=== PATIENT | female | born 1940 | race Caucasian/White ===

== ENCOUNTER 2022-04-16 09:26 | Outpatient (REF) | payer MEDICARE, SELFPAY ==
[2022-04-16 11:28] LABS: MANUAL DIFF FLAG NO
[2022-04-16 11:31] LABS: Basophils Absolute Auto 0.1 X10*3/uL (0.0-0.2); Basophils Percent Auto 0.8 % (0-2); Eosinophils Absolute Auto 0.2 X10*3/uL (0.0-0.4); Eosinophils Percent Auto 3.2 % (0-4); Hematocrit 42.5 % (37.0-47.0); Hemoglobin 13.9 g/dl (12.0-16.0); Imm Gran Abs Auto 0.02 X10*3/uL (0.00-0.03); Imm Gran Pct Auto 0.3 % (0.0-0.4); Lymphocytes Absolute Auto 1.9 X10*3/uL (1.2-4.9); Lymphocytes Percent Auto 28.7 % (20-40); Mean Corpuscular HGB Conc 32.7 g/dl (31.0-35.0); Mean Corpuscular Hemoglobin 29.9 pg (27.0-33.0); Mean Corpuscular Volume 91.4 fL (80.0-98.0); Mean Platelet Volume 9.9 fL (9.4-12.3); Monocytes Absolute Auto 0.5 X10*3/uL (0.1-1.2); Monocytes Percent Auto 8.3 % (2-11); Neutrophils Absolute Auto 3.8 x10*3/uL (2.0-8.3); Neutrophils Percent Auto 58.7 % (45-73); Platelet Count 359 X10*3/uL (160-400); Red Blood Count 4.65 X10*6/uL (4.20-5.50); Red Cell Distribution Width 14.2 % (11.0-16.0); White Blood Count 6.5 X10*3/uL (4.8-10.8)
[2022-04-16 12:06] LABS: Vitamin D 25-OH Total 105.7 ng/mL (>30)
[2022-04-16 12:08] LABS: Alanine Aminotransferase 17 U/L (0-31); Anion Gap 17 (12-20); Aspartate Amino Transferase 21 U/L (5-31); Blood Urea Nitrogen 30 mg/dL (9-16); Calcium 10.2 mg/dL (8.4-10.2); Carbon Dioxide 22 mmol/L (22-29); Chloride 104 mmol/L (96-108); Cholesterol 180 mg/dL; Estimated Glomerular Filt Rate 18; Glucose Fasting 126 mg/dL (60-99); HDL Cholesterol 86 mg/dL; LDL Cholesterol Calculated 78 mg/dl; Sodium 139 mmol/L (135-145); Triglycerides 83 mg/dL
== END 2022-04-16 09:27 | disposition home or self-care (01) ==
LOC: HO.HMGCLDS 09:26
PROVIDERS: PCP Internal Medicine; Visit Provider Internal Medicine
DX: E78.5 Hyperlipidemia, unspecified (principal); I10 Essential (primary) hypertension; M16.0 Bilateral primary osteoarthritis of hip; R12 Heartburn; Z85.3 Personal history of malignant neoplasm of breast; Z87.442 Personal history of urinary calculi
CPT/HCPCS: 36415; 80048; 80061; 82306; 84450; 84460; 85025

== ENCOUNTER 2022-04-21 07:08 | Outpatient (REF) | payer MEDICARE, SELFPAY ==
[2022-04-21 11:33] LABS: Estimated Average Glucose 123 mg/dL; Hemoglobin A1c % 5.9 %
[2022-04-21 11:56] LABS: Glucose Fasting 110 mg/dL (60-99)
== END 2022-04-21 07:09 | disposition home or self-care (01) ==
LOC: HO.HMGCLDS 07:08
PROVIDERS: PCP Internal Medicine; Visit Provider Internal Medicine
DX: R73.01 Impaired fasting glucose (principal)
CPT/HCPCS: 36415; 82947; 83036

== ENCOUNTER 2022-08-26 11:13 | Outpatient (REF) | payer MEDICARE, SELFPAY ==
[2022-08-26 14:24] LABS: C Reactive Protein 0.37 mg/dL (< or = 0.50)
[2022-08-26 14:37] LABS: Erythrocyte Sedimentation Rate 23 MM/HR (0-20)
== END 2022-08-26 11:14 | disposition home or self-care (01) ==
LOC: HO.HMGCLDS 11:13
PROVIDERS: PCP Internal Medicine; Visit Provider Internal Medicine
DX: M25.511 Pain in right shoulder (principal); M25.512 Pain in left shoulder
CPT/HCPCS: 36415; 85652; 86140

== ENCOUNTER 2022-10-14 06:45 | Outpatient (REF) | payer MEDICARE, SELFPAY ==
[2022-10-14 11:58] LABS: Alanine Aminotransferase 18 U/L (0-31); Aspartate Amino Transferase 19 U/L (5-31); Cholesterol 188 mg/dL; Glucose Fasting 138 mg/dL (60-99); HDL Cholesterol 78 mg/dL; LDL Cholesterol Calculated 94 mg/dl; Triglycerides 84 mg/dL
[2022-10-14 12:04] LABS: Vitamin D 25-OH Total 70.6 ng/mL (>30)
== END 2022-10-14 06:46 | disposition home or self-care (01) ==
LOC: HO.HMGCLDS 06:45
PROVIDERS: PCP Internal Medicine; Visit Provider Internal Medicine
DX: Z00.01 Encounter for general adult medical examination with abnormal findings (principal); M25.512 Pain in left shoulder; M25.511 Pain in right shoulder; I10 Essential (primary) hypertension; N95.1 Menopausal and female climacteric states; E78.5 Hyperlipidemia, unspecified
CPT/HCPCS: 36415; 80061; 82306; 82550; 82947; 84450; 84460

== ENCOUNTER 2023-04-12 09:07 | Outpatient (AMB) | payer MEDICARE, SELFPAY ==
[2023-04-12 09:16] VITALS: BP 138/70; PULSE 98; O2SAT 98; BMI 27.5
--- NOTE | 2023-04-12 09:16 | A.OFFPC_ITS ---
Vital Signs 04/12/23 09:16 Height 5 ft 4 in Weight 160 lb 4 oz BMI 27.5 BP 138/70 Blood Pressure Location Lt brachial Pulse 98 Pulse Source Pulse Oximeter Pulse Oximetry (%) 98 Oxygen Delivery Method Room Air Intake Visit Reasons: 6 Month follow up Allergies Penicillins Adverse Reaction (Verified 04/12/23 12:05) mouth swells strawberry Adverse Reaction (Verified 04/12/23 12:05) Rash tomato Adverse Reaction (Verified 04/12/23 12:05) Rash Medication List - Last Reconciled 04/12/23 by Henry Araiza, [facility] [place]- amlodipine 10 mg PO DAILY anastrozole 1 mg PO DAILY calcium carbonate (Antacid (calcium carbonate)) 200 mg PO DAILY famotidine 40 mg PO DAILY furosemide 20 mg PO QAM gabapentin 100 mg PO TID rosuvastatin 5 mg PO DAILY Tobacco use date assessed: 10/13/22 HPI 6 Month follow up HPI Details Pt's PCP is Dr. Mejia but I am seeing her for a 6 month follow up. Dyslipidemia: On rosuvastatin 5mg. HTN: Blood pressure is managed with amlodipine 10mg and furosemide 20mg. Will order labs. Denies chest pain, shortness of breath, headache, dizziness, and blurred vision. Pt is following up with rheumatology in the near future. Pt is fairly active. Pt reports some mild MURCIA when walking up the stairs. Mammo and bone density are up to date. [facility] Medical History (Updated 02/24/23 @ 13:03 by Yen Mejia MD) Annual visit for general adult medical examination with abnormal findings Bilateral shoulder pain Congenital hypertrophic pyloric stenosis Dyslipidemia Elevated serum creatinine Essential hypertension Heartburn symptom History of bone density study History of mammogram History of Papanicolaou smear of cervix Hx of breast cancer Hx of renal calculi Need for prophylactic antibiotic Osteoarthritis of hips, bilateral Polyarthralgia Post-menopause Tubular adenoma of colon Surgical History History of left hip replacement History of total right hip arthroplasty S/P lumpectomy, left breast Status post right breast lumpectomy Social History Housing: House Patient Tobacco Use Status: Never used Tobacco e-Cigarette/Vaping Use: Never Used Current occupational status: retired Cognitive needs: No Hearing needs: No Vision needs: Yes Questionnaire Thrive Questionnaire Date Thrive assessed: 04/16/22 VENANCIO-7 AMB Questionnaire VENANCIO-7 Date VENANCIO - 7 assessed: 10/13/22 Source: Developed by Drs. Dayton Atwood, Amy Muniz, Jese Pyle and colleagues, with an educational ellen from [employer]. Review of Systems Const Reports as per HPI Physical exam (Primary Care) Vital Signs: Last Vital Signs Pulse 98 04/12/23 09:16 BP 138/70 04/12/23 09:16 Pulse Ox 98 04/12/23 09:16 Oxygen Delivery Method Room Air 04/12/23 09:16 BMI result Body Mass Index 27.5 Tobacco/Smoking Status: Tobacco use Status Tobacco use date assessed 10/13/22 04/12/23 09:18 Patient Tobacco Use Status Never used Tobacco 04/12/23 09:18 e-Cigarette/Vaping Use Never Used 04/12/23 09:18 Thrive Assessment: Date of Thrive Assessment Date Thrive assessed 04/16/22 04/12/23 09:18 Const General: cooperative Orientation/consciousness: patient oriented x3 Resp Effort & Inspection: normal respiratory effort Auscultation: clear to auscultation bilaterally Cardio Rate: regular rate Rhythm: regular rhythm Heart sounds: S1 normal heart sound present and S2 normal heart sound present Neuro General: patient oriented x3 Extrem Right lower extremity: edema (trace) Left lower extremity: edema (trace) Psych Appearance: grossly normal Mental Status: mental status grossly normal Speech and movement: Normal speech and movement present Affect: normal affect Attitude: cooperative Thought process: Normal thought process present Thought content: Normal thought content present Insight: Good insight present (Psych) Judgement: Good judgement present (Psych) Assessment and Plan Assessment & Plan (1) Dyslipidemia: Code(s): E78.5 - Hyperlipidemia, unspecified Plan: Labs ordered (2) Essential hypertension: Code(s): I10 - Essential (primary) hypertension Plan: Labs ordered (3) Post-menopause: Code(s): Z78.0 - Asymptomatic menopausal state Plan: Vitamin D ordered Plan The patient agreed to the use of a medical staff credentialing coordinator for this encounter. Scribed for RAFAEL Morel by Cheryle Osmani, medical staff credentialing coordinator, on 04/12/2023 at 09:45 EST. Orders: Orders Comprehensive [place]. Panel Fast Today E78.5 - Hyperlipidemia, unspecified, I10 - Essential (primary) hypertension Lipid Panel Today E78.5 - Hyperlipidemia, unspecified, I10 - Essential (primary) hypertension TSH reflex Free T4 Today E78.5 - Hyperlipidemia, unspecified, I10 - Essential (primary) hypertension Complete Blood Count Auto Diff Today E78.5 - Hyperlipidemia, unspecified, I10 - Essential (primary) hypertension UA CC w/rflx Micro + Cult Today E78.5 - Hyperlipidemia, unspecified, I10 - Essential (primary) hypertension Vitamin D 25-OH Total Today Z78.0 - Asymptomatic menopausal state Coding Level of Care Code New Pt Level 3 (30172) Diagnoses Dyslipidemia E78.5 Essential hypertension I10 Post-menopause Z78.0
== END 2023-04-12 10:46 | disposition home or self-care (01) ==
PROVIDERS: Visit Provider Nurse Practitioner Family
DX: E78.5 Hyperlipidemia, unspecified (principal); I10 Essential (primary) hypertension; Z78.0 Asymptomatic menopausal state
CPT/HCPCS: 99203

== ENCOUNTER 2023-04-13 07:33 | Outpatient (REF) | payer MEDICARE, SELFPAY ==
[2023-04-13 11:14] LABS: MANUAL DIFF FLAG NO
[2023-04-13 11:30] LABS: Appearance Urine Cloudy; Color Urine Yellow; Glucose Urine UA Negative (Negative); Leukocyte Esterase Urine Large (3+) (Negative); Nitrite Urine Negative (Negative); Specific Gravity - Urine 1.015 (1.005-1.025); UMIC TRIGGER UACC YES; Urine Blood Negative (Negative); Urine Ketones Negative (Negative); Urine Protein Trace mg/dL (Neg-Trace)
[2023-04-13 11:35] LABS: Basophils Absolute Auto 0.1 X10*3/uL (0.0-0.2); Basophils Percent Auto 0.9 % (0-2); Eosinophils Absolute Auto 0.4 X10*3/uL (0.0-0.4); Eosinophils Percent Auto 6.9 % (0-4); Hemoglobin 12.7 g/dl (12.0-16.0); Imm Gran Abs Auto 0.01 X10*3/uL (0.00-0.03); Imm Gran Pct Auto 0.2 % (0.0-0.4); Lymphocytes Absolute Auto 1.8 X10*3/uL (1.2-4.9); Lymphocytes Percent Auto 33.3 % (20-40); Mean Corpuscular HGB Conc 32.6 g/dl (31.0-35.0); Mean Corpuscular Hemoglobin 28.2 pg (27.0-33.0); Mean Corpuscular Volume 86.7 fL (80.0-98.0); Mean Platelet Volume 9.5 fL (9.4-12.3); Monocytes Absolute Auto 0.4 X10*3/uL (0.1-1.2); Monocytes Percent Auto 7.8 % (2-11); Neutrophils Absolute Auto 2.8 x10*3/uL (2.0-8.3); Neutrophils Percent Auto 50.9 % (45-73); Platelet Count 352 X10*3/uL (160-400); Red Cell Distribution Width 14.6 % (11.0-16.0); White Blood Count 5.4 X10*3/uL (4.8-10.8)
[2023-04-13 11:35] LABS: Bacteria Urine 4+ (None Seen); Hyaline Casts Urine 0-2 /LPF (0-2); RBC Urine 0-2 /HPF (0-2); Squamous Epithelial Cell Urine >20 /HPF (0-2); UACC Culture Trigger YES; WBC Urine >50 /HPF (0-5)
[2023-04-13 11:58] LABS: Alanine Aminotransferase 17 U/L (0-31); Albumin Level 4.4 g/dL (3.5-5.0); Alkaline Phosphatase 94 U/L (39-117); Anion Gap 13 (12-20); Aspartate Amino Transferase 21 U/L (5-31); Bilirubin Total 0.5 mg/dL (0.0-1.0); Blood Urea Nitrogen 22 mg/dL (9-16); Calcium 9.9 mg/dL (8.4-10.2); Carbon Dioxide 25 mmol/L (22-29); Chloride 108 mmol/L (96-108); Cholesterol 172 mg/dL; Estimated Glomerular Filt Rate 43; Glucose Fasting 128 mg/dL (60-99); HDL Cholesterol 72 mg/dL; LDL Cholesterol Calculated 78 mg/dl; Sodium 142 mmol/L (135-145); Total Protein 7.4 g/dL (6.5-8.0); Triglycerides 110 mg/dL
[2023-04-13 12:19] LABS: TSH reflex Free T4 1.03 uIU/mL (0.32-4.0); Vitamin D 25-OH Total 61.8 ng/mL (>30)
== END 2023-04-13 07:34 | disposition home or self-care (01) ==
LOC: HO.HMGCLDS 07:33
PROVIDERS: PCP Internal Medicine; Visit Provider Nurse Practitioner Family
DX: E78.5 Hyperlipidemia, unspecified (principal); I10 Essential (primary) hypertension; Z78.0 Asymptomatic menopausal state; E55.9 Vitamin D deficiency, unspecified; N39.0 Urinary tract infection, site not specified
CPT/HCPCS: 36415; 80053; 80061; 81001; 82306; 84443; 85025; 87086; 87088; 87186

== ENCOUNTER 2023-04-21 11:05 | Outpatient (REF) | payer MEDICARE, SELFPAY ==
[2023-04-21 15:08] LABS: Estimated Average Glucose 126 mg/dL
== END 2023-04-21 11:06 | disposition home or self-care (01) ==
LOC: HO.HMGCLDS 11:05
PROVIDERS: PCP Internal Medicine; Visit Provider Internal Medicine
DX: R73.9 Hyperglycemia, unspecified (principal)
CPT/HCPCS: 36415; 83036

== ENCOUNTER 2023-04-27 09:54 | Outpatient (REF) | payer MEDICARE, SELFPAY ==
[2023-04-27 14:21] LABS: Appearance Urine Cloudy; Color Urine Yellow; Glucose Urine UA Negative (Negative); Leukocyte Esterase Urine Negative (Negative); Nitrite Urine Positive (Negative); PH 5.5 (5.0-9.0); Specific Gravity - Urine 1.025 (1.005-1.025); UMIC TRIGGER UACC YES; Urine Blood Negative (Negative); Urine Ketones Negative (Negative); Urine Protein Trace mg/dL (Neg-Trace)
[2023-04-27 14:53] LABS: Bacteria Urine 4+ (None Seen); Hyaline Casts Urine 0-2 /LPF (0-2); RBC Urine 0-2 /HPF (0-2); UACC Culture Trigger YES
== END 2023-04-27 09:55 | disposition home or self-care (01) ==
LOC: HO.HMGCLDS 09:54
PROVIDERS: PCP Internal Medicine; Visit Provider Nurse Practitioner Family
DX: N39.0 Urinary tract infection, site not specified (principal); E78.5 Hyperlipidemia, unspecified; I10 Essential (primary) hypertension
CPT/HCPCS: 81001; 81003; 87086; 87088; 87186

== ENCOUNTER 2023-05-31 10:31 | Outpatient (AMB) | payer MEDICARE, SELFPAY ==
[2023-05-31 10:40] VITALS: BP 136/74; PULSE 108; TEMP 36.3; O2SAT 94; BMI 27.2
--- NOTE | 2023-05-31 10:40 | A.OFFVIS_ITS ---
Intake Vital Signs 05/31/23 10:40 Height 5 ft 4 in Weight 158 lb 4.67 oz BMI 27.2 BP 136/74 Blood Pressure Location Rt brachial Position Sitting Pulse 108 H Pulse Source Pulse Oximeter Temp 97.3 F Temp Source Skin Pulse Oximetry (%) 94 Intake Visit Reasons: Joint Pain Intake Note: New pt presents today for joint pain consult. C/o pain, swelling and stiffness in bl hands, fingers and knuckles. Pain started approx 3-4 months ago. Has tried Voltaren gel and tylenol arthritis strength. 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 Accompanied by: Self / Same As Patient Allergies Penicillins Adverse Reaction (Verified 05/31/23 10:41) mouth swells strawberry Adverse Reaction (Verified 05/31/23 10:41) Rash tomato Adverse Reaction (Verified 05/31/23 10:41) Rash Medication List - Last Reconciled 05/31/23 by Catarino Perry MD acetaminophen ER (Tylenol Arthritis Pain) 1,300 mg PO Q8H amlodipine 5 mg PO DAILY anastrozole 1 mg PO DAILY ascorbic acid (vitamin C) 500 mg PO DAILY calcium carbonate (Antacid (calcium carbonate)) 200 mg PO DAILY famotidine 40 mg PO DAILY gabapentin 100 mg PO TID rosuvastatin 5 mg PO DAILY HPI HPI Comments History of Present Illness Details This is an 82-year-old female was referred for evaluation of multiple joint pain. The condition started on in June of 2022 when patient started having pain and stiffness of both shoulders, this lasted about 2 months then the pain swelling and stiffness started moving to her hands, fingers, knuckles. She has swelling of her right hand. Morning stiffness lasting 3-4 hours. She denies any other joint involvement. She denies any history of DVT/PE. Unaware of any family history of autoimmune rheumatic disease. She was diagnosed with right breast cancer 1999 years ago s/p lumpectomy and radiation, she took tamoxifen for 5 years. she was diagnosed with left breast cancer around 2019 and received lumpectomy and now on anastrozole. [facility] Medical History (Updated 05/31/23 @ 12:35 by Catarino Perry MD) Need for prophylactic antibiotic Annual visit for general adult medical examination with abnormal findings History of bone density study History of Papanicolaou smear of cervix History of mammogram Bilateral shoulder pain Tubular adenoma of colon Congenital hypertrophic pyloric stenosis Elevated serum creatinine Post-menopause Heartburn symptom Hx of renal calculi Osteoarthritis of hips, bilateral Hx of breast cancer Dyslipidemia Essential hypertension Surgical History History of bilateral hip replacements History of total right hip arthroplasty Status post right breast lumpectomy S/P lumpectomy, left breast Family History Mother Arthritis Social History Household Members Other:: Son and Grandson Housing: House Alcohol intake: current Alcohol intake frequency: does not drink Patient Tobacco Use Status: Never used Tobacco e-Cigarette/Vaping Use: Never Used Current occupational status: 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 Cognitive needs: No Hearing needs: No Vision needs: Yes Female Reproductive History Menstrual Age of Menarche: 12 Total pregnancies: 4 Number of Living Children: 3 Ab spontaneous: 1 Review of Systems Const Denies fatigue, Denies fever(s) and Denies weakness ENT Reports no additional complaints Card Reports dyspnea on exertion Resp Reports dyspnea on exertion Musc Reports arthralgias, Reports joint swelling, Reports limited range of motion, Reports stiffness and Reports tingling Skin/Breast Reports unusual bruising Neuro Reports tingling and Denies weakness Endo Denies fatigue Physical Exam Vital Signs: Last Vital Signs Temp 97.3 F 05/31/23 10:40 Pulse 108 H 05/31/23 10:40 BP 136/74 05/31/23 10:40 Pulse Ox 94 05/31/23 10:40 BMI result Body Mass Index 27.2 Const General: cooperative, healthy appearing, comfortable and no acute distress Nutritional Appearance: overweight Orientation/consciousness: patient oriented x3 Limitations: no limitations HEENT Head: Yes normocephalic and Yes atraumatic Mouth: moist mucous membranes Resp Effort & Inspection: normal respiratory effort and able to speak in complete sentences Auscultation: clear to auscultation bilaterally Cardio Rate: regular rate Rhythm: regular rhythm Heart sounds: S1 normal heart sound present GI Inspection: No distended Palpation (GI): Soft to palpation and nontender Skin General skin exam: no rashes or lesions noted Neuro General: patient oriented x3 Extrem Other: Mild right wrist swelling without tenderness or pain with any range of motion Diffuse 2nd through 5th MCP swelling and mild tenderness Diffuse 2nd through 5th finger swelling Diffuse 2nd through 5th PIP swelling Swelling of 2nd through 5th MCPs on the left Diffuse PIP swelling No elbow pain with full range of motion No hip pain with full range of motion No ankle pain or swelling bilaterally Negative MTP squeeze test bilateral No MTP tenderness bilaterally Assessment & Plan Assessment & Plan (1) Inflammatory arthritis: Code(s): M19.90 - Unspecified osteoarthritis, unspecified site Plan: This is an 82-year-old female who presents for evaluation of multiple joint pain. The condition started in number of 2021 when she had 2 month history of pain and stiffness of her shoulders then the pain and swelling moved to her hands. On exam she has multiple swollen and tender joints. Clinical picture consistent with inflammatory arthritis, likely elderly onset RA. Check comprehensive serology for autoimmune rheumatic disease. Check x-rays of involved joints Start prednisone therapeutic trial Follow-up in 3 weeks Plan I spent 46 minutes reviewing patient's chart, evaluating patient, ordering diagnostic workup, counseling patient and documenting in the chart Orders: Orders Complete Blood Count Auto Diff Today M25.50 - Pain in unspecified joint Erythrocyte Sedimentation Rate Today M25.50 - Pain in unspecified joint Immunofixation Pnl, Serum Today M25.50 - Pain in unspecified joint Anti Extractable Nuclear Ag Today M25.50 - Pain in unspecified joint Anti DNA DS Antibody Today M25.50 - Pain in unspecified joint Complement C4 Today M25.50 - Pain in unspecified joint Protein Creatinine Ratio, Ur Today M25.50 - Pain in unspecified joint Sjogren's Antibodies Today M25.50 - Pain in unspecified joint UA w Microscopic Today M25.50 - Pain in unspecified joint XR hand wrist RT Today M06.9 - Rheumatoid arthritis, unspecified XR foot LT min 3V Today M06.9 - Rheumatoid arthritis, unspecified XR foot RT min 3V Today M06.9 - Rheumatoid arthritis, unspecified Comprehensive Met. Panel Today M25.50 - Pain in unspecified joint C Reactive Protein Today M25.50 - Pain in unspecified joint Hepatitis A,B,C Profile Today Z11.59 - Encounter for screening for other viral diseases Protein Electrophoresis, Serum Today M25.50 - Pain in unspecified joint T Spot TB Today Z11.7 - Encounter for testing for latent tuberculosis infection Rheumatoid Factor Today M25.50 - Pain in unspecified joint Cyclic Citrullinated Peptide Today M25.50 - Pain in unspecified joint TEREZA Reflex Titer and Pattern Today M25.50 - Pain in unspecified joint Complement C3 Today M25.50 - Pain in unspecified joint XR hand wrist LT Today M06.9 - Rheumatoid arthritis, unspecified XR ankle RT min 3V Today M06.9 - Rheumatoid arthritis, unspecified XR ankle LT min 3V Today M06.9 - Rheumatoid arthritis, unspecified Medications: New prednisone Take 3 tabs by mouth once daily with breakfast for 1 week then 2 tabs daily for 1 week then 1 tab daily for 1 week then stop 42 tabs 0RF Coding Level of Care Code New Pt Level 4 (32686) Diagnoses Inflammatory arthritis M19.90
== END 2023-05-31 11:18 | disposition home or self-care (01) ==
PROVIDERS: PCP Internal Medicine; Visit Provider Student in an Organized Health Care Education/Training Program
DX: M19.90 Unspecified osteoarthritis, unspecified site (principal)
CPT/HCPCS: 99204

== ENCOUNTER 2023-05-31 10:31 | Outpatient (REF) | payer MEDICARE, SELFPAY ==
[2023-05-31 11:50] LABS: MANUAL DIFF FLAG NO
[2023-05-31 12:48] LABS: Basophils Absolute Auto 0.1 X10*3/uL (0.0-0.2); Basophils Percent Auto 0.9 % (0-2); Eosinophils Absolute Auto 0.2 X10*3/uL (0.0-0.4); Eosinophils Percent Auto 3.7 % (0-4); Hematocrit 41.9 % (37.0-47.0); Hemoglobin 13.4 g/dl (12.0-16.0); Imm Gran Abs Auto 0.03 X10*3/uL (0.00-0.03); Imm Gran Pct Auto 0.5 % (0.0-0.4); Lymphocytes Percent Auto 30.5 % (20-40); Mean Corpuscular Hemoglobin 27.7 pg (27.0-33.0); Mean Corpuscular Volume 86.6 fL (80.0-98.0); Mean Platelet Volume 9.5 fL (9.4-12.3); Monocytes Absolute Auto 0.6 X10*3/uL (0.1-1.2); Neutrophils Absolute Auto 3.6 x10*3/uL (2.0-8.3); Neutrophils Percent Auto 55.4 % (45-73); Platelet Count 384 X10*3/uL (160-400); Red Blood Count 4.84 X10*6/uL (4.20-5.50); Red Cell Distribution Width 14.2 % (11.0-16.0); White Blood Count 6.4 X10*3/uL (4.8-10.8)
[2023-05-31 12:56] LABS: Appearance Urine Hazy; Color Urine Yellow; Glucose Urine UA Negative (Negative); Leukocyte Esterase Urine Small (1+) (Negative); Nitrite Urine Negative (Negative); PH 5.5 (5.0-9.0); Specific Gravity - Urine 1.025 (1.005-1.025); UMIC TRIGGER UA YES; Urine Blood Negative (Negative); Urine Ketones Trace mg/dL (Negative); Urine Protein Trace mg/dL (Neg-Trace)
[2023-05-31 13:15] LABS: Bacteria Urine 4+ (None Seen); WBC Urine >50 /HPF (0-5)
[2023-05-31 13:22] LABS: Alanine Aminotransferase 17 U/L (0-31); Albumin Level 4.7 g/dL (3.5-5.0); Alkaline Phosphatase 103 U/L (39-117); Anion Gap 17 (12-20); Aspartate Amino Transferase 20 U/L (5-31); Bilirubin Total 0.6 mg/dL (0.0-1.0); Blood Urea Nitrogen 22 mg/dL (9-16); C Reactive Protein < 0.10 mg/dL (< or = 0.50); Calcium 10.4 mg/dL (8.4-10.2); Carbon Dioxide 23 mmol/L (22-29); Chloride 104 mmol/L (96-108); Estimated Glomerular Filt Rate 39; Glucose Random 139 mg/dL (60-115); Potassium 3.7 mmol/L (3.3-5.1); Sodium 140 mmol/L (135-145); Total Protein 7.9 g/dL (6.5-8.0)
[2023-05-31 13:22] LABS: Creatinine Urine 274.36 mg/dL; Protein/Creatinine Ratio, Ur 0.12 (<0.2); Total Protein Urine Random 33 mg/dL (<12)
[2023-05-31 13:30] LABS: Rheumatoid Factor < 13.0 IU/mL (<15.0)
[2023-05-31 13:39] LABS: Erythrocyte Sedimentation Rate 18 MM/HR (0-20)
[2023-06-01 09:45] LABS: HBS Num1 1.15 mIU/mL (0-7.99); HBc Num1 0.08 S/CO (0.00-0.79); HBsAGNum1 0.29 S/CO (0.00-0.99); Hepatitis A Antibody IgM 0.13 Index (0-0.79); Hepatitis B Core Antibody Nonreactive (Nonreactive); Hepatitis B Surface Antigen Negative (Negative); ~HepC Num1 0.05 S/CO (0.00-0.79); ~Hepatitis A Antibody IgM Nonreactive (Nonreactive); ~Hepatitis B Surface Antibody NONREACTIVE (Nonreactive); ~Hepatitis C Antibody Nonreactive (Nonreactive)
[2023-06-01 17:23] LABS: Complement C3 161 mg/dL
[2023-06-02 10:45] LABS: Prot Elec - Albumin 4.6 g/dL (3.8-4.8); Prot Elec - Alpha1 0.3 g/dL (0.2-0.3); Prot Elec - Alpha2 0.8 g/dL (0.5-0.9); Prot Elec - Beta 1 0.6 g/dL (0.4-0.6); Prot Elec - Beta 2 0.4 g/dL (0.2-0.5); Prot Elec - Gamma 0.8 g/dL (0.8-1.7); Prot Elec - Total Protein 7.5 g/dL (6.1-8.1)
[2023-06-02 13:44] LABS: Anti DNA DS Antibody <1 IU/mL; Antibody to SS-A Antigen <1.0 NEG AI (<1.0 NEG); Antibody to SS-B Antigen <1.0 NEG AI (<1.0 NEG); SM/Ribonucleoprotein Ab <1.0 NEG AI (<1.0 NEG); Smith Protein <1.0 NEG AI (<1.0 NEG)
[2023-06-02 14:43] LABS: Anti Nuclear Antibody Screen NEGATIVE (NEGATIVE)
[2023-06-02 16:08] LABS: Cyclic Citrullinated Peptide <16 UNITS
[2023-06-03 00:09] LABS: TS Negative Control Passed; TS Panel A 3; TS Panel B 2; TS Positive Control Passed; TSpotTB Negative (Negative)
[2023-06-03 10:48] LABS: IgA 249 mg/dL (70-320); IgG 828 mg/dL (600-1540); IgM 49 mg/dL (50-300)
== END 2023-05-31 10:32 | disposition home or self-care (01) ==
LOC: HO.XRAY 10:31
PROVIDERS: PCP Internal Medicine; Visit Provider Student in an Organized Health Care Education/Training Program
DX: M25.50 Pain in unspecified joint (principal); M19.90 Unspecified osteoarthritis, unspecified site; M06.9 Rheumatoid arthritis, unspecified; Z11.59 Encounter for screening for other viral diseases; Z72.89 Other problems related to lifestyle; Z11.7 Encounter for testing for latent tuberculosis infection
CPT/HCPCS: 36415; 73110; 73130; 73610; 73630; 80053; 81001; 82570; 82784; 84156; 84165; 85025; 85652; 86038; 86140; 86160; 86200; 86225; 86235; 86334; 86431; 86481; 86704; 86706; 86709; 86803; 87340; 99202

== ENCOUNTER 2023-06-22 11:25 | Outpatient (AMB) | payer MEDICARE, SELFPAY ==
[2023-06-22 11:34] VITALS: BP 130/82; PULSE 102; TEMP 36.2; O2SAT 96; BMI 26.9
--- NOTE | 2023-06-22 11:34 | MHC.OFFVIS ---
Intake Vital Signs 06/22/23 11:34 Height 5 ft 4 in Weight 156 lb 8.451 oz BMI 26.9 BP 130/82 Blood Pressure Location Lt brachial Position Sitting Pulse 102 H Pulse Source Pulse Oximeter Temp 97.1 F Temp Source Skin Pulse Oximetry (%) 96 Intake Visit Reasons: RA Intake Note: Pt presents to follow up on RA and test results. Completed prednisone taper. 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 Accompanied by: Self / Same As Patient Allergies Penicillins Adverse Reaction (Verified 05/31/23 10:41) mouth swells strawberry Adverse Reaction (Verified 05/31/23 10:41) Rash tomato Adverse Reaction (Verified 05/31/23 10:41) Rash Medication List - Last Reconciled 06/22/23 by Catarino Perry MD acetaminophen ER (Tylenol Arthritis Pain) 1,300 mg PO Q8H amlodipine 5 mg PO DAILY anastrozole 1 mg PO DAILY ascorbic acid (vitamin C) 500 mg PO DAILY calcium carbonate (Antacid (calcium carbonate)) 200 mg PO DAILY famotidine 40 mg PO DAILY gabapentin 100 mg PO TID prednisone Take 3 tabs by mouth once daily with breakfast for 1 week then 2 tabs daily for 1 week then 1 tab daily for 1 week then stop rosuvastatin 5 mg PO DAILY HPI HPI Comments History of Present Illness Details Patient returns for follow-up after completion of her diagnostic workup and prednisone taper. Feels much better overall. Pain and swelling of her fingers and knuckles is significantly improved. She is now able to put her rings back on. Initial history: This is an 82-year-old female was referred for evaluation of multiple joint pain. The condition started on in June of 2022 when patient started having pain and stiffness of both shoulders, this lasted about 2 months then the pain swelling and stiffness started moving to her hands, fingers, knuckles. She has swelling of her right hand. Morning stiffness lasting 3-4 hours. She denies any other joint involvement. She denies any history of DVT/PE. Unaware of any family history of autoimmune rheumatic disease. She was diagnosed with right breast cancer 1999 years ago s/p lumpectomy and radiation, she took tamoxifen for 5 years. she was diagnosed with left breast cancer around 2019 and received lumpectomy and now on anastrozole. [facility] Medical History (Updated 06/22/23 @ 12:04 by Catarino Perry MD) Need for prophylactic antibiotic Annual visit for general adult medical examination with abnormal findings History of bone density study History of Papanicolaou smear of cervix History of mammogram Bilateral shoulder pain Tubular adenoma of colon Congenital hypertrophic pyloric stenosis Elevated serum creatinine Post-menopause Heartburn symptom Hx of renal calculi Osteoarthritis of hips, bilateral Hx of breast cancer Dyslipidemia Essential hypertension Surgical History History of bilateral hip replacements History of total right hip arthroplasty Status post right breast lumpectomy S/P lumpectomy, left breast Family History Mother Arthritis Social History Household Members Other:: Son and Grandson Housing: House Alcohol intake: current Alcohol intake frequency: does not drink Patient Tobacco Use Status: Never used Tobacco e-Cigarette/Vaping Use: Never Used Current occupational status: 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 Cognitive needs: No Hearing needs: No Vision needs: Yes Female Reproductive History Menstrual Age of Menarche: 12 Review of Systems Musc Denies joint swelling Physical Exam Vital Signs: Last Vital Signs Temp 97.1 F 06/22/23 11:34 Pulse 102 H 06/22/23 11:34 BP 130/82 06/22/23 11:34 Pulse Ox 96 06/22/23 11:34 BMI result Body Mass Index 26.9 Const General: cooperative, healthy appearing, comfortable and no acute distress Nutritional Appearance: overweight Orientation/consciousness: patient oriented x3 Limitations: no limitations HEENT Head: Yes normocephalic and Yes atraumatic Resp Effort & Inspection: normal respiratory effort and able to speak in complete sentences Neuro General: patient oriented x3 Extrem Other: No wrist swelling or tenderness bilaterally Right 2nd MCP enlargement without tenderness No PIP swelling or tenderness right hand No swelling or tenderness of MCPs or PIP is left hand No elbow pain with full range of motion No hip pain with full range of motion No ankle pain or swelling bilaterally Negative MTP squeeze test bilateral No MTP tenderness bilaterally Assessment & Plan Assessment & Plan (1) Seronegative rheumatoid arthritis: Comment: -ve RF -ve CCP dx 05/2023 HCQ 05/2023 Code(s): M06.00 - Rheumatoid arthritis without rheumatoid factor, unspecified site Plan: This is an 82-year-old female who presents for evaluation of multiple joint pain.? The condition started in number of 2021 when she had 2 month history of pain and stiffness of her shoulders then the pain and swelling moved to her hands.? On exam she had multiple swollen and tender joints.? Symptoms quite responsive to steroid taper. Clinical picture consistent with new onset seronegative RA. ( Interestingly her symptoms started after she was switched from tamoxifen to anastrozole) Will need to start DMARDs. Discussed risks and benefits of hydroxychloroquine. Patient agreed to proceed. Start hydroxychloroquine 200 mg Twice daily. Plan to reduce dose next visit if effective and well tolerated Can take 5 mg of prednisone once daily as needed for joint Follow-up in 3 months (2) Long-term use of hydroxychloroquine: Code(s): Z79.899 - Other [facility] (current[facility] drug therapy Plan: Discussed risk of retinopathy associated with hydroxychloroquine. 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 Panel 3 Months M06.00 - Rheumatoid arthritis without rheumatoid factor, unspecified site Erythrocyte Sedimentation Rate 3 Months M06.00 - Rheumatoid arthritis without rheumatoid factor, unspecified site C Reactive Protein 3 Months M06.00 - Rheumatoid arthritis without rheumatoid factor, unspecified site Medications: New hydroxychloroquine 200 mg PO BID 60 tabs 2RF Changed From prednisone Take 3 tabs by mouth once daily with breakfast for 1 week then 2 tabs daily for 1 week then 1 tab daily for 1 week then stop 42 tabs 0RF To prednisone 5 mg PO DAILY PRN 30 tabs 1RF pain (scale score 4-6) Coding Level of Care Code Est Pt Level 4 (52186) Diagnoses Seronegative rheumatoid arthritis M06.00 Long-term use of hydroxychloroquine Z79.899
== END 2023-06-22 11:57 | disposition home or self-care (01) ==
PROVIDERS: PCP Internal Medicine; Visit Provider Student in an Organized Health Care Education/Training Program
DX: M06.00 Rheumatoid arthritis without rheumatoid factor, unspecified site (principal); Z79.899 Other long term (current) drug therapy
CPT/HCPCS: 99214

== ENCOUNTER → 2023-06-22 11:25 | Outpatient (BNVA) | payer MEDICARE, SELFPAY | PROVIDERS: PCP Internal Medicine; Visit Provider Student in an Organized Health Care Education/Training Program | DX: M06.00 Rheumatoid arthritis without rheumatoid factor, unspecified site (principal); Z79.899 Other long term (current) drug therapy | CPT/HCPCS: 99212 ==

== ENCOUNTER 2023-09-08 10:35 | Outpatient (AMB) | payer MEDICARE, SELFPAY ==
[2023-09-08 10:57] VITALS: BP 110/74; PULSE 103; O2SAT 98; BMI 27.0
--- NOTE | 2023-09-08 10:57 | A.OFFPC_ITS ---
Vital Signs 09/08/23 10:57 Height 5 ft 4 in Weight 157 lb 4 oz BMI 27.0 BP 110/74 Blood Pressure Location Rt brachial Position Sitting Pulse 103 H Pulse Source Pulse Oximeter Pulse Oximetry (%) 98 Oxygen Delivery Method Room Air Intake Visit Reasons: [facility] follow UIT/SOB Intake Note: Pt is here to follow up from [facility] pt is still having SOB but she says her UTI sx are gone Allergies Penicillins Adverse Reaction (Verified 09/08/23 11:14) mouth swells strawberry Adverse Reaction (Verified 09/08/23 11:14) Rash tomato Adverse Reaction (Verified 09/08/23 11:14) Rash Medication List - Last Reconciled 09/08/23 by Yen Mejia MD acetaminophen ER (Tylenol Arthritis Pain) 1,300 mg PO Q8H amlodipine 10 mg PO DAILY anastrozole 1 mg PO DAILY ascorbic acid (vitamin C) 500 mg PO DAILY calcium carbonate (Antacid (calcium carbonate)) 200 mg PO DAILY famotidine 40 mg PO DAILY gabapentin 100 mg PO TID hydroxychloroquine 200 mg PO BID prednisone 5 mg PO DAILY PRN rosuvastatin 5 mg PO DAILY Tobacco use date assessed: 09/08/23 Fall risk assessment: No Falls in past year Last assessed Fall Risk: 09/08/23 Dental Screening Dental Screen Date: 09/08/23 Did you have a dental visit in the last 12 months?: Yes Did you have a dental problem in the last 6 months where you did not have access to dental care?: No Was dental information given to patient?: Patient has dentist HPI HPI Comments History of Present Illness Details 83-year-old lady with chronic kidney dis ease, history of breast cancer currently on anastrozole, osteoarthritis of hips bilateral, hypertension, dyslipidemia, here today for follow-up after recent ER visit 08/03/2023, where she presented complaining of shortness of breath on exertion, was found to have a urinary tract infection, but had no urinary symptoms. Workup done showed: CBC within normal limits, no leukocytosis, BMP demonstrates acute on chronic kidney injury with creatinine 1.77, mildly elevated compared to 1.39 in August 2022; LFTs are elevated ; BNP not elevated, negative troponin x1. Chest x-ray shows clear lungs without acute findings, EKG was unremarkable. CT of abdomen without contrast showed unremarkable findings , gallbladder ultrasound showed hepatic steatosis but was otherwise unremarkable, hepatitis panel came back negative. D-dimer came back negative. She completed 7 days of cefpodoxime, . At present she does not have any urinary symptoms, but would like to have her urine checked. Still complaining of shortness of breath on minimal to moderate exertion such as climbing stairs, folding clothes, doing some light housework [facility] Medical History (Updated 09/12/23 @ 01:04 by Yen Mejia MD) Recurrent urinary tract infection Shortness of breath on exertion CKD (chronic kidney disease) Need for prophylactic antibiotic Annual visit for general adult medical examination with abnormal findings History of bone density study History of Papanicolaou smear of cervix History of mammogram Bilateral shoulder pain Tubular adenoma of colon Congenital hypertrophic pyloric stenosis Post-menopause Heartburn symptom Hx of renal calculi Osteoarthritis of hips, bilateral Hx of breast cancer Dyslipidemia Essential hypertension Surgical History History of bilateral hip replacements History of total right hip arthroplasty Status post right breast lumpectomy S/P lumpectomy, left breast Family History Mother Arthritis Social History Household Members Other:: Son and Grandson Housing: House Alcohol intake: current Alcohol intake frequency: does not drink Patient Tobacco Use Status: Never used Tobacco e-Cigarette/Vaping Use: Never Used Current occupational status: 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 1. Little interest or pleasure in doing things: several days 2. Feeling down, depressed, or hopeless: not at all 3. Trouble falling or staying asleep, or sleeping too much: not at all 4. Feeling tired or having little energy: more than half the days 5. Poor appetite or overeating: not at all 6. Feeling bad about yourself - or that you are a failure or have let yourself or your family down: not at all 7. Trouble concentrating on things, such as reading the newspaper or watching television: not at all 8. Moving or speaking so slowly that other people could have noticed. Or the opposite - being so fidgety or restless that you have been moving around a lot more than usual: not at all 9. Thoughts that you would be better off or of hurting yourself in some way: not at all Total score: 3 Depression Screening Interpretation: Negative Depression Screening Done: Yes 09519 - PHQ-9 Billing: Yes Source: Developed by Drs. Dayton Atwood, Amy Muniz, Jese Pyle and colleagues, with an educational ellen from [employer]. Thrive Questionnaire Date Thrive assessed: 09/08/23 I am a: Patient What is your living situation today?: I have a steady place to live Within the past 12 months, did the food you bought not last and you didn't have the money to get more?: Never true Within the past 12 months, did you worry whether your food would run out before you got money to buy more?: Never true Do you have trouble paying for medicines?: No Do you have trouble getting transportation to medical appointments?: No Do you have trouble paying your heating and electricity bill?: No Do you have trouble taking care of your child, family member or friend?: No Do you have trouble with day-to-day activities such as bathing, preparing meals, shopping, managing finances, etc.?: No Are you currently unemployed and looking for a job?: No Are you interested in more education?: No AUDIT C Alcohol Use Questionnaire (AUDIT-C) 1. How often do you have a drink containing alcohol?: Never 3. How often do you have six or more drinks on one occasion?: Never Total Score: 0 VENANCIO-7 AMB Questionnaire VENANCIO-7 Date VENANCIO - 7 assessed: 09/08/23 Feeling nervous, anxious, or on edge: 0 = Not at all Not being able to stop or control worryin = Not at all Worrying too much about different things: 1 = Several days Trouble relaxin = Not at all Being so restless that it is hard to sit still: 0 = Not at all Becoming easily annoyed or irritable: 0 = Not at all Feeling afraid as if something awful might happen: 0 = Not at all Total VENANCIO-7 score (0-4 normal; 5-9 mild; 10-14 moderate; 15-21 severe): 1 Source: Developed by Drs. Dayton Atwood, Amy Muniz, Jese Pyle and colleagues, with an educational ellen from [employer]. VENANCIO-7 Assessment Billing VENANCIO-7 Assessment Tool: VENANCIO-7 Assessment 24979 Review of Systems Const Denies anorexia, Denies fever(s) and Denies headache(s) Eyes Reports no additional complaints ENT Reports no additional complaints and Denies headache(s) Card Reports as per HPI, Denies chest pain at rest, Denies chest pain with activity, Reports rapid heart rate, Denies irregular heart rhythm and Denies lightheadedness Resp Reports as per HPI, Denies cough and Denies wheezing GI Reports no additional complaints Reports no additional complaints Musc Reports arthralgias, Reports stiffness and Reports tingling Neuro Reports no additional complaints, Denies headache(s) and Reports tingling Endo Reports no additional complaints Aller/Immun Reports no additional complaints and Denies wheezing Physical exam (Primary Care) Vital Signs: Last Vital Signs Pulse 103 H 09/08/23 10:57 BP 110/74 09/08/23 10:57 Pulse Ox 98 09/08/23 10:57 Oxygen Delivery Method Room Air 09/08/23 10:57 BMI result Body Mass Index 27.0 Tobacco/Smoking Status: Tobacco use Status Tobacco use date assessed 09/08/23 09/08/23 11:06 Patient Tobacco Use Status Never used Tobacco 09/08/23 11:06 e-Cigarette/Vaping Use Never Used 09/08/23 11:06 PHQ-9: PHQ-9 Score PHQ-9: Total score 3 09/09/23 06:29 Depression Screening Interpretation: Negative Thrive Assessment: Date of Thrive Assessment Date Thrive assessed 09/08/23 09/08/23 11:13 Const Other: Accompanied by daughter General: cooperative, comfortable, no acute distress, alert, awake and Physically active Nutritional Appearance: overweight Orientation/consciousness: patient oriented x3 HENMT Head: Yes normocephalic and Yes atraumatic Ears: external ears normal General nose exam: Normal external nose present Face and sinus: Yes face symmetric Mouth: Normal oral and palatal mucosa present, oropharynx normal and moist mucous membranes Eyes General: appearance normal, both eyes and all related structures Neck Neck: Yes full ROM, Yes no lymphadenopathy, Yes supple and Yes no JVD Carotids: no bruits Resp Effort & Inspection: normal respiratory effort and able to speak in complete sentences Auscultation: clear to auscultation bilaterally Cardio Rate: tachycardic Rhythm: regular rhythm Heart sounds: S1 normal heart sound present and S2 normal heart sound present GI Inspection: Yes normal to inspection Palpation (GI): Soft to palpation, nontender, no guarding and no masses Auscultation: normal bowel sounds General: Yes no CVA tenderness Back/Spine/Pelvis Back: no CVA tenderness and No back tenderness Neuro General: patient oriented x3, gait normal, tone normal, moves all extremities and no focal motor deficits Extrem Right lower extremity: edema (trace) Left lower extremity: edema (trace) Psych Appearance: grossly normal Mental Status: mental status grossly normal Speech and movement: Normal speech and movement present Affect: normal affect Attitude: cooperative Thought process: Normal thought process present Thought content: Normal thought content present Results AMB Urinalysis, Automated UA Leukoctes 70 Valdez/uL Last Edit by Prasad Higgins CMA on 09/08/23 11:44 UA Nitrite Positive Last Edit by Prasad Higgins CMA on 09/08/23 11:44 UA Urobilinogen 0.2 mg/dL Last Edit by Prasad Higgins CMA on 09/08/23 11 :44 UA Protein 30 mg/dL Last Edit by Prasad Higgins CMA on 09/08/23 11:44 UA pH 6.0 Last Edit by Prasad Higgins CMA on 09/08/23 11:44 UA Blood 0 Abhishek/uL Last Edit by Prasad Higgins CMA on 09/08/23 11:44 UA Specific [place] 1.030 Last Edit by Prasad Higgins CMA on 09/08/23 11:44 UA Ketone Negative Last Edit by Prasad Higgins CMA on 09/08/23 11:44 UA Bilirubin 0 mg/dL Last Edit by Prasad Higgins CMA on 09/08/23 11:44 UA Glucose 0 mg/dL Last Edit by Prasad Higgins CMA on 01/11/24 11:44 Results Reviewed Results Reviewed: Laboratory Last Values Urine pH (Auto) 6.0 09/08/23 11:44 Specific [place] (Auto) 1.030 09/08/23 11:44 Urine Protein (Auto) 30 mg/dL 09/08/23 11:44 Glucose (UA)(Auto) 0 mg/dL 09/08/23 11:44 Urine Ketones (Auto) Negative 09/08/23 11:44 Urine Blood (Auto) 0 Abhishek/uL 09/08/23 11:44 Urine Nitrite (Auto) Positive 09/08/23 11:44 Urine Bilirubin (Auto) 0 mg/dL 09/08/23 11:44 Urine Urobilinogen (Auto) 0.2 mg/dL 09/08/23 11:44 Leukocyte Esterase (Auto) 70 Valdez/uL 09/08/23 11:44 Assessment and Plan Assessment & Plan (1) Essential hypertension: Code(s): I10 - Essential (primary) hypertension Plan: Blood pressure at goal of less than 130/80. Continue with current medication. Reinforced importance of following a low sodium diet, getting regular exercise, and lowering stress levels. (2) CKD (chronic kidney disease): Code(s): N18.9 - Chronic kidney disease, unspecified Plan: Nephrology consult obtained with trina Hair for follow-up (3) Shortness of breath on exertion: Code(s): R06.02 - Shortness of breath Plan: EKG showed normal sinus rhythm with minimal LVH by voltage and occasional PAC. Holter monitor 3 day ordered as well as a 2D echocardiogram transthoracic. Advised to get her labs done for CMP, CBC, BNP, and lipid as well as vitamin-D level. Cardiology consult obtained (4) Dyslipidemia: Code(s): E78.5 - Hyperlipidemia, unspecified Plan: Currently on rosuvastatin 5 mg daily, fasting lipid panel ordered (5) History of UTI: Code(s): Z87.440 - Personal history of urinary (tract) infections Plan: Urinalysis showed presence of nitrites and some leukocytes, but patient currently asymptomatic. Already completed 7 day course of cefpodoxime 2 weeks ago. Await results of urine culture and sensitivity (6) Fatigue: Code(s): R53.83 - Other fatigue Plan: Check vitamin-D and B12 low and CBC Orders: Orders Vitamin D 25-OH Total 09/08/23 N18.9 - Chronic kidney disease, unspecified, R06.02 - Shortness of breath, R53.83 - Other fatigue Lipid Panel 09/08/23 E78.5 - Hyperlipidemia, unspecified ECG 3 day holter monitor 09/08/23 I49.1 - Atrial premature depolarization, R06.02 - Shortness of breath AMB EKG-In Office 09/08/23 I10 - Essential (primary) hypertension, R06.02 - Shortness of breath, Z13.6 - Encounter for screening for cardiovascular disorders UA CC w/rflx Micro + Cult 09/08/23 Z87.440 - Personal history of urinary (tract) infections AMB Urinalysis Automated 09/08/23 Z13.9 - Encounter for screening, unspecified Vitamin B12 and Folate 09/08/23 N18.9 - Chronic kidney disease, unspecified, R06.02 - Shortness of breath, R53.83 - Other fatigue B Type Natriuretic Peptide 09/08/23 N18.9 - Chronic kidney disease, unspecified, R06.02 - Shortness of breath, R53.83 - Other fatigue CA echo transthoracic complete 09/08/23 I10 - Essential (primary) hypertension, N18.9 - Chronic kidney disease, unspecified, R06.02 - Shortness of breath Referrals Nephrology Referral I10 - Essential (primary) hypertension, N18.9 - Chronic kidney disease, unspecified Cardiology Referral E78.5 - Hyperlipidemia, unspecified, I10 - Essential (primary) hypertension, R06.02 - Shortness of breath Medications: Refilled gabapentin 100 mg PO TID 90 caps 5RF Coding Level of Care Code Est Pt Level 4 (64244) Diagnoses Essential hypertension I10 CKD (chronic kidney disease) N18.9 Shortness of breath on exertion R06.02 Dyslipidemia E78.5 History of UTI Z87.440 Fatigue R53.83 Additional Codes VENANCIO-7 Assessment Billing - VENANCIO-7 Assessment Tool: VENANCIO-7 Assessment 56152 ([id number])
== END 2023-09-08 13:34 | disposition home or self-care (01) ==
PROVIDERS: PCP Internal Medicine; Visit Provider Internal Medicine
DX: Z87.440 Personal history of urinary (tract) infections (principal)
CPT/HCPCS: 81003; 99214

== ENCOUNTER 2023-09-08 12:06 | Outpatient (REF) | payer MEDICARE, SELFPAY ==
[2023-09-08 13:13] LABS: Appearance Urine Turbid; Color Urine Yellow; Glucose Urine UA Negative (Negative); Leukocyte Esterase Urine Moderate (2+) (Negative); Nitrite Urine Positive (Negative); Specific Gravity - Urine 1.025 (1.005-1.025); UMIC TRIGGER UACC YES; Urine Blood Negative (Negative); Urine Ketones Trace mg/dL (Negative); Urine Protein 30 (1+) mg/dL (Neg-Trace)
[2023-09-08 13:39] LABS: B Type Natriuretic Peptide 23 pg/mL (<100)
[2023-09-08 13:40] LABS: Cholesterol 184 mg/dL (<200); HDL Cholesterol 97 mg/dL (>40); LDL Cholesterol Calculated 70 mg/dL (<100); Triglycerides 86 mg/dL (<150)
[2023-09-08 13:57] LABS: Vitamin D 25-OH Total 45.8 ng/mL (>30)
[2023-09-08 14:02] LABS: Bacteria Urine 4+ (None Seen); RBC Urine 0-2 /HPF (0-2); UACC Culture Trigger YES; WBC Urine 21-50 /HPF (0-5)
[2023-09-08 14:09] LABS: Folate 6.9 ng/mL (> or = 4.0); Vitamin B12 201 pg/mL (200-900)
== END 2023-09-08 12:07 | disposition home or self-care (01) ==
LOC: HO.HMGCLDS 12:06
PROVIDERS: PCP Internal Medicine; Visit Provider Internal Medicine
DX: R06.02 Shortness of breath (principal); N18.9 Chronic kidney disease, unspecified; R53.83 Other fatigue; E78.5 Hyperlipidemia, unspecified; Z87.440 Personal history of urinary (tract) infections
CPT/HCPCS: 36415; 80061; 81001; 82306; 82607; 82746; 83880; 87086; 87088; 87186

== ENCOUNTER 2023-09-15 09:15 | Outpatient (REF) | payer MEDICARE, SELFPAY ==
[2023-09-15 09:47] LABS: MANUAL DIFF FLAG NO
[2023-09-15 10:40] LABS: Basophils Absolute Auto 0.1 X10*3/uL (0.0-0.2); Basophils Percent Auto 0.6 % (0-2); Eosinophils Absolute Auto 0.4 X10*3/uL (0.0-0.4); Eosinophils Percent Auto 3.9 % (0-4); Hematocrit 40.9 % (37.0-47.0); Hemoglobin 13.3 g/dl (12.0-16.0); Imm Gran Abs Auto 0.03 X10*3/uL (0.00-0.03); Imm Gran Pct Auto 0.3 % (0.0-0.4); Lymphocytes Absolute Auto 1.5 X10*3/uL (1.2-4.9); Lymphocytes Percent Auto 16.7 % (20-40); Mean Corpuscular HGB Conc 32.5 g/dl (31.0-35.0); Mean Corpuscular Hemoglobin 28.2 pg (27.0-33.0); Mean Corpuscular Volume 86.8 fL (80.0-98.0); Mean Platelet Volume 9.3 fL (9.4-12.3); Monocytes Absolute Auto 0.6 X10*3/uL (0.1-1.2); Monocytes Percent Auto 6.6 % (2-11); Neutrophils Absolute Auto 6.4 x10*3/uL (2.0-8.3); Neutrophils Percent Auto 71.9 % (45-73); Platelet Count 373 X10*3/uL (160-400); Red Blood Count 4.71 X10*6/uL (4.20-5.50); Red Cell Distribution Width 14.1 % (11.0-16.0); White Blood Count 8.9 X10*3/uL (4.8-10.8)
[2023-09-15 11:27] LABS: Alanine Aminotransferase 17 U/L (0-31); Albumin Level 4.4 g/dL (3.5-5.0); Alkaline Phosphatase 103 U/L (39-117); Anion Gap 14 (12-20); Aspartate Amino Transferase 23 U/L (5-31); Bilirubin Total 0.5 mg/dL (0.0-1.0); Blood Urea Nitrogen 18 mg/dL (9-16); C Reactive Protein < 0.10 mg/dL (< or = 0.50); Calcium 10.1 mg/dL (8.4-10.2); Carbon Dioxide 26 mmol/L (22-29); Chloride 107 mmol/L (96-108); Estimated Glomerular Filt Rate 35; Glucose Random 183 mg/dL (60-115); Potassium 3.6 mmol/L (3.3-5.1); Sodium 143 mmol/L (135-145); Total Protein 7.4 g/dL (6.5-8.0)
[2023-09-15 11:54] LABS: Erythrocyte Sedimentation Rate 18 MM/HR (0-20)
== END 2023-09-15 09:16 | disposition home or self-care (01) ==
LOC: HO.LAB 09:15
PROVIDERS: Visit Provider Student in an Organized Health Care Education/Training Program
DX: M06.00 Rheumatoid arthritis without rheumatoid factor, unspecified site (principal)
CPT/HCPCS: 36415; 80053; 85025; 85652; 86140

== ENCOUNTER 2023-09-20 09:29 | Outpatient (AMB) | payer MEDICARE, SELFPAY ==
--- NOTE | 2023-09-20 09:47 | MHC.OFFVIS ---
Intake Vital Signs 09/20/23 09:52 Height 5 ft 4 in Weight 153 lb 7.068 oz BMI 26.3 BP 118/68 Blood Pressure Location Rt brachial Position Sitting Pulse 111 H Pulse Source Pulse Oximeter Temp 96.5 F L Temp Source Skin Pulse Oximetry (%) 96 Oxygen Delivery Method Room Air Intake Visit Reasons: RA Intake Note: Patient last seen 06/22/23 presents today for follow up and test results. Denies new or increased pain, reports stiffness in fingers. Also reports being seen at ED and will be seeing a tube fitter and urologist soon. Fingerprint Clerk Required: No Accompanied by: Self / Same As Patient Allergies Penicillins Adverse Reaction (Verified 09/20/23 09:57) mouth swells strawberry Adverse Reaction (Verified 09/20/23 09:57) Rash tomato Adverse Reaction (Verified 09/20/23 09:57) Rash Medication List - Last Reconciled 09/20/23 by Catarino Perry MD acetaminophen ER (Tylenol Arthritis Pain) 1,300 mg PO Q8H amlodipine 10 mg PO DAILY anastrozole 1 mg PO DAILY ascorbic acid (vitamin C) 500 mg PO DAILY calcium carbonate (Antacid (calcium carbonate)) 200 mg PO DAILY famotidine 40 mg PO DAILY gabapentin 100 mg PO TID hydroxychloroquine Take 2 tabs daily alternating with 1 tab daily nitrofurantoin monohyd/m-cryst 100 mg 100 mg PO Q12H 10 days prednisone 5 mg PO DAILY PRN rosuvastatin 5 mg PO DAILY HPI HPI Comments History of Present Illness Details This is an 83-year-old female with seronegative RA who returns for follow-up. On hydroxychloroquine 200 mg Twice daily. Doing much better overall. States that she gets intermittent stiffness of her right middle finger, that happens once every 1-2 weeks. Has not had to use any prednisone since last visit. She keeps it for emergencies. She states that she went to the hospital and was found to have a UTI. She has been getting more shortness of breath and tachycardia with exertion. She is due to get a a Holter monitor and echocardiogram. She will also be evaluated by a pin drafting machine tender for CKD. Initial history: This is an 82-year-old female was referred for evaluation of multiple joint pain. The condition started on in June of 2022 when patient started having pain and stiffness of both shoulders, this lasted about 2 months then the pain swelling and stiffness started moving to her hands, fingers, knuckles. She has swelling of her right hand. Morning stiffness lasting 3-4 hours. She denies any other joint involvement. She denies any history of DVT/PE. Unaware of any family history of autoimmune rheumatic disease. She was diagnosed with right breast cancer 1999 years ago s/p lumpectomy and radiation, she took tamoxifen for 5 years. she was diagnosed with left breast cancer around 2019 and received lumpectomy and now on anastrozole. [facility] Medical History Recurrent urinary tract infection Shortness of breath on exertion CKD (chronic kidney disease) Need for prophylactic antibiotic Annual visit for general adult medical examination with abnormal findings History of bone density study History of Papanicolaou smear of cervix History of mammogram Bilateral shoulder pain Tubular adenoma of colon Congenital hypertrophic pyloric stenosis Post-menopause Heartburn symptom Hx of renal calculi Osteoarthritis of hips, bilateral Hx of breast cancer Dyslipidemia Essential hypertension Surgical History History of bilateral hip replacements History of total right hip arthroplasty Status post right breast lumpectomy S/P lumpectomy, left breast Family History Mother Arthritis Social History Household Members Other:: Son and Grandson Housing: House Alcohol intake: current Alcohol intake frequency: does not drink Patient Tobacco Use Status: Never used Tobacco e-Cigarette/Vaping Use: Never Used Current occupational status: 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 Cognitive needs: No Hearing needs: No Vision needs: Yes Female Reproductive History Menstrual Age of Menarche: 12 Review of Systems Card Reports rapid heart rate and Reports dyspnea on exertion Resp Reports dyspnea on exertion Musc Denies joint swelling Physical Exam Vital Signs: Last Vital Signs Temp 96.5 F L 09/20/23 09:52 Pulse 111 H 09/20/23 09:52 BP 118/68 09/20/23 09:52 Pulse Ox 96 09/20/23 09:52 Oxygen Delivery Method Room Air 09/20/23 09:52 BMI result Body Mass Index 26.3 Const General: cooperative, healthy appearing, comfortable and no acute distress Nutritional Appearance: overweight Orientation/consciousness: patient oriented x3 Limitations: no limitations HEENT Head: Yes normocephalic and Yes atraumatic Resp Effort & Inspection: normal respiratory effort and able to speak in complete sentences Cardio Rate: regular rate and tachycardic Neuro General: patient oriented x3 Extrem Other: No wrist swelling or tenderness bilaterally Right 2nd MCP enlargement and swelling, right 2nd PIP swelling both without tenderness No PIP swelling or tenderness right hand No elbow pain with full range of motion No hip pain with full range of motion No ankle pain or swelling bilaterally Negative MTP squeeze test bilateral No MTP tenderness bilaterally Assessment & Plan Assessment & Plan (1) Seronegative rheumatoid arthritis: Comment: -ve RF -ve CCP dx 05/2023 HCQ 05/2023 Code(s): M06.00 - Rheumatoid arthritis without rheumatoid factor, unspecified site Plan: This is an 83-year-old female with seronegative RA who presents for follow-up. Hydroxychloroquine 200 mg Twice daily. Doing quite well. Has not used prednisone over the last 3 months Continue hydroxychloroquine but will reduce dose to 300 mg daily. Advised patient to take 400 mg daily alternating with 200 mg daily Can take 5 mg of prednisone once daily as needed for flares Labs before next visit in 3 months (2) Long-term use of hydroxychloroquine: Code(s): Z79.899 - Other snf (current) drug therapy Plan: Discussed risk of retinopathy associated with hydroxychloroquine. Advised patient to go back to her employment specialist/program manager for Plaquenil screening Plan I spent 26 minutes reviewing patient's chart, evaluating patient, ordering diagnostic workup, counseling patient and documenting in the chart Orders: Orders Complete Blood Count Auto Diff 3 Months M06.00 - Rheumatoid arthritis without rheumatoid factor, unspecified site Erythrocyte Sedimentation Rate 3 Months M06.00 - Rheumatoid arthritis without rheumatoid factor, unspecified site Comprehensive Met. Panel 3 Months M06.00 - Rheumatoid arthritis without rheumatoid factor, unspecified site C Reactive Protein 3 Months M06.00 - Rheumatoid arthritis without rheumatoid factor, unspecified site Medications: Changed From hydroxychloroquine 200 mg PO BID 60 tabs 0RF To hydroxychloroquine Take 2 tabs daily alternating with 1 tab daily 135 tabs 1RF Coding Level of Care Code Est Pt Level 4 (48850) Diagnoses Seronegative rheumatoid arthritis M06.00 Long-term use of hydroxychloroquine Z79.899
[2023-09-20 09:52] VITALS: BP 118/68; PULSE 111; TEMP 35.8; O2SAT 96; BMI 26.3
== END 2023-09-20 10:28 | disposition home or self-care (01) ==
PROVIDERS: PCP Internal Medicine; Visit Provider Student in an Organized Health Care Education/Training Program
DX: M06.00 Rheumatoid arthritis without rheumatoid factor, unspecified site (principal); Z79.899 Other long term (current) drug therapy
CPT/HCPCS: 99214

== ENCOUNTER → 2023-09-20 09:29 | Outpatient (BNVA) | payer MEDICARE, SELFPAY | PROVIDERS: PCP Internal Medicine; Visit Provider Student in an Organized Health Care Education/Training Program | DX: M06.00 Rheumatoid arthritis without rheumatoid factor, unspecified site (principal); Z79.899 Other long term (current) drug therapy | CPT/HCPCS: 99212 ==

== ENCOUNTER 2023-10-04 10:21 | Outpatient (AMB) | payer MEDICARE, SELFPAY ==
[2023-10-04 10:27] VITALS: BP 96/64; PULSE 100; O2SAT 96; BMI 25.8
--- NOTE | 2023-10-04 10:27 | HO.NEPHOV ---
HPI HPI Comments History of Present Illness Details 83 yr old woman with h/o HTN and REnal stone in the past with CKD History of right breast cancer status post lumpectomy followed by radiation more than 20 years ago. In 2019 she had left breast mass underwent lumpectomy and she was treated with tamoxifen. Here for follow up Creatinine was between 1.2 and 1.3 ; REcently bumped to 1.4 Currently on lisinopril 10 mg a day. No lightheadedness. No urinary symptoms. She has had recurrent UTIs. She is due to see Urology shortly. History of renal stones in the past. Recently she had been experiencing some shortness of breath. Waiting to see Cardiology after stress test and echo. History of rheumatoid arthritis she has been followed by Rheumatology and currently on hydroxychloroquine Not on NSAIDs [facility] Medical History Recurrent urinary tract infection Shortness of breath on exertion CKD (chronic kidney disease) Need for prophylactic antibiotic Annual visit for general adult medical examination with abnormal findings History of bone density study History of Papanicolaou smear of cervix History of mammogram Bilateral shoulder pain Tubular adenoma of colon Congenital hypertrophic pyloric stenosis Post-menopause Heartburn symptom Hx of renal calculi Osteoarthritis of hips, bilateral Hx of breast cancer Dyslipidemia Essential hypertension Surgical History History of bilateral hip replacements History of total right hip arthroplasty Status post right breast lumpectomy S/P lumpectomy, left breast Family History Mother Arthritis Social History Household Members Other:: Son and Grandson Housing: House Alcohol intake: current Alcohol intake frequency: does not drink Patient Tobacco Use Status: Never used Tobacco e-Cigarette/Vaping Use: Never Used Current occupational status: 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 Cognitive needs: No Hearing needs: No Vision needs: Yes Female Reproductive History Menstrual Age of Menarche: 12 Vital Signs 10/04/23 10:27 10/04/23 10:54 10/04/23 10:54 Height 5 ft 4 in Weight 150 lb 8 oz BMI 25.8 BP 96/64 100/70 80/60 L Blood Pressure Location Lt brachial Lt brachial Lt brachial Position Sitting Sitting Standing Pulse 100 Pulse Source Pulse Oximeter Pulse Oximetry (%) 96 Oxygen Delivery Method Room Air Physical Exam Vital Signs: Last Vital Signs Pulse 100 10/04/23 10:27 BP 96/64 10/04/23 10:27 Pulse Ox 96 10/04/23 10:27 Oxygen Delivery Method Room Air 10/04/23 10:27 BMI result Body Mass Index 25.8 Const General: comfortable Nutritional Appearance: well nourished Orientation/consciousness: patient oriented x3 HEENT Head: No normal to inspection Mouth: moist mucous membranes Neck Neck: Yes supple and Yes no JVD Resp Auscultation: clear to auscultation bilaterally, no rales and rub present Cardio Jugular venous distension: no JVD Palpation: no palpable S3 and no palpable S4 Heart sounds: no rubs GI Palpation (GI): Soft to palpation and nontender Percussion: No Fluid wave present General: Yes no CVA tenderness Back/Spine/Pelvis Back: no CVA tenderness Skin General skin exam: no rashes or lesions noted Neuro General: patient oriented x3 Extrem General: Yes no pedal edema and No clubbing Assessment & Plan Assessment & Plan (1) CKD (chronic kidney disease): Code(s): N18.9 - Chronic kidney disease, unspecified Plan: Dolly has CKD 3. She probably has a component of superimposed OPAL due to hypoperfusion from relatively low blood pressure and use of BTUCH inhibitors Blood pressure is rather low which supports hypoperfusion. I would decrease lisinopril from 10 mg down to 5 mg a day. Encouraged to increase her fluid intake. Recheck labs in the next few weeks. (2) Essential hypertension: Code(s): I10 - Essential (primary) hypertension Plan: Overall blood pressure control in fact blood pressure is low with mild orthostatic change. Therefore I have lowered the lisinopril from 10 mg down to 5 mg. The blood pressure remains low I would decrease amlodipine from 10 mg down to 5 mg. (3) Recurrent urinary tract infection: Code(s): N39.0 - Urinary tract infection, site not specified Plan: History of renal stones. I will obtain a follow-up renal ultrasonogram and encouraged her to follow-up with Urology. Orders: Orders Electrolytes 1 Month N18.9 - Chronic kidney disease, unspecified Creatinine 1 Month N18.9 - Chronic kidney disease, unspecified US renal BI Today N18.9 - Chronic kidney disease, unspecified, N39.0 - Urinary tract infection, site not specified Blood Urea Nitrogen 1 Month N18.9 - Chronic kidney disease, unspecified Calcium 1 Month N18.9 - Chronic kidney disease, unspecified Medications: New lisinopril 5 mg PO DAILY 30 tabs 2RF Coding Level of Care Code Est Pt Level 4 (14885) Diagnoses CKD (chronic kidney disease) N18.9 Essential hypertension I10 Recurrent urinary tract infection N39.0 Results Reviewed Nephrology Results: Hgb 13.3 g/dl (12.0-16.0) 09/15/23 WBC 8.9 X10*3/uL (4.8-10.8) 09/15/23 Plt Count 373 X10*3/uL (160-400) 09/15/23 Sodium 143 mmol/L (135-145) 09/15/23 Potassium 3.6 mmol/L (3.3-5.1) 09/15/23 Chloride 107 mmol/L (96-108) 09/15/23 Carbon Dioxide 26 mmol/L (22-29) 09/15/23 BUN 18 mg/dL (9-16) H 09/15/23 Creatinine 1.43 mg/dL (0.5-1.4) H 09/15/23 Calcium 10.1 mg/dL (8.4-10.2) 09/15/23 Urine Protein 30 (1+) mg/dL (Neg-Trace) H 09/08/23 Urine Creatinine 274.36 mg/dL 05/31/23 Protein/Creatinin Ratio 0.12 (<0.2) 05/31/23
[2023-10-04 10:54] VITALS: BP 100/70; BP 80/60
== END 2023-10-04 10:53 | disposition home or self-care (01) ==
PROVIDERS: PCP Internal Medicine; Visit Provider Internal Medicine Hypertension Specialist
DX: I12.9 Hypertensive chronic kidney disease with stage 1 through stage 4 chronic kidney disease, or unspecified chronic kidney disease (principal); N18.9 Chronic kidney disease, unspecified; N39.0 Urinary tract infection, site not specified
CPT/HCPCS: 99214

== ENCOUNTER → 2023-10-04 10:21 | Outpatient (BNVA) | payer MEDICARE, SELFPAY | PROVIDERS: PCP Internal Medicine; Visit Provider Internal Medicine Hypertension Specialist | DX: I12.9 Hypertensive chronic kidney disease with stage 1 through stage 4 chronic kidney disease, or unspecified chronic kidney disease (principal); N18.9 Chronic kidney disease, unspecified; N39.0 Urinary tract infection, site not specified | CPT/HCPCS: 99212 ==

== ENCOUNTER → 2023-10-05 09:18 | Outpatient (REF) | payer MEDICARE, SELFPAY ==
--- NOTE | 2023-10-05 09:24 | HM_ITS ---
Conclusion: 1. Patient was monitored for total period of 2 days and 23 hours 2. Baseline was normal sinus rhythm with average heart of 74 beats per minute 3. No significant pauses noted 4. Occasional PACs and PVCs noted 5. 1 patient reported symptom of shortness of breath correlated with sinus tachycardia MTDD
--- NOTE | 2023-10-05 09:24 | CA_ITS ---
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 The calculated ejection fraction is 51% by biplane method. - No obvious valvular pathology seen on this study. Findings Procedure Information Contrast agent, definity, is being given per protocol without apparent complications. Left Ventricle Normal left ventricular cavity size. There is normal left ventricular wall thickness. The left ventricular systolic function is mildly decreased. The calculated ejection fraction is 51% by biplane method. There is no evidence of regional wall motion abnormalities. Diastolic function is normal for age. Right Ventricle Normal right ventricular cavity size and systolic function. Atria Both atria are normal in size. Aortic Valve There is a normal trileaflet aortic valve. There is no aortic valve stenosis. There is no aortic valve regurgitation. Mitral Valve The mitral valve appears normal. There is no mitral valve regurgitation. There is no mitral valve stenosis. Pulmonic Valve The pulmonic valve is likely normal. Tricuspid Valve There is no tricuspid valve regurgitation. Tricuspid regurgitation envelope is inadequate for calculation of right ventricular systolic pressure. Great Vessels The asc aorta is normal in size. Venous The inferior vena cava was not well visualized. Pericardium/Pleural There is no evidence of pericardial effusion. Prior Study Comparison No prior study available for comparison. Recommendations, Care & Conclusions No obvious valvular pathology seen on this study. Measurements 2D Linear Measurements IVSd: 0.81 0.6-0.9/0.6-1.0 cm LVIDd: 4.35 3.9-5.3/4.2-5.9 cm LVIDd Index: 2.49 2.4-3.2/2.2-3.1 cm/m2 LVIDs: 2.46 2.0-3.6 cm LVPWd: 0.64 0.7-1.1 cm LA Diam: 3.10 2.7-3.8/3.0-4.0 cm LAIDs Index: 1.77 1.5-2.3 cm/m2 LV Mass: 117.52 67-162/88-224 g LV Mass Index: 67.15 43-95/49-115 g/m2 LVOT Diam: 2.30 3.0+(-)1.3 cm 2D Systolic Function EF 4C: 58.80 >55% EF 2C: 44.60 >55% EF BiP: 50.70 >55% Mitral Valve MV Pk E: 0.42 MV PK A: 0.85 MV Decel Time: 204.00 E/A: 0.50 E'Lateral: 6.09 E'Medial: 5.00 E/E' Med: 8.30 E/E' Lat: 6.80 PHT: 60.00 MVA PHT: 3.67 Decel [place]: 2.04 Aortic Valve AoV Pk Vasiliy: 0.83 AoV Pk Grad: 3.00 ZACHARY: 3.70 LVOT LVOT Pk Vasiliy: 0.74 LVOT Mn Vasiliy: 0.52 LVOT VTI: 0.17 LVOT Pk Grad: 2.00 LVOT Mn Grad: 1.00 LVOT Diam: 2.30 LVOT Area: 4.15 Diastolic Function MV Pk E: 0.42 MV Pk A: 0.85 E/A: 0.50 E'Medial: 5.00 E/E' Med: 8.30 E' Laterial: 6.09 E/E' Lat: 6.80 Right Ventricle TAPSE (mm): 19.50 TVS' Vasiliy: 11.00 Great Vessels Aorta Sinus of Valsalva: 3.40 2.0-3.5 cm Ao Asc: 3.10 2.1-3.4 cm Pulmonary Valve PV Pk Vasiliy: 0.72 Peak PV Grad: 2.00 Updated in Other Vendor System with Status of Final Jose F Islas MD electronically signed on 10/07/2023 9:03:37 AM with status of Final
== END ==
LOC: HO.CARD 09:18
PROVIDERS: PCP Internal Medicine; Visit Provider Internal Medicine
DX: R06.02 Shortness of breath (principal); I49.1 Atrial premature depolarization; I12.9 Hypertensive chronic kidney disease with stage 1 through stage 4 chronic kidney disease, or unspecified chronic kidney disease; N18.9 Chronic kidney disease, unspecified
CPT/HCPCS: 93242; 93306; Q9957

== ENCOUNTER → 2023-10-05 09:24 | Outpatient (BNV) | payer MEDICARE, SELFPAY | PROVIDERS: PCP Internal Medicine; Visit Provider Internal Medicine | DX: I49.1 Atrial premature depolarization (principal) | CPT/HCPCS: 93244; 93306 ==

== ENCOUNTER 2023-10-07 13:36 | Outpatient (REF) | payer MEDICARE, SELFPAY ==
--- NOTE | ~2023-10-07 | US_ITS ---
EXAMINATION: US RETROPERITONEAL LIMITED (RENAL ONLY) CLINICAL INFORMATION: Urinary tract infection, site not specified. CKD. COMPARISON: Renal ultrasound 05/21/2022 and 05/22/2019. X-ray abdomen 05/22/2019. TECHNIQUE: Real-time imaging of the kidneys. FINDINGS: RIGHT KIDNEY: 8.7 x 4.6 x 5.2 cm (SAG x AP x TRV). The kidney is normal in size, contour, and echogenicity. Renal cortical thickness is normal. No calculi or focal parenchymal lesions. No hydronephrosis. LEFT KIDNEY: 8.5 x 4.1 x 5.1 cm (SAG x AP x TRV). The kidney is normal in size, contour, and echogenicity. Renal cortical thickness is normal. No renal calculi or hydronephrosis. Subcentimeter benign-appearing renal cyst, no follow-up imaging recommended. US/US renal BI IMPRESSION: Unremarkable renal ultrasound.
== END 2023-10-07 13:37 | disposition home or self-care (01) ==
LOC: HO.HMGCX 13:36
PROVIDERS: PCP Internal Medicine; Visit Provider Internal Medicine Hypertension Specialist
DX: N39.0 Urinary tract infection, site not specified (principal); N18.9 Chronic kidney disease, unspecified
CPT/HCPCS: 76775

== ENCOUNTER 2023-10-18 11:51 | Outpatient (AMB) | payer MEDICARE, SELFPAY ==
[2023-10-18 11:55] VITALS: BP 136/86; PULSE 105; O2SAT 97; BMI 26.1
--- NOTE | 2023-10-18 11:55 | A.OFFPC_ITS ---
Vital Signs 10/18/23 11:55 Height 5 ft 4 in Weight 152 lb BMI 26.1 BP 136/86 Blood Pressure Location Lt brachial Position Sitting Pulse 105 H Pulse Source Pulse Oximeter Pulse Oximetry (%) 97 Oxygen Delivery Method Room Air Intake Visit Reasons: Physical exam Intake Note: Pt is here today for her PE: mammogram 11/19/22, bone density scan 11/19/22, colonoscopy 10/19/22 Allergies Penicillins Adverse Reaction (Verified 01/11/24 03:55) mouth swells strawberry Adverse Reaction (Verified 01/11/24 03:55) Rash tomato Adverse Reaction (Verified 01/11/24 03:55) Rash Medication List - Last Reconciled 10/18/23 by Yen Mejia MD acetaminophen ER (Tylenol Arthritis Pain) 1,300 mg PO Q8H anastrozole 1 mg PO DAILY ascorbic acid (vitamin C) 500 mg PO DAILY aspirin (Adult Low Dose Aspirin) 81 mg PO DAILY calcium carbonate (Antacid (calcium carbonate)) 200 mg PO DAILY famotidine 40 mg PO DAILY gabapentin 100 mg PO TID hydroxychloroquine Take 2 tabs daily alternating with 1 tab daily lisinopril 5 mg PO DAILY mecobalamin (vitamin B12) mcg PO DAILY multivitamin 1 tab PO DAILY rosuvastatin 5 mg PO DAILY Tobacco use date assessed: 10/18/23 Fall risk assessment: No Falls in past year Last assessed Fall Risk: 10/18/23 Dental Screening Dental Screen Date: 10/18/23 Did you have a dental visit in the last 12 months?: Yes Did you have a dental problem in the last 6 months where you did not have access to dental care?: No Was dental information given to patient?: Patient has dentist HPI HPI Comments History of Present Illness Details 83 yr old woman with history of hyperten sheba, Hyperlipidemia , osteoarthritis in both hips status post bilateral hip replacement, CKD, followed by Nephrology, history of right breast cancer s/p lumpectomy followed by radiation more than 20 years, and in 2019, had left breast mass underwent lumpectomy and she was treated with tamoxifen, later switched to Anastrozole , here today for physical exam. She is up-to-date with her screening mammogram and bone density scan done 11/19/2022, and is up-to-date with her screening colonoscopy done 10/19/2022. She has been feeling well with no complaints at present time. [facility] Medical History Recurrent urinary tract infection Shortness of breath on exertion CKD (chronic kidney disease) Need for prophylactic antibiotic Annual visit for general adult medical examination with abnormal findings History of bone density study History of Papanicolaou smear of cervix History of mammogram Bilateral shoulder pain Tubular adenoma of colon Congenital hypertrophic pyloric stenosis Post-menopause Heartburn symptom Hx of renal calculi Osteoarthritis of hips, bilateral Hx of breast cancer Dyslipidemia Essential hypertension Surgical History History of bilateral hip replacements History of total right hip arthroplasty Status post right breast lumpectomy S/P lumpectomy, left breast Family History Mother Arthritis Social History Household Members Other:: Son and Grandson Housing: House Alcohol intake: current Alcohol intake frequency: does not drink Patient Tobacco Use Status: Never used Tobacco e-Cigarette/Vaping Use: Never Used Current occupational status: 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 1. Little interest or pleasure in doing things: not at all 2. Feeling down, depressed, or hopeless: not at all 3. Trouble falling or staying asleep, or sleeping too much: not at all 4. Feeling tired or having little energy: not at all 5. Poor appetite or overeating: not at all 6. Feeling bad about yourself - or that you are a failure or have let yourself or your family down: not at all 7. Trouble concentrating on things, such as reading the newspaper or watching television: not at all 8. Moving or speaking so slowly that other people could have noticed. Or the opposite - being so fidgety or restless that you have been moving around a lot more than usual: not at all 9. Thoughts that you would be better off or of hurting yourself in some way: not at all Total score: 0 Depression Screening Interpretation: Negative Depression Screening Done: Yes 63183 - PHQ-9 Billing: Yes Source: Developed by Drs. Dayton Atwood, Amy Muniz, Jese Pyle and colleagues, with an educational ellen from [employer]. Thrive Questionnaire Date Thrive assessed: 10/18/23 I am a: Patient What is your living situation today?: I have a steady place to live Within the past 12 months, did the food you bought not last and you didn't have the money to get more?: Never true Within the past 12 months, did you worry whether your food would run out before you got money to buy more?: Never true Do you have trouble paying for medicines?: No Do you have trouble getting transportation to medical appointments?: No Do you have trouble paying your heating and electricity bill?: No Do you have trouble taking care of your child, family member or friend?: No Do you have trouble with day-to-day activities such as bathing, preparing meals, shopping, managing finances, etc.?: No Are you currently unemployed and looking for a job?: No Are you interested in more education?: No THRIVE Score: 0 AUDIT C Alcohol Use Questionnaire (AUDIT-C) 1. How often do you have a drink containing alcohol?: Never Total Score: 0 VENANCIO-7 AMB Questionnaire VENANCIO-7 Date VENANCIO - 7 assessed: 10/18/23 Feeling nervous, anxious, or on edge: 0 = Not at all Not being able to stop or control worryin = Not at all Worrying too much about different things: 0 = Not at all Trouble relaxin = Not at all Being so restless that it is hard to sit still: 0 = Not at all Becoming easily annoyed or irritable: 0 = Not at all Feeling afraid as if something awful might happen: 0 = Not at all Total VENANCIO-7 score (0-4 normal; 5-9 mild; 10-14 moderate; 15-21 severe): 0 Source: Developed by Drs. Dayton Atwood, Amy Muniz, Jese Pyle and colleagues, with an educational ellen from [employer]. VENANCIO-7 Assessment Billing VENANCIO-7 Assessment Tool: VENANCIO-7 Assessment 10011 Review of Systems Const Reports no additional complaints Eyes Details: Has dry eyes and beginning glaucoma ou, sees Dr. Alcantara ENT Reports no additional complaints Card Denies chest pain, Denies irregular heart rhythm, Denies leg edema and Denies l ightheadedness Resp Details: Has shortness of breath climbing stairs but not coming down, and gets occasional shortness of breath when making her bed, and doing housework, resolve with rest GI Reports no additional complaints Reports no additional complaints Musc Reports no additional complaints Skin/Breast Denies breast swelling, Denies breast pain, Denies breast mass and Denies rash Neuro Reports no additional complaints Psych Reports no additional complaints Endo Reports no additional complaints Alexis/Lymph Reports no additional complaints Aller/Immun Reports no additional complaints Physical exam (Primary Care) Vital Signs: Last Vital Signs Pulse 105 H 10/18/23 11:55 BP 136/86 10/18/23 11:55 Pulse Ox 97 10/18/23 11:55 Oxygen Delivery Method Room Air 10/18/23 11:55 BMI result Body Mass Index 26.1 Tobacco/Smoking Status: Tobacco use Status Tobacco use date assessed 10/18/23 10/18/23 12:02 Patient Tobacco Use Status Never used Tobacco 10/18/23 11:56 e-Cigarette/Vaping Use Never Used 10/18/23 11:56 PHQ-9: PHQ-9 Score PHQ-9: Total score 0 10/18/23 23:56 Depression Screening Interpretation: Negative Thrive Assessment: Date of Thrive Assessment Date Thrive assessed 10/18/23 10/18/23 12:02 Advance Care Planning discussion: On file, no changes Date of discussion: 09/30/23 Who was present: Patient Forms completed: Health Care Proxy and MOLST Time spent: 1-15 minutes, on File Const General: comfortable, no acute distress and alert Nutritional Appearance: overweight Orientation/consciousness: patient oriented x3 HENMT Head: Yes normocephalic and Yes atraumatic Ears: external ears normal General nose exam: Normal external nose present Face and sinus: Yes face symmetric Mouth: Normal oral and palatal mucosa present, oropharynx normal and moist mucous membranes Eyes General: appearance normal, both eyes and all related structures Neck Neck: Yes full ROM, Yes no lymphadenopathy, Yes supple and Yes no JVD Carotids: no bruits Chest Breast/axilla palpation: normal palpation of the breasts Resp Effort & Inspection: normal respiratory effort and able to speak in complete sentences Auscultation: clear to auscultation bilaterally Cardio Rate: tachycardic Rhythm: regular rhythm Heart sounds: S1 normal heart sound present and S2 normal heart sound present GI Inspection: Yes normal to inspection Palpation (GI): Soft to palpation, nontender, no guarding and no masses Auscultation: normal bowel sounds General: Yes no CVA tenderness Back/Spine/Pelvis Back: no CVA tenderness and No back tenderness Skin General skin exam: no rashes or lesions noted Neuro General: patient oriented x3, gait normal, tone normal, moves all extremities and no focal motor deficits Extrem Right lower extremity: edema (trace) Left lower extremity: edema (trace) Psych Appearance: grossly normal Mental Status: mental status grossly normal Speech and movement: Normal speech and movement present Affect: normal affect Attitude: cooperative Thought process: Normal thought process present Thought content: Normal thought content present Results AMB Hemoglobin A1c AMB Hemoglobin A1c 6.3 % Last Edit by Hillary Bustos CMA on 10/18/23 12:39 Results Reviewed Results Reviewed: Laboratory Last Values Hgb A1c (Clinic) 6.3 % (4.0-6.0) H 10/18/23 12:38 Name: Dolly Parker Age/Sex: 83/F : 1940 Unit#: [id number] Attend Dr: Catarino Perry MD Re09/15/23 Status: DEP REF [facility] Disch: SPEC : [id number] EMILIO: 09/15/23 STATUS: COMP REQ : [id number] RECD: 09/15/[address]: Catarino Perry MD COMP: 09/15/23 ENTERED: 09/15/[address] [facility] DR: ORDERED: CBC Auto Diff Test Result Flag Reference WBC 8.9 4.8-10.8 X10*3/uL RBC 4.71 4.20-5.50 X10*6/uL HGB 13.3 12.0-16.0 g/dl HCT 40.9 37.0-47.0 % MCV 86.8 80.0-98.0 fL MCH 28.2 27.0-33.0 pg MCHC 32.5 31.0-35.0 g/dl RDW 14.1 11.0-16.0 % PLT 373 160-400 X10*3/uL MPV 9.3 L 9.4-12.3 fL Neut Pct Auto 71.9 45-73 % ImGran Pct Auto 0.3 0.0-0.4 % Lymp Pct Auto 16.7 L 20-40 % [place] Pct Auto 6.6 2-11 % Eos Pct Auto 3.9 0-4 % Baso Pct Auto 0.6 0-2 % NRBC Pct Auto 0.0 0.0-0.2 /100WBC ANC Neut Abs # 6.4 2.0-8.3 x10*3/uL ImGran Abs Auto 0.03 0.00-0.03 X10*3/uL Lymph Abs Auto 1.5 1.2-4.9 X10*3/uL [place] Abs Auto 0.6 0.1-1.2 X10*3/uL Eos Abs Auto 0.4 0.0-0.4 X10*3/uL Baso Abs Auto 0.1 0.0-0.2 X10*3/uL NRBC Abs Auto 0.000 0.0-0.012 X 10*3/uL RUN: 10/18/23 1217 PAGE 1 [facility] [address] [place] [id number] Inseam Leveler: Marky Philip M.D. Specimen Inquiry Name: Dolly Parker Age/Sex: 83/F : 1940 Unit#: [id number] Attend Dr: Yen Mejia MD Re09/08/23 Status: DEP REF Location: [facility] Disch: SPEC : [id number] EMILIO: 09/08/23-1210 STATUS: COMP REQ : [id number] RECD: 09/08/[address]: Yen Mejia MD COMP: 09/08/231357 ENTERED: 09/08/23-120 [facility] [address]: ORDERED: Lipid Panel, Vitamin D 25-OH Test Result Flag Reference Triglyceride 86 <150 mg/dL Desirable Triglyceride: less than 150 mg/dL Borderline High Triglyceride 150-199 mg/dL High Triglyceride: 200-499 mg/dL Very High Triglyceride: greater than or equal to 5OO mg/dL Cholesterol 184 <200 mg/dL Desirable Cholesterol: less than 200 mg/dL Borderline High Cholesterol: 200-239 mg/dL High Cholesterol: greater than 239 mg/dL LDL Calculated 70 <100 mg/dL Desirable LDL: less than 100 mg/dL Near Optimal/Above Optimal LDL: 110-129 mg/dL Borderline High LDL: 130-159 mg/dL High LDL: 160-189 mg/dL Very High LDL: greater than or equal to 190 mg/dL HDL 97 >40 mg/dL Desirable HDL: greater than 40 mg/dL Note: This HDL assay may give artificially low results in patients with liver disease. Vit D 25-OH Tot 45.8 >30 ng/mL Health Based Reference Values* < 20 ng/mL Deficient 20-30 ng/mL Insufficient > 30 ng/mL Sufficient ENTERED: 09/15/23 [facility] [address]: ORDERED: CMP, C Reactive Prot Test Result Flag Reference Sodium 143 135-145 mmol/L Potassium 3.6 3.3-5.1 mmol/L CL 107 96-108 mmol/L CO2 26 22-29 mmol/L Gap 14 12-20 BUN 18 H 9-16 mg/dL Creat 1.43 H 0.5-1.4 mg/dL EGFR 35 NOTE: For [place] individuals, multiply the result by 1.210. Chronic Kidney Disease: Estimated GFR < 60 mL/min/1.73m2 Severe Kidney Disease: Estimated GFR < 15 mL/min/1.73m2 Glucose, Random 183 H 60-115 mg/dL CA 10.1 8.4-10.2 mg/dL Total Bili 0.5 0.0-1.0 mg/dL AST (GOT) 23 5-31 U/L ALT (GPT) 17 0-31 U/L CRP < 0.10 < or = 0.50 mg/dL Protein, Total 7.4 6.5-8.0 g/dL Alb 4.4 3.5-5.0 g/dL Alk Phos 103 39-117 U/L Laboratory Tests 10/18/23 12:38 Hgb A1c (Clinic) 6.3 H Assessment and Plan Assessment & Plan (1) Annual visit for general adult medical examination with abnormal findings: Code(s): Z00.01 - Encounter for general adult medical examination with abnormal findings Plan: She is up-to-date with her screening mammogram, colonoscopy and bone density. Latest fasting lab results discussed with patient. Up-to-date with her vaccinations including the shingles vaccine and pneumonia vaccine, reminded to get her COVID booster. MOLST and healthcare proxy form already completed (2) Dyslipidemia: Code(s): E78.5 - Hyperlipidemia, unspecified Plan: Reviewed recent fasting lipid profile with patient with levels within normal limits . Continue with rosuvastatin 5 mg daily , in addition to adherence to low-cholesterol diet and regular exercise, at least 30 minutes 3 to 4 times a week. Advised patient to make healthy food choices, eat more fruits, vegetables, whole grains, wild caught fish and low-fat dairy. Limit amount of meat and fried or fatty food products, as well as processed foods and fast foods. Follow-up scheduled with repeat fasting lipid panel in 4 months. 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 HCQ 05/2023 effective Code(s): M06.00 - Rheumatoid arthritis without rheumatoid factor, unspecified site Plan: Takes acetaminophen ER and hydroxychloroquine (6) Heartburn symptom: Code(s): R12 - Heartburn Plan: Currently taking famotidine 40 mg once a day as needed for heartburn symptoms (7) Osteoarthritis of hips, bilateral: Code(s): M16.0 - Bilateral primary osteoarthritis of hip Plan: Takes acetaminophen as needed (8) Hx of breast cancer: Comment: bilateral - 1998 and 2020 negative BRCA testing, previously was on tamoxifen now on anastrozole Code(s): Z85.3 - Personal history of malignant neoplasm of breast Plan: Currently on anastrozole , followed by oncology (9) Encounter for physical examination: Code(s): Z00.00 - Encounter for general adult medical examination without abnormal findings Orders: Orders Lipid Panel 04/26/24 E78.5 - Hyperlipidemia, unspecified, E53.8 - Deficiency of other specified B group vitamins Alanine Aminotransferase 04/26/24 E78.5 - Hyperlipidemia, unspecified, E53.8 - Deficiency of other specified B group vitamins AMB Hemoglobin A1c 10/18/23 Z13.9 - Encounter for screening, unspecified Aspartate Amino Transferase 04/26/24 E78.5 - Hyperlipidemia, unspecified, E53.8 - Deficiency of other specified B group vitamins Vitamin B12 and Folate 04/26/24 E78.5 - Hyperlipidemia, unspecified, E53.8 - Deficiency of other specified B group vitamins Medications: Changed From famotidine 40 mg PO DAILY 90 tabs 1RF To famotidine 40 mg PO DAILY PRN 90 tabs 4RF heartburn Refilled rosuvastatin 5 mg PO DAILY 90 tabs 4RF Coding Level of Care Code Est Pt Prev Care >65y(46604) Diagnoses Annual visit for general adult medical examination with abnormal findings Z00.01 Dyslipidemia E78.5 Essential hypertension I10 CKD (chronic kidney disease) N18.9 Seronegative rheumatoid arthritis M06.00 Heartburn symptom R12 Osteoarthritis of hips, bilateral M16.0 Hx of breast cancer Z85.3 Encounter for physical examination Z00.00 Additional Codes VENANCIO-7 Assessment Billing - VENANCIO-7 Assessment Tool: VENANCIO-7 Assessment 96296 ([id number]) Vital Signs *Quality* - Advance Care Planning discussion: On file, no changes ([id number]) Vital Signs *Quality* - Time spent: 1-15 minutes, on File ([id number])
== END 2023-10-18 12:58 | disposition home or self-care (01) ==
PROVIDERS: PCP Internal Medicine; Visit Provider Internal Medicine
DX: E78.5 Hyperlipidemia, unspecified (principal)
CPT/HCPCS: 1123F; 83036; 99397

== ENCOUNTER 2023-11-02 07:53 | Outpatient (AMB) | payer MEDICARE, SELFPAY ==
--- NOTE | 2023-11-02 08:26 | A.OFFVIS_ITS ---
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 Accompanied by: Self / Same As Patient Allergies Penicillins Adverse Reaction (Verified 11/02/23 08:29) mouth swells strawberry Adverse Reaction (Verified 11/02/23 08:29) Rash tomato Adverse Reaction (Verified 11/02/23 08:29) Rash Medication List - Last Reconciled 11/02/23 by Jose F Islas MD acetaminophen ER (Tylenol Arthritis Pain) 1,300 mg PO Q8H anastrozole 1 mg PO DAILY ascorbic acid (vitamin C) 500 mg PO DAILY aspirin (Adult Low Dose Aspirin) 81 mg PO DAILY calcium carbonate (Antacid (calcium carbonate)) 200 mg PO DAILY famotidine 40 mg PO DAILY PRN gabapentin 100 mg PO TID hydroxychloroquine Take 2 tabs daily alternating with 1 tab daily lisinopril 5 mg PO DAILY mecobalamin (vitamin B12) mcg PO DAILY multivitamin 1 tab PO DAILY rosuvastatin 5 mg PO DAILY HPI HPI Comments History of Present Illness Details Dolly is here for consultation regarding shortness of breath. She states that for the last 6 months or so, she has been feeling short of breath. 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 No angina. No significant leg swelling or other concerning cardiac symptoms. No previous cardiac issues either. No history of any coronary disease or myocardial infarction. She also denies any smoking history. [facility] Medical History Recurrent urinary tract infection Shortness of breath on exertion CKD (chronic kidney disease) Need for prophylactic antibiotic Annual visit for general adult medical examination with abnormal findings History of bone density study History of Papanicolaou smear of cervix History of mammogram Bilateral shoulder pain Tubular adenoma of colon Congenital hypertrophic pyloric stenosis Post-menopause Heartburn symptom Hx of renal calculi Osteoarthritis of hips, bilateral Hx of breast cancer Dyslipidemia Essential hypertension Surgical History History of bilateral hip replacements History of total right hip arthroplasty Status post right breast lumpectomy S/P lumpectomy, left breast Family History Mother Arthritis Social History Household Members Other:: Son and Grandson Housing: House Alcohol intake: current Alcohol intake frequency: does not drink Patient Tobacco Use Status: Never used Tobacco e-Cigarette/Vaping Use: Never Used Current occupational status: 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 Cognitive needs: No Hearing needs: No Vision needs: Yes Female Reproductive History Menstrual Age of Menarche: 12 Review of Systems Const Denies chills, Denies daytime sleepiness, Denies fatigue, Denies fever(s), Denies frequent falls, Denies night sweats, Denies snoring, Denies weakness, Denies weight gain and Denies weight loss Eyes Denies loss of vision ENT Denies dizziness and Denies hearing loss Card Denies chest pain, Denies chest pain with activity, Denies syncope, Denies rapid heart rate, Denies edema, Denies claudication, Denies leg edema, Denies lightheadedness, Denies palpitations and Denies orthopnea Resp Denies cough, Denies excessive phlegm production, Denies snoring and Denies wheezing GI Denies abdominal pain, Denies hematochezia, Denies change in bowel habits, Denies change in stool character, Denies heartburn, Denies nausea and Denies vomiting Denies hematuria, Denies urinary frequency and Denies dysuria Musc Denies arthralgias, Denies muscle weakness, Denies numbness and Denies tingling Skin/Breast Denies nail changes and Denies rash Neuro Denies Abnormal speech present, Denies dizziness, Denies syncope, Denies frequent falls, Denies loss of vision, Denies memory loss, Denies numbness, Denies tingling and Denies weakness Psych Denies depression and Denies memory loss Endo Denies fatigue and Denies palpitations Aller/Immun Denies wheezing Physical Exam Vital Signs: Last Vital Signs Pulse 84 11/02/23 08:27 BP 142/76 H 11/02/23 08:27 BMI result Body Mass Index 25.7 Const General: comfortable and no acute distress Orientation/consciousness: patient oriented x3 HEENT Other: Unremarkable Head: Yes normal to inspection Neck Neck: Yes normal visual inspection Chest Chest palpation & inspection: normal inspection of the chest Resp Auscultation: rhonchi and wheezes Cardio Palpation: normal PMI Heart sounds: S1 normal heart sound present, S2 normal heart sound present, no gallops, no murmurs and no rubs GI Palpation (GI): Soft to palpation Back/Spine/Pelvis Other: unremarkable Skin General skin exam: no rashes or lesions noted Neuro General: patient oriented x3 Speech: No Abnormal speech present Extrem General: Yes normal to inspection Psych Mental Status: mental status grossly normal Assessment & Plan Assessment & Plan (1) Shortness of breath on exertion: Code(s): R06.02 - Shortness of breath (2) Cardiomyopathy: Code(s): I42.9 - Cardiomyopathy, unspecified Plan In the recent EKG, sinus rhythm at 92/Min; premature atrial contractions; minimal criteria for LVH. No clear ischemic findings. In the echocardiogram, LVEF is mildly decreased at 51%. No significant wall motion abnormalities; otherwise unremarkable. Cardiac BNP is within normal limits at 23 pg/ml. On exam, she has rhonchi in lung palm. Etiology for the shortness of breath could be more pulmonary in nature but needs workup. Mildly decreased LVEF but unlikely to explain her symptoms, especially with cardiac BNP in the normal range. We can start the chest x-ray/PFT's. Suspicion for ischemic heart disease less likely but possible. If pulmonary workup is unremarkable, then consider getting stress test. Last perfusion imaging from 2017 was unremarkable. Orders: Orders XR chest 2V Today R06.02 - Shortness of breath PFT pulmonary function test Today R06.02 - Shortness of breath Coding Level of Care Code New Pt Level 4 (43478) Diagnoses Shortness of breath on exertion R06.02 Cardiomyopathy I42.9
[2023-11-02 08:27] VITALS: BP 142/76; PULSE 84; BMI 25.7
== END 2023-11-02 08:50 | disposition home or self-care (01) ==
PROVIDERS: PCP Internal Medicine; Visit Provider Internal Medicine
DX: R06.02 Shortness of breath (principal); I42.9 Cardiomyopathy, unspecified
CPT/HCPCS: 99214

== ENCOUNTER 2023-11-02 07:53 | Outpatient (REF) | payer MEDICARE, SELFPAY ==
--- NOTE | ~2023-11-02 | XR_ITS ---
EXAMINATION: XR CHEST 2 VIEWS CLINICAL INFORMATION: Shortness of breath. COMPARISON: None. TECHNIQUE: Frontal and lateral views of the chest were obtained. FINDINGS: The heart, great vessels, pulmonary vasculature and mediastinum are normal. The lungs show no focal infiltrate, effusion or pneumothorax. There is no acute osseous abnormality. There is a mild thoracic levoscoliosis. There are right axillary and lateral left breast surgical clips. XR/XR chest 2V IMPRESSION: No active cardiopulmonary disease.
== END 2023-11-02 07:54 | disposition home or self-care (01) ==
LOC: HO.XRAY 07:53
PROVIDERS: PCP Internal Medicine; Visit Provider Internal Medicine
DX: R06.02 Shortness of breath (principal); I42.9 Cardiomyopathy, unspecified; Z79.899 Other long term (current) drug therapy
CPT/HCPCS: 71046; 99212

== ENCOUNTER 2023-11-07 09:44 | Outpatient (AMB) | payer MEDICARE, SELFPAY ==
--- NOTE | 2023-11-07 09:54 | A.OFFVIS_ITS ---
Intake Intake Visit Reasons: recurrent UTI Intake Note: Patient presents today for a follow-up on recurrent UTI Meds- None Allergies to Antibiotic- Penicillins Blood Thinner- Aspirin Manager Floral Required: No Accompanied by: Self / Same As Patient Allergies Penicillins Adverse Reaction (Verified 11/07/23 10:03) mouth swells strawberry Adverse Reaction (Verified 11/07/23 10:03) Rash tomato Adverse Reaction (Verified 11/07/23 10:03) Rash Medication List - Last Reconciled 11/07/23 by Justyn Rubin MD acetaminophen ER (Tylenol Arthritis Pain) 1,300 mg PO Q8H anastrozole 1 mg PO DAILY ascorbic acid (vitamin C) 500 mg PO DAILY aspirin (Adult Low Dose Aspirin) 81 mg PO DAILY calcium carbonate (Antacid (calcium carbonate)) 200 mg PO DAILY famotidine 40 mg PO DAILY PRN gabapentin 100 mg PO TID hydroxychloroquine Take 2 tabs daily alternating with 1 tab daily lisinopril 5 mg PO DAILY mecobalamin (vitamin B12) mcg PO DAILY multivitamin 1 tab PO DAILY rosuvastatin 5 mg PO DAILY HPI HPI Comments History of Present Illness Details Dolly is an 83-year-old female who is here for evaluation due to recurrent UTIs. Past medical history - chronic kidney disease, history of breast cancer, the patient denies pelvic surgery, denies hysterectomy. The patient states that she went to emergency room in August for lower abdominal pain and shortness of breath and she was told she had a UTI at that time. In review of her chart the patient has documented urinary tract infections: 09/08/2023- E coli resistant to Levaquin; 04/27/2023 E coli resistant to Levaquin, 04/13/2023 --E coli and Klebsiella- E coli resistant to Levaquin, Klebsiella resistant to Bactrim and ampicillin & intermediate nitrofurantoin The patient has urinary symptoms of occasional urgency and stress incontinence with coughing or laughing, she wears a depends during the night due to urinary incontinence. The patient was seen by Nephrology renal ultrasound was ordered I have reviewed results 10/07/23 kidneys negative for masses or stones. Evaluation: Urinalysis nitrite positive. Pelvic exam--vaginal atrophy, bladder neck well supported, no prolapse observed. Catheterized PVR-minimal 11/07/2023--PLAN: Ceftin 250 mg daily b.i.d. for 10 days pending urine culture Follow-up office cystoscopy [facility] Medical History Recurrent urinary tract infection Shortness of breath on exertion CKD (chronic kidney disease) Need for prophylactic antibiotic Annual visit for general adult medical examination with abnormal findings History of bone density study History of Papanicolaou smear of cervix History of mammogram Bilateral shoulder pain Tubular adenoma of colon Congenital hypertrophic pyloric stenosis Post-menopause Heartburn symptom Hx of renal calculi Osteoarthritis of hips, bilateral Hx of breast cancer Dyslipidemia Essential hypertension Surgical History History of bilateral hip replacements History of total right hip arthroplasty Status post right breast lumpectomy S/P lumpectomy, left breast Family History Mother Arthritis Social History Household Members Other:: Son and Grandson Housing: House Alcohol intake: current Alcohol intake frequency: does not drink Patient Tobacco Use Status: Never used Tobacco e-Cigarette/Vaping Use: Never Used Current occupational status: 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 Cognitive needs: No Hearing needs: No Vision needs: Yes Female Reproductive History Menstrual Age of Menarche: 12 Review of Systems Const All systems reviewed & are unremarkable except as noted in HPI and below Reports no additional complaints Eyes Reports no additional complaints ENT Reports no additional complaints Card Denies dyspnea Resp Denies cough and Denies dyspnea GI Reports no additional complaints Reports no additional complaints Musc Reports no additional complaints Skin/Breast Denies rash and Denies unusual bruising Neuro Reports no additional complaints Psych Reports no additional complaints Endo Reports no additional complaints Alexis/Lymph Reports no additional complaints Aller/Immun Reports no additional complaints Physical Exam Const General: cooperative, healthy appearing and no acute distress Orientation/consciousness: patient oriented x3 HEENT Head: Yes normal to inspection, Yes normocephalic and Yes atraumatic Eyes Conjunctivae: conjunctivae normal Neck Neck: Yes normal visual inspection and Yes trachea midline Chest Chest palpation & inspection: normal inspection of the chest Resp Effort & Inspection: normal respiratory effort Cardio Rate: regular rate GI Inspection: Yes normal to inspection Palpation (GI): Soft to palpation Other: Catheterized urine 8 mL General: No no CVA tenderness External Female Exam: normal external appearance Speculum Exam - Vagina: vagina atrophic Back/Spine/Pelvis Back: No no CVA tenderness Skin General skin exam: no rashes or lesions noted Neuro General: patient oriented x3 Extrem General: No edema Psych Appearance: grossly normal Office Procedures Bladder/Catheter Procedure Details: Under sterile technique a 14 [place] catheter was passed transurethrally, 8 mL urine drained [id number] Bladder Catheter Procedure code (CPT) selection complete Results AMB Urinalysis, Automated UA Leukoctes 15 Valdez/uL Last Edit by Susan Tellez CMA on 11/07/23 10:20 UA Nitrite Positive Last Edit by Susan Tellez [facility] on 11/07/23 10: 20 UA Urobilinogen 0.2 mg/dL Last Edit by Susan Tellez [facility] on 4 10:20 UA Protein 30 mg/dL Last Edit by Susan Tellez [facility] on 11/07/23 10:2 0 UA pH 6.0 Last Edit by Susan Tellez [facility] on 11/07/23 10:20 UA Blood 0 Abhishek/uL Last Edit by Susan Tellez [facility] on 11/07/23 10:20 UA Specific [place] 1.030 Last Edit by Susan Tellez [facility] on 10:20 UA Ketone Negative Last Edit by Susan Tellez [facility] on 11/07/23 10:2 0 UA Bilirubin 0 mg/dL Last Edit by Susan Tellez [facility] on 11/07/23 10: 20 UA Glucose 0 mg/dL Last Edit by Susan Tellezvadim Tellez [facility] on 11/07/23 10:20 Results Reviewed Results Reviewed: Laboratory Last Values Urine pH (Auto) 6.0 11/07/23 10:19 Specific [place] (Auto) 1.030 11/07/23 10:19 Urine Protein (Auto) 30 mg/dL 11/07/23 10:19 Glucose (UA)(Auto) 0 mg/dL 11/07/23 10:19 Urine Ketones (Auto) Negative 11/07/23 10:19 Urine Blood (Auto) 0 Abhishek/uL 11/07/23 10:19 Urine Nitrite (Auto) Positive 11/07/23 10:19 Urine Bilirubin (Auto) 0 mg/dL 11/07/23 10:19 Urine Urobilinogen (Auto) 0.2 mg/dL 11/07/23 10:19 Leukocyte Esterase (Auto) 15 Valdez/uL 11/07/23 10:19 Date of Service: 10/07/23 EXAMINATION: US RETROPERITONEAL LIMITED (RENAL ONLY) CLINICAL INFORMATION: Urinary tract infection, site not specified. CKD. COMPARISON: Renal ultrasound 05/21/2022 and 05/22/2019. X-ray abdomen 05/22/2019. TECHNIQUE: Real-time imaging of the kidneys. FINDINGS: RIGHT KIDNEY: 8.7 x 4.6 x 5.2 cm (SAG x AP x TRV). The kidney is normal in size, contour, and echogenicity. Renal cortical thickness is normal. No calculi or focal parenchymal lesions. No hydronephrosis. LEFT KIDNEY: 8.5 x 4.1 x 5.1 cm (SAG x AP x TRV). The kidney is normal in size, contour, and echogenicity. Renal cortical thickness is normal. No renal calculi or hydronephrosis. Subcentimeter benign-appearing renal cyst, no follow-up imaging recommended. IMPRESSION: Unremarkable renal ultrasound. Collected: 09/08/23-UNK Status: COMP Req#: [id number] Received: 09/08/23-1503 Source: [facility] Sp Desc: Urine cunningham Subm Dr: Yen Mejia MD Ordered: Urine Culture Procedure Result Verified Urine Culture Final 09/10/23-075 Organism 1 Escherichia coli Quant > 100,000 cfu/mL E coli M.I.C. RX --------- --- Ampicillin 4 S Ceftriaxone <=0.25 S Gentamicin <=1 S Levofloxacin >=8 R Nitrofurantoin <=16 S Trimethoprim/Sulfamethoxazole <=20 S Assessment & Plan Assessment & Plan (1) Recurrent urinary tract infection: Code(s): N39.0 - Urinary tract infection, site not specified (2) CKD (chronic kidney disease): Code(s): N18.9 - Chronic kidney disease, unspecified (3) ASHLEE (stress urinary incontinence, female): Code(s): N39.3 - Stress incontinence (female) (male) (4) Enuresis, nocturnal only: Code(s): N39.44 - Nocturnal enuresis Plan Ceftin 250 mg twice a day for 10 days pending urine culture Follow-up for office cystoscopy Orders: Orders AMB Urinalysis Automated Today R33.9 - Retention of urine, unspecified Urine Culture Today N39.0 - Urinary tract infection, site not specified AMB Bladder/Catheter Procedure Today N39.0 - Urinary tract infection, site not specified Medications: New cefuroxime axetil 250 mg PO BID 10 days 20 tabs 0RF Patient Instructions: The patient had an opportunity to ask questions regarding treatment plan. All questions were answered. Imaging, Laboratory studies and physical exam results were discussed and reviewed in detail. No major barriers to understanding were identified. The patient expressed understanding and agreement with the above treatment plan. The patient is aware they should contact our office by phone for worsening of their current condition or the appearance of new symptoms. Compliance is encouraged with any medications and followup testing that is ordered. It is a privilege to be allowed the opportunity to participate in the urologic care of your patient. If you have any questions or concerns regarding treatment for the above conditions please do not hesitate to contact me. The office telephone contact is [phone]. This note is constructed in part using voice recognition software. While every effort has been made to ensure accuracy cutter machine tender errors may have been included. Yours sincerely, Justyn Rubin MD Coding Level of Care Code New Pt Level 4 (14835) Diagnoses Recurrent urinary tract infection N39.0 CKD (chronic kidney disease) N18.9 ASHLEE (stress urinary incontinence, female) N39.3 Enuresis, nocturnal only N39.44 CPT Codes Bladder/Catheter Procedure - CPT: 63763-[id number] Bladder Catheter ([id number])
== END 2023-11-07 11:09 | disposition home or self-care (01) ==
PROVIDERS: PCP Internal Medicine; Visit Provider Urology
DX: N39.0 Urinary tract infection, site not specified (principal); N18.9 Chronic kidney disease, unspecified; N39.3 Stress incontinence (female) (male); N39.44 Nocturnal enuresis; R33.9 Retention of urine, unspecified
CPT/HCPCS: 51701; 99204

== ENCOUNTER 2023-11-07 09:44 | Outpatient (REF) | payer MEDICARE, SELFPAY | END 2023-11-07 09:45 | disposition home or self-care (01) | LOC: HO.LAB 09:44 | PROVIDERS: PCP Internal Medicine; Visit Provider Urology | DX: N39.0 Urinary tract infection, site not specified (principal) | CPT/HCPCS: 51701; 81003; 87086; 87088; 87186; 99202 ==

== ENCOUNTER 2023-11-28 08:38 | Outpatient (REF) | payer MEDICARE, SELFPAY ==
[2023-11-28 09:04] VITALS: PULSE 98; RESP 16; O2SAT 96
--- NOTE | 2023-11-28 14:02 | PFT_ITS ---
Indication: Dyspnea Spirometry [FEV1 to FVC 92%; FEV1 1.74 L; FVC 1.9 L. No significant response to bronchodilators noted. Maximum voluntary ventilation 73% predicted] Lung Volumes [Total lung capacity 96% predicted] Diffusion Capacity [DLCO 74% predicted] Comparisons [None] Interpretation [No obstructive nor restrictive ventilatory defects identified. No significant response to bronchodilators noted. This is a mild decrease in the maximum voluntary ventilation. Lung volumes normal. The patient does have a mild diffusion impairment. Clinical correlation warranted.] MTDD
== END 2023-11-28 08:39 | disposition home or self-care (01) ==
LOC: HO.RESP 08:38
PROVIDERS: PCP Internal Medicine; Visit Provider Internal Medicine
DX: R06.02 Shortness of breath (principal)
CPT/HCPCS: 94010; 94640; 94727; 94729

== ENCOUNTER → 2023-11-28 14:02 | Outpatient (BNV) | payer MEDICARE, SELFPAY | PROVIDERS: PCP Internal Medicine; Visit Provider Hospitalist | DX: R06.09 Other forms of dyspnea (principal) | CPT/HCPCS: 94060; 94727; 94729 ==

== ENCOUNTER 2023-12-02 07:48 | Outpatient (REF) | payer MEDICARE, SELFPAY ==
[2023-12-02 11:10] LABS: Anion Gap 14 (12-20); Blood Urea Nitrogen 25 mg/dL (9-16); Calcium 9.5 mg/dL (8.4-10.2); Carbon Dioxide 26 mmol/L (22-29); Chloride 104 mmol/L (96-108); Estimated Glomerular Filt Rate 38; Potassium 4.1 mmol/L (3.3-5.1); Sodium 140 mmol/L (135-145)
== END 2023-12-02 07:49 | disposition home or self-care (01) ==
LOC: HO.HMGCLDS 07:48
PROVIDERS: PCP Internal Medicine; Visit Provider Internal Medicine Hypertension Specialist
DX: N18.9 Chronic kidney disease, unspecified (principal)
CPT/HCPCS: 36415; 80051; 82310; 82565; 84520

== ENCOUNTER 2023-12-06 10:52 | Outpatient (AMB) | payer MEDICARE, SELFPAY ==
--- NOTE | 2023-12-06 10:56 | HO.NEPHOV_ITS ---
HPI HPI Comments History of Present Illness Details 83 yr old woman with h/o HTN and REnal s tone in the past with CKD History of right breast cancer status post lumpectomy followed by radiation more than 20 years ago. In 2019 she had left breast mass underwent lumpectomy and she was treated with tamoxifen. Here for follow up Creatinine was between 1.2 and 1.3 ; REcently bumped to 1.4 Currently on lisinopril 10 mg a day. No lightheadedness. No urinary symptoms. She has had recurrent UTIs. She is due to see Urology shortly. History of renal stones in the past. Recently she had been experiencing some shortness of breath. Waiting to see Cardiology after stress test and echo. History of rheumatoid arthritis she has been followed by Rheumatology and currently on hydroxychloroquine Not on NSAIDs [facility] Medical History Recurrent urinary tract infection Shortness of breath on exertion CKD (chronic kidney disease) Need for prophylactic antibiotic Annual visit for general adult medical examination with abnormal findings History of bone density study History of Papanicolaou smear of cervix History of mammogram Bilateral shoulder pain Tubular adenoma of colon Congenital hypertrophic pyloric stenosis Post-menopause Heartburn symptom Hx of renal calculi Osteoarthritis of hips, bilateral Hx of breast cancer Dyslipidemia Essential hypertension Surgical History History of bilateral hip replacements History of total right hip arthroplasty Status post right breast lumpectomy S/P lumpectomy, left breast Family History Mother Arthritis Social History Household Members Other:: Son and Grandson Housing: House Alcohol intake: current Alcohol intake frequency: does not drink Patient Tobacco Use Status: Never used Tobacco e-Cigarette/Vaping Use: Never Used Current occupational status: 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 Cognitive needs: No Hearing needs: No Vision needs: Yes Female Reproductive History Menstrual Age of Menarche: 12 Vital Signs 12/06/23 10:58 12/06/23 11:13 Height 5 ft 4 in Weight 151 lb 4 oz BMI 26.0 BP 148/88 H 140/70 H Blood Pressure Location Lt brachial Lt brachial Position Sitting Sitting Physical Exam Vital Signs: Last Vital Signs BP 140/70 H 12/06/23 11:13 BMI result Body Mass Index 26.0 Const General: comfortable Nutritional Appearance: well nourished Orientation/consciousness: patient oriented x3 HEENT Head: No normal to inspection Mouth: moist mucous membranes Neck Neck: Yes supple and Yes no JVD Resp Auscultation: clear to auscultation bilaterally, no rales and rub present Cardio Jugular venous distension: no JVD Palpation: no palpable S3 and no palpable S4 Heart sounds: no rubs GI Palpation (GI): Soft to palpation and nontender Percussion: No Fluid wave present General: Yes no CVA tenderness Back/Spine/Pelvis Back: no CVA tenderness Skin General skin exam: no rashes or lesions noted Neuro General: patient oriented x3 Extrem General: Yes no pedal edema and No clubbing Assessment & Plan Assessment & Plan (1) CKD (chronic kidney disease): Code(s): N18.9 - Chronic kidney disease, unspecified Plan: Due to age-related decline in GFR and underlying hypertensive kidney disease. At present renal function stable at baseline. Continue to avoid nephrotoxic agents Optimize blood pressure (2) Essential hypertension: Code(s): I10 - Essential (primary) hypertension Plan: Overall blood pressure control in fact blood pressure is low with mild orthostatic change. Therefore I lowered the lisinopril from 10 mg down to 5 mg. The blood pressure remains acceptable (3) Recurrent urinary tract infection: Code(s): N39.0 - Urinary tract infection, site not specified Plan: History of renal stones. follow-up with Urology. Orders: Orders Basic Metabolic Panel 4 Months N18.9 - Chronic kidney disease, unspecified Medications: Refilled lisinopril 5 mg PO DAILY 30 tabs 2RF lisinopril 5 mg PO DAILY 90 tabs 2RF Coding Level of Care Code Tele Est Pt Level 4 (06538) Diagnoses CKD (chronic kidney disease) N18.9 Essential hypertension I10 Recurrent urinary tract infection N39.0 Results Reviewed Nephrology Results: Sodium 140 mmol/L (135-145) 12/02/23 Potassium 4.1 mmol/L (3.3-5.1) 12/02/23 Chloride 104 mmol/L (96-108) 12/02/23 Carbon Dioxide 26 mmol/L (22-29) 12/02/23 BUN 25 mg/dL (9-16) H 12/02/23 Creatinine 1.33 mg/dL (0.5-1.4) 12/02/23 Calcium 9.5 mg/dL (8.4-10.2) 12/02/23 Renal US 10/07/23
[2023-12-06 10:58] VITALS: BP 148/88; BMI 26.0
[2023-12-06 11:13] VITALS: BP 140/70
== END 2023-12-06 11:20 | disposition home or self-care (01) ==
PROVIDERS: PCP Internal Medicine; Visit Provider Internal Medicine Hypertension Specialist
DX: I12.9 Hypertensive chronic kidney disease with stage 1 through stage 4 chronic kidney disease, or unspecified chronic kidney disease (principal); N18.9 Chronic kidney disease, unspecified; N39.0 Urinary tract infection, site not specified
CPT/HCPCS: 99214

== ENCOUNTER → 2023-12-06 | Outpatient (BNVA) | payer MEDICARE, SELFPAY | PROVIDERS: PCP Internal Medicine; Visit Provider Internal Medicine Hypertension Specialist | DX: N18.9 Chronic kidney disease, unspecified (principal); I10 Essential (primary) hypertension; N39.0 Urinary tract infection, site not specified | CPT/HCPCS: 99212 ==

== ENCOUNTER 2023-12-14 10:11 | Outpatient (AMB) | payer MEDICARE, SELFPAY ==
--- NOTE | 2023-12-14 10:14 | AM.OFFWIN_ITS ---
Intake Vital Signs 12/14/23 10:15 Height 5 ft 4 in Weight 149 lb BMI 25.6 BP 120/90 H Blood Pressure Location Lt brachial Position Sitting Pulse 109 H Pulse Source Pulse Oximeter Temp 97.4 F Temp Source Temporal Artery Scan Pulse Oximetry (%) 97 Oxygen Delivery Method Room Air Intake Visit Reasons: EP ?UTI Intake Note: pt is here todsy for UTI started today Patient Tobacco Use Status: Never used Tobacco Allergies Penicillins Adverse Reaction (Verified 12/14/23 10:24) mouth swells strawberry Adverse Reaction (Verified 12/14/23 10:24) Rash tomato Adverse Reaction (Verified 12/14/23 10:24) Rash Do you need a note to return to daycare/school/sports/work: No HPI HPI Comments History of Present Illness Details 83 y/o female patient who presents to j[facility] in clinic with c/o urinary symptoms since this morning. C/o Burning and pain with urination. Pt has a well documented h/o UTIs. Was recently seen 10/2023 for Cystitis and treated with an antibiotic. C&S back in 10/2023 showed E.coli and only sensitive to Ceftriaxone. Pt has an Allergy to PCN, but she tolerated Cefuroxime well with no reaction. Pt has an upcoming appointment with Urology 12/26/23. [facility] Medical History Recurrent urinary tract infection Shortness of breath on exertion CKD (chronic kidney disease) Need for prophylactic antibiotic Annual visit for general adult medical examination with abnormal findings History of bone density study History of Papanicolaou smear of cervix History of mammogram Bilateral shoulder pain Tubular adenoma of colon Congenital hypertrophic pyloric stenosis Post-menopause Heartburn symptom Hx of renal calculi Osteoarthritis of hips, bilateral Hx of breast cancer Dyslipidemia Essential hypertension Surgical History History of bilateral hip replacements History of total right hip arthroplasty Status post right breast lumpectomy S/P lumpectomy, left breast Family History Mother Arthritis Social History Household Members Other:: Son and Grandson Housing: House Alcohol intake: current Alcohol intake frequency: does not drink Patient Tobacco Use Status: Never used Tobacco e-Cigarette/Vaping Use: Never Used Current occupational status: 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 Cognitive needs: No Hearing needs: No Vision needs: Yes Female Reproductive History Menstrual Age of Menarche: 12 Review of Systems Const All systems reviewed & are unremarkable except as noted in HPI and below Physical Exam Vital Signs: Last Vital Signs Temp 97.4 F 12/14/23 10:15 Pulse 109 H 12/14/23 10:15 BP 120/90 H 12/14/23 10:15 Pulse Ox 97 12/14/23 10:15 Oxygen Delivery Method Room Air 12/14/23 10:15 BMI result Body Mass Index 25.6 Const General: comfortable and no acute distress Orientation/consciousness: patient oriented x3 General: Yes no CVA tenderness Back/Spine/Pelvis Back: no CVA tenderness Neuro General: patient oriented x3, gait normal and moves all extremities Psych Speech and movement: Normal speech and movement present Results AMB Urinalysis, Automated UA Leukoctes 0 Valdez/uL Last Edit by Michel López MA on 12/14/23 10:33 UA Nitrite Positive Last Edit by Michel López MA on 12/14/23 10:33 UA Urobilinogen 0.2 mg/dL Last Edit by Michel López MA on 12/14/23 10:33 UA Protein 15 mg/dL Last Edit by Michel López MA on 12/14/23 10:33 UA pH 5.5 Last Edit by Michel López MA on 12/14/23 10:33 UA Blood 0 Abhishek/uL Last Edit by Michel López MA on 12/14/23 10:33 UA Specific [place] 1.030 Last Edit by Michel López MA on 12/14/23 10:33 UA Ketone Negative Last Edit by Michel López MA on 12/14/23 10:33 UA Bilirubin 0 mg/dL Last Edit by Michel López MA on 12/14/23 10:33 UA Glucose 0 mg/dL Last Edit by Michel López MA on 12/14/23 10:33 Assessment & Plan Assessment & Plan (1) Cystitis: Code(s): N30.90 - Cystitis, unspecified without hematuria Plan: Patient was able to tolerate Cefuroxime back in 10/2023, will order Cefadroxil today. Sent Urine culture for another C&S. The type of Ecoli she has is resistant to Bactrim, Macrobid and PCN antibiotics. Advised hydration with plenty of water and Cranberry juice. F/U with Urology as scheduled. Orders: Orders UA CC w/rflx Micro + Cult Today N30.90 - Cystitis, unspecified without hematuria Medications: New cefadroxil 500 mg PO BID 7 days 14 caps 0RF N30.90 - Cystitis, unspecified without hematuria Discontinued cefuroxime axetil Discontinued Reason: Patient Completed Course 250 mg PO BID 10 days 20 tabs 0RF Coding Level of Care Code Est Pt Level 4 (49547) Diagnoses Cystitis N30.90 Time Spent (min) 20 Comment Spent most of the time reviewing Chart and previous notes
[2023-12-14 10:15] VITALS: BP 120/90; PULSE 109; TEMP 36.3; O2SAT 97; BMI 25.6
== END 2023-12-14 10:50 | disposition home or self-care (01) ==
PROVIDERS: PCP Internal Medicine; Visit Provider Nurse Practitioner Family
DX: N30.90 Cystitis, unspecified without hematuria (principal)
CPT/HCPCS: 99214

== ENCOUNTER 2023-12-14 10:35 | Outpatient (REF) | payer MEDICARE, SELFPAY ==
[2023-12-14 14:09] LABS: Appearance Urine Clear; Color Urine Yellow; Glucose Urine UA Negative (Negative); Leukocyte Esterase Urine Small (1+) (Negative); Nitrite Urine Positive (Negative); PH 5.5 (5.0-9.0); UMIC TRIGGER UACC YES; Urine Blood Negative (Negative); Urine Ketones Negative (Negative); Urine Protein Trace mg/dL (Neg-Trace)
[2023-12-14 14:11] LABS: Bacteria Urine 4+ (None Seen); RBC Urine 0-2 /HPF (0-2); UACC Culture Trigger YES; WBC Urine 21-50 /HPF (0-5)
== END 2023-12-14 10:36 | disposition home or self-care (01) ==
LOC: HO.LAB 10:35
PROVIDERS: Visit Provider Nurse Practitioner Family
DX: N30.90 Cystitis, unspecified without hematuria (principal)
CPT/HCPCS: 81001; 81003; 87086; 87088; 87186

== ENCOUNTER 2023-12-19 13:15 | Outpatient (REF) | payer MEDICARE, SELFPAY ==
[2023-12-19 16:07] LABS: MANUAL DIFF FLAG NO
[2023-12-19 16:18] LABS: Basophils Absolute Auto 0.1 X10*3/uL (0.0-0.2); Basophils Percent Auto 0.7 % (0-2); Eosinophils Absolute Auto 0.2 X10*3/uL (0.0-0.4); Eosinophils Percent Auto 2.1 % (0-4); Hematocrit 41.4 % (37.0-47.0); Hemoglobin 13.6 g/dl (12.0-16.0); Imm Gran Abs Auto 0.03 X10*3/uL (0.00-0.03); Imm Gran Pct Auto 0.4 % (0.0-0.4); Lymphocytes Absolute Auto 1.5 X10*3/uL (1.2-4.9); Lymphocytes Percent Auto 20.9 % (20-40); Mean Corpuscular HGB Conc 32.9 g/dl (31.0-35.0); Mean Corpuscular Hemoglobin 29.1 pg (27.0-33.0); Mean Corpuscular Volume 88.7 fL (80.0-98.0); Mean Platelet Volume 9.8 fL (9.4-12.3); Monocytes Absolute Auto 0.6 X10*3/uL (0.1-1.2); Monocytes Percent Auto 8.8 % (2-11); Neutrophils Absolute Auto 4.8 x10*3/uL (2.0-8.3); Neutrophils Percent Auto 67.1 % (45-73); Platelet Count 339 X10*3/uL (160-400); Red Blood Count 4.67 X10*6/uL (4.20-5.50); Red Cell Distribution Width 14.5 % (11.0-16.0); White Blood Count 7.2 X10*3/uL (4.8-10.8)
[2023-12-19 16:42] LABS: Alanine Aminotransferase 19 U/L (0-31); Albumin Level 4.4 g/dL (3.5-5.0); Alkaline Phosphatase 97 U/L (39-117); Anion Gap 11 (12-20); Aspartate Amino Transferase 18 U/L (5-31); Bilirubin Total 0.5 mg/dL (0.0-1.0); Blood Urea Nitrogen 26 mg/dL (9-16); C Reactive Protein < 0.10 mg/dL (< or = 0.50); Calcium 10.4 mg/dL (8.4-10.2); Carbon Dioxide 23 mmol/L (22-29); Chloride 108 mmol/L (96-108); Estimated Glomerular Filt Rate 37; Glucose Random 102 mg/dL (60-115); Potassium 3.4 mmol/L (3.3-5.1); Sodium 139 mmol/L (135-145); Total Protein 7.1 g/dL (6.5-8.0)
[2023-12-19 17:21] LABS: Erythrocyte Sedimentation Rate 8 MM/HR (0-20)
== END 2023-12-19 13:16 | disposition home or self-care (01) ==
LOC: HO.HMGCLDS 13:15
PROVIDERS: PCP Internal Medicine; Visit Provider Student in an Organized Health Care Education/Training Program
DX: M06.00 Rheumatoid arthritis without rheumatoid factor, unspecified site (principal)
CPT/HCPCS: 36415; 80053; 85025; 85652; 86140

== ENCOUNTER 2023-12-21 07:45 | Outpatient (AMB) | payer MEDICARE, SELFPAY ==
[2023-12-21 08:14] VITALS: BP 116/79; PULSE 86; TEMP 36.1; BMI 25.7
--- NOTE | 2023-12-21 08:14 | A.OFFVIS_ITS ---
Vital Signs 12/21/23 08:14 Height 5 ft 4 in Weight 150 lb BMI 25.7 BP 116/79 Blood Pressure Location Lt brachial Position Sitting Pulse 86 Pulse Source Palpation Temp 97.0 F Temp Source Temporal Artery Scan Intake Visit Reasons: RA Allergies Penicillins Adverse Reaction (Verified 12/14/23 10:24) mouth swells strawberry Adverse Reaction (Verified 12/14/23 10:24) Rash tomato Adverse Reaction (Verified 12/14/23 10:24) Rash Medication List - Last Reconciled 12/21/23 by Catarino Perry MD acetaminophen ER (Tylenol Arthritis Pain) 1,300 mg PO Q8H anastrozole 1 mg PO DAILY ascorbic acid (vitamin C) 500 mg PO DAILY aspirin (Adult Low Dose Aspirin) 81 mg PO DAILY calcium carbonate (Antacid (calcium carbonate)) 200 mg PO DAILY famotidine 40 mg PO DAILY PRN gabapentin 100 mg PO DAILY hydroxychloroquine Take 2 tabs daily alternating with 1 tab daily lisinopril 5 mg PO DAILY mecobalamin (vitamin B12) mcg PO DAILY multivitamin 1 tab PO DAILY rosuvastatin 5 mg PO DAILY HPI Comments Details: This is an 83-year-old female with seronegative RA who returns for follow-up. On hydroxychloroquine 400 mg daily alternating with 200 mg daily. Denies any joint pain. Continues to have right 2nd MCP swelling but it does not hurt. Over the last 6 months she has had shortness of breath with exertion and saw a cloth inspector. 2D echo showed mildly reduced LVEF, she also had Holter monitor and PFTs which were nondiagnostic. She is scheduled for a stress test. She states that she is getting over a stomach bug these days Initial history: This is an 82-year-old female was referred for evaluation of multiple joint pain. The condition started on in June of 2022 when patient started having pain and stiffness of both shoulders, this lasted about 2 months then the pain swelling and stiffness started moving to her hands, fingers, knuckles. She has swelling of her right hand. Morning stiffness lasting 3-4 hours. She denies any other joint involvement. She denies any history of DVT/PE. Unaware of any family history of autoimmune rheumatic disease. She was diagnosed with right breast cancer 1999 years ago s/p lumpectomy and radiation, she took tamoxifen for 5 years. she was diagnosed with left breast cancer around 2019 and received lumpectomy and now on anastrozole. [facility] Medical History Recurrent urinary tract infection Shortness of breath on exertion CKD (chronic kidney disease) Need for prophylactic antibiotic Annual visit for general adult medical examination with abnormal findings History of bone density study History of Papanicolaou smear of cervix History of mammogram Bilateral shoulder pain Tubular adenoma of colon Congenital hypertrophic pyloric stenosis Post-menopause Heartburn symptom Hx of renal calculi Osteoarthritis of hips, bilateral Hx of breast cancer Dyslipidemia Essential hypertension Surgical History History of bilateral hip replacements History of total right hip arthroplasty Status post right breast lumpectomy S/P lumpectomy, left breast Family History Mother Arthritis Social History Household Members Other:: Son and Grandson Housing: House Alcohol intake: current Alcohol intake frequency: does not drink Patient Tobacco Use Status: Never used Tobacco e-Cigarette/Vaping Use: Never Used Current occupational status: 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 Cognitive needs: No Hearing needs: No Vision needs: Yes Female Reproductive History Menstrual Age of Menarche: 12 Review of Systems Card Reports rapid heart rate and Reports dyspnea on exertion Resp Reports dyspnea on exertion Musc Denies arthralgias, Reports joint swelling and Denies stiffness Physical Exam Const General: cooperative, healthy appearing, comfortable and no acute distress Nutritional Appearance: overweight Orientation/consciousness: patient oriented x3 Limitations: no limitations HEENT Head: Yes normocephalic and Yes atraumatic Resp Effort & Inspection: normal respiratory effort and able to speak in complete sentences Cardio Rate: regular rate and tachycardic Neuro General: patient oriented x3 Extrem Other: No wrist swelling or tenderness bilaterally Right 2nd MCP enlargement and swelling without tenderness No PIP swelling or tenderness right hand No elbow pain with full range of motion No hip pain with full range of motion No ankle pain or swelling bilaterally Negative MTP squeeze test bilateral No MTP tenderness bilaterally Assessment & Plan Assessment & Plan (1) Seronegative rheumatoid arthritis: Comment: -ve RF -ve CCP dx 05/2023 HCQ 05/2023 effective Code(s): M06.00 - Rheumatoid arthritis without rheumatoid factor, unspecified site Category: Medical Plan: This is an 83-year-old female with seronegative RA who presents for follow-up. Hydroxychloroquine 400 mg daily alternating with 200 mg daily. 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 Advised patient to go back to her environmental change analyst for Plaquenil screening. States that she has an appointment in February Plan I spent 26 minutes reviewing patient's chart, evaluating patient, ordering diagnostic workup, counseling patient and documenting in the chart Orders: Orders Comprehensive Met. Panel 4 Months Catarino Perry MD M06.00 - Rheumatoid arthritis without rheumatoid factor, unspecified site Erythrocyte Sedimentation Rate 4 Months Catarino Perry MD M06.00 - Rheumatoid arthritis without rheumatoid factor, unspecified site Complete Blood Count Auto Diff 4 Months Catarino Perry MD M06.00 - Rheumatoid arthritis without rheumatoid factor, unspecified site C Reactive Protein 4 Months Catarino Perry MD M06.00 - Rheumatoid arthritis without rheumatoid factor, unspecified site Medications: Changed From gabapentin 100 mg PO TID 90 caps 5RF To gabapentin 100 mg PO DAILY Yen Mejia MD Coding Level of Care Code Est Pt Level 4 (91578) Diagnoses Seronegative rheumatoid arthritis M06.00 Long-term use of hydroxychloroquine Z79.899
== END 2023-12-21 08:25 | disposition home or self-care (01) ==
PROVIDERS: PCP Internal Medicine; Visit Provider Student in an Organized Health Care Education/Training Program
DX: M06.00 Rheumatoid arthritis without rheumatoid factor, unspecified site (principal); Z79.899 Other long term (current) drug therapy
CPT/HCPCS: 99214

== ENCOUNTER → 2023-12-21 07:45 | Outpatient (BNVA) | payer MEDICARE, SELFPAY | PROVIDERS: PCP Internal Medicine; Visit Provider Student in an Organized Health Care Education/Training Program | DX: M06.00 Rheumatoid arthritis without rheumatoid factor, unspecified site (principal); Z79.899 Other long term (current) drug therapy | CPT/HCPCS: 99212 ==

== ENCOUNTER 2023-12-26 10:25 | Outpatient (AMB) | payer MEDICARE, SELFPAY ==
[2023-12-26 11:43] VITALS: BP 142/80; PULSE 105; TEMP 36.2; O2SAT 96; BMI 25.6
--- NOTE | 2023-12-26 11:43 | AM.OFFWIN_ITS ---
Intake Vital Signs 12/26/23 11:43 Height 5 ft 4 in Weight 149 lb 4 oz BMI 25.6 BP 142/80 H Blood Pressure Location Lt brachial Position Sitting Pulse 105 H Pulse Source Pulse Oximeter Temp 97.2 F Temp Source Temporal Artery Scan Pulse Oximetry (%) 96 Oxygen Delivery Method Room Air Intake Visit Reasons: EP RT Knee injury Intake Note: Pt presents to the office today for c/o right knee pain that happened yesterday. She states she went out to do some gardening and she states it is now swollen, painful, and hard to walk. She denies any injury to her knee. Patient Tobacco Use Status: Never used Tobacco Allergies Penicillins Adverse Reaction (Verified 12/26/23 13:10) mouth swells strawberry Adverse Reaction (Verified 12/26/23 13:10) Rash tomato Adverse Reaction (Verified 12/26/23 13:10) Rash Medication List - Last Reconciled 12/26/23 by Zheng Sr MD acetaminophen ER (Tylenol Arthritis Pain) 1,300 mg PO Q8H anastrozole 1 mg PO DAILY ascorbic acid (vitamin C) 500 mg PO DAILY aspirin (Adult Low Dose Aspirin) 81 mg PO DAILY calcium carbonate (Antacid (calcium carbonate)) 200 mg PO DAILY famotidine 40 mg PO DAILY PRN gabapentin 100 mg PO DAILY hydroxychloroquine Take 2 tabs daily alternating with 1 tab daily lisinopril 5 mg PO DAILY mecobalamin (vitamin B12) mcg PO DAILY multivitamin 1 tab PO DAILY rosuvastatin 5 mg PO DAILY HPI EP RT Knee injury HPI Details 83-year-old female presents to the [facility] for a sick visit. Patient is reporting pain in the right knee for the past few days. Does not recall any fall or injury. Patient started using a walker as she was afraid of a fall. [facility] Medical History Recurrent urinary tract infection Shortness of breath on exertion CKD (chronic kidney disease) Need for prophylactic antibiotic Annual visit for general adult medical examination with abnormal findings History of bone density study History of Papanicolaou smear of cervix History of mammogram Bilateral shoulder pain Tubular adenoma of colon Congenital hypertrophic pyloric stenosis Post-menopause Heartburn symptom Hx of renal calculi Osteoarthritis of hips, bilateral Hx of breast cancer Dyslipidemia Essential hypertension Surgical History History of bilateral hip replacements History of total right hip arthroplasty Status post right breast lumpectomy S/P lumpectomy, left breast Family History Mother Arthritis Social History Household Members Other:: Son and Grandson Housing: House Alcohol intake: current Alcohol intake frequency: does not drink Patient Tobacco Use Status: Never used Tobacco e-Cigarette/Vaping Use: Never Used Current occupational status: 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 Crepitus on full flexion. Full extension. Assessment & Plan Assessment & Plan (1) Sprain of right knee: Code(s): S83.91XA - Sprain of unspecified site of right knee, initial encounter Plan: X-rays reviewed by me personally. Knee brace provided. Tylenol suggested for pain. Coding Level of Care Code Est Pt Level 4 (81333) Diagnoses Sprain of right knee S83.91XA
== END 2023-12-26 13:31 | disposition home or self-care (01) ==
PROVIDERS: PCP Internal Medicine; Visit Provider Internal Medicine
DX: S83.91XA Sprain of unspecified site of right knee, initial encounter (principal)
CPT/HCPCS: 99214

== ENCOUNTER 2023-12-26 12:19 | Outpatient (REF) | payer MEDICARE, SELFPAY ==
--- NOTE | ~2023-12-26 | XR_ITS ---
EXAMINATION: XR KNEE, RIGHT CLINICAL INFORMATION: Right knee sprain. COMPARISON: None available. TECHNIQUE: Four views of the right knee. FINDINGS: No acute fracture or dislocation. No significant joint space narrowing or marginal osteophytes. No osseous erosion. No abnormal soft tissue calcification. Small joint effusion. XR/XR knee RT 4V IMPRESSION: Small joint effusion. No acute fracture or dislocation.
== END 2023-12-26 12:20 | disposition home or self-care (01) ==
LOC: HO.HMGCX 12:19
PROVIDERS: PCP Internal Medicine; Visit Provider Internal Medicine
DX: S83.91XA Sprain of unspecified site of right knee, initial encounter (principal); X58.XXXA Exposure to other specified factors, initial encounter; Y93.9 Activity, unspecified; Y92.9 Unspecified place or not applicable; Y99.9 Unspecified external cause status
CPT/HCPCS: 73564

== ENCOUNTER 2024-02-01 09:37 | Outpatient (AMB) | payer MEDICARE, SELFPAY ==
[2024-02-01 09:40] VITALS: BP 140/84; PULSE 112; O2SAT 96; BMI 25.2
--- NOTE | 2024-02-01 09:40 | MHC.OFFVIS ---
Vital Signs 02/01/24 09:40 Height 5 ft 4 in Weight 146 lb 9.718 oz BMI 25.2 BP 140/84 H Blood Pressure Location Lt brachial Position Sitting Pulse 112 H Pulse Source Doppler Pulse Oximetry (%) 96 Oxygen Delivery Method Room Air Intake Visit Reasons: shortness of breath Allergies Penicillins Adverse Reaction (Verified 02/01/24 09:45) mouth swells strawberry Adverse Reaction (Verified 02/01/24 09:45) Rash tomato Adverse Reaction (Verified 02/01/24 09:45) Rash HPI HPI shortness of breath: Details: 83-year-old lady, nonsmoker, being worked up by Cardiology for dyspnea on exertion with recent echo showing mild decrease in systolic function, scheduled to have stress test, referred for evaluation of pulmonary component to her dyspnea. Patient does have recent chest x-ray that is normal and recent CT chest that is significant only for mild decrease in diffusion capacity. Patient does complain of significant dyspnea on exertion even when walking on level ground. She denies prior personal or family history of lung disease. She has no history of exposure to industrial dusts. Patient denies seasonal allergies. Patient does have history of bilateral breast cancer, approximately 20 years prior on the right, and 3 years prior on the left. She is currently on anastrozole. She never had chest radiation. Patient does have mild levoscoliosis. [facility] Medical History Recurrent urinary tract infection Shortness of breath on exertion CKD (chronic kidney disease) Need for prophylactic antibiotic Annual visit for general adult medical examination with abnormal findings History of bone density study History of Papanicolaou smear of cervix History of mammogram Bilateral shoulder pain Tubular adenoma of colon Congenital hypertrophic pyloric stenosis Post-menopause Heartburn symptom Hx of renal calculi Osteoarthritis of hips, bilateral Hx of breast cancer Dyslipidemia Essential hypertension Surgical History History of bilateral hip replacements History of total right hip arthroplasty Status post right breast lumpectomy S/P lumpectomy, left breast Family History Mother Arthritis Social History Household Members Other:: Son and Grandson Housing: House Alcohol intake: current Alcohol intake frequency: does not drink Patient Tobacco Use Status: Never used Tobacco e-Cigarette/Vaping Use: Never Used Current occupational status: 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 Cognitive needs: No Hearing needs: No Vision needs: Yes Female Reproductive History Menstrual Age of Menarche: 12 Review of Systems Const Denies daytime sleepiness, Denies excessive sweating, Denies fatigue, Denies fever(s), Denies lethargy, Denies malaise, Denies night sweats, Denies snoring and Denies weight loss Eyes Denies blurry vision and Denies itchy eyes ENT Denies nasal congestion, Denies post nasal drip, Denies sinus pain, Denies sinus pressure and Denies other ( Thrush) Card Denies chest pain, Denies pedal edema, Denies dyspnea, Reports dyspnea on exertion, Denies orthopnea and Denies paroxysmal nocturnal dyspnea Resp Denies cough, Denies hemoptysis, Denies excessive phlegm production, Denies dyspnea, Reports dyspnea on exertion, Denies snoring and Denies wheezing GI Denies abdominal pain and Denies heartburn Musc Denies myalgias, Denies arthralgias and Denies joint swelling Skin/Breast Denies rash Neuro Denies memory loss and Denies seizure-like activity Psych Denies abnormal sleep pattern, Denies anxiety and Denies memory loss Endo Denies excessive sweating, Denies fatigue and Denies heat intolerance Alexis/Lymph Denies easy bruising Aller/Immun Denies itchy eyes, Denies seasonal rhinorrhea and Denies wheezing Physical Exam Vital Signs: Last Vital Signs Pulse 112 H 02/01/24 09:40 BP 140/84 H 02/01/24 09:40 Pulse Ox 96 02/01/24 09:40 Oxygen Delivery Method Room Air 02/01/24 09:40 BMI result Body Mass Index 25.2 Const General: no acute distress and alert Nutritional Appearance: not obese Orientation/consciousness: Other orientation findings ( oriented) HEENT Head: Yes atraumatic Eyes General: appearance normal, both eyes and all related structures Sclerae: sclerae normal EOM: EOMs intact bilaterally Neck Neck: Yes supple Lymphatic: no lymphadenopathy noted Resp Effort & Inspection: normal respiratory effort and no use of accessory muscles Auscultation: clear to auscultation bilaterally Cardio Rate: regular rate Rhythm: regular rhythm Heart sounds: no gallops, no murmurs and no rubs Skin General skin exam: other ( warm) Extrem General: No clubbing, No cyanosis and No edema Assessment & Plan Assessment & Plan (1) Shortness of breath on exertion: Code(s): R06.02 - Shortness of breath Category: Medical (2) Cardiomyopathy: Code(s): I42.9 - Cardiomyopathy, unspecified Category: Medical (3) Hx of breast cancer: Comment: bilateral - 1998 and 2020 negative BRCA testing, previously was on tamoxifen now on anastrozole Code(s): Z85.3 - Personal history of malignant neoplasm of breast Category: Medical Plan Unclear etiology for underlying dyspnea on exertion, but does appear at least some cardiac component. Pulmonary component is less likely. Mild decrease in diffusion capacity has no effect on oxygenation. No evidence of underlying fibrosis emphysema. Will start on empiric albuterol MDI. Patient does continue to undergo cardiac workup, however if it remains negative, will consider combined cardiopulmonary exercise testing. Medications: New albuterol sulfate 90 mcg/actuation 2 puffs inhalation 6XD PRN 1 inhaler 2RF shortness of breath or wheezing Coding Level of Care Code New Pt Level 4 (14258) Diagnoses Shortness of breath on exertion R06.02 Cardiomyopathy I42.9 Hx of breast cancer Z85.3
== END 2024-02-01 10:11 | disposition home or self-care (01) ==
PROVIDERS: PCP Internal Medicine; Visit Provider Internal Medicine Pulmonary Disease
DX: R06.02 Shortness of breath (principal); I42.9 Cardiomyopathy, unspecified; Z85.3 Personal history of malignant neoplasm of breast
CPT/HCPCS: 99204; 99214

== ENCOUNTER → 2024-02-01 09:37 | Outpatient (BNVA) | payer MEDICARE, SELFPAY | PROVIDERS: PCP Internal Medicine; Visit Provider Internal Medicine Pulmonary Disease | DX: R06.02 Shortness of breath (principal); I42.9 Cardiomyopathy, unspecified; Z85.3 Personal history of malignant neoplasm of breast | CPT/HCPCS: 99202 ==

== ENCOUNTER → 2024-02-06 07:43 | Outpatient (REF) | payer MEDICARE, SELFPAY ==
--- NOTE | ~2024-02-06 | NM_ITS ---
Myocardial perfusion study Indication: Precordial chest pain to evaluate for myocardial ischemia Technique: The patient was brought in for a Lexiscan perfusion study on 02/06/2024. Patient performed low-level exercise and was injected 0.4 mg of Lexiscan intravenously. Within a minute of injection, 25 mCi of sestamibi was given intravenously. Images were obtained using the SPECT gamma camera interlaced with the gating device. Images were obtained in supine position. Resting perfusion study was performed on 02/08/2024. Patient was administered 25 mCi of sestamibi intravenously at rest. Images were then obtained in supine position. Images obtained with and without CT attenuation. Total DLP 71 mGy-cm Images were processed with the software and compared side to side in short axis, horizontal long axis and vertical long axis views. Findings: Both stress and rest perfusion study, more so rest was suboptimal due to intense subdiaphragmatic uptake interfering with myocardial uptake The stress perfusion study showed non attenuated images show some thinning of the distal lateral wall of the LV myocardium otherwise normal uptake of radiotracer. Attenuation corrected images show. The gated study shows normal LV systolic function with visually estimated LVEF of greater than 55%. LV cavity is normal in size. The gated study shows normal systolic wall thickening and contraction of segments. Resting study shows non attenuated images show moderately reduced uptake in the inferior and inferoapical and mildly reduced uptake in the distal lateral wall of the LV myocardium. Attenuation corrected images show diffuse reduced uptake in all segments of LV myocardium related to subdiaphragmatic uptake.. Gating at rest reveals normal systolic wall motion with ejection fraction at 59%. The findings are consistent with likely normal myocardial perfusion. NM/NM cardiolite stress test Impression: 1. Myocardial perfusion imaging study shows likely normal myocardial perfusion 2. Gated LVEF is 59% 3. Transient ischemic dilatation not present EKG is nondiagnostic for ischemia
--- NOTE | 2024-02-06 07:46 | CA_ITS ---
Acquisition Time: 2024-02-06 07:46:41 Total Exercise Time: 00:02:00 Test Indications: Dyspnea TACHYCARDIA Medications: SEE H Protocol: LEXISCAN Max HR: 120 BPM 87% of Pred: 137 BPM Max BP: 128/088 mmHG Max Work Load: 1.0 METS Pharmacological stress test with Lexiscan injection while sitting and kicking her legs, without anginal symptoms, with isolated PVCs, with normotensive response to injection,. with nondiagnoisitic EKGs. Nuclear images pending. Test reviewed with Dr. Islas. Referred By: Jose F Islas Overread By: Cecelia Cook
== END ==
LOC: HO.CARD 07:43
PROVIDERS: PCP Internal Medicine; Visit Provider Internal Medicine
DX: I20.9 Angina pectoris, unspecified (principal); I42.9 Cardiomyopathy, unspecified; R07.2 Precordial pain
CPT/HCPCS: 78452; 93017; A9500; J0280; J2785

== ENCOUNTER → 2024-02-06 07:46 | Outpatient (BNV) | payer MEDICARE, SELFPAY | PROVIDERS: PCP Internal Medicine; Visit Provider Nurse Practitioner | DX: R07.2 Precordial pain (principal) | CPT/HCPCS: 78452; 93016; 93018 ==

== ENCOUNTER 2024-02-24 09:32 | Outpatient (AMB) | payer MEDICARE, SELFPAY ==
[2024-02-24 09:34] VITALS: BP 122/67; PULSE 121; O2SAT 97; BMI 24.8
--- NOTE | 2024-02-24 09:34 | A.OFFVIS_ITS ---
Vital Signs 02/24/24 09:34 Height 5 ft 4 in Weight 144 lb 6.444 oz BMI 24.8 BP 122/67 Blood Pressure Location Lt brachial Position Sitting Pulse 121 H Pulse Source Doppler Pulse Oximetry (%) 97 Oxygen Delivery Method Room Air Intake Visit Reasons: Shortness of breath Allergies Penicillins Adverse Reaction (Verified 02/01/24 09:45) mouth swells strawberry Adverse Reaction (Verified 02/01/24 09:45) Rash tomato Adverse Reaction (Verified 02/01/24 09:45) Rash HPI HPI Shortness of breath: Details: 83-year-old lady, nonsmoker, being worked up by Cardiology for dyspnea on exertion with recent echo showing mild decrease in systolic function, scheduled to have stress test, referred for evaluation of pulmonary component to her dyspnea. Patient does have recent chest x-ray that is normal and recent CT chest that is significant only for mild decrease in diffusion capacity. Patient does complain of significant dyspnea on exertion even when walking on level ground. She denies prior personal or family history of lung disease. She has no history of exposure to industrial dusts. Patient denies seasonal allergies. Patient does have history of bilateral breast cancer, approximately 20 years prior on the right, and 3 years prior on the left. She is currently on anastrozole. She never had chest radiation. Patient does have mild levoscoliosis. After the last office visit patient had an initially unrevealing cardiac and pulmonary workup, however she continues to complain of significant dyspnea after approximately 30 minutes of mild intensity of gardening. [facility] Medical History Recurrent urinary tract infection Shortness of breath on exertion CKD (chronic kidney disease) Need for prophylactic antibiotic Annual visit for general adult medical examination with abnormal findings History of bone density study History of Papanicolaou smear of cervix History of mammogram Bilateral shoulder pain Tubular adenoma of colon Congenital hypertrophic pyloric stenosis Post-menopause Heartburn symptom Hx of renal calculi Osteoarthritis of hips, bilateral Hx of breast cancer Dyslipidemia Essential hypertension Surgical History History of bilateral hip replacements History of total right hip arthroplasty Status post right breast lumpectomy S/P lumpectomy, left breast Family History Mother Arthritis Social History Household Members Other:: Son and Grandson Housing: House Alcohol intake: current Alcohol intake frequency: does not drink Patient Tobacco Use Status: Never used Tobacco e-Cigarette/Vaping Use: Never Used Current occupational status: 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 Cognitive needs: No Hearing needs: No Vision needs: Yes Female Reproductive History Menstrual Age of Menarche: 12 Review of Systems Const Denies daytime sleepiness, Denies excessive sweating, Denies fatigue, Denies fever(s), Denies lethargy, Denies malaise, Denies night sweats, Denies snoring and Denies weight loss Eyes Denies blurry vision and Denies itchy eyes ENT Denies nasal congestion, Denies post nasal drip, Denies sinus pain, Denies sinus pressure and Denies other ( Thrush) Card Denies chest pain, Denies pedal edema, Denies dyspnea, Reports dyspnea on exertion, Denies orthopnea and Denies paroxysmal nocturnal dyspnea Resp Denies cough, Denies hemoptysis, Denies excessive phlegm production, Denies dyspnea, Reports dyspnea on exertion, Denies snoring and Denies wheezing GI Denies abdominal pain and Denies heartburn Musc Denies myalgias, Denies arthralgias and Denies joint swelling Skin/Breast Denies rash Neuro Denies memory loss and Denies seizure-like activity Psych Denies abnormal sleep pattern, Denies anxiety and Denies memory loss Endo Denies excessive sweating, Denies fatigue and Denies heat intolerance Alexis/Lymph Denies easy bruising Aller/Immun Denies itchy eyes, Denies seasonal rhinorrhea and Denies wheezing Physical Exam Vital Signs: Last Vital Signs Pulse 121 H 02/24/24 09:34 BP 122/67 02/24/24 09:34 Pulse Ox 97 02/24/24 09:34 Oxygen Delivery Method Room Air 02/24/24 09:34 BMI result Body Mass Index 24.8 Const General: no acute distress and alert Nutritional Appearance: not obese Orientation/consciousness: Other orientation findings ( oriented) HEENT Head: Yes atraumatic Eyes General: appearance normal, both eyes and all related structures Sclerae: sclerae normal EOM: EOMs intact bilaterally Neck Neck: Yes supple Lymphatic: no lymphadenopathy noted Resp Effort & Inspection: normal respiratory effort and no use of accessory muscles Auscultation: clear to auscultation bilaterally Cardio Rate: regular rate Rhythm: regular rhythm Heart sounds: no gallops, no murmurs and no rubs Skin General skin exam: other ( warm) Extrem General: No clubbing, No cyanosis and No edema Assessment & Plan Assessment & Plan (1) Dyspnea on exertion: Code(s): R06.09 - Other forms of dyspnea Category: Medical Plan: Unrevealing cardiac and pulmonary workup so far with ongoing dyspnea on exertion symptoms. Will obtain cardiopulmonary exercise testing. Coding Level of Care Code Est Pt Level 3 (43092) Diagnoses Dyspnea on exertion R06.09
== END 2024-02-24 10:01 | disposition home or self-care (01) ==
PROVIDERS: PCP Internal Medicine; Visit Provider Internal Medicine Pulmonary Disease
DX: R06.09 Other forms of dyspnea (principal)
CPT/HCPCS: 99213

== ENCOUNTER → 2024-02-24 09:32 | Outpatient (BNVA) | payer MEDICARE, SELFPAY | PROVIDERS: PCP Internal Medicine; Visit Provider Internal Medicine Pulmonary Disease | DX: R06.09 Other forms of dyspnea (principal) | CPT/HCPCS: 99212 ==

== ENCOUNTER 2024-03-27 13:00 | Outpatient (AMB) | payer MEDICARE, SELFPAY ==
[2024-03-27 13:16] VITALS: BP 136/80; PULSE 86; BMI 24.6
--- NOTE | 2024-03-27 13:16 | MHC.OFFVIS ---
Vital Signs 03/27/24 13:16 Height 5 ft 4 in Weight 143 lb 4.807 oz BMI 24.6 BP 136/80 Blood Pressure Location Lt brachial Position Sitting Pulse 86 Pulse Source Pulse Oximeter Intake Visit Reasons: f/up after testing Allergies Penicillins Adverse Reaction (Verified 02/01/24 09:45) mouth swells strawberry Adverse Reaction (Verified 02/01/24 09:45) Rash tomato Adverse Reaction (Verified 02/01/24 09:45) Rash Medication List - Last Reconciled 03/27/24 by Jose F Islas MD acetaminophen ER (Tylenol Arthritis Pain) 1,300 mg PO Q8H albuterol sulfate 90 mcg/actuation 2 puffs inhalation 6XD PRN anastrozole 1 mg PO DAILY ascorbic acid (vitamin C) 500 mg PO DAILY aspirin (Adult Low Dose Aspirin) 81 mg PO DAILY calcium carbonate (Antacid (calcium carbonate)) 200 mg PO DAILY famotidine 40 mg PO DAILY PRN gabapentin 100 mg PO DAILY hydroxychloroquine 300 mg (1.5 x 200 mg) PO DAILY lisinopril 5 mg PO DAILY mecobalamin (vitamin B12) mcg PO DAILY multivitamin 1 tab PO DAILY rosuvastatin 5 mg PO DAILY HPI Comments Details: Dolly returns for follow-up. In the past, she was seen regarding shortness of breath. She states that whenever she is doing household stuff she can get short of breath. Hence she has been undergoing cardiac as well as pulmonary workup. So far, no clear etiology evident. She states she is still feeling about the same. No anginal-type symptoms. No leg swelling. No prior cardiac history. [facility] Medical History Recurrent urinary tract infection Shortness of breath on exertion CKD (chronic kidney disease) Need for prophylactic antibiotic Annual visit for general adult medical examination with abnormal findings History of bone density study History of Papanicolaou smear of cervix History of mammogram Bilateral shoulder pain Tubular adenoma of colon Congenital hypertrophic pyloric stenosis Post-menopause Heartburn symptom Hx of renal calculi Osteoarthritis of hips, bilateral Hx of breast cancer Dyslipidemia Essential hypertension Surgical History History of bilateral hip replacements History of total right hip arthroplasty Status post right breast lumpectomy S/P lumpectomy, left breast Family History Mother Arthritis Social History Household Members Other:: Son and Grandson Housing: House Alcohol intake: current Alcohol intake frequency: does not drink Patient Tobacco Use Status: Never used Tobacco e-Cigarette/Vaping Use: Never Used Current occupational status: 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 Cognitive needs: No Hearing needs: No Vision needs: Yes Female Reproductive History Menstrual Age of Menarche: 12 Review of Systems Const Denies weakness ENT Denies dizziness Card Denies chest pain, Denies chest pain with activity, Denies syncope, Denies rapid heart rate, Denies pedal edema, Denies edema, Denies leg edema, Denies lightheadedness, Denies palpitations, Denies dyspnea, Denies dyspnea on exertion and Denies orthopnea Resp Denies cough, Denies dyspnea and Denies dyspnea on exertion GI Denies hematochezia and Denies change in stool character Musc Denies abnormal gait, Denies muscle cramps, Denies muscle weakness, Denies numbness, Denies radiating pain into limb and Denies tingling Neuro Denies abnormal gait, Denies dizziness, Denies syncope, Denies numbness, Denies tingling and Denies weakness Endo Denies palpitations Physical Exam Vital Signs: Last Vital Signs Pulse 86 03/27/24 13:16 BP 136/80 03/27/24 13:16 BMI result Body Mass Index 24.6 Const General: comfortable and no acute distress Orientation/consciousness: patient oriented x3 HEENT Other: Unremarkable Head: Yes normal to inspection Neck Neck: Yes normal visual inspection Chest Chest palpation & inspection: normal inspection of the chest Resp Auscultation: clear to auscultation bilaterally Cardio Palpation: normal PMI Heart sounds: S1 normal heart sound present, S2 normal heart sound present, no gallops, no murmurs and no rubs GI Palpation (GI): Soft to palpation Back/Spine/Pelvis Other: unremarkable Skin General skin exam: no rashes or lesions noted Neuro General: patient oriented x3 Extrem General: Yes normal to inspection Psych Mental Status: mental status grossly normal Assessment & Plan Assessment & Plan (1) Shortness of breath on exertion: Code(s): R06.02 - Shortness of breath Category: Medical (2) Cardiomyopathy: Code(s): I42.9 - Cardiomyopathy, unspecified Category: Medical Plan Cardiac and pulmonary studies were reviewed. EKG with sinus rhythm at 92/Min; premature atrial contractions; minimal criteria for LVH. No clear ischemic findings. In the echocardiogram, LVEF is mildly decreased at 51%. No significant wall motion abnormalities; diastolic function was normal with normal filling pressures as well. Could not assess pulmonary hypertension because of inadequate TR jet. Cardiac BNP is within normal limits at 23 pg/ml. Myocardial perfusion imaging study normal. Chest x-ray with no acute disease. Pulmonary function testing shows no obstructive or restrictive ventilatory defects. No significant response to bronchodilators. Mild diffusion impairment. She also underwent cardiopulmonary exercise testing that suggests cardiovascular limitation to exercise. With regard to further workup, we discussed about a right heart catheterization but she would like to hold off on that for now. Left heart catheterization may not be essential as there is no clear evidence of ischemic heart disease on stress testing and she has got no angina either. She states that if her symptoms persist then she might consider it. Otherwise, we will repeat echocardiogram for any changes since the last time. We will also get a chest CT scan for completion. Follow-up in 3 months. Total time spent including review of data, counseling, documentation, coordination of care-32 minutes. Orders: Orders CA echo transthoracic complete Today R06.09 - Other forms of dyspnea CT chest wo IV con Today R06.02 - Shortness of breath Coding Level of Care Code Est Pt Level 4 (91064) Diagnoses Shortness of breath on exertion R06.02 Cardiomyopathy I42.9
== END 2024-03-27 13:42 | disposition home or self-care (01) ==
PROVIDERS: PCP Internal Medicine; Visit Provider Internal Medicine
DX: R06.02 Shortness of breath (principal); I42.9 Cardiomyopathy, unspecified
CPT/HCPCS: 99214

== ENCOUNTER → 2024-03-27 13:00 | Outpatient (BNVA) | payer MEDICARE, SELFPAY | PROVIDERS: PCP Internal Medicine; Visit Provider Internal Medicine | DX: R06.02 Shortness of breath (principal); I42.9 Cardiomyopathy, unspecified | CPT/HCPCS: 99212 ==

== ENCOUNTER 2024-03-28 11:08 | Outpatient (REF) | payer MEDICARE, SELFPAY ==
[2024-03-28 13:16] LABS: MANUAL DIFF FLAG NO
[2024-03-28 13:31] LABS: Basophils Percent Auto 0.6 % (0-2); Eosinophils Absolute Auto 0.2 X10*3/uL (0.0-0.4); Eosinophils Percent Auto 3.9 % (0-4); Hematocrit 38.6 % (37.0-47.0); Hemoglobin 12.5 g/dl (12.0-16.0); Imm Gran Abs Auto 0.02 X10*3/uL (0.00-0.03); Imm Gran Pct Auto 0.4 % (0.0-0.4); Lymphocytes Absolute Auto 1.4 X10*3/uL (1.2-4.9); Lymphocytes Percent Auto 29.4 % (20-40); Mean Corpuscular HGB Conc 32.4 g/dl (31.0-35.0); Mean Corpuscular Hemoglobin 29.6 pg (27.0-33.0); Mean Corpuscular Volume 91.5 fL (80.0-98.0); Mean Platelet Volume 9.7 fL (9.4-12.3); Monocytes Absolute Auto 0.4 X10*3/uL (0.1-1.2); Monocytes Percent Auto 7.8 % (2-11); Neutrophils Absolute Auto 2.8 x10*3/uL (2.0-8.3); Neutrophils Percent Auto 57.9 % (45-73); Platelet Count 336 X10*3/uL (160-400); Red Blood Count 4.22 X10*6/uL (4.20-5.50); Red Cell Distribution Width 13.5 % (11.0-16.0); White Blood Count 4.9 X10*3/uL (4.8-10.8)
[2024-03-28 13:56] LABS: Alanine Aminotransferase 23 U/L (0-31); Albumin Level 4.2 g/dL (3.5-5.0); Alkaline Phosphatase 90 U/L (39-117); Anion Gap 14 (12-20); Aspartate Amino Transferase 23 U/L (5-31); Bilirubin Total 0.6 mg/dL (0.0-1.0); Blood Urea Nitrogen 20 mg/dL (9-16); C Reactive Protein < 0.04 mg/dL (< or = 0.50); Calcium 10.1 mg/dL (8.4-10.2); Carbon Dioxide 25 mmol/L (22-29); Chloride 106 mmol/L (96-108); Estimated Glomerular Filt Rate 34; Glucose Random 115 mg/dL (60-115); Sodium 141 mmol/L (135-145); Total Protein 6.9 g/dL (6.5-8.0)
[2024-03-28 14:15] LABS: Erythrocyte Sedimentation Rate 14 MM/HR (0-20)
== END 2024-03-28 11:09 | disposition home or self-care (01) ==
LOC: HO.HMGCLDS 11:08
PROVIDERS: PCP Internal Medicine; Visit Provider Student in an Organized Health Care Education/Training Program
DX: M06.00 Rheumatoid arthritis without rheumatoid factor, unspecified site (principal)
CPT/HCPCS: 36415; 80053; 85025; 85652; 86140

== ENCOUNTER 2024-04-02 07:28 | Outpatient (AMB) | payer MEDICARE, SELFPAY ==
--- NOTE | 2024-04-02 07:30 | A.OFFVIS_ITS ---
Vital Signs 04/02/24 07:34 Height 5 ft 4 in Weight 143 lb 15.39 oz BMI 24.7 BP 132/78 Blood Pressure Location Lt brachial Position Sitting Respiration 16 Pulse 88 Pulse Source Pulse Oximeter Pulse Oximetry (%) 100 Oxygen Delivery Method Room Air Intake Visit Reasons: RA/CM Intake Note: Patient presents for RA. Allergies Penicillins Adverse Reaction (Verified 04/02/24 07:33) mouth swells strawberry Adverse Reaction (Verified 04/02/24 07:33) Rash tomato Adverse Reaction (Verified 04/02/24 07:33) Rash Medication List - Last Reconciled 04/02/24 by Catarino Perry MD acetaminophen ER (Tylenol Arthritis Pain) 1,300 mg PO Q8H albuterol sulfate 90 mcg/actuation 2 puffs inhalation 6XD PRN anastrozole 1 mg PO DAILY ascorbic acid (vitamin C) 500 mg PO DAILY aspirin (Adult Low Dose Aspirin) 81 mg PO DAILY calcium carbonate (Antacid (calcium carbonate)) 200 mg PO DAILY famotidine 40 mg PO DAILY PRN gabapentin 100 mg PO DAILY hydroxychloroquine 300 mg (1.5 x 200 mg) PO DAILY lisinopril 5 mg PO DAILY mecobalamin (vitamin B12) mcg PO DAILY multivitamin 1 tab PO DAILY rosuvastatin 5 mg PO DAILY HPI Comments Details: This is an 83-year-old female with seronegative RA who returns for follow-up. On hydroxychloroquine 400 mg daily alternating with 200 mg daily. States that she gets intermittent triggering of her right ring finger, these episodes happen about once a week, not painful when she unlocks it. Has any joint swelling. She states that she sprained her knee about 2 weeks ago and has been wearing a brace. She had testing for shortness of breath, per patient, it was unrevealing to the underlying cause, she stated that she will get a CT chest and another 2D echo in the near future. Initial history: This is an 82-year-old female was referred for evaluation of multiple joint pain. The condition started on in June of 2022 when patient started having pain and stiffness of both shoulders, this lasted about 2 months then the pain swelling and stiffness started moving to her hands, fingers, knuckles. She has swelling of her right hand. Morning stiffness lasting 3-4 hours. She denies any other joint involvement. She denies any history of DVT/PE. Unaware of any family history of autoimmune rheumatic disease. She was diagnosed with right breast cancer 1999 years ago s/p lumpectomy and radiation, she took tamoxifen for 5 years. she was diagnosed with left breast cancer around 2019 and received lumpectomy and now on anastrozole. [facility] Medical History Recurrent urinary tract infection Shortness of breath on exertion CKD (chronic kidney disease) Need for prophylactic antibiotic Annual visit for general adult medical examination with abnormal findings History of bone density study History of Papanicolaou smear of cervix History of mammogram Bilateral shoulder pain Tubular adenoma of colon Congenital hypertrophic pyloric stenosis Post-menopause Heartburn symptom Hx of renal calculi Osteoarthritis of hips, bilateral Hx of breast cancer Dyslipidemia Essential hypertension Surgical History History of bilateral hip replacements History of total right hip arthroplasty Status post right breast lumpectomy S/P lumpectomy, left breast Family History Mother Arthritis Social History Household Members Other:: Son and Grandson Housing: House Alcohol intake: current Alcohol intake frequency: does not drink Patient Tobacco Use Status: Never used Tobacco e-Cigarette/Vaping Use: Never Used Current occupational status: 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 Cognitive needs: No Hearing needs: No Vision needs: Yes Female Reproductive History Menstrual Age of Menarche: 12 Review of Systems Card Reports rapid heart rate and Reports dyspnea on exertion Resp Reports dyspnea on exertion Musc Reports arthralgias, Denies joint swelling, Reports limited range of motion and Reports stiffness Physical Exam Vital Signs: Last Vital Signs Pulse 88 04/02/24 07:34 Resp 16 04/02/24 07:34 BP 132/78 04/02/24 07:34 Pulse Ox 100 04/02/24 07:34 Oxygen Delivery Method Room Air 04/02/24 07:34 BMI result Body Mass Index 24.7 Const General: cooperative, healthy appearing, comfortable and no acute distress Nutritional Appearance: overweight Orientation/consciousness: patient oriented x3 Limitations: no limitations HEENT Head: Yes normocephalic and Yes atraumatic Resp Effort & Inspection: normal respiratory effort and able to speak in complete sentences Cardio Rate: regular rate and tachycardic Neuro General: patient oriented x3 Extrem Other: No wrist swelling or tenderness bilaterally Right 2nd MCP enlargement and swelling without tenderness No PIP swelling or tenderness right hand Triggering of right 5th flexor tendon No elbow pain with full range of motion No hip pain with full range of motion Mild right knee warmth No ankle pain or swelling bilaterally Negative MTP squeeze test bilateral No MTP tenderness bilaterally Assessment & Plan Assessment & Plan (1) Seronegative rheumatoid arthritis: Comment: -ve RF -ve CCP dx 05/2023 HCQ 05/2023 effective Code(s): M06.00 - Rheumatoid arthritis without rheumatoid factor, unspecified site Category: Medical Plan: This is an 83-year-old female with seronegative RA who presents for follow-up. On Hydroxychloroquine 400 mg daily alternating with 200 mg daily. Doing well overall with no active synovitis Mild bump in creatinine, reduce hydroxychloroquine to 200 mg daily Labs before next visit in 6 months (2) Long-term use of hydroxychloroquine: Comment: Eye exam 02/2024 okay Code(s): Z79.899 - Other residential (current) drug therapy Category: Medical Plan: Continue to follow-up regularly with petroleum analyst Plan I spent 26 minutes reviewing patient's chart, evaluating patient, ordering diagnostic workup, counseling patient and documenting in the chart Orders: Orders Complete Blood Count Auto Diff 6 Months M06.00 - Rheumatoid arthritis without rheumatoid factor, unspecified site, Z79.899 - Other senior living sales counselor (current) drug therapy Comprehensive Met. Panel 6 Months M06.00 - Rheumatoid arthritis without rheumatoid factor, unspecified site, Z79.899 - Other senior living sales counselor (current) drug therapy C Reactive Protein 6 Months M06.00 - Rheumatoid arthritis without rheumatoid factor, unspecified site, Z79.899 - Other senior living sales counselor (current) drug therapy Erythrocyte Sedimentation Rate 6 Months M06.00 - Rheumatoid arthritis without rheumatoid factor, unspecified site, Z79.899 - Other senior living sales counselor (current) drug therapy Medications: Changed From hydroxychloroquine 300 mg (1.5 x 200 mg) PO DAILY 135 tabs 0RF To hydroxychloroquine 200 mg PO DAILY 90 tabs 1RF Refilled hydroxychloroquine 300 mg (1.5 x 200 mg) PO DAILY 135 tabs 0RF Coding Level of Care Code Est Pt Level 4 (59310) Diagnoses Seronegative rheumatoid arthritis M06.00 Long-term use of hydroxychloroquine Z79.899
[2024-04-02 07:34] VITALS: BP 132/78; PULSE 88; RESP 16; O2SAT 100; BMI 24.7
== END 2024-04-02 07:55 | disposition home or self-care (01) ==
PROVIDERS: PCP Internal Medicine; Visit Provider Student in an Organized Health Care Education/Training Program
DX: M06.00 Rheumatoid arthritis without rheumatoid factor, unspecified site (principal); Z79.899 Other long term (current) drug therapy
CPT/HCPCS: 99214

== ENCOUNTER → 2024-04-02 07:28 | Outpatient (BNVA) | payer MEDICARE, SELFPAY | PROVIDERS: PCP Internal Medicine; Visit Provider Student in an Organized Health Care Education/Training Program | DX: M06.00 Rheumatoid arthritis without rheumatoid factor, unspecified site (principal); Z79.899 Other long term (current) drug therapy | CPT/HCPCS: 99212 ==

== ENCOUNTER 2024-04-05 08:53 | Outpatient (AMB) | payer MEDICARE, SELFPAY ==
--- NOTE | 2024-04-05 09:14 | MHC.OFFVIS ---
Intake Visit Reasons: CYSTO Intake Note: Patient is Present for Cystoscopy(Recurrent UTI) Urology Med:None Antibiotic Allergy: Penicillins Blood Thinner:Aspirin URO- G Disposable Cystoscope lot: [id number] exp: 10/13/2026 Culture has been sent to lab Chief Of Vital Statistics Required: No Accompanied by: Self / Same As Patient Allergies Penicillins Adverse Reaction (Verified 04/05/24 09:18) mouth swells strawberry Adverse Reaction (Verified 04/05/24 09:18) Rash tomato Adverse Reaction (Verified 04/05/24 09:18) Rash Medication List - Last Reconciled 04/05/24 by Justyn Rubin MD acetaminophen ER (Tylenol Arthritis Pain) 1,300 mg PO Q8H albuterol sulfate 90 mcg/actuation 2 puffs inhalation 6XD PRN anastrozole 1 mg PO DAILY ascorbic acid (vitamin C) 500 mg PO DAILY aspirin (Adult Low Dose Aspirin) 81 mg PO DAILY calcium carbonate (Antacid (calcium carbonate)) 200 mg PO DAILY famotidine 40 mg PO DAILY PRN gabapentin 100 mg PO DAILY hydroxychloroquine 200 mg PO DAILY lisinopril 5 mg PO DAILY mecobalamin (vitamin B12) mcg PO DAILY multivitamin 1 tab PO DAILY nitrofurantoin monohyd/m-cryst 100 mg (Macrobid) 100 mg orally take bid for 5 days then take daily until antibiotics are finished; must administer with a meal/food rosuvastatin 5 mg PO DAILY HPI Comments Details: 04/05/2024--Dolly is here for follow-up office cystoscopy. She was sent for evaluation due to chronic UTIs and urinary incontinence. The patient states her urine leakage has improved since she was initially evaluated. She is still leaks at bedtime. I reviewed her urine cultures in October and November which are E coli with resistance to Levaquin. 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 I have discussed findings consistent with persistent bacteriuria. Plan Macrobid b.i.d. for 5 days then daily total of 40 tablets, Gemtesa 75 mg at bedtime. Follow-up in 3 months. Review of chart: 11/07/23--Dolly is an 83-year-old female who is here for evaluation due to recurrent UTIs. Past medical history - chronic kidney disease, history of breast cancer, the patient denies pelvic surgery, denies hysterectomy. The patient states that she went to emergency room in August for lower abdominal pain and shortness of breath and she was told she had a UTI at that time. In review of her chart the patient has documented urinary tract infections: 09/08/2023- E coli resistant to Levaquin; 04/27/2023 E coli resistant to Levaquin, 04/13/2023 --E coli and Klebsiella- E coli resistant to Levaquin, Klebsiella resistant to Bactrim and ampicillin & intermediate nitrofurantoin. The patient has urinary symptoms of occasional urgency and stress incontinence with coughing or laughing, she wears a depends during the night due to urinary incontinence. The patient was seen by Nephrology renal ultrasound was ordered I have reviewed results 10/07/23 kidneys negative for masses or stones. Evaluation: Urinalysis nitrite positive. Pelvic exam--vaginal atrophy, bladder neck well supported, no prolapse observed. Catheterized PVR-minimal. PLAN: Ceftin 250 mg daily b.i.d. for 10 days pending urine culture. Follow-up office cystoscopy [facility] Medical History Recurrent urinary tract infection Shortness of breath on exertion CKD (chronic kidney disease) Need for prophylactic antibiotic Annual visit for general adult medical examination with abnormal findings History of bone density study History of Papanicolaou smear of cervix History of mammogram Bilateral shoulder pain Tubular adenoma of colon Congenital hypertrophic pyloric stenosis Post-menopause Heartburn symptom Hx of renal calculi Osteoarthritis of hips, bilateral Hx of breast cancer Dyslipidemia Essential hypertension Surgical History History of bilateral hip replacements History of total right hip arthroplasty Status post right breast lumpectomy S/P lumpectomy, left breast Family History Mother Arthritis Social History Household Members Other:: Son and Grandson Housing: House Alcohol intake: current Alcohol intake frequency: does not drink Patient Tobacco Use Status: Never used Tobacco e-Cigarette/Vaping Use: Never Used Current occupational status: 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 Cognitive needs: No Hearing needs: No Vision needs: Yes Female Reproductive History Menstrual Age of Menarche: 12 Review of Systems Const All systems reviewed & are unremarkable except as noted in HPI and below Reports no additional complaints Eyes Reports no additional complaints ENT Reports no additional complaints Card Reports no additional complaints Resp Reports no additional complaints GI Reports no additional complaints Reports as per HPI Musc Reports no additional complaints Skin/Breast Reports system reviewed and no additional complaints, except as documented Neuro Reports no additional complaints Psych Reports no additional complaints Endo Reports no additional complaints Alexis/Lymph Reports no additional complaints Aller/Immun Reports no additional complaints Office Procedures Cystoscopy Consent Discussed risk and benefit or proposed procedure with the patient. Information consent for procedure given to the patient. Discussed technical aspects, risks, benefits and alternatives in full. Addressed all of the patient's questions and concerns regarding the procedure. The patient demonstrated knowledge and understanding. They wish to proceed with this procedure. Preparation The patient was prepped in the usual manner. A medical claims examiner was present and in the room. Genitalia was prepped with betadine solution in a sterile manner. Lidocaine Jelly 2% was placed into the urethra and 16Fr flexible Olympus cystoscope was inserted into the meatus after adequate lubrication. Time out per protocol performed. 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, no suspicious bladder lesions visualized [id number] DISPOSABLE SCOPE URO-G FLEXIBLE SCOPE Procedure code (CPT) selection complete Office Meds lidocaine HCl 2 % mucosal jelly in applicator Performing Provider: Justyn Rubin MD Performing Location: [facility] [place] [facility] Administered by: Tunde Hawk LPN on 04/05/24 09:53 Dose Route Admin Location Dispensed Lot Number Expiration Date NDC Certified Ophthalmic Medical Technician 10 mL intra-urethral 10 mL naproxen 500 mg tablet Performing Provider: Justyn Rubin MD Performing Location: [facility] [place] [facility] Administered by: Tunde Hawk LPN on 04/05/24 09:53 Dose Route Admin Location Dispensed Lot Number Expiration Date NDC Certified Ophthalmic Medical Technician 500 mg PO 1 tab Results AMB Urinalysis, Automated UA Leukoctes 125 Valdez/uL Last Edit by ALANNAH Day on 04/05/24 09:42 UA Nitrite Positive Last Edit by FLORESITA DayA on 04/05/24 09:42 UA Urobilinogen 0.2 mg/dL Last Edit by FLORESITA DayA on 04/05/24 09:42 UA Protein 30 mg/dL Last Edit by Courtney Naylor A on 04/05/24 09:42 UA pH 6.0 Last Edit by Courtney Naylor A on 04/05/24 09:42 UA Blood 0 Abhishek/uL Last Edit by Courtney Naylor A on 04/05/24 09:42 UA Specific [place] 1.025 Last Edit by FLORESITA DayA on 04/05/24 09:42 UA Ketone Negative Last Edit by Courtney Naylor A on 04/05/24 09:42 UA Bilirubin 0 mg/dL Last Edit by Courtney Naylor A on 04/05/24 09:42 UA Glucose 0 mg/dL Last Edit by Courtney Naylor A on 04/05/24 09:42 Results Reviewed Results Reviewed: Laboratory Last Values Urine pH (Auto) 6.0 04/05/24 09:37 Specific [place] (Auto) 1.025 04/05/24 09:37 Urine Protein (Auto) 30 mg/dL 04/05/24 09:37 Glucose (UA)(Auto) 0 mg/dL 04/05/24 09:37 Urine Ketones (Auto) Negative 04/05/24 09:37 Urine Blood (Auto) 0 Abhishek/uL 04/05/24 09:37 Urine Nitrite (Auto) Positive 04/05/24 09:37 Urine Bilirubin (Auto) 0 mg/dL 04/05/24 09:37 Urine Urobilinogen (Auto) 0.2 mg/dL 04/05/24 09:37 Leukocyte Esterase (Auto) 125 Valdez/uL 04/05/24 09:37 Collected: 12/14/23-UNK Status: COMP Req#: [id number] Received: 12/14/23-1416 Source: [facility] Sp Desc: Urine cunningham Subm Dr: Anna Fitch NP Ordered: Urine Culture Procedure Result Verified Urine Culture Final 12/16/23-729 Organism 1 Escherichia coli Quant > 100,000 cfu/mL E coli M.I.C. RX --------- --- Ampicillin <=2 S Ceftriaxone <=0.25 S Gentamicin <=1 S Levofloxacin >=8 R Nitrofurantoin <=16 S Trimethoprim/Sulfamethoxazole <=20 S Collected: 11/07/23 Status: COMP Req#: [id number] Received: 11/07/23 Source: [facility] Sp Desc: Urine cunningham Subm Dr: Justyn Rubin MD Ordered: Urine Culture Procedure Result Verified Urine Culture Final 11/09/23-728 Organism 1 Escherichia coli Quant > 100,000 cfu/mL E coli M.I.C. RX --------- --- Ampicillin <=2 S Ceftriaxone <=0.25 S Gentamicin <=1 S Levofloxacin >=8 R Nitrofurantoin <=16 S Trimethoprim/Sulfamethoxazole <=20 S Date of Service: 10/07/23 EXAMINATION: US RETROPERITONEAL LIMITED (RENAL ONLY) CLINICAL INFORMATION: Urinary tract infection, site not specified. CKD. COMPARISON: Renal ultrasound 05/21/2022 and 05/22/2019. X-ray abdomen 05/22/2019. TECHNIQUE: Real-time imaging of the kidneys. FINDINGS: RIGHT KIDNEY: 8.7 x 4.6 x 5.2 cm (SAG x AP x TRV). The kidney is normal in size, contour, and echogenicity. Renal cortical thickness is normal. No calculi or focal parenchymal lesions. No hydronephrosis. LEFT KIDNEY: 8.5 x 4.1 x 5.1 cm (SAG x AP x TRV). The kidney is normal in size, contour, and echogenicity. Renal cortical thickness is normal. No renal calculi or hydronephrosis. Subcentimeter benign-appearing renal cyst, no follow-up imaging recommended. IMPRESSION: Unremarkable renal ultrasound. Collected: 09/08/23-UNK Status: COMP Req#: [id number] Received: 09/08/231503 Source: [facility] Sp Desc: Urine cunningham Subm Dr: Yen Mejia MD Ordered: Urine Culture Procedure Result Verified Urine Culture Final 09/10/23 Organism 1 Escherichia coli Quant > 100,000 cfu/mL E coli M.I.C. RX --------- --- Ampicillin 4 S Ceftriaxone <=0.25 S Gentamicin <=1 S Levofloxacin >=8 R Nitrofurantoin <=16 S Trimethoprim/Sulfamethoxazole <=20 S Assessment & Plan Assessment & Plan (1) Recurrent urinary tract infection: Code(s): N39.0 - Urinary tract infection, site not specified Category: Medical (2) CKD (chronic kidney disease): Code(s): N18.9 - Chronic kidney disease, unspecified Category: Medical (3) ASHLEE (stress urinary incontinence, female): Code(s): N39.3 - Stress incontinence (female) (male) Category: Medical (4) Enuresis, nocturnal only: Code(s): N39.44 - Nocturnal enuresis Category: Medical Plan The patient states her urine leakage has improved since she was initially evaluated. She is still leaks at bedtime. I reviewed her urine cultures in October and November which are E coli with resistance to Levaquin. 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 I have discussed findings consistent with persistent bacteriuria. Plan Macrobid b.i.d. for 5 days then daily total of 40 tablets, Gemtesa 75 mg at bedtime. Follow-up in 3 months. Orders: Orders Urine Culture Today N39.0 - Urinary tract infection, site not specified AMB Urinalysis Automated Today N39.0 - Urinary tract infection, site not specified, Z13.9 - Encounter for screening, unspecified AMB Cystoscopy Today N39.0 - Urinary tract infection, site not specified Medications: New nitrofurantoin monohyd/m-cryst 100 mg (Macrobid) 100 mg orally take bid for 5 days then take daily until antibiotics are finished; must administer with a meal/food 40 caps 0RF chronic UTI vibegron (Gemtesa) 75 mg PO DAILY 90 tabs 2RF Patient Instructions: The patient had an opportunity to ask questions regarding treatment plan. The patient expressed understanding and agreement with the above treatment plan. The patient is aware they should contact our office by phone for worsening of their current condition or the appearance of new symptoms. Compliance is encouraged with any medications and followup testing that is ordered. It is a privilege to be allowed the opportunity to participate in the urologic care of your patient. If you have any questions or concerns regarding treatment for the above conditions please do not hesitate to contact me. The office telephone contact is [phone]. This note is constructed in part using voice recognition software. While every effort has been made to ensure accuracy electrician master errors may have been included. Yours sincerely, Justyn Rubin MD Coding Level of Care Code Est Pt Level 4 (63117) Diagnoses Recurrent urinary tract infection N39.0 CKD (chronic kidney disease) N18.9 ASHLEE (stress urinary incontinence, female) N39.3 Enuresis, nocturnal only N39.44 CPT Codes Cystoscopy - CPT: 49501-[id number] ([id number])
== END 2024-04-05 10:08 | disposition home or self-care (01) ==
PROVIDERS: PCP Internal Medicine; Visit Provider Urology
DX: N39.0 Urinary tract infection, site not specified (principal); N18.9 Chronic kidney disease, unspecified; N39.3 Stress incontinence (female) (male); N39.44 Nocturnal enuresis; Z13.9 Encounter for screening, unspecified
CPT/HCPCS: 52000; 99214

== ENCOUNTER 2024-04-05 08:53 | Outpatient (REF) | payer MEDICARE, SELFPAY | END 2024-04-05 08:54 | disposition home or self-care (01) | LOC: HO.LAB 08:53 | PROVIDERS: PCP Internal Medicine; Visit Provider Urology | DX: N39.0 Urinary tract infection, site not specified (principal); N39.3 Stress incontinence (female) (male); N18.9 Chronic kidney disease, unspecified; N39.44 Nocturnal enuresis; Z13.9 Encounter for screening, unspecified; R82.79 Other abnormal findings on microbiological examination of urine | CPT/HCPCS: 52000; 81003; 87086; 87088; 87186; 99212 ==

== ENCOUNTER 2024-04-12 09:56 | Outpatient (AMB) | payer MEDICARE, SELFPAY ==
[2024-04-12 10:08] VITALS: BP 118/72; PULSE 109; O2SAT 97; BMI 24.4
--- NOTE | 2024-04-12 10:08 | MHC.OFFVIS ---
Vital Signs 04/12/24 10:08 Height 5 ft 4 in Weight 142 lb 3.17 oz BMI 24.4 BP 118/72 Blood Pressure Location Lt brachial Position Sitting Pulse 109 H Pulse Source Doppler Pulse Oximetry (%) 97 Oxygen Delivery Method Nasal Cannula Intake Visit Reasons: Shortness of breath Allergies Penicillins Adverse Reaction (Verified 04/05/24 09:18) mouth swells strawberry Adverse Reaction (Verified 04/05/24 09:18) Rash tomato Adverse Reaction (Verified 04/05/24 09:18) Rash HPI HPI Shortness of breath: Details: 83-year-old lady, nonsmoker, being worked up by Cardiology for dyspnea on exertion with recent echo showing mild decrease in systolic function, scheduled to have stress test, referred for evaluation of pulmonary component to her dyspnea. Patient does have recent chest x-ray that is normal and recent CT chest that is significant only for mild decrease in diffusion capacity. Patient does complain of significant dyspnea on exertion even when walking on level ground. She denies prior personal or family history of lung disease. She has no history of exposure to industrial dusts. Patient denies seasonal allergies. Patient does have history of bilateral breast cancer, approximately 20 years prior on the right, and 3 years prior on the left. She is currently on anastrozole. She never had chest radiation. Patient does have mild levoscoliosis. After the last office visit patient had cardiopulmonary exercise test that showed no exercise limitation secondary pulmonary etiologies, but likely limitation secondary to cardiovascular reasons. [facility] Medical History Recurrent urinary tract infection Shortness of breath on exertion CKD (chronic kidney disease) Need for prophylactic antibiotic Annual visit for general adult medical examination with abnormal findings History of bone density study History of Papanicolaou smear of cervix History of mammogram Bilateral shoulder pain Tubular adenoma of colon Congenital hypertrophic pyloric stenosis Post-menopause Heartburn symptom Hx of renal calculi Osteoarthritis of hips, bilateral Hx of breast cancer Dyslipidemia Essential hypertension Surgical History History of bilateral hip replacements History of total right hip arthroplasty Status post right breast lumpectomy S/P lumpectomy, left breast Family History Mother Arthritis Social History Household Members Other:: Son and Grandson Housing: House Alcohol intake: current Alcohol intake frequency: does not drink Patient Tobacco Use Status: Never used Tobacco e-Cigarette/Vaping Use: Never Used Current occupational status: 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 Cognitive needs: No Hearing needs: No Vision needs: Yes Female Reproductive History Menstrual Age of Menarche: 12 Review of Systems Const Denies daytime sleepiness, Denies excessive sweating, Denies fatigue, Denies fever(s), Denies lethargy, Denies malaise, Denies night sweats, Denies snoring and Denies weight loss Eyes Denies blurry vision and Denies itchy eyes ENT Denies nasal congestion, Denies post nasal drip, Denies sinus pain, Denies sinus pressure and Denies other ( Thrush) Card Denies chest pain, Denies pedal edema, Denies dyspnea, Reports dyspnea on exertion, Denies orthopnea and Denies paroxysmal nocturnal dyspnea Resp Denies cough, Denies hemoptysis, Denies excessive phlegm production, Denies dyspnea, Reports dyspnea on exertion, Denies snoring and Denies wheezing GI Denies abdominal pain and Denies heartburn Musc Denies myalgias, Denies arthralgias and Denies joint swelling Skin/Breast Denies rash Neuro Denies memory loss and Denies seizure-like activity Psych Denies abnormal sleep pattern, Denies anxiety and Denies memory loss Endo Denies excessive sweating, Denies fatigue and Denies heat intolerance Alexis/Lymph Denies easy bruising Aller/Immun Denies itchy eyes, Denies seasonal rhinorrhea and Denies wheezing Physical Exam Vital Signs: Last Vital Signs Pulse 109 H 04/12/24 10:08 BP 118/72 04/12/24 10:08 Pulse Ox 97 04/12/24 10:08 Oxygen Delivery Method Nasal Cannula 04/12/24 10:08 BMI result Body Mass Index 24.4 Const General: no acute distress and alert Nutritional Appearance: not obese Orientation/consciousness: Other orientation findings ( oriented) HEENT Head: Yes atraumatic Eyes General: appearance normal, both eyes and all related structures Sclerae: sclerae normal EOM: EOMs intact bilaterally Neck Neck: Yes supple Lymphatic: no lymphadenopathy noted Resp Effort & Inspection: normal respiratory effort and no use of accessory muscles Auscultation: clear to auscultation bilaterally Cardio Rate: regular rate Rhythm: regular rhythm Heart sounds: no gallops, no murmurs and no rubs Skin General skin exam: other ( warm) Extrem General: No clubbing, No cyanosis and No edema Assessment & Plan Assessment & Plan (1) Dyspnea on exertion: Code(s): R06.09 - Other forms of dyspnea Category: Medical Plan: Results of cardiopulmonary exercise test in reviewed - in imitation secondary to cardiovascular etiologies, no pulmonary limitation noted. Patient continues with cardiac workup. Coding Level of Care Code Est Pt Level 3 (09157) Diagnoses Dyspnea on exertion R06.09
== END 2024-04-12 10:26 | disposition home or self-care (01) ==
PROVIDERS: PCP Internal Medicine; Visit Provider Internal Medicine Pulmonary Disease
DX: R06.09 Other forms of dyspnea (principal)
CPT/HCPCS: 99213

== ENCOUNTER → 2024-04-12 09:56 | Outpatient (BNVA) | payer MEDICARE, SELFPAY | PROVIDERS: PCP Internal Medicine; Visit Provider Internal Medicine Pulmonary Disease | DX: R06.09 Other forms of dyspnea (principal) | CPT/HCPCS: 99212 ==

== ENCOUNTER 2024-04-17 09:45 | Outpatient (AMB) | payer MEDICARE, SELFPAY ==
[2024-04-17 09:51] VITALS: BP 132/82; PULSE 97; O2SAT 96; BMI 24.5
--- NOTE | 2024-04-17 09:51 | HO.NEPHOV_ITS ---
Vital Signs 04/17/24 09:51 Height 5 ft 4 in Weight 143 lb BMI 24.5 BP 132/82 Blood Pressure Location Rt brachial Position Sitting Pulse 97 Pulse Source Pulse Oximeter Pulse Oximetry (%) 96 Oxygen Delivery Method Room Air Intake Visit Reasons: CKD/ 4 MO FU/ LVM Intermodal Truck Driver Required: No Accompanied by: Self / Same As Patient Allergies Penicillins Adverse Reaction (Verified 04/17/24 09:52) mouth swells strawberry Adverse Reaction (Verified 04/17/24 09:52) Rash tomato Adverse Reaction (Verified 04/17/24 09:52) Rash Medication List - Last Reconciled 04/17/24 by Chencho Jang MD acetaminophen ER (Tylenol Arthritis Pain) 1,300 mg PO Q8H anastrozole 1 mg PO DAILY ascorbic acid (vitamin C) 500 mg PO DAILY aspirin (Adult Low Dose Aspirin) 81 mg PO DAILY calcium carbonate (Antacid (calcium carbonate)) 200 mg PO DAILY famotidine 40 mg PO DAILY PRN gabapentin 100 mg PO DAILY hydroxychloroquine 200 mg PO DAILY lisinopril 5 mg PO DAILY mecobalamin (vitamin B12) mcg PO DAILY multivitamin 1 tab PO DAILY rosuvastatin 5 mg PO DAILY HPI Comments Details: 83 yr old woman with h/o HTN and REnal stone in the past with CKD History of right breast cancer status post lumpectomy followed by radiation more than 20 years ago. In 2019 she had left breast mass underwent lumpectomy and she was treated with tamoxifen. Creatinine was between 1.2 and 1.3 ; REcently bumped to 1.4 Currently on lisinopril 10 mg a day. No lightheadedness. No urinary symptoms. She has had recurrent UTIs. She is due to see Urology shortly. History of renal stones in the past. Recently she had been experiencing some shortness of breath. Waiting to see Cardiology after stress test and echo. History of rheumatoid arthritis she has been followed by Rheumatology and currently on hydroxychloroquine Not on NSAIDs 04/17/24 REcurrent URI Had cystoscopy last week - unremarkable [facility] Medical History Recurrent urinary tract infection Shortness of breath on exertion CKD (chronic kidney disease) Need for prophylactic antibiotic Annual visit for general adult medical examination with abnormal findings History of bone density study History of Papanicolaou smear of cervix History of mammogram Bilateral shoulder pain Tubular adenoma of colon Congenital hypertrophic pyloric stenosis Post-menopause Heartburn symptom Hx of renal calculi Osteoarthritis of hips, bilateral Hx of breast cancer Dyslipidemia Essential hypertension Surgical History History of bilateral hip replacements History of total right hip arthroplasty Status post right breast lumpectomy S/P lumpectomy, left breast Family History Mother Arthritis Social History Household Members Other:: Son and Grandson Housing: House Alcohol intake: current Alcohol intake frequency: does not drink Patient Tobacco Use Status: Never used Tobacco e-Cigarette/Vaping Use: Never Used Current occupational status: 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 Cognitive needs: No Hearing needs: No Vision needs: Yes Female Reproductive History Menstrual Age of Menarche: 12 Physical Exam Vital Signs: Last Vital Signs Pulse 97 04/17/24 09:51 BP 132/82 04/17/24 09:51 Pulse Ox 96 04/17/24 09:51 Oxygen Delivery Method Room Air 04/17/24 09:51 BMI result Body Mass Index 24.5 Results Reviewed Nephrology Results: Hgb 12.5 g/dl (12.0-16.0) 03/28/24 WBC 4.9 X10*3/uL (4.8-10.8) 03/28/24 Plt Count 336 X10*3/uL (160-400) 03/28/24 Sodium 141 mmol/L (135-145) 03/28/24 Potassium 4.0 mmol/L (3.3-5.1) 03/28/24 Chloride 106 mmol/L (96-108) 03/28/24 Carbon Dioxide 25 mmol/L (22-29) 03/28/24 BUN 20 mg/dL (9-16) H 03/28/24 Creatinine 1.48 mg/dL (0.5-1.4) H 03/28/24 Calcium 10.1 mg/dL (8.4-10.2) 03/28/24 Assessment & Plan Assessment & Plan (1) CKD (chronic kidney disease): Code(s): N18.9 - Chronic kidney disease, unspecified Category: Medical Plan: Due to age-related decline in GFR and underlying hypertensive kidney disease. At present renal function stable at baseline. Continue to avoid nephrotoxic agents Optimize blood pressure (2) Essential hypertension: Code(s): I10 - Essential (primary) hypertension Category: Medical Plan: Overall blood pressure control in fact blood pressure is low with mild orthostatic change. Therefore I lowered the lisinopril from 10 mg down to 5 mg. The blood pressure remains acceptable (3) Recurrent urinary tract infection: Code(s): N39.0 - Urinary tract infection, site not specified Category: Medical Plan: History of renal stones. follow-up with Urology. Orders: Orders Comprehensive Met. Panel 6 Months N18.9 - Chronic kidney disease, unspecified Complete Blood Count Auto Diff 6 Months N18.9 - Chronic kidney disease, unspecified Coding Level of Care Code Est Pt Level 4 (96199) Diagnoses CKD (chronic kidney disease) N18.9 Essential hypertension I10 Recurrent urinary tract infection N39.0
== END 2024-04-17 10:05 | disposition home or self-care (01) ==
PROVIDERS: PCP Internal Medicine; Visit Provider Internal Medicine Hypertension Specialist
DX: I12.9 Hypertensive chronic kidney disease with stage 1 through stage 4 chronic kidney disease, or unspecified chronic kidney disease (principal); N18.9 Chronic kidney disease, unspecified; N39.0 Urinary tract infection, site not specified
CPT/HCPCS: 99214

== ENCOUNTER → 2024-04-17 09:45 | Outpatient (BNVA) | payer MEDICARE, SELFPAY | PROVIDERS: PCP Internal Medicine; Visit Provider Internal Medicine Hypertension Specialist | DX: I12.9 Hypertensive chronic kidney disease with stage 1 through stage 4 chronic kidney disease, or unspecified chronic kidney disease (principal); N18.9 Chronic kidney disease, unspecified; N39.0 Urinary tract infection, site not specified | CPT/HCPCS: 99212 ==

== ENCOUNTER 2024-04-20 07:08 | Outpatient (REF) | payer MEDICARE, SELFPAY ==
--- NOTE | ~2024-04-20 | CT_ITS ---
EXAMINATION: CT CHEST WITHOUT CONTRAST CLINICAL INFORMATION: Shortness of breath. COMPARISON: None available. TECHNIQUE: Multidetector volumetric CT imaging of the chest was done. Axial MIP volume rendering provided. Sagittal and coronal reformatted images were obtained. This CT examination was performed using dose optimization techniques as appropriate, variously including the following: *Automated exposure control *Adjustment of mA and/or kV according to patient size (this includes techniques or standardized protocols for targeted exams where dose is matched to indication/reason for exam; i.e. extremities or head) *Use of iterative reconstruction technique DLP: 71 mGy-cm FINDINGS: Submitted for interpretation on 06/27/2024. LUNGS: Multiple, less than 3 mm, groundglass pulmonary nodules in the periphery of the lower lobes and to a lesser extent in the periphery of the upper lobes. No consolidation. No bronchiectasis. No honeycombing. Scarring in the lingula and right middle lobe. Airways patent. MEDIASTINUM: No lymphadenopathy. Calcified plaques in the thoracic aortic arch. No pericardial effusion. Hiatal hernia, moderate to large volume. CORONARY ARTERY CALCIFICATION: Calcified plaques in the coronary arteries. PLEURA: No pleural effusion. No pneumothorax. AXILLA: Vascular clips in the right axillary region and vascular clips both breast. UPPER ABDOMEN: Calcified plaques in the splenic artery with a prominent diameter in the distal segment. OSSEOUS STRUCTURES: Multilevel spondylosis without acute fracture or listhesis. No lytic or blastic lesions. CT/CT chest wo IV con IMPRESSION: Consider acute on chronic interstitial lung disease in the correct clinical setting. Coronary artery disease. Hiatal hernia. Fleischner guidelines were followed. Electronically signed by: Edmund Tamez MD 06/27/2024 01:42 PM EDT
== END 2024-04-20 07:09 | disposition home or self-care (01) ==
LOC: HO.CT 07:08
PROVIDERS: Visit Provider Internal Medicine
DX: R06.02 Shortness of breath (principal)
CPT/HCPCS: 71250

== ENCOUNTER → 2024-04-20 07:09 | Outpatient (BNV) | payer MEDICARE, SELFPAY | PROVIDERS: Visit Provider Radiology Diagnostic Radiology | DX: R06.02 Shortness of breath (principal) | CPT/HCPCS: 71250 ==

== ENCOUNTER 2024-04-26 08:15 | Outpatient (REF) | payer MEDICARE, SELFPAY ==
[2024-04-26 10:23] LABS: Alanine Aminotransferase 19 U/L (0-31); Anion Gap 12 (12-20); Aspartate Amino Transferase 20 U/L (5-31); Blood Urea Nitrogen 20 mg/dL (9-16); Calcium 10.1 mg/dL (8.4-10.2); Carbon Dioxide 26 mmol/L (22-29); Chloride 107 mmol/L (96-108); Cholesterol 169 mg/dL (<200); Estimated Glomerular Filt Rate 44; Glucose Random 109 mg/dL (60-115); HDL Cholesterol 78 mg/dL (>40); LDL Cholesterol Calculated 77 mg/dL (<100); Sodium 141 mmol/L (135-145); Triglycerides 70 mg/dL (<150)
[2024-04-26 10:57] LABS: Folate 6.2 ng/mL (> or = 4.0); Vitamin B12 > 2000 pg/mL (200-900)
== END 2024-04-26 08:16 | disposition home or self-care (01) ==
LOC: HO.HMGCLDS 08:15
PROVIDERS: Internal Medicine Hypertension Specialist; PCP Internal Medicine; Visit Provider Internal Medicine
DX: N18.9 Chronic kidney disease, unspecified (principal); E78.5 Hyperlipidemia, unspecified; E53.8 Deficiency of other specified B group vitamins
CPT/HCPCS: 36415; 80048; 80061; 82607; 82746; 84450; 84460

== ENCOUNTER 2024-05-01 11:05 | Outpatient (AMB) | payer MEDICARE, SELFPAY ==
--- NOTE | 2024-05-01 11:43 | MHC.PC.OV ---
Vital Signs 05/01/24 11:49 Height 5 ft 4 in Weight 141 lb BMI 24.2 BP 122/68 Blood Pressure Location Lt brachial Position Sitting Pulse 106 H Pulse Source Pulse Oximeter Pulse Oximetry (%) 95 Oxygen Delivery Method Room Air Intake Visit Reasons: F/u lipids, heartburn, vit b12 def - see comments Intake Note: Pt is here today to f/u lab results Allergies Penicillins Adverse Reaction (Verified 05/01/24 12:00) mouth swells strawberry Adverse Reaction (Verified 05/01/24 12:00) Rash tomato Adverse Reaction (Verified 05/01/24 12:00) Rash Medication List - Last Reconciled 05/01/24 by Yen Mejia MD acetaminophen ER (Tylenol Arthritis Pain) 1,300 mg PO Q8H anastrozole 1 mg PO DAILY ascorbic acid (vitamin C) 500 mg PO DAILY aspirin (Adult Low Dose Aspirin) 81 mg PO DAILY calcium carbonate (Antacid (calcium carbonate)) 200 mg PO DAILY famotidine 40 mg PO DAILY PRN gabapentin 100 mg PO DAILY hydroxychloroquine 200 mg PO DAILY lisinopril 5 mg PO DAILY mecobalamin (vitamin B12) mcg PO DAILY multivitamin 1 tab PO DAILY rosuvastatin 5 mg PO DAILY Tobacco use date assessed: 05/01/24 Fall risk assessment: No Falls in past year Last assessed Fall Risk: 05/01/24 Dental Screening Dental Screen Date: 05/01/24 Did you have a dental visit in the last 12 months?: No Did you have a dental problem in the last 6 months where you did not have access to dental care?: No Was dental information given to patient?: No HPI F/u lipids, heartburn, vit b12 def - see comments HPI Details 83-year-old lady here today for follow-up on her lipids, and vitamin B12 level. She had recent fasting labs done which showed lipids within normal limits currently on rosuvastatin 5 mg taken once a day, and has been taking vitamin B12 supplements daily. She was also started on famotidine 40 mg once a day, to be taken as needed [facility] Medical History Recurrent urinary tract infection Shortness of breath on exertion CKD (chronic kidney disease) Need for prophylactic antibiotic Annual visit for general adult medical examination with abnormal findings History of bone density study History of Papanicolaou smear of cervix History of mammogram Bilateral shoulder pain Tubular adenoma of colon Congenital hypertrophic pyloric stenosis Post-menopause Heartburn symptom Hx of renal calculi Osteoarthritis of hips, bilateral Hx of breast cancer Dyslipidemia Essential hypertension Surgical History History of bilateral hip replacements History of total right hip arthroplasty Status post right breast lumpectomy S/P lumpectomy, left breast Family History Mother Arthritis Social History Household Members Other:: Son and Grandson Housing: House Alcohol intake: current Alcohol intake frequency: does not drink Patient Tobacco Use Status: Never used Tobacco e-Cigarette/Vaping Use: Never Used Current occupational status: 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 Dayton Atwood, Amy Muniz, Jese Pyle and colleagues, with an educational ellen from [employer] Review of Systems Const Denies daytime sleepiness, Denies fatigue, Denies fever(s), Denies lethargy, Denies malaise, Denies night sweats, Denies snoring and Denies weight loss Eyes Denies blurry vision ENT Denies nasal congestion, Denies post nasal drip and Denies sinus pressure Card Denies chest pain, Denies pedal edema, Denies dyspnea, Reports dyspnea on exertion and Denies orthopnea Resp Denies cough, Denies dyspnea, Reports dyspnea on exertion, Denies snoring and Denies wheezing GI Denies abdominal pain and Denies heartburn Reports no additional complaints Musc Denies myalgias, Denies arthralgias and Denies joint swelling Skin/Breast Denies rash Neuro Denies memory loss and Denies seizure-like activity Psych Denies abnormal sleep pattern, Denies anxiety and Denies memory loss Endo Denies fatigue and Denies heat intolerance Alexis/Lymph Denies easy bruising Aller/Immun Denies seasonal rhinorrhea and Denies wheezing Physical exam (Primary Care) Vital Signs: Last Vital Signs Pulse 106 H 05/01/24 11:49 BP 122/68 05/01/24 11:49 Pulse Ox 95 05/01/24 11:49 Oxygen Delivery Method Room Air 05/01/24 11:49 BMI result Body Mass Index 24.2 Tobacco/Smoking Status: Tobacco use Status Tobacco use date assessed 05/01/24 05/01/24 11:54 Patient Tobacco Use Status Never used Tobacco 05/01/24 11:44 e-Cigarette/Vaping Use Never Used 05/01/24 11:44 Thrive Assessment: Date of Thrive Assessment Date Thrive assessed 10/18/23 05/01/24 11:44 Const General: comfortable, no acute distress and alert Nutritional Appearance: overweight Orientation/consciousness: patient oriented x3 HENMT Head: Yes normocephalic and Yes atraumatic Ears: external ears normal General nose exam: Normal external nose present Face and sinus: Yes face symmetric Mouth: Normal oral and palatal mucosa present, oropharynx normal and moist mucous membranes Eyes General: appearance normal, both eyes and all related structures Neck Neck: Yes full ROM, Yes no lymphadenopathy, Yes supple and Yes no JVD Carotids: no bruits Resp Effort & Inspection: normal respiratory effort and able to speak in complete sentences Auscultation: clear to auscultation bilaterally Cardio Rate: tachycardic Rhythm: regular rhythm Heart sounds: S1 normal heart sound present and S2 normal heart sound present GI Inspection: Yes normal to inspection Palpation (GI): Soft to palpation, nontender, no guarding and no masses Auscultation: normal bowel sounds General: Yes no CVA tenderness Back/Spine/Pelvis Back: no CVA tenderness and No back tenderness Skin General skin exam: no rashes or lesions noted Neuro General: patient oriented x3, gait normal, tone normal, moves all extremities and no focal motor deficits Extrem Right lower extremity: edema (trace) Left lower extremity: edema (trace) Psych Appearance: grossly normal Mental Status: mental status grossly normal Speech and movement: Normal speech and movement present Affect: normal affect Attitude: cooperative Thought process: Normal thought process present Thought content: Normal thought content present Results Reviewed Results Reviewed: Laboratory Tests 04/26/24 08:36 Vitamin B12 > 2000 H Folate 6.2 Name: Dolly Parker Age/Sex: 83/F : 1940 Unit#: [id number] Attend Dr: Yen Mejia MD Re04/26/24 Status: DEP [facility]F [facility] Disch: SPEC : [id number] EMILIO: 04/26/24 STATUS: COMP REQ : [id number] RECD: 04/26/24 [facility] DR: Chencho Jang MD COMP: 04/26/24 ENTERED: 04/26/[address]: Yen Mejia MD ORDERED: BMP, AST, ALT, Lipid Panel Test Result Flag Reference Sodium 141 135-145 mmol/L Potassium 4.0 3.3-5.1 mmol/L CL 107 96-108 mmol/L CO2 26 22-29 mmol/L Gap 12 12-20 BUN 20 H 9-16 mg/dL Creat 1.18 0.5-1.4 mg/dL EGFR 44 NOTE: For -Tong[place] individuals, multiply the result by 1.210. Chronic Kidney Disease: Estimated GFR < 60 mL/min/1.73m2 Severe Kidney Disease: Estimated GFR < 15 mL/min/1.73m2 Glucose, Random 109 60-115 mg/dL CA 10.1 8.4-10.2 mg/dL AST (GOT) 20 5-31 U/L ALT (GPT) 19 0-31 U/L Triglyceride 70 <150 mg/dL Desirable Triglyceride: less than 150 mg/dL Borderline High Triglyceride 150-199 mg/dL High Triglyceride: 200-499 mg/dL Very High Triglyceride: greater than or equal to 5OO mg/dL Cholesterol 169 <200 mg/dL Desirable Cholesterol: less than 200 mg/dL Borderline High Cholesterol: 200-239 mg/dL High Cholesterol: greater than 239 mg/dL LDL Calculated 77 <100 mg/dL Desirable LDL: less than 100 mg/dL Near Optimal/Above Optimal LDL: 110-129 mg/dL Borderline High LDL: 130-159 mg/dL High LDL: 160-189 mg/dL Very High LDL: greater than or equal to 190 mg/dL HDL 78 >40 mg/dL Desirable HDL: greater than 40 mg/dL Note: This HDL assay may give artificially low results in patients with liver disease. Assessment and Plan Assessment & Plan (1) Dyslipidemia: Code(s): E78.5 - Hyperlipidemia, unspecified Plan: Reviewed recent fasting lipid profile with patient with levels within normal limits . Continue rosuvastatin 5 mg daily , in addition to adherence to low-cholesterol diet and regular exercise, at least 30 minutes 3 to 4 times a week. Advised patient to make healthy food choices, eat more fruits, vegetables, whole grains, wild caught fish and low-fat dairy. Limit amount of meat and fried or fatty food products, as well as processed foods and fast foods. (2) Heartburn symptom: Code(s): R12 - Heartburn Plan: Takes famotidine 40 mg once a day as needed, advised avoidance of food triggers for heartburn, and do not lie down right away after eating. (3) Elevated vitamin B12 level: Code(s): R74.8 - Abnormal levels of other serum enzymes Plan: Latest vitamin-D B12 level is elevated, advised to decrease her intake to 1 every other day Orders: Orders Lipid Panel 09/29/24 E78.5 - Hyperlipidemia, unspecified, R74.8 - Abnormal levels of other serum enzymes Vitamin B12 and Folate 09/29/24 R74.8 - Abnormal levels of other serum enzymes Coding Level of Care Code Est Pt Level 4 (06332) Complex EM visit Add On G2211 Diagnoses Dyslipidemia E78.5 Heartburn symptom R12 Elevated vitamin B12 level R74.8
[2024-05-01 11:49] VITALS: BP 122/68; PULSE 106; O2SAT 95; BMI 24.2
== END 2024-05-01 13:45 | disposition home or self-care (01) ==
PROVIDERS: PCP Internal Medicine; Visit Provider Internal Medicine
DX: E78.5 Hyperlipidemia, unspecified (principal); R12 Heartburn; R74.8 Abnormal levels of other serum enzymes
CPT/HCPCS: 99214; G2211

== ENCOUNTER → 2024-05-03 07:39 | Outpatient (REF) | payer MEDICARE, SELFPAY ==
--- NOTE | 2024-05-03 07:42 | CA_ITS ---
Transthoracic Echocardiogram Patient (Last, First, Middle): Dolly Parker B Gender: Female Date of : 1940 Age: 83 Procedure Date: 05/03/2024 Procedure Type: Transthoracic Echocardiogram Location: OP Height: 162. 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 The visually estimated ejection fraction is between 50-55%. - No obvious valvular pathology seen on this study. Findings Procedure Information Contrast agent, definity, is being given per protocol without apparent complications. Left Ventricle Normal left ventricular cavity size. There is normal left ventricular wall thickness. The left ventricular systolic function is mildly decreased. The visually estimated ejection fraction is between 50-55%. Evidence suggests grade I (mild) diastolic dysfunction. In some views, basal inferior hypokinesis. Right Ventricle Normal right ventricular cavity size. There is mildly decreased right ventricular systolic function. Atria Both atria are normal in size. Aortic Valve There is a normal trileaflet aortic valve. There is mild calcification of the aortic valve. There is no aortic valve stenosis. There is trace (trivial) aortic valve regurgitation. Mitral Valve The mitral valve appears normal. There is trace mitral valve regurgitation. There is no mitral valve stenosis. Pulmonic Valve The pulmonic valve is likely normal. Tricuspid Valve There is mild tricuspid valve regurgitation. There is no evidence of pulmonary hypertension. Great Vessels The asc aorta is normal in size. Small plaque is seen in the sino tubular ridge. Venous The inferior vena cava is normal in size and collapses greater than 50% with inspiration. Pericardium/Pleural There is no evidence of pericardial effusion. Prior Study Comparison No significant change compared to prior study dated: 10/05/2023. Wall motion looks similar. Recommendations, Care & Conclusions No obvious valvular pathology seen on this study. Measurements 2D Linear Measurements IVSd: 0.79 0.6-0.9/0.6-1.0 cm LVIDd: 5.21 3.9-5.3/4.2-5.9 cm LVIDd Index: 3.10 2.4-3.2/2.2-3.1 cm/m2 LVIDs: 2.92 2.0-3.6 cm LVPWd: 0.76 0.7-1.1 cm LA Diam: 2.70 2.7-3.8/3.0-4.0 cm LAIDs Index: 1.61 1.5-2.3 cm/m2 LV Mass: 174.48 67-162/88-224 g LV Mass Index: 103.86 43-95/49-115 g/m2 LVOT Diam: 2.20 3.0+(-)1.3 cm 2D Systolic Function EF 4C: 50.30 >55% EF 2C: 55.90 >55% EF BiP: 53.70 >55% Mitral Valve MV Pk E: 0.63 MV PK A: 0.88 MV Decel Time: 134.00 E/A: 0.70 E'Lateral: 6.09 E'Medial: 5.11 E/E' Med: 12.40 E/E' Lat: 10.40 PHT: 39.00 MVA PHT: 5.64 Decel Osborne: 4.74 Aortic Valve AoV Pk Vasiliy: 0.97 AoV Mn Vasiliy: 0.71 AoV VTI: 0.20 AoV Pk Grad: 4.00 Aov Mn Grad: 2.00 ZACHARY Cont.VTI: 2.95 LVOT LVOT Pk Vasiliy: 0.79 LVOT Mn Vasiliy: 0.53 LVOT VTI: 0.16 LVOT Pk Grad: 2.00 LVOT Mn Grad: 1.00 LVOT Diam: 2.20 LVOT Area: 3.80 Diastolic Function MV Pk E: 0.63 MV Pk A: 0.88 E/A: 0.70 E'Medial: 5.11 E/E' Med: 12.40 E' Laterial: 6.09 E/E' Lat: 10.40 Right Ventricle TAPSE (mm): 15.20 TVS' Vasiliy: 9.25 Tricuspid Valve TR Pk Vasiliy: 1.84 TR Pk Grad: 14.00 RA Press: 3.00 RVSP: 17.00 Great Vessels Aorta Sinus of Valsalva: 3.10 2.0-3.5 cm Ao Asc: 3.00 2.1-3.4 cm Pulmonary Valve PV Pk Vasiliy: 0.90 Peak PV Grad: 3.00 Updated in Other Vendor System with Status of Final Jose F Islas MD electronically signed on 05/05/2024 2:06:43 PM with status of Final
== END ==
LOC: HO.CARD 07:39
PROVIDERS: PCP Internal Medicine; Visit Provider Internal Medicine
DX: R06.09 Other forms of dyspnea (principal)
CPT/HCPCS: 93306; Q9957

== ENCOUNTER → 2024-05-03 07:42 | Outpatient (BNV) | payer MEDICARE, SELFPAY | PROVIDERS: PCP Internal Medicine; Visit Provider Internal Medicine | DX: I36.1 Nonrheumatic tricuspid (valve) insufficiency (principal); I35.1 Nonrheumatic aortic (valve) insufficiency; I51.89 Other ill-defined heart diseases | CPT/HCPCS: 93306 ==

== ENCOUNTER 2024-07-09 08:09 | Outpatient (AMB) | payer MEDICARE, SELFPAY ==
[2024-07-09 08:19] VITALS: BP 138/80; PULSE 100; BMI 23.9
--- NOTE | 2024-07-09 08:19 | A.OFFVIS_ITS ---
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 Accompanied by: Self / Same As Patient Allergies Penicillins Adverse Reaction (Verified 05/01/24 12:00) mouth swells strawberry Adverse Reaction (Verified 05/01/24 12:00) Rash tomato Adverse Reaction (Verified 05/01/24 12:00) Rash Medication List - Last Reconciled 07/09/24 by Jose F Islas MD acetaminophen ER (Tylenol Arthritis Pain) 1,300 mg PO Q8H anastrozole 1 mg PO DAILY ascorbic acid (vitamin C) 500 mg PO DAILY aspirin (Adult Low Dose Aspirin) 81 mg PO DAILY calcium carbonate (Antacid (calcium carbonate)) 200 mg PO DAILY famotidine 40 mg PO DAILY PRN gabapentin 100 mg PO DAILY hydroxychloroquine 200 mg PO DAILY lisinopril 5 mg PO DAILY mecobalamin (vitamin B12) mcg PO DAILY multivitamin 1 tab PO DAILY rosuvastatin 5 mg PO DAILY HPI Comments Details: Dolly returns for follow-up. In the past, she was seen regarding shortness of breath. She states that whenever she is doing household stuff she can get short of breath. Hence she has been undergoing cardiac as well as pulmonary workup. So far, no clear etiology evident. She states she is still feeling about the same. No anginal-type symptoms. No leg swelling. No prior cardiac history. [facility] Medical History Recurrent urinary tract infection Shortness of breath on exertion CKD (chronic kidney disease) Need for prophylactic antibiotic Annual visit for general adult medical examination with abnormal findings History of bone density study History of Papanicolaou smear of cervix History of mammogram Bilateral shoulder pain Tubular adenoma of colon Congenital hypertrophic pyloric stenosis Post-menopause Heartburn symptom Hx of renal calculi Osteoarthritis of hips, bilateral Hx of breast cancer Dyslipidemia Essential hypertension Surgical History History of bilateral hip replacements History of total right hip arthroplasty Status post right breast lumpectomy S/P lumpectomy, left breast Family History Mother Arthritis Social History Household Members Other:: Son and Grandson Housing: House Alcohol intake: current Alcohol intake frequency: does not drink Patient Tobacco Use Status: Never used Tobacco e-Cigarette/Vaping Use: Never Used Current occupational status: 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 Cognitive needs: No Hearing needs: No Vision needs: Yes Female Reproductive History Menstrual Age of Menarche: 12 Review of Systems Const Denies chills, Denies fatigue, Denies fever(s), Denies weight gain and Denies weight loss ENT Denies dizziness Card Denies chest pain, Denies leg edema, Denies lightheadedness, Denies palpitations, Denies dyspnea on exertion, Denies orthopnea and Denies other Resp Denies cough and Denies dyspnea on exertion GI Denies hematochezia and Denies change in stool character Musc Denies abnormal gait, Denies muscle weakness, Denies numbness, Denies radiating pain into limb and Denies tingling Neuro Denies abnormal gait, Denies dizziness, Denies numbness and Denies tingling Endo Denies fatigue and Denies palpitations Physical Exam Vital Signs: Last Vital Signs Pulse 100 07/09/24 08:19 BP 138/80 07/09/24 08:19 BMI result Body Mass Index 23.9 Const General: comfortable and no acute distress Orientation/consciousness: patient oriented x3 HEENT Other: Unremarkable Head: Yes normal to inspection Neck Neck: Yes normal visual inspection Chest Chest palpation & inspection: normal inspection of the chest Resp Auscultation: clear to auscultation bilaterally Cardio Palpation: normal PMI Heart sounds: S1 normal heart sound present, S2 normal heart sound present, no gallops, no murmurs and no rubs GI Palpation (GI): Soft to palpation Back/Spine/Pelvis Other: unremarkable Skin General skin exam: no rashes or lesions noted Neuro General: patient oriented x3 Extrem General: Yes normal to inspection Psych Mental Status: mental status grossly normal Office Procedures EKG Details: EKG with underlying sinus rhythm; ventricular rate 100/Min; can not exclude old septal infarct but could be from body habitus; nonspecific changes in the inferior leads; [place] [id number], Complete Assessment & Plan Assessment & Plan (1) Shortness of breath on exertion: Code(s): R06.02 - Shortness of breath Category: Medical (2) Cardiomyopathy: Code(s): I42.9 - Cardiomyopathy, unspecified Category: Medical Plan Cardiac and pulmonary studies were reviewed. Baseline EKG without any clear-cut abnormalities but slightly increased ventricular rate. In the echocardiogram, LVEF is mildly decreased at 51%. No significant wall motion abnormalities; diastolic function was normal with normal filling pressures as well. Could not assess pulmonary hypertension because of inadequate TR jet. In the repeat study, LVEF 50-55%. In some views, possible basal inferior hypokinesis. Cardiac BNP is within normal limits at 23 pg/ml. Myocardial perfusion imaging study normal. Chest x-ray with no acute disease. Pulmonary function testing shows no obstructive or restrictive ventilatory def ects. No significant response to bronchodilators. Mild diffusion impairment. Chest CT scan reports acute on chronic interstitial lung disease in the appropriate setting but per discussion with Pulmonary, not considered to be a significant issue. Coronary artery disease which is common at her age. Hiatal hernia noted. She also underwent cardiopulmonary exercise testing that suggests cardiovascular limitation to exercise. Overall, no obvious etiology from cardiac to explain her shortness of breath. We discussed about cardiac catheterization but she states she would like to hold off on that. If shortness of breath gets worse, advised her to contact us immediately. In that case, we will plan to proceed with above. Otherwise, follow-up in 6 months. She will keep us posted with any changes in symptoms. Total time spent in review of data, counseling, documentation, coordination of care- 31 minutes. Coding Level of Care Code Est Pt Level 4 (93517) Diagnoses Shortness of breath on exertion R06.02 Cardiomyopathy I42.9 CPT Codes EKG - CPT: 72968-[id number], Complete ([id number])
== END 2024-07-09 08:40 | disposition home or self-care (01) ==
PROVIDERS: PCP Internal Medicine; Visit Provider Internal Medicine
DX: R06.02 Shortness of breath (principal); I42.9 Cardiomyopathy, unspecified
CPT/HCPCS: 93010; 99214

== ENCOUNTER → 2024-07-09 08:09 | Outpatient (BNVA) | payer MEDICARE, SELFPAY | PROVIDERS: PCP Internal Medicine; Visit Provider Internal Medicine | DX: I42.9 Cardiomyopathy, unspecified (principal); R06.02 Shortness of breath | CPT/HCPCS: 93005; 99212 ==

== ENCOUNTER 2024-07-12 08:08 | Outpatient (AMB) | payer MEDICARE, SELFPAY ==
--- NOTE | 2024-07-12 08:30 | MHC.OFFVIS ---
Intake Visit Reasons: 3m follow up Intake Note: Patient is present for 3m f/u Urology Medication:gemtesa Antibiotic Allergy:penicillin Blood Thinner:aspirin today's pvr:0ml's Entry Level Software Developer Required: No Allergies Penicillins Adverse Reaction (Verified 07/12/24 08:34) mouth swells strawberry Adverse Reaction (Verified 07/12/24 08:34) Rash tomato Adverse Reaction (Verified 07/12/24 08:34) Rash Medication List - Last Reconciled 07/12/24 by Justyn Rubin MD acetaminophen ER (Tylenol Arthritis Pain) 1,300 mg PO Q8H anastrozole 1 mg PO DAILY ascorbic acid (vitamin C) 500 mg PO DAILY aspirin (Adult Low Dose Aspirin) 81 mg PO DAILY calcium carbonate (Antacid (calcium carbonate)) 200 mg PO DAILY famotidine 40 mg PO DAILY PRN gabapentin 100 mg PO DAILY hydroxychloroquine 200 mg PO DAILY lisinopril 5 mg PO DAILY mecobalamin (vitamin B12) mcg PO DAILY multivitamin 1 tab PO DAILY rosuvastatin 5 mg PO DAILY vibegron (Gemtesa) 75 mg PO DAILY HPI Comments Details: 07/12/24--Dolly is here today for three-month follow-up. She states that the Gemtesa is working very well she is only up 1 time at night to urinate. She continues to wear a depends just in case she states that sometimes if she sneezes she will leak a little bit. She states she has not had a urinary tract infection since her last visit. Review of chart: 04/05/2024--Dolly is here for follow-up office cystoscopy. She was sent for evaluation due to chronic UTIs and urinary incontinence. The patient states her urine leakage has improved since she was initially evaluated. She is still leaks at bedtime. I reviewed her urine cultures in October and November which are E coli with resistance to Levaquin. 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 I have discussed findings consistent with persistent bacteriuria. Plan Macrobid b.i.d. for 5 days then daily total of 40 tablets, Gemtesa 75 mg at bedtime. Follow-up in 3 months. 11/07/23--Dolly is an 83-year-old female who is here for evaluation due to recurrent UTIs. Past medical history - chronic kidney disease, history of breast cancer, the patient denies pelvic surgery, denies hysterectomy. The patient states that she went to emergency room in August for lower abdominal pain and shortness of breath and she was told she had a UTI at that time. In review of her chart the patient has documented urinary tract infections: 09/08/2023- E coli resistant to Levaquin; 04/27/2023 E coli resistant to Levaquin, 04/13/2023 --E coli and Klebsiella- E coli resistant to Levaquin, Klebsiella resistant to Bactrim and ampicillin & intermediate nitrofurantoin. The patient has urinary symptoms of occasional urgency and stress incontinence with coughing or laughing, she wears a depends during the night due to urinary incontinence. The patient was seen by Nephrology renal ultrasound was ordered I have reviewed results 10/07/23 kidneys negative for masses or stones. Evaluation: Urinalysis nitrite positive. Pelvic exam--vaginal atrophy, bladder neck well supported, no prolapse observed. Catheterized PVR-minimal. PLAN: Ceftin 250 mg daily b.i.d. for 10 days pending urine culture. Follow-up office cystoscopy REPLACED BY [facility] Medical History Recurrent urinary tract infection Shortness of breath on exertion CKD (chronic kidney disease) Need for prophylactic antibiotic Annual visit for general adult medical examination with abnormal findings History of bone density study History of Papanicolaou smear of cervix History of mammogram Bilateral shoulder pain Tubular adenoma of colon Congenital hypertrophic pyloric stenosis Post-menopause Heartburn symptom Hx of renal calculi Osteoarthritis of hips, bilateral Hx of breast cancer Dyslipidemia Essential hypertension Surgical History History of bilateral hip replacements History of total right hip arthroplasty Status post right breast lumpectomy S/P lumpectomy, left breast Family History Mother Arthritis Social History Household Members Other:: Son and Grandson Housing: House Alcohol intake: current Alcohol intake frequency: does not drink Patient Tobacco Use Status: Never used Tobacco e-Cigarette/Vaping Use: Never Used Current occupational status: 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 Cognitive needs: No Hearing needs: No Vision needs: Yes Female Reproductive History Menstrual Age of Menarche: 12 Review of Systems Const All systems reviewed & are unremarkable except as noted in HPI and below Reports no additional complaints Eyes Reports no additional complaints ENT Reports no additional complaints Card Reports no additional complaints Resp Reports no additional complaints GI Reports no additional complaints Reports as per HPI Musc Reports no additional complaints Skin/Breast Reports system reviewed and no additional complaints, except as documented Neuro Reports no additional complaints Psych Reports no additional complaints Endo Reports no additional complaints Alexis/Lymph Reports no additional complaints Aller/Immun Reports no additional complaints Office Procedures Post Void Residual Post Residual Void Post Void Residual (PVR): 0 [id number] Void Residual by ultrasound Results Reviewed Results Reviewed: Collected: 12/14/23-K Status: COMP Req#: [id number] Received: 12/14/23 Source: [facility] Sp Desc: Urine cunningham Subm Dr: Anna Fitch NP Ordered: Urine Culture Procedure Result Verified Urine Culture Final 12/16/23 Organism 1 Escherichia coli Quant > 100,000 cfu/mL E coli M.I.C. RX --------- --- Ampicillin <=2 S Ceftriaxone <=0.25 S Gentamicin <=1 S Levofloxacin >=8 R Nitrofurantoin <=16 S Trimethoprim/Sulfamethoxazole <=20 S Collected: 11/07/23 Status: COMP Req#: [id number] Received: 11/07/23 Source: [facility] Sp Desc: Urine cunningham Subm Dr: Justyn Rubin MD Ordered: Urine Culture Procedure Result Verified Urine Culture Final 11/09/23 Organism 1 Escherichia coli Quant > 100,000 cfu/mL E coli M.I.C. RX --------- --- Ampicillin <=2 S Ceftriaxone <=0.25 S Gentamicin <=1 S Levofloxacin >=8 R Nitrofurantoin <=16 S Trimethoprim/Sulfamethoxazole <=20 S Date of Service: 10/07/23 EXAMINATION: US RETROPERITONEAL LIMITED (RENAL ONLY) CLINICAL INFORMATION: Urinary tract infection, site not specified. CKD. COMPARISON: Renal ultrasound 05/21/2022 and 05/22/2019. X-ray abdomen 05/22/2019. TECHNIQUE: Real-time imaging of the kidneys. FINDINGS: RIGHT KIDNEY: 8.7 x 4.6 x 5.2 cm (SAG x AP x TRV). The kidney is normal in size, contour, and echogenicity. Renal cortical thickness is normal. No calculi or focal parenchymal lesions. No hydronephrosis. LEFT KIDNEY: 8.5 x 4.1 x 5.1 cm (SAG x AP x TRV). The kidney is normal in size, contour, and echogenicity. Renal cortical thickness is normal. No renal calculi or hydronephrosis. Subcentimeter benign-appearing renal cyst, no follow-up imaging recommended. IMPRESSION: Unremarkable renal ultrasound. Collected: 09/08/23-UNK Status: COMP Req#: [id number] Received: 09/08/231503 Source: [facility] Sp Desc: Urine cunningham Subm Dr: Yen Mejia MD Ordered: Urine Culture Procedure Result Verified Urine Culture Final 09/10/23 Organism 1 Escherichia coli Quant > 100,000 cfu/mL E coli M.I.C. RX --------- --- Ampicillin 4 S Ceftriaxone <=0.25 S Gentamicin <=1 S Levofloxacin >=8 R Nitrofurantoin <=16 S Trimethoprim/Sulfamethoxazole <=20 S Assessment & Plan Assessment & Plan (1) Recurrent urinary tract infection: Code(s): N39.0 - Urinary tract infection, site not specified Category: Medical (2) CKD (chronic kidney disease): Code(s): N18.9 - Chronic kidney disease, unspecified Category: Medical (3) ASHLEE (stress urinary incontinence, female): Code(s): N39.3 - Stress incontinence (female) (male) Category: Medical (4) Enuresis, nocturnal only: Code(s): N39.44 - Nocturnal enuresis Category: Medical Plan Gemtesa 75 mg qhs fu 9 months Orders: Orders AMB Urinalysis Automated Today Z13.9 - Encounter for screening, unspecified Medications: New vibegron (Gemtesa) 75 mg PO DAILY 90 tabs 3RF Patient Instructions: The patient had an opportunity to ask questions regarding treatment plan. The patient expressed understanding and agreement with the above treatment plan. The patient is aware they should contact our office by phone for worsening of their current condition or the appearance of new symptoms. Compliance is encouraged with any medications and followup testing that is ordered. It is a privilege to be allowed the opportunity to participate in the urologic care of your patient. If you have any questions or concerns regarding treatment for the above conditions please do not hesitate to contact me. The office telephone contact is [phone]. This note is constructed in part using voice recognition software. While every effort has been made to ensure accuracy street sweeper operator errors may have been included. Yours sincerely, Justyn Rubin MD Coding Level of Care Code Est Pt Level 4 (49742) Diagnoses Recurrent urinary tract infection N39.0 CKD (chronic kidney disease) N18.9 ASHLEE (stress urinary incontinence, female) N39.3 Enuresis, nocturnal only N39.44 CPT Codes Post Residual Void - PVR CPT Code: 85816-Akko Void Residual by ultrasound ([id number])
== END 2024-07-12 09:01 | disposition home or self-care (01) ==
PROVIDERS: PCP Internal Medicine; Visit Provider Urology
DX: N39.0 Urinary tract infection, site not specified (principal); N18.9 Chronic kidney disease, unspecified; N39.3 Stress incontinence (female) (male); N39.44 Nocturnal enuresis
CPT/HCPCS: 99214

== ENCOUNTER → 2024-07-12 08:08 | Outpatient (BNVA) | payer MEDICARE, SELFPAY | PROVIDERS: PCP Internal Medicine; Visit Provider Urology | DX: N39.0 Urinary tract infection, site not specified (principal); N39.3 Stress incontinence (female) (male); N18.9 Chronic kidney disease, unspecified; N39.44 Nocturnal enuresis | CPT/HCPCS: 51798; 99212 ==

== ENCOUNTER 2024-09-27 08:10 | Outpatient (REF) | payer MEDICARE, SELFPAY ==
[2024-09-27 08:26] LABS: MANUAL DIFF FLAG NO
[2024-09-27 09:23] LABS: Basophils Percent Auto 0.8 % (0-2); Eosinophils Absolute Auto 0.2 X10*3/uL (0.0-0.4); Eosinophils Percent Auto 3.3 % (0-4); Hematocrit 37.1 % (37.0-47.0); Imm Gran Abs Auto 0.01 X10*3/uL (0.00-0.03); Imm Gran Pct Auto 0.2 % (0.0-0.4); Lymphocytes Absolute Auto 1.7 X10*3/uL (1.2-4.9); Lymphocytes Percent Auto 33.2 % (20-40); Mean Corpuscular HGB Conc 32.3 g/dl (31.0-35.0); Mean Corpuscular Volume 89.6 fL (80.0-98.0); Mean Platelet Volume 9.7 fL (9.4-12.3); Monocytes Absolute Auto 0.5 X10*3/uL (0.1-1.2); Neutrophils Absolute Auto 2.8 x10*3/uL (2.0-8.3); Neutrophils Percent Auto 53.5 % (45-73); Platelet Count 314 X10*3/uL (160-400); Red Blood Count 4.14 X10*6/uL (4.20-5.50); Red Cell Distribution Width 13.5 % (11.0-16.0); White Blood Count 5.2 X10*3/uL (4.8-10.8)
[2024-09-27 10:00] LABS: Erythrocyte Sedimentation Rate 14 MM/HR (0-20)
[2024-09-27 10:14] LABS: Alanine Aminotransferase 33 U/L (0-31); Albumin Level 4.2 g/dL (3.5-5.0); Alkaline Phosphatase 98 U/L (39-117); Anion Gap 14 (12-20); Aspartate Amino Transferase 29 U/L (5-31); Bilirubin Total 0.4 mg/dL (0.0-1.0); Blood Urea Nitrogen 24 mg/dL (9-16); C Reactive Protein < 0.04 mg/dL (< or = 0.50); Calcium 9.7 mg/dL (8.4-10.2); Carbon Dioxide 23 mmol/L (22-29); Chloride 109 mmol/L (96-108); Estimated Glomerular Filt Rate 51; Glucose Random 132 mg/dL (60-115); Sodium 142 mmol/L (135-145); Total Protein 7.3 g/dL (6.5-8.0)
--- OUTSIDE RECORDS SUMMARY | 2024-09-27 11:01 | XMS_ITS | Encounter Summary ---
Author Organization [facility] Address [address] [place] [address] Phone Care Team Providers Care Wound Care Coordinator Name Role Phone Davie Mejia MD Primary Care Provider [phone]- [phone] Encounter Details Date Type Department Care Team (Late st Contact Info) Description 05/17/2022 Office Communication [facility] [address] [place] [id number] Eve Alexis Social History Tobacco Use Types Packs/Day Years Used Date Smoking Tobacco: Never Smokeless Tobacco: Never Comments Unknown Sex and Gender Information Value Date Recorded Sex Assigned at Not on file Legal Sex Female 11:03 AM EDT Gender Identity Not on file Sexual Orientation Not on file documented as of this encounter Miscellaneous Notes * Telephone Encounter - Alexandra Sinclair - 05/18/2022 10:56 AM EDT Pt all set and advised * Telephone Encounter - Eve Alexis - 05/17/2022 9:13 AM EDT Pt wonders if her renal US has been scheduled yet? Says she needs to have it done before her follow-up on 06/09. documented in this encounter Plan of Treatment Not on file documented as of this encounter Visit Diagnoses Not on filedocumented in this encounter Care Teams Wound Care Coordinator Relationship Specialty Start Date End Date Davie Mejia MD [address] [place] [id number] PCP - General Internal Medicine 04/27/22 documented as of this encounter
--- OUTSIDE RECORDS SUMMARY | 2024-09-27 11:01 | XMS_ITS | Clinical Summary ---
Author Organization [facility] Address [address] [facility] [address] [place] [address] Phone Care Team Providers Care Chief Deputy Sheriff Name Role Phone Davie Mejia MD Primary Care Provider [phone]- [phone] Allergies Active Allergy Reactions Criticality Noted Date Comments Penicillins 05/04/2022 Mouth swells [place] Extract 05/04/2022 Tomato 05/04/2022 Medications anastrozole (ARIMIDEX) 1 MG chemo tablet Take 1 mg by mouth 1 (one) time each day 02/17/2022 Active famotidine (PEPCID) 40 MG tablet Take 40 mg by mouth 1 (one) time each day 04/26/2022 Active rosuvastatin (CRESTOR) 5 MG tablet Take 5 mg by mouth 1 (one) time each day 04/26/2022 Active Ascorbic Acid (vitamin C) 500 MG tablet Take 500 mg by mouth 1 (one) time each day Active Calcium Carb-Cholecalci ferol 600-10 MG-MCG tablet Take 1 tablet by mouth 1 (one) time each day Active gabapentin (NEURONTIN) 100 MG capsule Take 100 mg by mouth in the morning and 100 mg at noon and 100 mg in the evening. 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 04/02/2020 04/06/2023 Prophylactic aromatase inhibitors given 04/02/20 20 04/06/2023 Family history of malignant neoplasm of breast 0 10/25/2019 04/06/2023 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 10/24/2019 04/06/2023 Malignant neoplasm of upper- outer quadrant of left female breast 10/24/2019 04/06/2023 Mixed hyperlipidemia 10/24/2019 04/06/2023 Social History Tobacco Use Types Packs/Day Years Used Date Smoking Tobacco: Never Smokeless Tobacco: Never Tobacco Cessation:Counseling Given: Not Answered Comments Unknown Sex and Gender Information Value Date Recorded Sex Assigned at Not on file Legal Sex Female 11:03 AM EDT Gender Identity Not on file Sexual Orientation Not on file Last Filed Vital Signs Vital Sign Reading Time Taken Comments Blood Pressure 120/64 04/06/2023 2:07 PM EDT Pulse 87 04/06/2023 2:07 PM EDT Temperature - - Respiratory Rate - - Oxygen Saturation 97% 04/06/2023 2:07 PM EDT Inhaled Oxygen Concentration - - Weight 71.7 kg (158 lb) 04/06/2023 2:07 PM EDT Height - - Body Mass Index - - Plan of Treatment Health Maintenance Due Date Last Done Comments Pneumococcal Vaccine: 65+ Ye ars (1 of 2 - PCV) 1946 Influenza Vaccine (#1) 2024 Hepatitis B Vaccine Aged Out No longe r eligible based on patient's age to complete this topic Insurance [facility] MEDICARE [facility] MEDICARE Care Teams Chief Deputy Sheriff Relationship Specialty Start Date End Date Davie Mejia MD [address] [place] [id number] PCP - General Internal Medicine 04/27/22
--- OUTSIDE RECORDS SUMMARY | 2024-09-27 11:01 | XMS_ITS | Encounter Summary ---
Author Organization [facility] Address [address] [place] [address] Phone Care Team Providers Care Psychology Intern Name Role Phone Davie Mejia MD Primary Care Provider [phone]- [phone] Encounter Details Date Type Department Care Team (Late st Contact Info) Description 05/04/2022 Office Communication [facility] [address] [place] [phone] Eve Alexis Social History Tobacco Use Types Packs/Day Years Used Date Smoking Tobacco: Never Smokeless Tobacco: Never Comments Unknown Sex and Gender Information Value Date Recorded Sex Assigned at Not on file Legal Sex Female 11:03 AM EDT Gender Identity Not on file Sexual Orientation Not on file documented as of this encounter Miscellaneous Notes * Telephone Encounter - Eve Alexis - 05/04/2022 2:14 PM EDT Pt would like US scheduled at [facility] if possible. documented in this encounter Plan of Treatment Not on file documented as of this encounter Visit Diagnoses Not on filedocumented in this encounter Care Teams Psychology Intern Relationship Specialty Start Date End Date Davie Mejia MD [facility] [place] [address] PCP - General Internal Medicine 04/27/22 documented as of this encounter
--- OUTSIDE RECORDS SUMMARY | 2024-09-27 11:01 | XMS_ITS | Clinical Summary ---
Author Organization [facility] Address [address] [id number] Care Team Providers Care Flooring Salesperson Name Role Phone Yen Mejia MD Primary Care Provider [phone] [phone] Allergies Active Allergy Reactions Criticality Noted Date Comments Amoxicillin 10/24/2019 Medications Medication Sig Dispensed Refills Start Date End Date Status Calcium Carb-Cholecalciferol (CALCIUM-VITAMIN D) 600-400 MG-UNIT TABS Take 1 tablet by mouth daily. 0 Active vitamin C (ASCORBIC ACID) 500 MG tablet Take 1 tablet (500 mg total) by mouth daily. 0 Active rosuvastatin (CRESTOR) tablet 5 mg Take 1 tablet (5 mg total) by mouth daily. 0 Active aspirin 81 MG chewable tablet Chew 1 tablet (81 mg total) by mouth daily. 0 Active gabapentin (NEURONTIN) 100 MG capsule Take 1 capsule (100 mg total) by mouth 3 (three) times a day. 0 Active acetaminophen (TYLENOL) 650 MG CR tablet Take 1 tablet (650 mg total) by mouth as needed for pain. 0 Active hydroxychloroquine (PLAQUENIL) 200 MG tablet Take 1 tablet (200 mg total) by mouth daily. 2 tablets one day, next day 1 tablet 0 Active lisinopril (PRINIVIL,ZESTRIL) tablet 5 mg Take 1 tablet (5 mg total) by mouth daily. 0 Active Cyanocobalamin (Vitamin B 12) 500 MCG TABS Take by mouth. 0 Active anastrozole (ARIMIDEX) 1 MG tablet TAKE 1 TABLET(1 MG) BY MOUTH DAILY 90 tablet 1 05/18/2024 Active Active Problems Problem Noted Date Diagnosed Date Aromatase inhibitor use 04/02/2020 Hormone receptor positive ma lignant neoplasm of right breast 04/02/2020 Family history of malignant neoplasm of female b reast 10/25/2019 Malignant neoplasm of upper- outer quadrant of left breast in female, estrogen receptor positive 10/24/2019 Essential hypertension 10/24/2019 Mixed hyperlipidemia 10/24/2019 Primary osteoarthritis involving multiple joints 10/24/2019 Social History Tobacco Use Types Packs/Day Years Used Date Smoking Tobacco: Never Smokeless Tobacco: Never Alcohol Use Standard Drinks/Week Comments No 0 (1 standard drink = 0.6 oz pur e alcohol) Sex and Gender Information Value Date Recorded Sex Assigned at Not on file Gender Identity Not on file Sexual Orientation Not on file Job Start Date Occupation Industry Not on file Not on file Not on file Last Filed Vital Signs Vital Sign Reading Time Taken Comments Blood Pressure 137/77 05/18/2024 9:03 AM EDT Pulse 91 05/18/2024 9:03 AM EDT Temperature 36.4 ??C (97.6 ??F) 05/18/2024 9:03 AM ED T Respiratory Rate - - Oxygen Saturation 97% 05/18/2024 9:03 AM EDT Inhaled Oxygen Concentration - - Weight 63.3 kg (139 lb 9.6 oz) 05/18/2024 9:03 A M EDT Height 163.2 cm (5' 4.25 ) 05/18/2024 9:03 AM ED T Body Mass Index 23.78 05/18/2024 9:03 AM EDT Plan of Treatment Health Maintenance Due Date Last Done Comments COVID-19 Vaccine (#1) 1945 Pneumococcal Vaccine (1 of 2 - PCV) 1946 Depression Screening 1952 Preventative Health Evaluation 1958 DTap / Tdap / Td (1 - Tdap) 1959 Shingrix-Zoster Vaccine (1 of 2) 1959 Fall Risk Assessment 2005 Osteoporosis Screening (DEXA Scan) 2005 RSV Adult > 60+ Yrs or Pregn ant (1 - 1-dose 75+ series) 2015 Influenza Vaccine (#1) 2024 Hepatitis B Vaccines Aged Out No long er eligible based on patient's age to complete this topic RSV Ped < 20 months Aged Out No longe r eligible based on patient's age to complete this topic Care Teams Flooring Salesperson Relationship Specialty Start Date End Date Yen Mejia MD [address] [facility] [place] [address] PCP - General Internal Medicine 05/18/22
--- OUTSIDE RECORDS SUMMARY | 2024-09-27 11:01 | XMS_ITS | Clinical Summary ---
Author Organization [facility] Address [address] [place] [address] Care Team Providers Care Skiff Operator Name Role Phone Yen Mejia MD Primary Care Provider Allergies Active Allergy Reactions Criticality Noted Date Comments Amoxicillin 10/24/2019 Medications Medication Sig Dispensed Refills Start Date End Date Status ALPRAZolam (XANAX) 0.25 mg tablet Take 0.25 mg by mouth continuous prn for anxiety. Active amLODIPine (NORVASC) 5 mg tablet Take 5 mg by mouth daily. Active anastrozole (ARIMIDEX) 1 mg Take 1 tablet (1 mg total) by mouth daily 11/10/2021 Active ascorbic acid (VITAMIN C) 500 mg chewable tablet Take 500 mg by mouth daily. Active aspirin 81 mg chewable tablet Chew 81 mg by mouth daily. Active calcium carbonate-vit D3-min 600 mg calcium- 400 unit tablet Take 1 tablet by mouth daily. Active rosuvastatin (CRESTOR) 5 mg tablet Take 5 mg by mouth daily. Active traMADoL (ULTRAM) 50 mg tablet Take 50 mg by mouth every 6 (six) hours as needed for pain. Active acetaminophen (TYLENOL 8 HOUR) 650 mg 8 hr tablet Take 1 tablet (650 mg total) by mouth if needed (for pain). Active calcium carbonate-vitamin D 600 mg-10 mcg (400 unit) per tablet Take 1 tablet by mouth 1 (one) time each day. Active cyanocobalamin (VITAMIN B-12) 500 mcg tablet Take by mouth. Active gabapentin (NEURONTIN) 100 mg capsule Take 1 capsule (100 mg total) by mouth 3 (three) times a day. Active hydroxychloroquine (PLAQUENIL) 200 mg tablet Take 1 tablet (200 mg total) by mouth 1 (one) time each day. 2 tablets one day, next day 1 tablet Active lisinopriL (PRINIVIL,ZESTRIL) 5 mg tablet Take 1 tablet (5 mg total) by mouth 1 (one) time each day. Active ascorbic acid (VITAMIN C) 500 mg tablet Take 1 tablet (500 mg total) by mouth 1 (one) time each day. 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 04/02/2020 Essential hypertension 10/24/2019 Mixed hyperlipidemia 10/24/2019 Primary osteoarthritis involving multiple joints 10/24/2019 Malignant neoplasm of upper- outer quadrant of left breast in female, estrogen receptor positive Surgical History Surgery Date Site/Laterality Comments HIP SURGERY PROCEDURE:HIP SURGERY COLONOSCOPY PROCEDURE:COLONOSCOPY Medical History Medical History Date Comments Breast cancer (CMS/HCC) DX:Breas t cancer (HCC) Social History Tobacco Use Types Packs/Day Years Used Date Smoking Tobacco: Never Smokeless Tobacco: Never Alcohol Use Standard Drinks/Week Comments No 0 (1 standard drink = 0.6 oz pur e alcohol) Sex and Gender Information Value Date Recorded Sex Assigned at Not on file Gender Identity Not on file Sexual Orientation Not on file Obstetrics History Last Filed Vital Signs Vital Sign Reading Time Taken Comments Blood Pressure 137/77 05/18/2024 9:03 AM EDT Sitting Left arm Pulse 91 05/18/2024 9:03 AM EDT Temperature - - Respiratory Rate - - Oxygen Saturation - - Inhaled Oxygen Concentration - - Weight 63.3 kg (139 lb 9.6 oz) 05/18/2024 9:03 AM EDT Height 163.2 cm (5' 4.25 ) 05/18/2024 9 :03 AM EDT Body Mass Index 23.78 05/18/2024 9:03 AM EDT Plan of Treatment Upcoming Encounters Date Type Department Care Team (Late st Contact Info) Description 11/16/2024 9:00 AM EDT Office Visit [facility] Hematology Oncology [address] [place] [address] Maikel Robbins MD [address] [place] [address] Health Maintenance Due Date Last Done Comments COVID-19 Vaccine (#1) 1945 Pneumococcal Vaccine: 65+ Ye ars (1 of 2 - PCV) 1946 DTaP,Tdap,and Td Vaccines (1 - Tdap) 1959 Zoster Vaccines (1 of 2) 1959 RSV Immunization Patients 60 + Years Old (1 - 1-dose 75+ series) 2015 Cholesterol Screening (Lipid Panel) 08/05/2022 Depression Screening 08/05/2022 Falls Risk Assessment 08/05/2022 Medicare Annual Wellness Visit 08/05/2022 Social Influencers of Health Screening 08/05/2022 Hypertension/CHF/CAD Annual BMP Blood Test 08/14/2022 Influenza Vaccine (#1) 2024 Osteoporosis Screening (Bone Density Screening) 11/19/2032 11/19/2022 HIB Vaccines Aged Out No longer eligi ble based on patient's age to complete this topic HPV Vaccines Aged Out No longer eligi ble based on patient's age to complete this topic Hepatitis A Vaccines Aged Out No long er eligible based on patient's age to complete this topic Hepatitis B Vaccines Aged Out No long er eligible based on patient's age to complete this topic IPV Vaccines Aged Out No longer eligi ble based on patient's age to complete this topic MMR Vaccines Aged Out No longer eligi ble based on patient's age to complete this topic Meningococcal ACWY Vaccine Aged Out N o longer eligible based on patient's age to complete this topic RSV Immunization Patients Un carolyn 20 months Aged Out No longer eligible b ased on patient's age to complete this topic Varicella Vaccines Aged Out No longer eligible based on patient's age to complete this topic Procedures Procedure Name Priority Date/Time Associated Diagnosis Comments [facility] DEXA AXIAL SKELETON Routine 11/19/2022 10:01 AM EDT Asymptomatic menopausal state from Last 3 Months or Most Recently Relevant to Health Maintenance Results * [facility] DEXA AXIAL SKELETON (11/19/2022 10:01 AM EDT) Anatomical Region Laterality Modality Mammography 11/19/2022 9:05 AM EDT Narrative 11/19/2022 10:01 AM EDT [facility] Diagnostic Imaging Department [address] [place] [address] Patient: ??MATTFELICITAS Dillard ?/Age/Sex: 1940 - 82 - F Unit#: ??[id number] ? Location/Status: ??SPDIMAM/REG CLI ? Mnemonic/Ordering Site: ??MAMDEXAAX/SPMAM Ordering Physician: ??MAIKEL YATES MD [facility] Dexa Axial Skeleton - 11/19/22944 HISTORY: ??The patient is an 82-year-old postmenopausal female with clinical concern for metabolic bone disease. ??The patient has undergone previous bilateral total hip replacement surgery. FINDINGS: ??Dual energy x-ray absorptiometry of the lumbar spine is performed. The mean bone mineral density at L1-L4 (with the exclusion of L3) is 1.300 gm/cm2 which is 111% of that of young normals and 133% of that of age matched controls. This yields a T-score of 1.1 and a Z-score of 2.7 and there is therefore no evidence of osteoporosis or osteopenia here. IMPRESSION: There is no evidence of osteoporosis or osteopenia. Code 45729 Dictating Physician: ??NAOMI BELTRAN MD Electronically Signed by: ??NAOMI BELTRAN MD Dic Date/Time: ??11/19/22 0991 Sign date/Time: ??11/19/22 1001 Procedure Note Naomi Beltran MD - 09/30/2023 [facility] Diagnostic Imaging Department [address] [place] [address] Patient: FELICITAS PARKER /Age/Sex: 1940 82 - F Unit#: [id number] Location/Status: [facility]/REG CLI Mnemonic/Ordering Site: MAMDEXAAX/SPMAM Ordering Physician: MAIKEL YATES MD [facility] Dexa Axial Skeleton - 11/19/[address]44 HISTORY: The patient is an 82-year-old postmenopausal female withclinical concern for metabolic bone disease. The patient has undergone previous bilateral total hip replacement surgery. FINDINGS: Dual energy x-ray absorptiometry of the lumbar spine isperformed. The mean bone mineral density at L1-L4 (with the exclusion of L3) is1.300 gm/cm2 which is 111% of that of young normals and 133% of that of agematched controls. This yields a T-score of 1.1 and a Z-score of 2.7 and there is therefore no evidence of osteoporosis or osteopenia here. IMPRESSION: There is no evidence of osteoporosis or osteopenia. Code 64830 Dictating Physician: NAOMI BELTRAN MD Electronically Signed by: NAOMI BELTRAN MD Dic Date/Time: 11/19/22 0959 Sign date/Time: 11/19/22 1001 Maikel Robbins MD [facility] PROC EDURES from Last 3 Months or Most Recently Relevant to Health Maintenance Advance Directives Documents on File Type Date Recorded Patient Superintendent Power Expl anation Health Care Decision (hx) 03/10/2018 AD GOLDSMITH DIRECTIVE Health Care Decision (hx) 03/10/2018 AD GOLDSMITH DIRECTIVE Health Care Decision (hx) 03/10/2018 AD GOLDSMITH DIRECTIVE Health Care Decision (hx) 03/10/2018 AD GOLDSMITH DIRECTIVE Health Care Decision (hx) 03/10/2018 AD GOLDSMITH DIRECTIVE Health Care Decision (hx) 03/10/2018 AD GOLDSMITH DIRECTIVE Health Care Decision (hx) 03/10/2018 AD GOLDSMITH DIRECTIVE Health Care Decision (hx) 03/10/2018 AD GOLDSMITH DIRECTIVE Health Care Decision (hx) 03/10/2018 AD GOLDSMITH DIRECTIVE Health Care Decision (hx) 03/10/2018 AD GOLDSMITH DIRECTIVE Health Care Decision (hx) 03/10/2018 AD GOLDSMITH DIRECTIVE Health Care Decision (hx) 03/10/2018 AD GOLDSMITH DIRECTIVE Health Care Decision (hx) 03/10/2018 AD GOLDSMITH DIRECTIVE Health Care Decision (hx) 03/10/2018 AD GOLDSMITH DIRECTIVE Health Care Decision (hx) 03/10/2018 AD GOLDSMITH DIRECTIVE Health Care Decision (hx) 03/10/2018 AD GOLDSMITH DIRECTIVE Health Care Decision (hx) 03/10/2018 AD GOLDSMITH DIRECTIVE Health Care Decision (hx) 03/10/2018 AD GOLDSMITH DIRECTIVE Health Care Decision (hx) 03/10/2018 AD GOLDSMITH DIRECTIVE Health Care Decision (hx) 03/10/2018 AD GOLDSMITH DIRECTIVE Health Care Decision (hx) 03/10/2018 AD GOLDSMITH DIRECTIVE Health Care Decision (hx) 03/10/2018 AD GOLDSMITH DIRECTIVE Health Care Decision (hx) 03/10/2018 AD GOLDSMITH DIRECTIVE Health Care Decision (hx) 03/10/2018 AD GOLDSMITH DIRECTIVE Health Care Decision (hx) 03/10/2018 AD GOLDSMITH DIRECTIVE Health Care Decision (hx) 03/10/2018 AD GOLDSMITH DIRECTIVE Health Care Decision (hx) 03/10/2018 AD GOLDSMITH DIRECTIVE Health Care Decision (hx) 03/10/2018 AD GOLDSMITH DIRECTIVE Health Care Decision (hx) 03/10/2018 AD GOLDSMITH DIRECTIVE Health Care Decision (hx) 03/10/2018 AD GOLDSMITH DIRECTIVE Health Care Decision (hx) 03/10/2018 AD GOLDSMITH DIRECTIVE Health Care Decision (hx) 03/10/2018 AD GOLDSMITH DIRECTIVE Health Care Decision (hx) 03/10/2018 AD GOLDSMITH DIRECTIVE Health Care Decision (hx) 03/10/2018 AD GOLDSMITH DIRECTIVE Health Care Decision (hx) 03/10/2018 AD GOLDSMITH DIRECTIVE Health Care Decision (hx) 03/10/2018 AD GOLDSMITH DIRECTIVE Health Care Decision (hx) 03/10/2018 AD GOLDSMITH DIRECTIVE Health Care Decision (hx) 03/10/2018 AD GOLDSMITH DIRECTIVE Health Care Decision (hx) 03/10/2018 AD GOLDSMITH DIRECTIVE Health Care Decision (hx) 03/10/2018 AD GOLDSMITH DIRECTIVE Health Care Decision (hx) 03/10/2018 AD GOLDSMITH DIRECTIVE Health Care Decision (hx) 03/10/2018 AD GOLDSMITH DIRECTIVE Health Care Decision (hx) 03/10/2018 AD GOLDSMITH DIRECTIVE Health Care Decision (hx) 03/10/2018 AD GOLDSMITH DIRECTIVE Health Care Decision (hx) 03/10/2018 AD GOLDSMITH DIRECTIVE Health Care Decision (hx) 03/10/2018 AD GOLDSMITH DIRECTIVE Health Care Decision (hx) 03/10/2018 AD GOLDSMITH DIRECTIVE Health Care Decision (hx) 03/10/2018 AD GOLDSMITH DIRECTIVE Health Care Decision (hx) 03/10/2018 AD GOLDSMITH DIRECTIVE Health Care Decision (hx) 03/10/2018 AD GOLDSMITH DIRECTIVE Health Care Decision (hx) 03/10/2018 AD GOLDSMITH DIRECTIVE Health Care Decision (hx) 03/10/2018 AD GOLDSMITH DIRECTIVE Health Care Decision (hx) 03/10/2018 AD GOLDSMITH DIRECTIVE Health Care Decision (hx) 03/10/2018 AD GOLDSMITH DIRECTIVE Health Care Decision (hx) 03/10/2018 AD GOLDSMITH DIRECTIVE Health Care Decision (hx) 03/10/2018 AD GOLDSMITH DIRECTIVE Health Care Decision (hx) 03/10/2018 AD GOLDSMITH DIRECTIVE Health Care Decision (hx) 03/10/2018 AD GOLDSMITH DIRECTIVE Health Care Decision (hx) 03/10/2018 AD GOLDSMITH DIRECTIVE Health Care Decision (hx) 03/10/2018 AD GOLDSMITH DIRECTIVE Health Care Decision (hx) 03/10/2018 AD GOLDSMITH DIRECTIVE Health Care Decision (hx) 03/10/2018 AD GOLDSMITH DIRECTIVE Health Care Decision (hx) 03/10/2018 AD GOLDSMITH DIRECTIVE Health Care Decision (hx) 03/10/2018 AD GOLDSMITH DIRECTIVE Health Care Decision (hx) 03/10/2018 AD GOLDSMITH DIRECTIVE Health Care Decision (hx) 03/10/2018 AD GOLDSMITH DIRECTIVE Health Care Decision (hx) 03/10/2018 AD GOLDSMITH DIRECTIVE Health Care Decision (hx) 03/10/2018 AD GOLDSMITH DIRECTIVE Health Care Decision (hx) 03/10/2018 AD GOLDSMITH DIRECTIVE Health Care Decision (hx) 03/10/2018 AD GOLDSMITH DIRECTIVE Care Teams Skiff Operator Relationship Specialty Start Date End Date Yen Mejia MD [address] [place] [address] PCP - General Internal Medicine 05/18/22
--- OUTSIDE RECORDS SUMMARY | 2024-09-27 11:01 | XMS_ITS | Encounter Summary ---
Author Organization [facility] Address [address] [place] [address] Phone Care Team Providers Care Furnace Filler Name Role Phone Davie Mejia MD Primary Care Provider +1- [phone] Encounter Details Date Type Department Care Team (Late st Contact Info) Description 07/05/2022 Telephone [facility] [address] [place] [phone] Chencho Jang MD Social History Tobacco Use Types Packs/Day Years Used Date Smoking Tobacco: Never Smokeless Tobacco: Never Comments Unknown Sex and Gender Information Value Date Recorded Sex Assigned at Not on file Legal Sex Female 11:03 AM EDT Gender Identity Not on file Sexual Orientation Not on file documented as of this encounter Miscellaneous Notes * Telephone Encounter - Candi Zhao - 07/05/2022 9:53 AM EST Pts daughter called, her dentist would like to know if its ok for her to take clindamycin before and after her dental procedures. If so please put in a new updated script. Thank you CB# [phone] documented in this encounter Plan of Treatment Not on file documented as of this encounter Visit Diagnoses Not on filedocumented in this encounter Care Teams Furnace Filler Relationship Specialty Start Date End Date Davie Mejia MD [address] [place] [address] PCP - General Internal Medicine 04/27/22 documented as of this encounter
== END 2024-09-27 08:11 | disposition home or self-care (01) ==
LOC: HO.LAB 08:10
PROVIDERS: Internal Medicine Hypertension Specialist; Visit Provider Student in an Organized Health Care Education/Training Program
DX: M06.00 Rheumatoid arthritis without rheumatoid factor, unspecified site (principal); N18.9 Chronic kidney disease, unspecified; Z79.899 Other long term (current) drug therapy
CPT/HCPCS: 36415; 80053; 85025; 85652; 86140

== ENCOUNTER → 2024-10-03 07:32 | Outpatient (BNVA) | payer MEDICARE, SELFPAY | PROVIDERS: PCP Internal Medicine; Visit Provider Student in an Organized Health Care Education/Training Program | DX: M06.00 Rheumatoid arthritis without rheumatoid factor, unspecified site (principal); M15.9 Polyosteoarthritis, unspecified; Z96.643 Presence of artificial hip joint, bilateral; Z79.899 Other long term (current) drug therapy | CPT/HCPCS: 99212 ==

== ENCOUNTER 2024-10-16 08:22 | Outpatient (REF) | payer MEDICARE, SELFPAY ==
--- OUTSIDE RECORDS SUMMARY | 2024-10-16 08:38 | XMS_ITS | Encounter Summary ---
Author Organization [facility] Address [address] [place] [address] Phone Care Team Providers Care Internet Ecommerce Specialist Name Role Phone Davie Mejia MD Primary Care Provider +1- [phone] Encounter Details Date Type Department Care Team (Late st Contact Info) Description 05/04/2022 Office Communication [facility] [address] [place] [phone] Eve Alexis Social History Tobacco Use Types [...] EDT Pt would like US scheduled at [facility] if possible. documented in this encounter Plan of Treatment Not on file documented as of this encounter Visit Diagnoses Not on filedocumented in this encounter Care Teams Internet Ecommerce Specialist Relationship Specialty Start Date End Date Davie Mejia MD [address] [place] [address] PCP - General Internal Medicine 04/27/22 documented as of this encounter
--- OUTSIDE RECORDS SUMMARY | 2024-10-16 08:38 | XMS_ITS | Encounter Summary ---
Author Organization [facility] Address [address] [place] [address] Phone Care Team Providers Care County Manager Name Role Phone Davie Mejia MD Primary Care Provider +1- [phone] Encounter Details Date Type Department Care Team (Late st Contact Info) Description 05/17/2022 Office Communication [facility] [address] [place] [phone] Eve Alexis Social History Tobacco Use Types [...] on filedocumented in this encounter Care Teams County Manager Relationship Specialty Start Date End Date Davie Mejia MD [address] [place] [address] PCP - General Internal Medicine 04/27/22 documented as of this encounter
--- OUTSIDE RECORDS SUMMARY | 2024-10-16 08:38 | XMS_ITS | Encounter Summary ---
Author Organization [facility] Address [address] [place] [address] Phone Care Team Providers Care Cartographic Aide Name Role Phone Davie Mejia MD Primary Care Provider +1- [phone] Encounter Details Date Type Department Care Team (Late st Contact Info) Description 07/05/2022 Telephone [facility] [address] [place] [phone] Chencho Jang MD Social History Tobacco Use [...] a new updated script. Thank you CB# [phone] documented in this encounter Plan of Treatment Not on file documented as of this encounter Visit Diagnoses Not on filedocumented in this encounter Care Teams Cartographic Aide Relationship Specialty Start Date End Date Davie Mejia MD [address] [place] [address] PCP - General Internal Medicine 04/27/22 documented as of this encounter
--- OUTSIDE RECORDS SUMMARY | 2024-10-16 08:38 | XMS_ITS | Clinical Summary ---
Author Organization [facility] Address [address] [place] [address] Care Team Providers Care Iron Worker Apprentice Name Role Phone Yen Mejia MD Primary Care Provider Allergies Active Allergy Reactions Criticality Noted Date Comments Amoxicillin 10/24/2019 Medications ALPRAZolam (XANAX) 0.25 mg tablet Take 0.25 mg by mouth continuous prn for anxiety. Active amLODIPine (NORVASC) 5 mg tablet Take 5 mg by mouth daily. Active anastrozole (ARIMIDEX) 1 mg Take 1 tablet (1 mg total) by mouth daily 2 Active ascorbic acid (VITAMIN C) 500 mg [...] mouth if needed (for pain). Active calcium carbonate-vitam in D 600 mg-10 mcg (400 unit) per tablet Take 1 tablet by mouth 1 (one) time each day. Active cyanocobalamin (VITAMIN B-12) 500 mcg tablet Take by mouth. Active gabapentin (NEURONTIN) 100 mg capsule Take 1 capsule (100 mg total) by mouth 3 (three) times a day. Active hydroxychloroqu ine (PLAQUENIL) 200 mg tablet Take 1 tablet (200 mg total) by mouth 1 (one) time each day. 2 tablets one day, next day 1 tablet Active lisinopriL (PRINIVIL,ZESTR [place]) 5 mg tablet Take 1 tablet (5 [...] drink = 0.6 oz pur e alcohol) Comments Unknown Sex and Gender Information Value Date Recorded Sex Assigned at Not on file Legal Sex Female 10:14 AM EST Gender Identity Not on file Sexual Orientation [...] Description 11/16/2024 9:00 AM EDT Office Visit [facility] Hematology Oncology [address] [place] [address] Maikel Robbins MD [address] [place] [phone] Health Maintenance Due Date Last Done Comments COVID-19 Vaccine (#1) 1945 DTaP,Tdap,and Td Vaccines (1 - Tdap) 1959 Pneumococcal Vaccine: 50+ Ye ars (1 of 2 - PCV) 1959 Zoster Vaccines (1 of 2) 1959 [...] patient's age to complete this topic Meningococcal B Vacine Aged Out No lo nger eligible based on patient's age to complete this topic RSV Immunization Patients Un carolyn 20 months Aged Out No longer eligible b ased on patient's age to complete this topic Varicella Vaccines Aged Out No longer eligible based on patient's age to complete this topic Procedures Procedure Name Priority Date/Time Associated Diagnosis Comments [facility] DEXA AXIAL SKELETON Routine 11/19/2022 10:01 AM EDT Asymptomatic menopausal state from Last 3 Months or Most Recently Relevant to Health Maintenance Results * [facility] DEXA AXIAL SKELETON (11/19/2022 10:01 AM EDT) Anatomical Region Laterality Modality Mammography 11/19/2022 9:05 AM EDT Narrative 11/19/2022 10:01 AM EDT [facility] Diagnostic Imaging Department [address] [place] [address] Patient: ??FELICITAS PARKER ?/Age/Sex: 1940 - Unit#: ??[id number] ? Location/Status: ??SPDIMAM/REG CLI ? Mnemonic/Ordering Site: ??MAMDEXAAX/SPMAM Ordering Physician: ??MAIKEL YATES MD [facility] Dexa Axial Skeleton - 11/19/[address] HISTORY: ??The [...] no evidence of osteoporosis or osteopenia. Code 31888 Dictating Physician: ??NAOMI BELTRAN MD Electronically Signed by: ??NAOMI BELTRAN MD Dic Date/Time: ??11/19/22 0959 Sign date/Time: ??11/19/22 1001 Procedure Note Naomi Beltran MD - 09/30/2023 [facility] Diagnostic Imaging Department [address] [place] [address] Patient: FELICITAS PARKER Gilma /Age/Sex: 1940 - 82 - F Unit#: [id number] Location/Status: SPDIMAM/REG CLI Mnemonic[facility] Ordering Physician: MAIKEL YATES MD [facility] Dexa Axial Skeleton - 11/19/[address] HISTORY: The [...] no evidence of osteoporosis or osteopenia. Code 10044 Dictating Physician: NAOMI BELTRAN MD Electronically Signed by: NAOMI BELTRAN MD Dic Date/Time: 11/19/22 0973 Sign date/Time: 11/19/22 1001 Maikel Robbins MD [facility] BI PROCEDURES F inal Result from Last 3 Months or Most Recently Relevant to Health Maintenance Insurance [employer] MEDICARE Advance Directives Documents on File Type Date Recorded Patient Revenue Manager Expl anation Health Care Decision (hx) 03/10/2018 [...] (hx) 03/10/2018 AD GOLDSMITH DIRECTIVE Care Teams Iron Worker Apprentice Relationship Specialty Start Date End Date Yen Mejia MD [address] [place] [address] PCP - General Internal Medicine 05/18/22
--- OUTSIDE RECORDS SUMMARY | 2024-10-16 08:38 | XMS_ITS | Clinical Summary ---
Author Organization [facility] Address [address] [id number] Care Team Providers Care Battery Mechanic Name Role Phone Yen Mejia MD Primary Care Provider +1 -[phone] Allergies Active Allergy Reactions Criticality Noted Date [...] age to complete this topic Care Teams Battery Mechanic Relationship Specialty Start Date End Date Yen Mejia MD [address] [facility] [place] [address] PCP - General Internal Medicine 05/18/22
--- OUTSIDE RECORDS SUMMARY | 2024-10-16 08:38 | XMS_ITS | Clinical Summary ---
Author Organization [facility] Address [address] [facility] [address] [place] [address] Phone Care Team Providers Care Physical Security Specialist Name Role Phone Davie Mejia MD Primary Care Provider +1- [phone] Allergies Active Allergy Reactions Criticality Noted Date Comments Penicillins 05/04/2022 Mouth swells [place] Extract 05/04/2022 Tomato 05/04/2022 Medications anastrozole (ARIMIDEX) [...] patient's age to complete this topic Insurance [facility] MEDICARE [facility] MEDICARE Care Teams Physical Security Specialist Relationship Specialty Start Date End Date Davie Mejia MD [address] [place] [address] PCP - General Internal Medicine 04/27/22
[2024-10-16 10:18] LABS: Cholesterol 179 mg/dL (<200); HDL Cholesterol 88 mg/dL (>40); LDL Cholesterol Calculated 79 mg/dL (<100); Triglycerides 64 mg/dL (<150)
[2024-10-16 11:01] LABS: Folate 7.8 ng/mL (> or = 4.0); Vitamin B12 740 pg/mL (200-900)
== END 2024-10-16 08:23 | disposition home or self-care (01) ==
LOC: HO.LAB 08:22
PROVIDERS: PCP Internal Medicine; Visit Provider Internal Medicine
DX: R74.8 Abnormal levels of other serum enzymes (principal); E78.5 Hyperlipidemia, unspecified
CPT/HCPCS: 36415; 80061; 82607; 82746

== ENCOUNTER 2024-10-18 09:38 | Outpatient (AMB) | payer MEDICARE, SELFPAY ==
--- NOTE | 2024-10-18 09:39 | HO.NEPHOV ---
Vital Signs 10/18/24 09:40 10/18/24 09:50 Height 5 ft 4 in Weight 139 lb BMI 23.9 BP 152/72 H 130/70 Blood Pressure Location Lt brachial Lt brachial Position Sitting Sitting Pulse 100 Pulse Source Pulse Oximeter Pulse Oximetry (%) 97 Oxygen Delivery Method Room Air Intake Visit Reasons: CKD/ Conf Alcohol Law Enforcement Agent Required: No Accompanied by: Self / Same As Patient Allergies Penicillins Adverse Reaction (Verified 10/18/24 09:41) mouth swells strawberry Adverse Reaction (Verified 10/18/24 09:41) Rash tomato Adverse Reaction (Verified 10/18/24 09:41) Rash Medication List - Last Reconciled 10/18/24 by Chencho Jang MD acetaminophen ER (Tylenol Arthritis Pain) 1,300 mg PO Q8H anastrozole 1 mg PO DAILY ascorbic acid (vitamin C) 500 mg PO DAILY aspirin (Adult Low Dose Aspirin) 81 mg PO DAILY calcium carbonate (Antacid (calcium carbonate)) 200 mg PO DAILY famotidine 40 mg PO DAILY PRN gabapentin 100 mg PO TID hydroxychloroquine 200 mg PO DAILY lisinopril 5 mg PO DAILY mecobalamin (vitamin B12) mcg PO DAILY multivitamin 1 tab PO DAILY rosuvastatin 5 mg PO DAILY vibegron (Gemtesa) 75 mg PO DAILY HPI Comments Details: 83 yr old woman with h/o HTN and REnal stone in the past with CKD History of right breast cancer status post lumpectomy followed by radiation more than 20 years ago. In 2019 she had left breast mass underwent lumpectomy and she was treated with tamoxifen. Creatinine was between 1.2 and 1.3 ; REcently bumped to 1.4 Currently on lisinopril 10 mg a day. No lightheadedness. No urinary symptoms. She has had recurrent UTIs. She is due to see Urology shortly. History of renal stones in the past. Recently she had been experiencing some shortness of breath. Waiting to see Cardiology after stress test and echo. History of rheumatoid arthritis she has been followed by Rheumatology and currently on hydroxychloroquine Not on NSAIDs 04/17/24 Recurrent Urinary tract infection Had cystoscopy last week - unremarkable 10/18/24 Overall doing well After lowering Lisinopril, Cr has improved [facility] Medical History (Updated 10/03/24 @ 08:03 by Lauren Ricardo MD) Polyarticular osteoarthritis Recurrent urinary tract infection Shortness of breath on exertion CKD (chronic kidney disease) Need for prophylactic antibiotic Annual visit for general adult medical examination with abnormal findings History of bone density study History of Papanicolaou smear of cervix History of mammogram Bilateral shoulder pain Tubular adenoma of colon Congenital hypertrophic pyloric stenosis Post-menopause Heartburn symptom Hx of renal calculi Osteoarthritis of hips, bilateral Hx of breast cancer Dyslipidemia Essential hypertension Surgical History History of bilateral hip replacements History of total right hip arthroplasty Status post right breast lumpectomy S/P lumpectomy, left breast Family History Mother Arthritis Social History Household Members Other:: Son and Grandson Housing: House Alcohol intake: current Alcohol intake frequency: does not drink Patient Tobacco Use Status: Never used Tobacco e-Cigarette/Vaping Use: Never Used Current occupational status: 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 Cognitive needs: No Hearing needs: No Vision needs: Yes Female Reproductive History Menstrual Age of Menarche: 12 Physical Exam Vital Signs: Last Vital Signs Pulse 100 10/18/24 09:40 BP 152/72 H 10/18/24 09:40 Pulse Ox 97 10/18/24 09:40 Oxygen Delivery Method Room Air 10/18/24 09:40 BMI result Body Mass Index 23.9 Const General: comfortable Nutritional Appearance: well nourished Orientation/consciousness: patient oriented x3 HEENT Head: No normal to inspection Mouth: moist mucous membranes Neck Neck: Yes supple and Yes no JVD Resp Auscultation: clear to auscultation bilaterally and no rales Cardio Jugular venous distension: no JVD Palpation: no palpable S3 and no palpable S4 Heart sounds: no rubs GI Palpation (GI): Soft to palpation and nontender Percussion: No Fluid wave present General: Yes no CVA tenderness Back/Spine/Pelvis Back: no CVA tenderness Skin General skin exam: no rashes or lesions noted Neuro General: patient oriented x3 Extrem General: Yes no pedal edema and No clubbing Results Reviewed Nephrology Results: Hgb 12.0 g/dl (12.0-16.0) 09/27/24 WBC 5.2 X10*3/uL (4.8-10.8) 09/27/24 Plt Count 314 X10*3/uL (160-400) 09/27/24 Sodium 142 mmol/L (135-145) 09/27/24 Potassium 4.0 mmol/L (3.3-5.1) 09/27/24 Chloride 109 mmol/L (96-108) H 09/27/24 Carbon Dioxide 23 mmol/L (22-29) 09/27/24 BUN 24 mg/dL (9-16) H 09/27/24 Creatinine 1.03 mg/dL (0.5-1.4) 09/27/24 Calcium 9.7 mg/dL (8.4-10.2) 09/27/24 Assessment & Plan Assessment & Plan (1) CKD (chronic kidney disease): Code(s): N18.9 - Chronic kidney disease, unspecified Category: Medical Plan: Due to age-related decline in GFR and underlying hypertensive kidney disease. At present renal function stable at baseline. Continue to avoid nephrotoxic agents Optimize blood pressure (2) Essential hypertension: Code(s): I10 - Essential (primary) hypertension Category: Medical Plan: I lowered the lisinopril from 10 mg down to 5 mg in Mar 2024 due to low BP and currently BP is acceptable (3) Recurrent urinary tract infection: Code(s): N39.0 - Urinary tract infection, site not specified Category: Medical Plan: History of renal stones. follow-up with Urology. Orders: Orders Basic Metabolic Panel 6 Months N18.9 - Chronic kidney disease, unspecified Coding Level of Care Code Est Pt Level 4 (36376) Diagnoses CKD (chronic kidney disease) N18.9 Essential hypertension I10 Recurrent urinary tract infection N39.0
[2024-10-18 09:40] VITALS: BP 152/72; PULSE 100; O2SAT 97; BMI 23.9
[2024-10-18 09:50] VITALS: BP 130/70
--- OUTSIDE RECORDS SUMMARY | 2024-10-18 10:25 | XMS_ITS | Encounter Summary ---
Author Organization [facility] Address [address] [place] [address] Phone Care Team Providers Care Central Office Installer Name Role Phone Davie Mejia MD Primary Care Provider +1- [phone] Encounter Details Date Type Department Care Team (Late st Contact Info) Description 05/04/2022 Office Communication [facility] [address] [place] [phone] Eve Alexis Social History Tobacco Use Types [...] EDT Pt would like US scheduled at [facility] if possible. documented in this encounter Plan of Treatment Not on file documented as of this encounter Visit Diagnoses Not on filedocumented in this encounter Care Teams Central Office Installer Relationship Specialty Start Date End Date Davie Mejia MD [address] [place] [address] PCP - General Internal Medicine 04/27/22 documented as of this encounter
--- OUTSIDE RECORDS SUMMARY | 2024-10-18 10:25 | XMS_ITS | Clinical Summary ---
Author Organization [facility] Address [address] [id number] Care Team Providers Care Statistician Applied Name Role Phone Yen Mejia MD Primary Care Provider +1 -[phone] Allergies Active Allergy Reactions Criticality Noted Date [...] age to complete this topic Care Teams Statistician Applied Relationship Specialty Start Date End Date Yen Mejia MD [address] [facility] [place] [address] PCP - General Internal Medicine 05/18/22
--- OUTSIDE RECORDS SUMMARY | 2024-10-18 10:25 | XMS_ITS | Clinical Summary ---
Author Organization [facility] Address [address] [place] [address] Care Team Providers Care Towel Sorter Name Role Phone Yen Mejia MD Primary [...] Description 11/16/2024 9:00 AM EDT Office Visit [facility] Hematology Oncology [address] [place] [address] Maikel Robbins MD [address] [place] [phone] Health Maintenance Due Date Last Done Comments [...] Procedure Name Priority Date/Time Associated Diagnosis Comments [facility] DEXA AXIAL SKELETON Routine 11/19/2022 10:01 AM EDT Asymptomatic menopausal state from Last 3 Months or Most Recently Relevant to Health Maintenance Results * [facility] DEXA AXIAL SKELETON (11/19/2022 10:01 AM EDT) Anatomical Region Laterality Modality Mammography 11/19/2022 9:05 AM EDT Narrative 11/19/2022 10:01 AM EDT [facility] Diagnostic Imaging Department [address] [place] [id number] Patient: ??FELICITAS PARKER ?/Age/Sex: 1940 - Unit#: ??[id number] ? Location/Status: ??SPDIMAM/REG CLI ? Mnemonic/Ordering Site: ??MAMDEXAAX/SPMAM Ordering Physician: ??MAIKEL YATES MD [facility] Dexa Axial Skeleton - 11/19/22944 HISTORY: ??The [...] no evidence of osteoporosis or osteopenia. Code 98012 Dictating Physician: ??NAOMI BELTRAN MD Electronically Signed by: ??NAOMI BELTRAN MD Dic Date/Time: ??11/19/22 0959 Sign date/Time: ??11/19/22 1001 Procedure Note Naomi Beltran MD - 09/30/2023 [facility] Diagnostic Imaging Department [address] [place] [address] Patient: FELICITAS PARKER Gilma /Age/Sex: 1940 - 82 - F Unit#: [id number] Location/Status: SPDIMAM/REG CLI Mnemonic/Ordering Site[facility] Ordering Physician: MAIKEL YATES MD Alina [...] no evidence of osteoporosis or osteopenia. Code 73179 Dictating Physician: NAOMI BELTRAN MD Electronically Signed by: NAOMI BELTRAN MD Dic Date/Time: 11/19/22 0983 Sign date/Time: 11/19/22 1001 Maikel Robbins MD [facility] [place] PROCEDURES F inal Result from Last 3 Months or Most Recently Relevant to Health Maintenance Insurance [employer] MEDICARE Advance Directives Documents on File Type Date Recorded Patient Nail Setter Expl anation Health Care Decision (hx) 03/10/2018 [...] DIRECTIVE Health Care Decision (hx) 03/10/2018 AD GOLDSIMTH DIRECTIVE Health Care Decision (hx) 03/10/2018 AD [...] (hx) 03/10/2018 AD GOLDSMITH DIRECTIVE Care Teams Towel Sorter Relationship Specialty Start Date End Date Yen Mejia MD [address] [place] [address] PCP - General Internal Medicine 05/18/22
--- OUTSIDE RECORDS SUMMARY | 2024-10-18 10:25 | XMS_ITS | Encounter Summary ---
Author Organization [facility] Address [address] [place] [address] Phone Care Team Providers Care Clerk Television Production Name Role Phone Davie Mejia MD Primary Care Provider [phone]- [phone] Encounter Details Date Type Department Care Team (Late st Contact Info) Description 07/05/2022 Telephone [facility] [address] [place] [phone] Chencho Jang MD Social History Tobacco Use [...] a new updated script. Thank you CB# [phone] documented in this encounter Plan of Treatment Not on file documented as of this encounter Visit Diagnoses Not on filedocumented in this encounter Care Teams Clerk Television Production Relationship Specialty Start Date End Date Davie Mejia MD [address] [place] [address] PCP - General Internal Medicine 04/27/22 documented as of this encounter
--- OUTSIDE RECORDS SUMMARY | 2024-10-18 10:25 | XMS_ITS | Clinical Summary ---
Author Organization [facility] Address [address] [facility] [facility] [address] [place] [address] Phone Care Team Providers Care Voip Network Engineer Name Role Phone Davie Mejia MD Primary Care Provider +1- [phone] Allergies Active Allergy Reactions Criticality Noted Date Comments Penicillins 05/04/2022 Mouth swells Nabb Extract 05/04/2022 Tomato 05/04/2022 Medications anastrozole (ARIMIDEX) [...] to complete this topic Insurance [facility] MEDICARE [facility] MEDICARE Care Teams Voip Network Engineer Relationship Specialty Start Date End Date Davie Mejia MD [address] [place] [address] PCP - General Internal Medicine 04/27/22
--- OUTSIDE RECORDS SUMMARY | 2024-10-18 10:25 | XMS_ITS | Encounter Summary ---
Author Organization [facility] Address [address] [place] [address] Phone Care Team Providers Care Can Carrier Name Role Phone Davie Mejia MD Primary Care Provider +1- [phone] Encounter Details Date Type Department Care Team (Late st Contact Info) Description 05/17/2022 Office Communication [facility] [address] [place] [phone] Eve Alexis Social History Tobacco Use Types [...] on filedocumented in this encounter Care Teams Can Carrier Relationship Specialty Start Date End Date Davie Mejia MD [address] [place] [address] PCP - General Internal Medicine 04/27/22 documented as of this encounter
== END 2024-10-18 09:55 | disposition home or self-care (01) ==
PROVIDERS: PCP Internal Medicine; Visit Provider Internal Medicine Hypertension Specialist
DX: I12.9 Hypertensive chronic kidney disease with stage 1 through stage 4 chronic kidney disease, or unspecified chronic kidney disease (principal); N18.9 Chronic kidney disease, unspecified; N39.0 Urinary tract infection, site not specified
CPT/HCPCS: 99214

== ENCOUNTER → 2024-10-18 09:38 | Outpatient (BNVA) | payer MEDICARE, SELFPAY | PROVIDERS: PCP Internal Medicine; Visit Provider Internal Medicine Hypertension Specialist | DX: I12.9 Hypertensive chronic kidney disease with stage 1 through stage 4 chronic kidney disease, or unspecified chronic kidney disease (principal); N18.9 Chronic kidney disease, unspecified; N39.0 Urinary tract infection, site not specified | CPT/HCPCS: 99212 ==

== ENCOUNTER 2024-10-23 10:20 | Outpatient (AMB) | payer MEDICARE, SELFPAY ==
--- NOTE | 2024-10-23 11:51 | MHC.PC.OV ---
Vital Signs 10/23/24 11:52 Height 5 ft 4 in Weight 135 lb BMI 23.2 BP 146/98 H Blood Pressure Location Lt brachial Position Sitting Respiration 18 Pulse 94 Pulse Source Pulse Oximeter Temp 97.3 F Temp Source Oral Pulse Oximetry (%) 96 Oxygen Delivery Method Room Air Intake Visit Reasons: PE Intake Note: Pt is here today for her PE: Last mammogram 11/21/23, bone denisty scan 11/19/22, colonoscopy 10/19/22 Allergies Penicillins Adverse Reaction (Verified 10/28/24 23:16) mouth swells strawberry Adverse Reaction (Verified 10/28/24 23:16) Rash tomato Adverse Reaction (Verified 10/28/24 23:16) Rash Medication List - Last Reconciled 10/28/24 by Yen Mejia MD acetaminophen ER (Tylenol Arthritis Pain) 1,300 mg PO Q8H anastrozole 1 mg PO DAILY ascorbic acid (vitamin C) 500 mg PO DAILY aspirin (Adult Low Dose Aspirin) 81 mg PO DAILY calcium carbonate (Antacid (calcium carbonate)) 200 mg PO DAILY famotidine 40 mg PO DAILY PRN gabapentin 100 mg PO TID hydroxychloroquine 200 mg PO DAILY lisinopril 5 mg PO DAILY mecobalamin (vitamin B12) mcg PO DAILY multivitamin 1 tab PO DAILY rosuvastatin 5 mg PO DAILY vibegron (Gemtesa) 75 mg PO DAILY Tobacco use date assessed: 10/23/24 Fall risk assessment: No Falls in past year Last assessed Fall Risk: 10/23/24 Dental Screening Dental Screen Date: 10/23/24 Did you have a dental visit in the last 12 months?: No Did you have a dental problem in the last 6 months where you did not have access to dental care?: No Was dental information given to patient?: Patient has dentist HPI PE HPI Details 84-year-old lady here today for her physical exam. She has hypertension currently stable controlled on lisinopril 5 mg taken daily, has hyperlipidemia currently on rosuvastatin 5 mg daily. She has history of breast cancer currently on anastrozole, and is up-to-date with her breast cancer screening. She is currently being followed by Urology for treatment of enuresis and stress urinary incontinence, currently on Gemtesa. She had a bone density done in 2022 which showed normal results Last colonoscopy was done in [address] Herman, which only showed presence of diverticulosis and internal hemorrhoids. She takes hydroxychloroquine and Tylenol arthritis, for treatment of her seronegative rheumatoid arthritis [facility] Medical History (Updated 10/23/24 @ 12:23 by Yen Mejia MD) Impaired fasting glucose Polyarticular osteoarthritis Recurrent urinary tract infection Shortness of breath on exertion CKD (chronic kidney disease) Need for prophylactic antibiotic Annual visit for general adult medical examination with abnormal findings History of bone density study History of Papanicolaou smear of cervix History of mammogram Bilateral shoulder pain Tubular adenoma of colon Congenital hypertrophic pyloric stenosis Post-menopause Heartburn symptom Hx of renal calculi Osteoarthritis of hips, bilateral Hx of breast cancer Dyslipidemia Essential hypertension Surgical History History of bilateral hip replacements History of total right hip arthroplasty Status post right breast lumpectomy S/P lumpectomy, left breast Family History Mother Arthritis Social History Household Members Other:: Son and Grandson Housing: House Alcohol intake: current Alcohol intake frequency: does not drink Patient Tobacco Use Status: Never used Tobacco e-Cigarette/Vaping Use: Never Used Current occupational status: 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 1. Little interest or pleasure in doing things: not at all 2. Feeling down, depressed, or hopeless: not at all 3. Trouble falling or staying asleep, or sleeping too much: not at all 4. Feeling tired or having little energy: not at all 5. Poor appetite or overeating: not at all 6. Feeling bad about yourself - or that you are a failure or have let yourself or your family down: not at all 7. Trouble concentrating on things, such as reading the newspaper or watching television: not at all 8. Moving or speaking so slowly that other people could have noticed. Or the opposite - being so fidgety or restless that you have been moving around a lot more than usual: not at all 9. Thoughts that you would be better off or of hurting yourself in some way: not at all Total score: 0 Depression Screening Interpretation: Negative Depression Screening Done: Yes 44053 - PHQ-9 Billing: Yes Source: Developed by Drs. Dayton Atwood, Amy Muniz, Jese Pyle and colleagues, with an educational ellen from [employer]. Thrive Questionnaire Date Thrive assessed: 10/23/24 I am a: Patient What is your living situation today?: I have a steady place to live Within the past 12 months, did the food you bought not last and you didn't have the money to get more?: Never true Within the past 12 months, did you worry whether your food would run out before you got money to buy more?: Never true Do you have trouble paying for medicines?: No Do you have trouble getting transportation to medical appointments?: No Do you have trouble paying your heating and electricity bill?: No Do you have trouble taking care of your child, family member or friend?: No Do you have trouble with day-to-day activities such as bathing, preparing meals, shopping, managing finances, etc.?: No Are you currently unemployed and looking for a job?: No Are you interested in more education?: No THRIVE Score: 0 AUDIT C Alcohol Use Questionnaire (AUDIT-C) 1. How often do you have a drink containing alcohol?: Never Total Score: 0 VENANCIO-7 AMB Questionnaire VENANCIO-7 Date VENANCIO - 7 assessed: 10/23/24 Feeling nervous, anxious, or on edge: 0 = Not at all Not being able to stop or control worryin = Not at all Worrying too much about different things: 0 = Not at all Trouble relaxin = Not at all Being so restless that it is hard to sit still: 0 = Not at all Becoming easily annoyed or irritable: 0 = Not at all Feeling afraid as if something awful might happen: 0 = Not at all Total VENANCIO-7 score (0-4 normal; 5-9 mild; 10-14 moderate; 15-21 severe): 0 Source: Developed by Drs. Dayton Atwood, Jese Carlos Kroenke and colleagues, with an educational ellen from [employer]. VENANCIO-7 Assessment Billing VENANCIO-7 Assessment Tool: VENANCIO-7 Assessment 97972 Review of Systems Const Denies daytime sleepiness, Denies fatigue, Denies fever(s), Denies lethargy, Denies malaise, Denies night sweats and Denies snoring Eyes Details: Dr Alcantara Denies change in vision ENT Denies nasal congestion, Denies post nasal drip and Denies sinus pressure Card Denies chest pain, Denies pedal edema, Denies dyspnea, Reports dyspnea on exertion and Denies orthopnea Resp Denies cough, Denies dyspnea, Reports dyspnea on exertion, Denies snoring and Denies wheezing GI Denies abdominal pain and Denies heartburn Reports no additional complaints Musc Denies joint swelling and Reports stiffness Skin/Breast Denies rash Neuro Denies seizure-like activity Psych Reports no additional complaints Endo Denies fatigue and Denies heat intolerance Alexis/Lymph Denies easy bruising Aller/Immun Denies seasonal rhinorrhea and Denies wheezing Physical exam (Primary Care) Vital Signs: Last Vital Signs Temp 97.3 F 10/23/24 11:52 Pulse 94 10/23/24 11:52 Resp 18 10/23/24 11:52 BP 146/98 H 10/23/24 11:52 Pulse Ox 96 10/23/24 11:52 Oxygen Delivery Method Room Air 10/23/24 11:52 BMI result Body Mass Index 23.2 Tobacco/Smoking Status: Tobacco use Status Tobacco use date assessed 10/23/24 10/23/24 11:57 Patient Tobacco Use Status Never used Tobacco 10/23/24 11:57 e-Cigarette/Vaping Use Never Used 10/23/24 11:57 PHQ-9: PHQ-9 Score PHQ-9: Total score 0 10/28/24 23:35 Depression Screening Interpretation: Negative Thrive Assessment: Date of Thrive Assessment Date Thrive assessed 10/23/24 10/28/24 23:35 Const General: comfortable, no acute distress and alert Orientation/consciousness: patient oriented x3 HENMT Head: Yes normocephalic Ears: external ears normal General nose exam: Normal external nose present Face and sinus: Yes face symmetric Mouth: Normal oral and palatal mucosa present, oropharynx normal and moist mucous membranes Eyes General: appearance normal, both eyes and all related structures Neck Neck: Yes full ROM, Yes no lymphadenopathy, Yes supple and Yes no JVD Carotids: no bruits Resp Effort & Inspection: normal respiratory effort and able to speak in complete sentences Auscultation: clear to auscultation bilaterally Cardio Rate: regular rate Rhythm: regular rhythm Heart sounds: S1 normal heart sound present and S2 normal heart sound present GI Inspection: Yes normal to inspection Palpation (GI): Soft to palpation, nontender, no guarding and no masses Auscultation: normal bowel sounds General: Yes no CVA tenderness Back/Spine/Pelvis Back: no CVA tenderness and No back tenderness Skin General skin exam: no rashes or lesions noted Neuro General: patient oriented x3, gait normal, tone normal, moves all extremities and no focal motor deficits Extrem Right lower extremity: edema (trace) Left lower extremity: edema (trace) Psych Appearance: grossly normal Mental Status: mental status grossly normal Speech and movement: Normal speech and movement present Affect: normal affect Attitude: cooperative Thought process: Normal thought process present Thought content: Normal thought content present Results Reviewed Results Reviewed: Name: Dolly Parker Age/Sex: 84/F : 1940 Unit#: [id number] Attend Dr: Catarino Perry MD Re09/27/24 Status: DEP [facility] Disch: SPEC : [id number] EMILIO: 09/27/24 STATUS: COMP REQ : [id number] RECD: 09/27/[address]: Catarino Perry MD COMP: 09/27/24 ENTERED: 09/27/[address] [facility] [address]: Chencho Jang MD ORDERED: CBC Auto Diff Test Result Flag Reference WBC 5.2 4.8-10.8 X10*3/uL RBC 4.14 L 4.20-5.50 X10*6/uL HGB 12.0 12.0-16.0 g/dl HCT 37.1 37.0-47.0 % MCV 89.6 80.0-98.0 fL MCH 29.0 27.0-33.0 pg MCHC 32.3 31.0-35.0 g/dl RDW 13.5 11.0-16.0 % PLT 314 160-400 X10*3/uL MPV 9.7 9.4-12.3 fL Neut Pct Auto 53.5 45-73 % ImGran Pct Auto 0.2 0.0-0.4 % Lymp Pct Auto 33.2 20-40 % Kern Pct Auto 9.0 2-11 % Eos Pct Auto Name: Dolly Parker Age/Sex: 84/F : 1940 Unit#: [id number] Attend Dr: Catarino Perry MD Re09/27/24 Status: DEP REF Location: .LAB Disch: SPEC : [id number] EMILIO: 09/27/24 STATUS: COMP REQ : [id number] RECD: 09/27/[address]: Chencho Jang MD COMP: 09/27/24 ENTERED: 09/27/[address]: Catarino Perry MD ORDERED: CMP, C Reactive Prot Test Result Flag Reference Sodium 142 135-145 mmol/L Potassium 4.0 3.3-5.1 mmol/L CL 109 H 96-108 mmol/L CO2 23 22-29 mmol/L Gap 14 12-20 BUN 24 H 9-16 mg/dL Creat 1.03 0.5-1.4 mg/dL eGFR 51 Chronic Kidney Disease: Estimated GFR < 60 mL/min/1.73m2 Severe Kidney Disease: Estimated GFR < 15 mL/min/1.73m2 Glucose, Random 132 H 60-115 mg/dL CA 9.7 8.4-10.2 mg/dL Total Bili 0.4 0.0-1.0 mg/dL AST (GOT) 29 5-31 U/L ALT (GPT) 33 H 0-31 U/L CRP < 0.04 < or = 0.50 mg/dL Protein, Total 7.3 6.5-8.0 g/dL Alb 4.2 3.5-5.0 g/dL Alk Phos 98 39-117 U/L Name: Dolly Parker Age/Sex: 84/F : 1940 Unit#: [id number] Attend Dr: Yen Mejia MD Re10/16/24 Status: DEP REF Location: .LAB Disch: SPEC : [id number] EMILIO: 10/16/24 STATUS: COMP REQ : [id number] RECD: 10/16/[address]: Yen Mejia MD COMP: 10/16/24-8 ENTERED: 10/16/[address] [facility] [address]: ORDERED: Lipid Panel Test Result Flag Reference Triglyceride 64 <150 mg/dL Desirable Triglyceride: less than 150 mg/dL Borderline High Triglyceride 150-199 mg/dL High Triglyceride: 200-499 mg/dL Very High Triglyceride: greater than or equal to 5OO mg/dL Cholesterol 179 <200 mg/dL Desirable Cholesterol: less than 200 mg/dL Borderline High Cholesterol: 200-239 mg/dL High Cholesterol: greater than 239 mg/dL LDL Calculated 79 <100 mg/dL Desirable LDL: less than 100 mg/dL Near Optimal/Above Optimal LDL: 110-129 mg/dL Borderline High LDL: 130-159 mg/dL High LDL: 160-189 mg/dL Very High LDL: greater than or equal to 190 mg/dL HDL 88 >40 mg/dL Desirable HDL: greater than 40 mg/dL Note: This HDL assay may give artificially low results in patients with liver disease. 3.3 0-4 % Baso Pct Auto 0.8 0-2 % NRBC Pct Auto 0.0 0.0-0.2 /100WBC ANC Neut Abs # 2.8 2.0-8.3 x10*3/uL ImGran Abs Auto 0.01 0.00-0.03 X10*3/uL Lymph Abs Auto 1.7 1.2-4.9 X10*3/uL Kern Abs Auto 0.5 0.1-1.2 X10*3/uL Eos Abs Auto 0.2 0.0-0.4 X10*3/uL Baso Abs Auto 0.0 0.0-0.2 X10*3/uL NRBC Abs Auto 0.000 0.0-0.012 X10*3/uL Coding Level of Care Code Est Pt Prev Care >65y(61282) Diagnoses Annual visit for general adult medical examination with abnormal findings Z00.01 Dyslipidemia E78.5 Impaired fasting glucose R73.01 Enuresis, nocturnal only N39.44 Seronegative rheumatoid arthritis M06.00 Essential hypertension I10 Osteoarthritis of hips, bilateral M16.0 Additional Codes VENANCIO-7 Assessment Billing - VENANCIO-7 Assessment Tool: VENANCIO-7 Assessment 58557 ([id number]) PHQ-9 - 83153 - PHQ-9 Billing: Yes ([id number]) Assessment & Plan Assessment & Plan (1) Annual visit for general adult medical examination with abnormal findings: Code(s): Z00.01 - Encounter for general adult medical examination with abnormal findings Category: Medical Plan: Reviewed recent fasting lab results with patient.. Recommended dental visit every 6 months and regular eye exams, at least every 2 years. Take adequate calcium in diet and vitamin-D 3 at 2000 IU per cap once a day, in addition to weight-bearing exercises to help maintain good muscle tone and weight control. She is up-to-date with her screening mammogram and colon cancer screening, with no further screening indicated (2) Dyslipidemia: Code(s): E78.5 - Hyperlipidemia, unspecified Category: Medical Plan: Reviewed recent fasting lipid profile with patient with levels within normal limits . Continue rosuvastatin 5 mg daily , in addition to adherence to low-cholesterol diet and regular exercise, at least 30 minutes 3 to 4 times a week. Advised patient to make healthy food choices, eat more fruits, vegetables, whole grains, wild caught fish and low-fat dairy. Limit amount of meat and fried or fatty food products, as well as processed foods and fast foods. Follow-up scheduled with repeat fasting lipid panel in 6 months. (3) Impaired fasting glucose: Code(s): R73.01 - Impaired fasting glucose Category: Medical Plan: Your previous fasting blood sugars were elevated above 100 mg/dL. Impaired glucose metabolism increases the risk for developing diabetes mellitus type 2, as well as heart attack and stroke later on. Lifestyle changes that promotes weight loss, healthy eating habits, and regular exercise are important, and can prevent the progression to diabetes (4) Enuresis, nocturnal only: Code(s): N39.44 - Nocturnal enuresis Category: Medical Plan: Currently followed by Urology currently on Gemtessa (5) Seronegative rheumatoid arthritis: Comment: -ve RF -ve CCP dx 05/2023 HCQ 05/2023 effective Code(s): M06.00 - Rheumatoid arthritis without rheumatoid factor, unspecified site Category: Medical Plan: Currently on hydroxychloroquine (6) Essential hypertension: Code(s): I10 - Essential (primary) hypertension Category: Medical Plan: Continue lisinopril 5 mg daily Reinforced importance of following a low sodium diet, getting regular exercise, and lowering stress levels. (7) Osteoarthritis of hips, bilateral: Code(s): M16.0 - Bilateral primary osteoarthritis of hip Category: Medical Plan: Takes Tylenol arthritis as needed Orders: Orders Vitamin D 25-OH Total 6 Months E78.5 - Hyperlipidemia, unspecified, R73.01 - Impaired fasting glucose, Z78.0 - Asymptomatic menopausal state Vitamin B12 and Folate 6 Months E78.5 - Hyperlipidemia, unspecified, R73.01 - Impaired fasting glucose, Z78.0 - Asymptomatic menopausal state Hemoglobin A1c 6 Months E78.5 - Hyperlipidemia, unspecified, R73.01 - Impaired fasting glucose, Z78.0 - Asymptomatic menopausal state Lipid Panel 6 Months E78.5 - Hyperlipidemia, unspecified, R73.01 - Impaired fasting glucose, Z78.0 - Asymptomatic menopausal state Alanine Aminotransferase 6 Months E78.5 - Hyperlipidemia, unspecified, R73.01 - Impaired fasting glucose, Z78.0 - Asymptomatic menopausal state Aspartate Amino Transferase 6 Months E78.5 - Hyperlipidemia, unspecified, R73.01 - Impaired fasting glucose, Z78.0 - Asymptomatic menopausal state Medications: Refilled rosuvastatin 5 mg PO DAILY 90 tabs 4RF
[2024-10-23 11:52] VITALS: BP 146/98; PULSE 94; RESP 18; TEMP 36.3; O2SAT 96; BMI 23.2
--- OUTSIDE RECORDS SUMMARY | 2024-10-23 12:09 | XMS_ITS | Encounter Summary ---
Author Organization [facility] Address [address] [place] [address] Phone Care Team Providers Care Quality Assurance Engineer Name Role Phone Davie Mejia MD Primary Care Provider [phone]- [phone] Encounter Details Date Type Department Care Team (Late st Contact Info) Description 05/04/2022 Office Communication [facility] [address] [place] [phone] Eve Alexis Social History Tobacco Use Types [...] EDT Pt would like US scheduled at [facility] if possible. documented in this encounter Plan of Treatment Not on file documented as of this encounter Visit Diagnoses Not on filedocumented in this encounter Care Teams Quality Assurance Engineer Relationship Specialty Start Date End Date Davie Mejia MD [address] [place] [address] PCP - General Internal Medicine 04/27/22 documented as of this encounter
--- OUTSIDE RECORDS SUMMARY | 2024-10-23 12:09 | XMS_ITS | Encounter Summary ---
Author Organization [facility] Address [address] [place] [address] Phone Care Team Providers Care Hand Stoner Name Role Phone Davie Mejia MD Primary Care Provider [phone]- [phone] Encounter Details Date Type Department Care Team (Late st Contact Info) Description 07/05/2022 Telephone [facility] [address] [place] [phone] Chencho Jang MD Social History Tobacco Use [...] a new updated script. Thank you CB# [phone] documented in this encounter Plan of Treatment Not on file documented as of this encounter Visit Diagnoses Not on filedocumented in this encounter Care Teams Hand Stoner Relationship Specialty Start Date End Date Davie Mejia MD [address] [place] [address] PCP - General Internal Medicine 04/27/22 documented as of this encounter
--- OUTSIDE RECORDS SUMMARY | 2024-10-23 12:10 | XMS_ITS | Clinical Summary ---
Author Organization [facility] Address [address] [facility] [facility] [address] [place] [address] Phone Care Team Providers Care Earth Science Laboratory Technician Name Role Phone Davie Mejia MD Primary Care Provider [phone]- [phone] Allergies Active Allergy Reactions Criticality Noted Date Comments Penicillins 05/04/2022 Mouth swells Lamoni Extract 05/04/2022 Tomato 05/04/2022 Medications anastrozole (ARIMIDEX) [...] patient's age to complete this topic Insurance [facility] MEDICARE [facility] MEDICARE Care Teams Earth Science Laboratory Technician Relationship Specialty Start Date End Date Davie Mejia MD [address] [place] [address] PCP - General Internal Medicine 04/27/22
--- OUTSIDE RECORDS SUMMARY | 2024-10-23 12:10 | XMS_ITS | Clinical Summary ---
Author Organization [facility] Address [address] [place] [address] Care Team Providers Care Cassandra Architect Name Role Phone Yen Mejia MD Primary Care Provider [phone] Allergies Active Allergy Reactions Criticality Noted Date [...] Description 11/16/2024 9:00 AM EDT Office Visit [facility] Hematology Oncology [address] [place] [address] Maikel Robbins MD [address] [place] [phone] Health Maintenance Due Date Last Done Comments [...] Procedure Name Priority Date/Time Associated Diagnosis Comments [facility] DEXA AXIAL SKELETON Routine 11/19/2022 10:01 AM EDT Asymptomatic menopausal state from Last 3 Months or Most Recently Relevant to Health Maintenance Results * [facility] DEXA AXIAL SKELETON (11/19/2022 10:01 AM EDT) Anatomical Region Laterality Modality Mammography 11/19/2022 9:05 AM EDT Narrative 11/19/2022 10:01 AM EDT [facility] Diagnostic Imaging Department [address] [place] [address] Patient: ??FELICITAS PARKER ?/Age/Sex: 1940 - Unit#: ??[id number] ? Location/Status: ??SPDIMAM/REG CLI ? Mnemonic/Ordering Site: ??MAMDEXAAX/SPMAM Ordering Physician: ??MAIKEL YATES MD [facility] Dexa Axial Skeleton - 11/19/22944 HISTORY: ??The [...] no evidence of osteoporosis or osteopenia. Code 31722 Dictating Physician: ??NAOMI BELTRAN MD Electronically Signed by: ??NAOMI BELTRAN MD Dic Date/Time: ??11/19/22 0959 Sign date/Time: ??11/19/22 1001 Procedure Note Naomi Beltran MD - 09/30/2023 [facility] Diagnostic Imaging Department [address] [place] [address] Patient: FELICITAS PARKER Gilma /Age/Sex: 1940 - 82 - F Unit#: [id number] Location/Status: SPDIMAM/REG CLI [facility] Ordering Physician: MAIKEL YATES MD [facility] Dexa [...] no evidence of osteoporosis or osteopenia. Code 97301 Dictating Physician: NAOMI BELTRAN MD Electronically Signed by: NAOMI BELTRAN MD Dic Date/Time: 11/19/22 0903 Sign date/Time: 11/19/22 1001 Maikel Robbins MD [facility] [place] PROCEDURES F inal Result from Last 3 Months or Most Recently Relevant to Health Maintenance Insurance [place] [id number] Advance Directives Documents on File Type Date Recorded Patient Hide Puller Expl anation Health Care Decision (hx) 03/10/2018 [...] (hx) 03/10/2018 AD GOLDSMITH DIRECTIVE Care Teams Cassandra Architect Relationship Specialty Start Date End Date Yen Mejia MD [address] [place] [address] PCP - General Internal Medicine 05/18/22
--- OUTSIDE RECORDS SUMMARY | 2024-10-23 12:10 | XMS_ITS | Encounter Summary ---
Author Organization [facility] Address [address] [place] [address] Phone Care Team Providers Care Outside Sales Professional Name Role Phone Davie Mejia MD Primary Care Provider [phone]- [phone] Encounter Details Date Type Department Care Team (Late st Contact Info) Description 05/17/2022 Office Communication [facility] [address] [place] [phone] Eve Alexis Social History Tobacco Use Types [...] on filedocumented in this encounter Care Teams Outside Sales Professional Relationship Specialty Start Date End Date Davie Mejia MD [address] [place] [address] PCP - General Internal Medicine 04/27/22 documented as of this encounter
--- OUTSIDE RECORDS SUMMARY | 2024-10-23 12:10 | XMS_ITS | Clinical Summary ---
Author Organization [facility] Address [address] [id number] Care Team Providers Care Lockstitch Binder Name Role Phone Yen Mejia MD Primary Care Provider +1 -[phone] Allergies Active Allergy Reactions Criticality Noted Date [...] age to complete this topic Care Teams Lockstitch Binder Relationship Specialty Start Date End Date Yen Mejia MD [address] [facility] [place] [address] PCP - General Internal Medicine 05/18/22
== END 2024-10-23 12:29 | disposition home or self-care (01) ==
PROVIDERS: PCP Internal Medicine; Visit Provider Internal Medicine
DX: Z00.00 Encounter for general adult medical examination without abnormal findings (principal); M06.00 Rheumatoid arthritis without rheumatoid factor, unspecified site; E78.5 Hyperlipidemia, unspecified; R73.01 Impaired fasting glucose; N39.44 Nocturnal enuresis; I10 Essential (primary) hypertension; M16.0 Bilateral primary osteoarthritis of hip

== ENCOUNTER → 2024-10-23 10:20 | Outpatient (BNVA) | payer MEDICARE, SELFPAY | PROVIDERS: PCP Internal Medicine; Visit Provider Internal Medicine | DX: Z00.01 Encounter for general adult medical examination with abnormal findings (principal); E78.5 Hyperlipidemia, unspecified; R73.01 Impaired fasting glucose; N39.44 Nocturnal enuresis; M06.00 Rheumatoid arthritis without rheumatoid factor, unspecified site; M16.0 Bilateral primary osteoarthritis of hip; I10 Essential (primary) hypertension | CPT/HCPCS: 96127; 99397 ==

== ENCOUNTER 2025-01-14 07:47 | Outpatient (AMB) | payer MEDICARE, SELFPAY ==
--- OUTSIDE RECORDS SUMMARY | 2025-01-14 07:51 | XMS_ITS | Clinical Summary ---
Author Organization [facility] Address [address] [id number] Care Team Providers Care Director Of Analytics Name Role Phone Yen Mejia MD Primary Care Provider [phone] [phone] Allergies Active Allergy Reactions Criticality Noted Date [...] age to complete this topic Care Teams Director Of Analytics Relationship Specialty Start Date End Date Yen Mejia MD [address] [facility] [place] [address] PCP - General Internal Medicine 05/18/22
--- OUTSIDE RECORDS SUMMARY | 2025-01-14 07:51 | XMS_ITS | Encounter Summary ---
Author Organization [facility] Address [address] [place] [address] Phone Care Team Providers Care Lead Manufacturing Technician Name Role Phone Davie Mejia MD Primary Care Provider +1- [phone] Encounter Details Date Type Department Care Team (Late st Contact Info) Description 05/17/2022 Office Communication [facility] [address] [place] [phone] Eve Alexis Social History Tobacco Use Types [...] on filedocumented in this encounter Care Teams Lead Manufacturing Technician Relationship Specialty Start Date End Date Davie Mejia MD [address] [place] [id number] PCP - General Internal Medicine 04/27/22 documented as of this encounter
--- OUTSIDE RECORDS SUMMARY | 2025-01-14 07:51 | XMS_ITS | Clinical Summary ---
Author Organization [facility] Address [address] [address] [place] [address] Phone Care Team Providers Care Personal Protection Specialist Name Role Phone Davie Mejia MD Primary Care Provider +1- [phone] Allergies Active Allergy Reactions Criticality Noted Date Comments Penicillins 05/04/2022 Mouth swells [place] Extract 05/04/2022 Tomato 05/04/2022 Medications anastrozole (ARIMIDEX) [...] Due Date Last Done Comments Pneumococcal Vaccine: 50+ Ye ars (1 of 2 - PCV) 1959 Influenza Vaccine (Season Ended) 2025 Hepatitis B Vaccine Aged Out No longe r eligible based on patient's age to complete this topic Insurance [facility] Medicare [facility] Medicare Care Teams Personal Protection Specialist Relationship Specialty Start Date End Date Davie Mejia MD [address] [place] [address] PCP - General Internal Medicine 04/27/22
--- OUTSIDE RECORDS SUMMARY | 2025-01-14 07:51 | XMS_ITS | Clinical Summary ---
Author Organization [facility] Address [address] [place] [address] Phone Care Team Providers Care Supervisor Purification Name Role Phone Yen Mejia MD Primary Care Provider Allergies Active Allergy Reactions Criticality Noted Date Comments Amoxicillin 10/24/2019 Medications ALPRAZolam (XANAX) 0.25 mg tablet Take 0.25 mg by mouth continuous prn for anxiety. Active amLODIPine (NORVASC) 5 mg tablet Take 5 mg by mouth daily. Active ascorbic acid (VITAMIN C) 500 mg [...] mouth 1 (one) time each day. Active anastrozole (ARIMIDEX) 1 mg Take 1 tablet (1 mg total) by mouth 1 (one) time each day Swallow whole with a drink of water. 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 ([facility] V24, [facility] V28) 04/02/2020 Essential hypertension 10/24/2019 Mixed hyperlipidemia 10/24/2019 Primary osteoarthritis involving multiple joints 10/24/2019 Malignant neoplasm of upper- outer quadrant of left breast in female, estrogen receptor positive ([facility] V24, [facility] V28) Encounters Date Type Department Care Team Description 12/20/2024 8:43 AM EDT - 12/20/2024 11:59 PM EDT Hospital [facility] [address] [phone] Screening breast examination; Encounter for screening mammogram for malignant neoplasm of breast Discharge Disposition: Home or Self Care 12/20/2024 8:42 AM EDT - 12/20/2024 11:59 PM EDT Hospital Encounter [facility] Bone Density [address] [place] [phone] Osteopenia of multiple sites Discharge Disposition: Home or Self Care 11/16/2024 9:00 AM EDT Office Visit [facility] Hematology Oncology [address] [place] [phone] Maikel Vasquez MD Osteopenia of multiple sites (Primary Dx); Encounter for screening for osteoporosis; Screening breast examination; Encounter for screening mammogram for malignant neoplasm of breast from Last 3 Months Surgical History Surgery Date Site/Laterality Comments HIP SURGERY PROCEDURE:HIP SURGERY COLONOSCOPY PROCEDURE:COLONOSCOPY STEREOTACTIC CORE BIOPSY Bilateral 1998 right, 2020left BREAST LUMPECTOMY Bilateral 1998 right, 2019 left Medical History Medical History Date Comments Breast cancer ([facility] V24, [facility] V28) DX:Breast cancer ([facility]) BRCA1 gene mutation negative BRCA2 gene mutation negative Family History Medical History Relation Name Comments Breast cancer Daughter Relation Name Status Comments Daughter Social History Tobacco Use Types Packs/Day Years Used Date Smoking Tobacco: Never Smokeless Tobacco: Never Tobacco Cessation:Counseling Given: Not Answered Alcohol Use Standard Drinks/Week Comments No 0 (1 standard drink = 0.6 oz pur e alcohol) Comments No Sex and Gender Information Value Date Recorded Sex Assigned at Not on file Legal Sex Female 10:14 AM EST Gender Identity Not on file Sexual Orientation Not on file Obstetrics History Para Term AB IAB SAB Ectopic Multiple Livin g Live Births 3 Last Filed Vital Signs Vital Sign Reading Time Taken Comments Blood Pressure 147/74 11/16/2024 9:00 AM EDT Pulse 91 05/18/2024 9:03 AM EDT Temperature 36.4 ??C (97.6 ??F) 11/16/2024 9:00 AM ED T Respiratory Rate - - Oxygen Saturation 98% 11/16/2024 9:00 AM EDT Inhaled Oxygen Concentration - - Weight 61.2 kg (135 lb) 12/20/2024 8:57 AM EDT Height 162.6 cm (5' 4 ) 12/20/2024 8:57 AM EDT Body Mass Index 23.17 12/20/2024 8:57 AM EDT Plan of Treatment Upcoming Encounters Date Type Department Care Team (Late st Contact Info) Description 05/23/2025 9:00 AM EDT Office Visit [facility] Hematology Oncology [address] [place] [phone] Riri-Maikel Martínez MD [address] [place] [phone] Health Maintenance Due Date Last Done Comments Cholesterol Screening (Lipid Panel) 08/05/2022 Depression Screening 08/05/2022 Falls Risk Assessment 08/05/2022 Medicare Annual Wellness Visit 08/05/2022 Social Influencers of Health Screening 08/05/2022 Hypertension/CHF/CAD Annual BMP Blood Test 08/14/2022 COVID-19 Vaccine ( season) 2024 12/02/2021, 06/25/2021, 11/03/2020, Additional history exists DTaP,Tdap,and Td Vaccines (2 - Td or Tdap) 12/31/2030 12/31/2020 Osteoporosis Screening (Bone Density Screening) 12/20/2034 12/20/2024, 11/19/2022 Pneumococcal Vaccine: 50+ Years Completed 01/10/2017, 05/15/2015 Zoster Vaccines Completed 02/01/2023, 11/24/2022 Influenza Vaccine Completed 05/26/2024, , 05/11/2022, Additional history exists RSV Immunization Adult Patients Completed 10/24/2024 HIB Vaccines Aged Out No longer eligi [...] age to complete this topic Meningococcal B Vaccine Aged Out No l onger eligible based on patient's age to complete this topic RSV Immunization Patients Under 20 months Aged Out No longer eligible based on patient's age to complete this topic Varicella Vaccines Aged Out No longer eligible based on patient's age to complete this topic Procedures Procedure Name Priority Date/Time Associated Diagnosis Comments BD BONE DENSITY DXA AXIAL SKELETON Routine 12/20/2024 9:56 AM EDT Osteopenia of multiple sites MG MAMMO DIGITAL SCREENING W KADIE BILAT Routine 12/20/2024 9:13 AM EDT Screening breast examination Encounter for screening mammogram for malignant neoplasm of breast from Last 3 Months Results * BD Bone Density DXA Axial Skeleton (12/20/2024 9:56 AM EDT) Anatomical Region Laterality Modality Wrist, Hip, L-spine Bone Densito metry 12/20/2024 10:4 0 AM EDT Impressions 12/20/2024 10:41 AM EDT There is no evidence of osteoporosis or osteopenia has been a decrease of 6.3% in bone mineral density in the lumbar spine since the prior examination of 10/30/2022. Code 80331 -------- FINAL REPORT -------- Dictated By: Virgil Beltran Dictated Date: 12/20/2024 10:40 ET Assigned Physician: Virgil Beltran Reviewed and Electronically Signed By: Virgil Beltran Signed Date: 12/20/2024 10:41 ET Workstation ID: [id number] Transcribed By: Self Edit Transcribed Date: 12/20/2024 10:40 ET Narrative 12/20/2024 10:41 AM EDT HISTORY: ??The patient is an 84-year-old postmenopausal female with clinical concern for metabolic bone disease. ??The patient is undergone previous bilateral hip replacement surgery. FINDINGS: ??Dual energy x-ray absorptiometry of the lumbar spine and femurs is performed. The mean bone mineral density at L1-L4 (with the exclusion of L2) is 1.241 gm/cm2 which is 106% of that of young normals and 133% of that of age matched controls. This yields a T-score of 0.6 and a Z-score of 2.6 and there is therefore no evidence of osteoporosis or osteopenia here. Procedure Note Virgil Beltran MD - 12/20/2024 HISTORY: The patient is an 84-year-old postmenopausal female withclinical concern for metabolic bone disease. The patient is undergoneprevious bilateral hip replacement surgery. FINDINGS: Dual energy x-ray absorptiometry of the lumbar spine and femursis performed. The mean bone mineral density at L1-L4 (with the exclusionof L2) is 1.241 gm/cm2 which is 106% of that of young normals and 133% ofthat of age matched controls. This yields a T-score of 0.6 and a Z-scoreof 2.6 and there is therefore no evidence of osteoporosis or osteopeniahere. IMPRESSION: There is no evidence of osteoporosis or osteopenia has been a decrease of6.3% in bone mineral density in the lumbar spine since the priorexamination of 10/30/2022. Code 95199 -------- FINAL REPORT -------- Dictated By: Virgil Beltran Dictated Date: 12/20/2024 10:40 ET Assigned Physician: Virgil Beltran Reviewed and Electronically Signed By: Virgil Beltran Signed Date: 12/20/2024 10:41 ET Workstation ID: [id number] Transcribed By: Self Edit Transcribed Date: 12/20/2024 10:40 ET Maikel Robbins MD IMTy DXA PROCEDURES Final Result * MG Mammo Digital Screening w Kadie bilat (12/20/2024 9:13 AM EDT) Anatomical Region Laterality Modality Breast Bilateral Mammography 12/20/2024 9:19 AM EDT Impressions 12/20/2024 9:29 AM EDT Benign. BI-RADS CATEGORY: 2 - BENIGN RECOMMENDATION: Screening bilateral mammogram is recommended in 1 year. Mammo Location: [facility], [address] [place] [address] -------- FINAL REPORT -------- Dictated By: Virgil Beltran Dictated Date: 12/20/2024 09:19 ET Assigned Physician: Virgil Beltran Reviewed and Electronically Signed By: Virgil Beltran Signed Date: 12/20/2024 09:29 ET Workstation ID: [id number] Transcribed By: Self Edit Transcribed Date: 12/20/2024 09:22 ET Narrative 12/20/2024 9:29 AM EDT CLINICAL: The patient is a 84 years Female presenting for routine screening mammography. ??The patient has a personal history of bilateral breast carcinoma, with the right breast being treated with lumpectomy and radiation in 1998 and the left breast being treated with lumpectomy in 2019. ??The patient also has a family history of breast cancer involving her sister. COMPARISON: Most recently 11/21/2023 and most remotely 09/24/2019. ?? TECHNIQUE: Full-field digital mammography of the breasts bilaterally consisting of tomosynthesis in MLO and CC projection is performed in the IFTTTe 2000-D unit. ??Computer aided detection utilizing the iCAD system was utilized. FINDINGS: The breasts are again seen to be composed of a combination of fatty and moderately dense fibroglandular elements. ??In the right breast, again seen is architectural distortion laterally, representing lumpectomy scar. ??No mass, cluster of microcalcifications, new area of architectural distortion, skin thickening, or nipple retraction is seen. ??Atherosclerotic arterial calcifications are noted. ??In the left breast, again seen is architectural distortion posteriorly in the upper outer quadrant, with surgical clips, representing the lumpectomy scar. ??No mass or clustered microcalcifications is seen and no new area of architectural distortion is demonstrated. ??There is no skin thickening or nipple retraction. TISSUE DENSITY: There are scattered areas of fibroglandular density. (BI-RADS category B) Procedure Note Virgil Beltran MD - 12/20/2024 CLINICAL: The patient is a 84 years Female presenting for routinescreening mammography. The patient has a personal history of bilateralbreast carcinoma, with the right breast being treated with lumpectomy andradiation in 1998 and the left breast being treated with lumpectomy [id number]. The patient also has a family history of breast cancer involvingher sister. COMPARISON: Most recently 11/21/2023 and most remotely 09/24/2019. TECHNIQUE: Full-field digital mammography of the breasts bilaterallyconsisting of tomosynthesis in MLO and CC projection is performed in theHythiam Senographe 2000-D unit. Computer aided detection utilizing the iCADsystem was utilized. FINDINGS: The breasts are again seen to be composed of a combination offatty and moderately dense fibroglandular elements. In the right breast,again seen is architectural distortion laterally, representing lumpectomyscar. No mass, cluster of microcalcifications, new area of architecturaldistortion, skin thickening, or nipple retraction is seen.Atherosclerotic arterial calcifications are noted. In the left breast,again seen is architectural distortion posteriorly in the upper outerquadrant, with surgical clips, representing the lumpectomy scar. No massor clustered microcalcifications is seen and no new area of architecturaldistortion is demonstrated. There is no skin thickening or nippleretraction. TISSUE DENSITY: There are scattered areas of fibroglandular density.(BI-RADS category B) IMPRESSION: Benign. BI-RADS CATEGORY: 2 - BENIGN RECOMMENDATION: Screening bilateral mammogram is recommended in 1 year. 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
--- OUTSIDE RECORDS SUMMARY | 2025-01-14 07:51 | XMS_ITS | Encounter Summary ---
Author Organization [facility] Address [address] [place] [address] Phone Care Team Providers Care Typesetting Machine Tender Name Role Phone Davie Mejia MD Primary Care Provider +1- [phone] Encounter Details Date Type Department Care Team (Late st Contact Info) Description 05/04/2022 Office Communication [facility] [address] [place] [phone] Eve Alexis Social History Tobacco Use Types [...] EDT Pt would like US scheduled at [facility] if possible. documented in this encounter Plan of Treatment Not on file documented as of this encounter Visit Diagnoses Not on filedocumented in this encounter Care Teams Typesetting Machine Tender Relationship Specialty Start Date End Date Davie Mejia MD [address] [place] [address] PCP - General Internal Medicine 04/27/22 documented as of this encounter
--- OUTSIDE RECORDS SUMMARY | 2025-01-14 07:51 | XMS_ITS | Encounter Summary ---
Author Organization [facility] Address [address] [place] [address] Phone Care Team Providers Care Orthopedic Mechanic Name Role Phone Davie Mejia MD Primary Care Provider +1- [phone] Encounter Details Date Type Department Care Team (Late st Contact Info) Description 07/05/2022 Telephone [facility] [address] [place] [phone] Chencho Jang MD Social History Tobacco Use [...] a new updated script. Thank you CB# [phone] documented in this encounter Plan of Treatment Not on file documented as of this encounter Visit Diagnoses Not on filedocumented in this encounter Care Teams Orthopedic Mechanic Relationship Specialty Start Date End Date Davie Mejia MD [address] [place] [phone] PCP - General Internal Medicine 04/27/22 documented as of this encounter
--- NOTE | 2025-01-14 08:08 | MHC.OFFVIS ---
Vital Signs 01/14/25 08:11 Height 5 ft 4 in Weight 141 lb 15.643 oz BMI 24.4 BP 120/80 Blood Pressure Location Lt brachial Position Sitting Pulse 86 Pulse Source Pulse Oximeter Intake Visit Reasons: 6 mth f/up Type Disk Quality Control Supervisor Required: No Accompanied by: Self / Same As Patient Allergies Penicillins Adverse Reaction (Verified 10/28/24 23:16) mouth swells strawberry Adverse Reaction (Verified 10/28/24 23:16) Rash tomato Adverse Reaction (Verified 10/28/24 23:16) Rash Medication List - Last Reconciled 01/14/25 by Jose F Islas MD acetaminophen ER (Tylenol Arthritis Pain) 1,300 mg PO Q8H anastrozole 1 mg PO DAILY ascorbic acid (vitamin C) 500 mg PO DAILY aspirin (Adult Low Dose Aspirin) 81 mg PO DAILY calcium carbonate (Antacid (calcium carbonate)) 200 mg PO DAILY famotidine 40 mg PO DAILY PRN gabapentin 100 mg PO TID hydroxychloroquine 200 mg PO DAILY lisinopril 5 mg PO DAILY mecobalamin (vitamin B12) mcg PO DAILY multivitamin 1 tab PO DAILY rosuvastatin 5 mg PO DAILY vibegron (Gemtesa) 75 mg PO DAILY HPI Comments Details: Dolly returns for follow-up. In the past, she was seen regarding shortness of breath. Underwent cardiac as well as pulmonary workup. So far, no clear etiology evident. Since last seen, she states she is actually much better. Shortness of breath is improved. No anginal-type symptoms. No clear leg swelling. No previous cardiac history otherwise [facility] Medical History (Updated 10/23/24 @ 12:23 by Yen Mejia MD) Impaired fasting glucose Polyarticular osteoarthritis Recurrent urinary tract infection Shortness of breath on exertion CKD (chronic kidney disease) Need for prophylactic antibiotic Annual visit for general adult medical examination with abnormal findings History of bone density study History of Papanicolaou smear of cervix History of mammogram Bilateral shoulder pain Tubular adenoma of colon Congenital hypertrophic pyloric stenosis Post-menopause Heartburn symptom Hx of renal calculi Osteoarthritis of hips, bilateral Hx of breast cancer Dyslipidemia Essential hypertension Surgical History History of bilateral hip replacements History of total right hip arthroplasty Status post right breast lumpectomy S/P lumpectomy, left breast Family History Mother Arthritis Social History Household Members Other:: Son and Grandson Housing: House Alcohol intake: current Alcohol intake frequency: does not drink Patient Tobacco Use Status: Never used Tobacco e-Cigarette/Vaping Use: Never Used Current occupational status: 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 Cognitive needs: No Hearing needs: No Vision needs: Yes Female Reproductive History Menstrual Age of Menarche: 12 Review of Systems Const Denies chills, Denies fatigue, Denies fever(s), Denies frequent falls, Denies weakness, Denies weight gain and Denies weight loss ENT Denies dizziness Card Denies chest pain, Denies leg edema, Denies lightheadedness, Denies palpitations, Denies dyspnea and Denies dyspnea on exertion Resp Denies cough, Denies dyspnea and Denies dyspnea on exertion GI Denies hematochezia Musc Denies abnormal gait, Denies muscle weakness, Denies numbness, Denies radiating pain into limb and Denies tingling Neuro Denies abnormal gait, Denies dizziness, Denies frequent falls, Denies numbness, Denies tingling and Denies weakness Endo Denies fatigue and Denies palpitations Physical Exam Vital Signs: Last Vital Signs Pulse 86 01/14/25 08:11 BP 120/80 01/14/25 08:11 BMI result Body Mass Index 24.4 Const General: comfortable and no acute distress Orientation/consciousness: patient oriented x3 HEENT Other: Unremarkable Head: Yes normal to inspection Neck Neck: Yes normal visual inspection Chest Chest palpation & inspection: normal inspection of the chest Resp Auscultation: clear to auscultation bilaterally Cardio Palpation: normal PMI Heart sounds: S1 normal heart sound present, S2 normal heart sound present, no gallops, no murmurs and no rubs GI Palpation (GI): Soft to palpation Back/Spine/Pelvis Other: unremarkable Skin General skin exam: no rashes or lesions noted Neuro General: patient oriented x3 Extrem General: Yes normal to inspection Psych Mental Status: mental status grossly normal Assessment & Plan Assessment & Plan (1) Shortness of breath on exertion: Code(s): R06.02 - Shortness of breath Category: Medical (2) Cardiomyopathy: Code(s): I42.9 - Cardiomyopathy, unspecified Category: Medical Plan Cardiac and pulmonary studies were reviewed. Baseline EKG without any clear-cut abnormalities but slightly increased ventricular rate. In the echocardiogram, LVEF is mildly decreased at 51%. No significant wall motion abnormalities; diastolic function was normal with normal filling pressures as well. Could not assess pulmonary hypertension because of inadequate TR jet. In the repeat study, LVEF 50-55%. In some views, possible basal inferior hypokinesis. Cardiac BNP is within normal limits at 23 pg/ml. Myocardial perfusion imaging study normal. Chest x-ray with no acute disease. Pulmonary function testing shows no obstructive or restrictive ventilatory defects. No significant response to bronchodilators. Mild diffusion impairment. Chest CT scan reports acute on chronic interstitial lung disease in the appropriate setting but per discussion with Pulmonary, not considered to be a significant issue. Coronary artery disease which is common at her age. Hiatal hernia noted. She also underwent cardiopulmonary exercise testing that suggests cardiovascular limitation to exercise. Overall, based on the above no clear cardiac etiology to explain her shortness of breath. We had discussed cardiac catheterization in the past but she was not willing and wanted to hold off. Clinically, she seems to have improved and states that shortness of breath is actually better than before. Hence not clear if it is all just deconditioning or not. After long discussion, we decided to just monitor for now. If indeed she gets worse she will contact us immediately. Otherwise, we will plan on following her in one year with another echocardiogram. Discussion Notes During the visit, we discussed the current status of the patient's dyspnea, which initially worsened post-hip surgery, has improved. I reviewed her cardiac testing history, noting the results from prior echocardiograms and other testing. We discussed ongoing monitoring for any changes, and I advised her to contact the office if her symptoms worsen. Options for interventions were reviewed, although current stability does not necessitate aggressive measures. Patient was informed and verbally consented to the use of an ambient scribe for clinic note documentation during this visit. Orders: Orders CA echo transthoracic complete 1 Year R06.09 - Other forms of dyspnea Patient Instructions: - Continue with your light gardening activities, but rest if you feel too tired. - Watch for any chest pain or breathing difficulty. - Call us if your symptoms get worse. - Come back for a check-up in a year, or sooner if you have concerns. Coding Level of Care Code Est Pt Level 4 (73709) Diagnoses Shortness of breath on exertion R06.02 Cardiomyopathy I42.9
[2025-01-14 08:11] VITALS: BP 120/80; PULSE 86; BMI 24.4
== END 2025-01-14 08:23 | disposition home or self-care (01) ==
LOC: HO.HCS 07:48
PROVIDERS: PCP Internal Medicine; Visit Provider Internal Medicine
DX: R06.02 Shortness of breath (principal); I42.9 Cardiomyopathy, unspecified
CPT/HCPCS: 99214

== ENCOUNTER → 2025-01-14 07:47 | Outpatient (BNVA) | payer MEDICARE, SELFPAY | PROVIDERS: PCP Internal Medicine; Visit Provider Internal Medicine | DX: I42.9 Cardiomyopathy, unspecified (principal); R06.02 Shortness of breath | CPT/HCPCS: 99212 ==

== ENCOUNTER 2025-03-28 08:36 | Outpatient (REF) | payer MEDICARE, SELFPAY ==
--- OUTSIDE RECORDS SUMMARY | 2025-03-28 08:47 | XMS_ITS | Clinical Summary ---
Author Organization [facility] Address [address] [place] [address] Phone Care Team Providers Care Military Nurse Name Role Phone Yen Mejia MD Primary [...] positive ma lignant neoplasm of right breast ([facility] V24, [facility] V28) 04/02/2020 Essential hypertension 10/24/2019 Mixed hyperlipidemia 10/24/2019 Primary osteoarthritis involving multiple joints 10/24/2019 Malignant neoplasm of upper- outer quadrant of left breast in female, estrogen receptor positive ([facility] V24, [facility] V28) Surgical History Surgery Date Site/Laterality Comments HIP SURGERY PROCEDURE:HIP SURGERY COLONOSCOPY PROCEDURE:COLONOSCOPY STEREOTACTIC CORE BIOPSY Bilateral 1998 right, 2019left BREAST LUMPECTOMY Bilateral 1998 right, 2019 left Medical History Medical History Date Comments Breast cancer ([facility] V24, [facility] V28) DX:Breast cancer ([facility]) BRCA1 gene mutation negative BRCA2 gene mutation [...] 91 05/18/2024 9:03 AM EDT Temperature 36.4 C (97.6 F) 11/16/2024 9:00 AM EDT Respiratory Rate - - Oxygen Saturation 98% [...] Description 05/23/2025 9:00 AM EDT Office Visit [facility] Hematology Oncology [address] [place] [phone] Maikel Robbins MD [address] [place] [phone] Health Maintenance Due Date Last Done Comments Cholesterol Screening (Lipid Panel) 08/05/2022 Falls Risk Assessment 08/05/2022 Medicare Annual Wellness Visit 08/05/2022 Social Influencers of Health Screening 08/05/2022 Hypertension/CHF/CAD Annual BMP Blood Test 08/14/2022 COVID-19 Vaccine ( season) 2024 12/02/2021, 06/25/2021, 11/03/2020, Additional history exists Depression Screening 2024 Influenza Vaccine (#1) 2025 , 05/13/2023, 05/11/2022, Additional history exists DTaP,Tdap,and Td Vaccines (2 - Td or Tdap) 12/31/2030 12/31/2020 Osteoporosis Screening (Bone Density Screening) 12/20/2034 12/20/2024, 11/19/2022 Pneumococcal Vaccine: 50+ Years Completed 01/10/2017, 05/15/2015 Zoster Vaccines Completed 02/01/2023, 11/24/2022 RSV Immunization Adult Patients Completed 10/24/2024 HIB [...] 9:56 AM EDT Osteopenia of multiple sites from Last 3 Months or Most Recently Relevant to Health Maintenance Results * BD Bone Density DXA Axial Skeleton (12/20/2024 9:56 AM EDT) Anatomical Region Laterality Modality Wrist, Hip, L-spine Bone Densito metry 12/20/2024 10:4 0 AM EDT Impressions 12/20/2024 10:41 AM EDT There is no evidence of osteoporosis or osteopenia has been a decrease of 6.3% in bone mineral density in the lumbar spine since the prior examination of 10/30/2022. Code 17690 -------- FINAL REPORT -------- Dictated By: Virgil Beltran Dictated Date: 12/20/2024 10:40 ET Assigned Physician: Virgil Beltran Reviewed and Electronically Signed By: Virgil Beltran Signed Date: 12/20/2024 10:41 ET Workstation ID: [id number] Transcribed By: Self Edit Transcribed Date: 12/20/2024 10:40 ET Narrative 12/20/2024 10:41 AM EDT HISTORY: The patient is an 84-year-old postmenopausal female with clinical concern for metabolic bone disease. The patient is undergone previous bilateral hip replacement surgery. FINDINGS: Dual energy [...] spine since the priorexamination of 10/30/2022. Code 43368 -------- FINAL REPORT -------- Dictated By: Virgil Beltran Dictated Date: 12/20/2024 10:40 ET Assigned Physician: Virgil Beltran Reviewed and Electronically Signed By: Virgil Beltran Signed Date: 12/20/2024 10:41 ET Workstation ID: [id number] Transcribed By: Self Edit Transcribed Date: 12/20/2024 10:40 ET us Subramony Rosendo ZAMBRANO IMG DXA PROCEDURES Final Result from Last 3 Months or Most Recently Relevant to Health Maintenance Insurance [facility] MEDICARE Advance Directives Documents on File Type Date Recorded Patient Grounding Engineer Expl anation Health Care Decision (hx) 03/10/2018 [...] (hx) 03/10/2018 AD GOLDSMITH DIRECTIVE Care Teams Military Nurse Relationship Specialty Start Date End Date Yen Mejia MD [address] [place] [address] PCP - General Internal Medicine 05/18/22
--- OUTSIDE RECORDS SUMMARY | 2025-03-28 08:47 | XMS_ITS | Clinical Summary ---
Author Organization [facility] Address [address] [id number] Care Team Providers Care Bobbin Disker Name Role Phone Yen Mejia MD Primary Care Provider [phone] [phone] Allergies Active Allergy Reactions Criticality Noted Date [...] AM EDT Temperature 36.4 C (97.6 F) 05/18/2024 9:03 AM EDT Respiratory Rate - - Oxygen Saturation 97% [...] 1-dose 75+ series) 2015 Influenza Vaccine (#1) 2025 Hepatitis B Vaccines Aged Out No long er eligible based on patient's age to complete this topic RSV Ped < 20 months Aged Out No longe r eligible based on patient's age to complete this topic Care Teams Bobbin Disker Relationship Specialty Start Date End Date Yen Mejia MD [address] [place] [address] PCP - General Internal Medicine 05/18/22
--- OUTSIDE RECORDS SUMMARY | 2025-03-28 08:47 | XMS_ITS | Encounter Summary ---
Author Organization [facility] Address [address] [place] [address] Phone Care Team Providers Care Clerical And Office Support Workers Name Role Phone Davie Mejia MD Primary Care Provider +1- [phone] Encounter Details Date Type Department Care Team (Late st Contact Info) Description 05/04/2022 Office Communication [facility] [address] [place] [phone] Eve Alexis Social History Tobacco Use Types [...] EDT Pt would like US scheduled at [facility] if possible. documented in this encounter Plan of Treatment Not on file documented as of this encounter Visit Diagnoses Not on filedocumented in this encounter Care Teams Clerical And Office Support Workers Relationship Specialty Start Date End Date Davie Mejia MD [facility] [place] [address] PCP - General Internal Medicine 04/27/22 documented as of this encounter
[2025-03-28 08:50] LABS: MANUAL DIFF FLAG NO
[2025-03-28 09:02] LABS: Hematocrit 38.3 % (37.0-47.0); Hemoglobin 12.6 g/dl (12.0-16.0); Imm Gran Abs Auto 0.01 X10*3/uL (0.00-0.03); Imm Gran Pct Auto 0.2 % (0.0-0.4); Lymphocytes Absolute Auto 1.6 X10*3/uL (1.2-4.9); Mean Corpuscular HGB Conc 32.9 g/dl (31.0-35.0); Mean Corpuscular Hemoglobin 28.5 pg (27.0-33.0); Mean Corpuscular Volume 86.7 fL (80.0-98.0); NRBC Abs Auto 0.000 X10*3/uL (0.0-0.012); NRBC Pct Auto 0.0 /100WBC (0.0-0.2); Platelet Count 297 X10*3/uL (160-400); Red Blood Count 4.42 X10*6/uL (4.20-5.50); White Blood Count 5.1 X10*3/uL (4.8-10.8)
[2025-03-28 09:12] LABS: Hemoglobin A1C 144.7644 umol/L; Total Hemoglobin (HGBA1C) 3379.5155 umol/L
[2025-03-28 09:31] LABS: Alanine Aminotransferase 42 U/L (0-31); Albumin Level 4.6 g/dL (3.5-5.0); Alkaline Phosphatase 109 U/L (39-117); Anion Gap 15 (12-20); Aspartate Amino Transferase 35 U/L (5-31); Blood Urea Nitrogen 30 mg/dL (9-16); Calcium 9.8 mg/dL (8.4-10.2); Carbon Dioxide 24 mmol/L (22-29); Chloride 107 mmol/L (96-108); Cholesterol 188 mg/dL (<200); Estimated Glomerular Filt Rate 32; HDL Cholesterol 78 mg/dL (>40); Potassium 4.9 mmol/L (3.3-5.1); Sodium 141 mmol/L (135-145); Total Protein 7.4 g/dL (6.5-8.0); Triglycerides 89 mg/dL (<150)
[2025-03-28 09:34] LABS: Alanine Aminotransferase 42 U/L (0-31); Aspartate Amino Transferase 34 U/L (5-31)
[2025-03-28 10:02] LABS: Folate 7.7 ng/mL (> or = 4.0); Vitamin B12 1012 pg/mL (200-900)
== END 2025-03-28 08:37 | disposition home or self-care (01) ==
LOC: HO.LAB 08:36
PROVIDERS: Absent Provider Internal Medicine Hypertension Specialist; PCP Internal Medicine; Visit Provider Student in an Organized Health Care Education/Training Program
DX: M06.00 Rheumatoid arthritis without rheumatoid factor, unspecified site (principal); E78.5 Hyperlipidemia, unspecified; R73.01 Impaired fasting glucose; Z78.0 Asymptomatic menopausal state
CPT/HCPCS: 36415; 80053; 80061; 82306; 82607; 82746; 83036; 84450; 84460; 85025; 85652; 86140

== ENCOUNTER 2025-04-03 07:20 | Outpatient (AMB) | payer MEDICARE, SELFPAY ==
--- OUTSIDE RECORDS SUMMARY | 2025-04-03 07:22 | XMS_ITS | Clinical Summary ---
Author Organization [facility] Address [address] [id number] Care Team Providers Care Panman Name Role Phone Yen Mejia MD Primary Care Provider [phone] [phone] Allergies Active Allergy Reactions Criticality Noted Date [...] age to complete this topic Care Teams Panman Relationship Specialty Start Date End Date Yen Mejia MD [address] [place] [address] PCP - General Internal Medicine 05/18/22
--- OUTSIDE RECORDS SUMMARY | 2025-04-03 07:22 | XMS_ITS | Encounter Summary ---
Author Organization [facility] Address [address] [place] [address] Phone Care Team Providers Care Bow Maker Gift Wrapping Name Role Phone Davie Mejia MD Primary Care Provider +1- [phone] Encounter Details Date Type Department Care Team (Late st Contact Info) Description 05/04/2022 Office Communication [facility] [address] [place] [phone] Eve Alexis Social History Tobacco Use Types [...] EDT Pt would like US scheduled at [facility] if possible. documented in this encounter Plan of Treatment Not on file documented as of this encounter Visit Diagnoses Not on filedocumented in this encounter Care Teams Bow Maker Gift Wrapping Relationship Specialty Start Date End Date Davie Mejia MD [address] [place] [address] PCP - General Internal Medicine 04/27/22 documented as of this encounter
--- OUTSIDE RECORDS SUMMARY | 2025-04-03 07:22 | XMS_ITS | Clinical Summary ---
Author Organization [facility] Address [address] [place] [address] Phone Care Team Providers Care Auto Slip Cover Installer Name Role Phone Yen Mejia MD Primary [...] positive ma lignant neoplasm of right breast ([facility] V24, [facility] V28) 04/02/2020 Essential hypertension 10/24/2019 Mixed hyperlipidemia 10/24/2019 Primary osteoarthritis involving multiple joints 10/24/2019 Malignant neoplasm of upper- outer quadrant of left breast in female, estrogen receptor positive ([facility] V24, [facility] V28) Surgical History Surgery Date Site/Laterality Comments HIP SURGERY PROCEDURE:HIP SURGERY COLONOSCOPY PROCEDURE:COLONOSCOPY STEREOTACTIC CORE BIOPSY Bilateral 1998 right, 2019left BREAST LUMPECTOMY Bilateral 1998 right, 2019 left Medical History Medical History Date Comments Breast cancer ([facility] V24, [facility] V28) DX:Breast cancer ([facility]) BRCA1 gene mutation negative BRCA2 gene mutation [...] Description 05/23/2025 9:00 AM EDT Office Visit [facility] Hematology Oncology [address] [place] [phone] Maikel Robbins MD [address] [place] [phone] Health Maintenance Due Date Last Done Comments [...] since the prior examination of 10/30/2022. Code 90650 -------- FINAL REPORT -------- Dictated By: Virgil Beltran Dictated Date: 12/20/2024 10:40 ET Assigned Physician: Virgil Beltran Reviewed and Electronically Signed By: Virgil Beltran Signed Date: 12/20/2024 10:41 ET Workstation ID: [id number] Transcribed By: Self Edit Transcribed Date: 12/20/2024 [...] spine since the priorexamination of 10/30/2022. Code 98530 -------- FINAL REPORT -------- Dictated By: Virgil Beltran Dictated Date: 12/20/2024 10:40 ET Assigned Physician: Virgil Beltran Reviewed and Electronically Signed By: Virgil Beltran Signed Date: 12/20/2024 10:41 ET Workstation ID: [id number] Transcribed By: Self Edit Transcribed Date: 12/20/2024 10:40 ET us Subramony Rosendo ZAMBRANO IMG DXA PROCEDURES Final Result from Last 3 Months or Most Recently Relevant to Health Maintenance Insurance [facility] MEDICARE Advance Directives Documents on File Type Date Recorded Patient Psychologist Personnel Expl anation Health Care Decision (hx) 03/10/2018 [...] (hx) 03/10/2018 AD GOLDSMITH DIRECTIVE Care Teams Auto Slip Cover Installer Relationship Specialty Start Date End Date Yen Mejia MD [address] [place] [address] PCP - General Internal Medicine 05/18/22
--- NOTE | 2025-04-03 07:28 | A.OFFVIS_ITS ---
Vital Signs 04/03/25 07:33 Height 5 ft 4 in Weight 142 lb 2 oz BMI 24.4 BP 132/80 Blood Pressure Location Lt brachial Position Sitting Pulse 91 Pulse Source Pulse Oximeter Pulse Oximetry (%) 98 Oxygen Delivery Method Room Air Intake Visit Reasons: RA Intake Note: Patients presents for RA follow up. Allergies Penicillins Adverse Reaction (Verified 04/03/25 07:31) mouth swells strawberry Adverse Reaction (Verified 04/03/25 07:31) Rash tomato Adverse Reaction (Verified 04/03/25 07:31) Rash HPI Comments Details: Patient is a 84-year-old female with history of breast cancer currently on anastrozole, hypertension complicated by cardiomyopathy, hyperlipidemia, Polyart icular OA (hands, hips, knees) s/p bilateral hip replacement and seronegative rheumatoid arthritis here today for follow up Interval History: Patient last seen 10/03/24 with me - On plaquenil 200mg daily - Doing well with no specific complaints Today - On plaquenil 200mg daily - Continues to do well with respect to her RA - Pulled a muscle in her back about 1 week ago - saw ophthal in January 2025, all is well no changes wrt plaquenil Rheumatologic History: -ve RF -ve CCP dx 05/2023 Evidence of swelling and synovitis on examination HCQ 05/2023 effective * Initially alternating 400 mg with 200 mg * 03/2024: Change to 200 mg daily (had a slight increase in her creatinine) Current Rheumatology Medication(s): Hydroxychloroquine 200 mg daily PFSH Medical History (Updated 10/23/24 @ 12:23 by Yen Mejia MD) Impaired fasting glucose Polyarticular osteoarthritis Recurrent urinary tract infection Shortness of breath on exertion CKD (chronic kidney disease) Need for prophylactic antibiotic Annual visit for general adult medical examination with abnormal findings History of bone density study History of Papanicolaou smear of cervix History of mammogram Bilateral shoulder pain Tubular adenoma of colon Congenital hypertrophic pyloric stenosis Post-menopause Heartburn symptom Hx of renal calculi Osteoarthritis of hips, bilateral Hx of breast cancer Dyslipidemia Essential hypertension Surgical History History of bilateral hip replacements History of total right hip arthroplasty Status post right breast lumpectomy S/P lumpectomy, left breast Family History Mother Arthritis Social History Household Members Other:: Son and Grandson Housing: House Alcohol intake: current Alcohol intake frequency: does not drink Patient Tobacco Use Status: Never used Tobacco e-Cigarette/Vaping Use: Never Used Current occupational status: 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 Cognitive needs: No Hearing needs: No Vision needs: Yes Female Reproductive History Menstrual Age of Menarche: 12 Review of Systems Const Details: Review of Systems Constitutional: Denies fever, chills, weight loss ENT: Denies vision changes, eye pain or eye redness, dental caries, dry mouth GI: Denies nausea, vomiting, diarrhea, abdominal pain, change in BM Pulm: Denies SOB, MURCIA, hemoptysis, wheezing Cards: Denies chest pain, palpitations Skin: Denies Raynaud's, rash, nail changes, photosensitivity, SCIENCE TECHNICIANS: Denies headaches, weakness, paresthesias, recurrent falls MSK: as per HPI All other systems reviewed and are unremarkable except noted above Physical Exam Exam Exam: Vital signs reviewed Physical Examination CONSTITUITIONAL Patient alert and cooperative. Well appearing and in no apparent painful distress MSK Hands * Right Hand: Able to make a fist. No swelling or tenderness to palpation of these joints. Synovial hypertrophy noted to the 2nd and 3rd MCPs without TTP * Left Hand: Able to make a fist. No swelling or tenderness to palpation of these joints. * Herbedens nodes noted bilaterally Wrists * Right Wrist: Full ROM. 70 degrees of wrist flexion, 80 degrees of wrist extension. No swelling or TTP * Left Wrist: Full ROM. 70 degrees of wrist flexion, 80 degrees of wrist extension. No swelling or TTP Elbows * Right Elbow: Full ROM. No swelling or TTP. No TTP of the medial and lateral epicondyles * Left Elbow: Full ROM. No swelling or TTP. No TTP of the medial and lateral epicondyles Shoulders * Right shoulder: Full ROM. No swelling noted. No TTP of the AC joint, subacromial bursa or posterior shoulder * Left shoulder: Full ROM. No swelling noted. No TTP of the AC joint, s ubacromial bursa or posterior shoulder Knees * Right knee: Full ROM. No swelling noted. No TTP of the knee joint lie or pes anserine bursa * Left knee: Full ROM. No swelling noted. No TTP of the knee joint lie or pes anserine bursa. * Crepitations felt bilaterally Ankles * Right ankle: Good ankle dorsiflexion and plantar flexion. No swelling. No TTP of the ankle joint * Left ankle: Good ankle dorsiflexion and plantar flexion. No swelling. No TTP of the ankle joint Feet * Right foot: Negative squeeze test * Left foot: Negative squeeze test Tender points? * No tenderness to palpation of the bilateral trapezius, supraspinatus, anterior costochondral junctions, bilateral suboccipital muscle insertions SKIN No rashes Vital Signs: Last Vital Signs Pulse 91 04/03/25 07:33 BP 132/80 04/03/25 07:33 Pulse Ox 98 04/03/25 07:33 Oxygen Delivery Method Room Air 04/03/25 07:33 BMI result Body Mass Index 24.4 Results Reviewed Results Reviewed: Laboratory Tests 09/27/24 03/28/25 08:25 08:48 WBC 5.1 RBC 4.42 Hgb 12.6 Hct 38.3 Plt Count 297 ESR 16 Sodium 141 Potassium 4.9 D Chloride 107 Carbon Dioxide 24 BUN 30 H Creatinine 1.03 1.53 H Estimated GFR 51 32 AST 29 34 H ALT 33 H 42 H C-Reactive Protein < 0.10 25-OH Vitamin D Total 50.1 Assessment & Plan Assessment & Plan (1) Seronegative rheumatoid arthritis: Comment: -ve RF -ve CCP dx 05/2023 HCQ 05/2023 effective Code(s): M06.00 - Rheumatoid arthritis without rheumatoid factor, unspecified site Category: Medical Plan: #Seronegative RA Patient is a 84-year-old female with seronegative rheumatoid arthritis currently in remission with no evidence of synovitis today on examination. Plan - Plaquenil 200mg daily - RTC 6 months - Labs before visit: CBC, CMP, ESR, CRP (2) Polyarticular osteoarthritis: Code(s): M15.9 - Polyosteoarthritis, unspecified Category: Medical Plan: #Polyarticular OA Patient with polyarticular osteoarthritis involving the bilateral hands, knees and hips. Patient is status post bilateral hip replacement. Currently utilizing diclofenac gel and arthritis gloves for her hands as well as the diclofenac gel for her bilateral knees. Encouraged her to continue using this up to 4 times a day for added relief. Tylenol Arthritis p.r.n. as needed but informed her to use this sparingly given the mild elevation in her ALT Plan - Topical diclofenac gel 1% qid - Tylenol prn, max 2000mg/day (3) Back pain: Code(s): M54.9 - Dorsalgia, unspecified Qualifiers: Back pain location: low back pain Chronicity: acute Back pain laterality: unspecified Sciatica presence: without sciatica Qualified Code(s): M54.50 - Low back pain, unspecified Plan: #Back pain Patient with acute back pain Encouraged ice alternating with heat and low intensity stretches If no improvement after 3-4 weeks, will refer to PT (4) Long-term use of hydroxychloroquine: Comment: Eye exam 02/2024 cherie Code(s): Z79.899 - Other terminal carman (current) drug therapy Category: Medical Plan: #Long-term Use of Hydroxychloroquine Discussed with patient the risks and benefits of hydroxychloroquine in managing the rheumatic condition Benefits include: - Reduced pain, reduce mortality, maintenance of remission and reduction of flares Risks include: - GI upset, skin hyperpigmentation, retinal toxicity (especially after more than 5 years of use), myopathy Advised yearly ophthalmology visits Last ophthalmology visit: 02/2024 Plan I spent 30 minutes reviewing the record and labs, taking a history, examining the patient, discussing the treatment plan and documenting in the medical record Coding Level of Care Code Est Pt Level 4 (42756) Complex EM visit Add On G2211 Diagnoses Seronegative rheumatoid arthritis M06.00 Polyarticular osteoarthritis M15.9 Acute low back pain without sciatica, unspecified back pain laterality M54.50 Back pain location: low back pain Chronicity: acute Back pain laterality: unspecified Sciatica presence: without sciatica Long-term use of hydroxychloroquine Z79.899
[2025-04-03 07:33] VITALS: BP 132/80; PULSE 91; O2SAT 98; BMI 24.4
== END 2025-04-03 08:00 | disposition home or self-care (01) ==
LOC: HO.RHES 07:21
PROVIDERS: PCP Internal Medicine; Visit Provider Student in an Organized Health Care Education/Training Program
DX: M06.00 Rheumatoid arthritis without rheumatoid factor, unspecified site (principal); M15.9 Polyosteoarthritis, unspecified; M54.50 Low back pain, unspecified; Z79.899 Other long term (current) drug therapy
CPT/HCPCS: 99214; G2211

== ENCOUNTER → 2025-04-03 07:20 | Outpatient (BNVA) | payer MEDICARE, SELFPAY | PROVIDERS: PCP Internal Medicine; Visit Provider Student in an Organized Health Care Education/Training Program | DX: M06.00 Rheumatoid arthritis without rheumatoid factor, unspecified site (principal) | CPT/HCPCS: 99212 ==

== ENCOUNTER 2025-04-16 09:21 | Outpatient (AMB) | payer MEDICARE, SELFPAY ==
--- NOTE | 2025-04-16 09:39 | HO.NEPHOV ---
Vital Signs 04/16/25 09:40 Height 5 ft 4 in Weight 142 lb BMI 24.4 BP 132/78 Blood Pressure Location Lt brachial Position Sitting Pulse 96 Pulse Source Pulse Oximeter Pulse Oximetry (%) 96 Oxygen Delivery Method Room Air Intake Visit Reasons: CKD/ LVM Regional Sales Engineer Required: No Accompanied by: Daughter Allergies Penicillins Adverse Reaction (Verified 04/16/25 09:41) mouth swells strawberry Adverse Reaction (Verified 04/16/25 09:41) Rash tomato Adverse Reaction (Verified 04/16/25 09:41) Rash Medication List - Last Reconciled 04/16/25 by Chencho Jang MD acetaminophen ER (Tylenol Arthritis Pain) 1,300 mg PO Q8H anastrozole 1 mg PO DAILY ascorbic acid (vitamin C) 500 mg PO DAILY aspirin (Adult Low Dose Aspirin) 81 mg PO DAILY calcium carbonate (Antacid (calcium carbonate)) 200 mg PO DAILY famotidine 40 mg PO DAILY PRN gabapentin 100 mg PO TID hydroxychloroquine 200 mg PO DAILY lisinopril 5 mg PO DAILY multivitamin 1 tab PO DAILY rosuvastatin 5 mg PO DAILY vibegron (Gemtesa) 75 mg PO DAILY HPI Comments Details: 83 yr old woman with h/o HTN and REnal stone in the past with CKD History of right breast cancer status post lumpectomy followed by radiation more than 20 years ago. In 2019 she had left breast mass underwent lumpectomy and she was treated with tamoxifen. Creatinine was between 1.2 and 1.3 ; REcently bumped to 1.4 Currently on lisinopril 10 mg a day. No lightheadedness. No urinary symptoms. She has had recurrent UTIs. She is due to see Urology shortly. History of renal stones in the past. Recently she had been experiencing some shortness of breath. Waiting to see Cardiology after stress test and echo. History of rheumatoid arthritis she has been followed by Rheumatology and currently on hydroxychloroquine Not on NSAIDs 04/17/24 Recurrent Urinary tract infection Had cystoscopy last week - unremarkable 10/18/24 Overall doing well After lowering Lisinopril, Cr has improved 04/16/25 84-year-old female presenting with fluctuating kidney function. Kidney function shows instability with no reported symptoms. Joint pain in knees managed with Tylenol. Ankle swelling occurs occasionally. Elevated B12 levels led to stopping B12 injections. Continues on lisinopril and hydroxychloroquine. [facility] Medical History (Updated 10/23/24 @ 12:23 by Yen Mejia MD) Impaired fasting glucose Polyarticular osteoarthritis Recurrent urinary tract infection Shortness of breath on exertion CKD (chronic kidney disease) Need for prophylactic antibiotic Annual visit for general adult medical examination with abnormal findings History of bone density study History of Papanicolaou smear of cervix History of mammogram Bilateral shoulder pain Tubular adenoma of colon Congenital hypertrophic pyloric stenosis Post-menopause Heartburn symptom Hx of renal calculi Osteoarthritis of hips, bilateral Hx of breast cancer Dyslipidemia Essential hypertension Surgical History History of bilateral hip replacements History of total right hip arthroplasty Status post right breast lumpectomy S/P lumpectomy, left breast Family History Mother Arthritis Social History Household Members Other:: Son and Grandson Housing: House Alcohol intake: current Alcohol intake frequency: does not drink Patient Tobacco Use Status: Never used Tobacco e-Cigarette/Vaping Use: Never Used Current occupational status: 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 Cognitive needs: No Hearing needs: No Vision needs: Yes Female Reproductive History Menstrual Age of Menarche: 12 Physical Exam Vital Signs: Last Vital Signs Pulse 96 04/16/25 09:40 BP 132/78 04/16/25 09:40 Pulse Ox 96 04/16/25 09:40 Oxygen Delivery Method Room Air 04/16/25 09:40 BMI result Body Mass Index 24.4 Results Reviewed Nephrology Results: Hgb, (12.0-16.0) 12.6 g/dl 03/28/25 WBC, (4.8-10.8) 5.1 X10*3/uL 03/28/25 Plt Count, (160-400) 297 X10*3/uL 03/28/25 Sodium, (135-145) 141 mmol/L 03/28/25 Potassium, (3.3-5.1) 4.9 mmol/L Δ 03/28/25 Chloride, (96-108) 107 mmol/L 03/28/25 Carbon Dioxide, (22-29) 24 mmol/L 03/28/25 BUN, (9-16) 30 mg/dL H 03/28/25 Creatinine, (0.5-1.4) 1.53 mg/dL H 03/28/25 Calcium, (8.4-10.2) 9.8 mg/dL 03/28/25 Renal US 10/07/23 Assessment & Plan Assessment & Plan (1) CKD (chronic kidney disease): Code(s): N18.9 - Chronic kidney disease, unspecified Category: Medical Plan: Due to age-related decline in GFR and underlying hypertensive kidney disease. Cr up to 1.5 Continue to avoid nephrotoxic agents Increase PO fluids Recheck in 1 month (2) Essential hypertension: Code(s): I10 - Essential (primary) hypertension Category: Medical Plan: Keep current meds (3) Recurrent urinary tract infection: Code(s): N39.0 - Urinary tract infection, site not specified Category: Medical Plan: History of renal stones. follow-up with Urology PRN Orders: Orders Basic Metabolic Panel 1 Month N18.9 - Chronic kidney disease, unspecified Coding Level of Care Code Est Pt Level 4 (98660) Diagnoses CKD (chronic kidney disease) N18.9 Essential hypertension I10 Recurrent urinary tract infection N39.0
[2025-04-16 09:40] VITALS: BP 132/78; PULSE 96; O2SAT 96; BMI 24.4
--- OUTSIDE RECORDS SUMMARY | 2025-04-16 10:24 | XMS_ITS | Encounter Summary ---
Author Organization [facility] Address [address] [place] [address] Phone Care Team Providers Care Middle School Spanish Teacher Name Role Phone Davie Mejia MD Primary Care Provider +1- [phone] Encounter Details Date Type Department Care Team (Late st Contact Info) Description 05/04/2022 Office Communication [facility] [address] [place] [phone] Eve Alexis Social History Tobacco Use Types [...] EDT Pt would like US scheduled at [facility] if possible. documented in this encounter Plan of Treatment Not on file documented as of this encounter Visit Diagnoses Not on filedocumented in this encounter Care Teams Middle School Spanish Teacher Relationship Specialty Start Date End Date Davie Mejia MD [address] [place] [address] PCP - General Internal Medicine 04/27/22 documented as of this encounter
--- OUTSIDE RECORDS SUMMARY | 2025-04-16 10:24 | XMS_ITS | Clinical Summary ---
Author Organization [facility] Address [address] [id number] Care Team Providers Care Route Driver Coin Machines Name Role Phone Yen Mejia MD Primary Care Provider +1 -[phone] Allergies Active Allergy Reactions Criticality Noted Date [...] age to complete this topic Care Teams Route Driver Coin Machines Relationship Specialty Start Date End Date Yen Mejia MD [address] [place] [address] PCP - General Internal Medicine 05/18/22
--- OUTSIDE RECORDS SUMMARY | 2025-04-16 10:24 | XMS_ITS | Clinical Summary ---
Author Organization [facility] Address [address] [place] [address] Phone Care Team Providers Care Podiatric Assistant Name Role Phone Yen Mejia MD Primary [...] positive ma lignant neoplasm of right breast ([facility] V24, [facility] V28) 04/02/2020 Essential hypertension 10/24/2019 Mixed hyperlipidemia 10/24/2019 Primary osteoarthritis involving multiple joints 10/24/2019 Malignant neoplasm of upper- outer quadrant of left breast in female, estrogen receptor positive ([facility] V24, [facility] V28) Surgical History Surgery Date Site/Laterality Comments HIP SURGERY PROCEDURE:HIP SURGERY COLONOSCOPY PROCEDURE:COLONOSCOPY STEREOTACTIC CORE BIOPSY Bilateral 1998 right, 2019left BREAST LUMPECTOMY Bilateral 1998 right, 2019 left Medical History Medical History Date Comments Breast cancer ([facility] V24, [facility] V28) DX:Breast cancer ([facility]) BRCA1 gene mutation negative BRCA2 gene mutation [...] Description 05/23/2025 9:00 AM EDT Office Visit [facility] Hematology Oncology [address] [place] [phone] Maikel Robbins MD [address] [place] [phone] Health Maintenance Due Date Last Done Comments [...] since the prior examination of 10/30/2022. Code 34859 -------- FINAL REPORT -------- Dictated By: Virgil Beltran Dictated Date: 12/20/2024 10:40 ET Assigned Physician: Virgil Beltran Reviewed and Electronically Signed By: Virgil Beltran Signed Date: 12/20/2024 10:41 ET Workstation ID: [id number] Transcribed By: Self Edit Transcribed Date: 12/20/2024 [...] spine since the priorexamination of 10/30/2022. Code 98683 -------- FINAL REPORT -------- Dictated By: Virgil Beltran Dictated Date: 12/20/2024 10:40 ET Assigned Physician: Virgil Beltran Reviewed and Electronically Signed By: Virgil Beltran Signed Date: 12/20/2024 10:41 ET Workstation ID: [id number] Transcribed By: Self Edit Transcribed Date: 12/20/2024 10:40 ET us Subramony Rosendo ZAMBRANO IMG DXA PROCEDURES Final Result from Last 3 Months or Most Recently Relevant to Health Maintenance Insurance [facility] MEDICARE Advance Directives Documents on File Type Date Recorded Patient Transit Clerk Expl anation Health Care Decision (hx) 03/10/2018 [...] DIRECTIVE Health Care Decision (hx) 03/10/2018 AD GLODSMITH DIRECTIVE Care Teams Podiatric Assistant Relationship Specialty Start Date End Date Yen Mejia MD [address] [place] [address] PCP - General Internal Medicine 05/18/22
== END 2025-04-16 09:57 | disposition home or self-care (01) ==
LOC: HO.HKA 09:21
PROVIDERS: PCP Internal Medicine; Visit Provider Internal Medicine Hypertension Specialist
DX: I12.9 Hypertensive chronic kidney disease with stage 1 through stage 4 chronic kidney disease, or unspecified chronic kidney disease (principal); N18.9 Chronic kidney disease, unspecified; N39.0 Urinary tract infection, site not specified
CPT/HCPCS: 99214

== ENCOUNTER → 2025-04-16 09:21 | Outpatient (BNVA) | payer MEDICARE, SELFPAY | PROVIDERS: PCP Internal Medicine; Visit Provider Internal Medicine Hypertension Specialist | DX: I12.9 Hypertensive chronic kidney disease with stage 1 through stage 4 chronic kidney disease, or unspecified chronic kidney disease (principal); N18.9 Chronic kidney disease, unspecified; N39.0 Urinary tract infection, site not specified | CPT/HCPCS: 99212 ==

== ENCOUNTER 2025-04-19 08:16 | Outpatient (AMB) | payer MEDICARE, SELFPAY ==
--- OUTSIDE RECORDS SUMMARY | 2025-04-19 08:24 | XMS_ITS | Clinical Summary ---
Author Organization [facility] Address [address] [id number] Care Team Providers Care Hide Mill Man Name Role Phone Yen Mejia MD Primary Care Provider +1 -[phone] Allergies Active Allergy Reactions Criticality Noted Date [...] age to complete this topic Care Teams Hide Mill Man Relationship Specialty Start Date End Date Yen Mejia MD [address] [place] [address] PCP - General Internal Medicine 05/18/22
--- OUTSIDE RECORDS SUMMARY | 2025-04-19 08:24 | XMS_ITS | Clinical Summary ---
Author Organization [facility] Address [address] [place] [address] Phone Care Team Providers Care Band Tumbler Name Role Phone Yen Mejia MD Primary [...] positive ma lignant neoplasm of right breast ([facility] V24, [facility] V28) 04/02/2020 Essential hypertension 10/24/2019 Mixed hyperlipidemia 10/24/2019 Primary osteoarthritis involving multiple joints 10/24/2019 Malignant neoplasm of upper- outer quadrant of left breast in female, estrogen receptor positive ([facility] V24, [facility] V28) Surgical History Surgery Date Site/Laterality Comments HIP SURGERY PROCEDURE:HIP SURGERY COLONOSCOPY PROCEDURE:COLONOSCOPY STEREOTACTIC CORE BIOPSY Bilateral 1998 right, 2019left BREAST LUMPECTOMY Bilateral 1998 right, 2019 left Medical History Medical History Date Comments Breast cancer ([facility] V24, [facility] V28) DX:Breast cancer ([facility]) BRCA1 gene mutation negative BRCA2 gene [...] Description 05/23/2025 9:00 AM EDT Office Visit [facility] Hematology Oncology [address] [place] [phone] Maikel Robbins MD [address] [place] [phone] Health Maintenance Due Date Last Done Comments [...] since the prior examination of 10/30/2022. Code 38648 -------- FINAL REPORT -------- Dictated By: Virgil Beltran Dictated Date: 12/20/2024 10:40 ET Assigned Physician: Virgil Beltran Reviewed and Electronically Signed By: Virgil Beltran Signed Date: 12/20/2024 10:41 ET Workstation ID: [id number] Transcribed By: Self Edit Transcribed Date: 12/20/2024 [...] spine since the priorexamination of 10/30/2022. Code 00825 -------- FINAL REPORT -------- Dictated By: Virgil Beltran Dictated Date: 12/20/2024 10:40 ET Assigned Physician: Virgil Beltran Reviewed and Electronically Signed By: Virgil Beltran Signed Date: 12/20/2024 10:41 ET Workstation ID: [id number] Transcribed By: Self Edit Transcribed Date: 12/20/2024 10:40 ET us Subramony Rosendo ZAMBRANO IMG DXA PROCEDURES Final Result from Last 3 Months or Most Recently Relevant to Health Maintenance Insurance [facility] MEDICARE Advance Directives Documents on File Type Date Recorded Patient Bill Adjuster Expl anation Health Care Decision (hx) 03/10/2018 [...] (hx) 03/10/2018 AD GOLDSMITH DIRECTIVE Care Teams Band Tumbler Relationship Specialty Start Date End Date Yen Mejia MD [address] [place] [address] PCP - General Internal Medicine 05/18/22
--- OUTSIDE RECORDS SUMMARY | 2025-04-19 08:24 | XMS_ITS | Encounter Summary ---
Author Organization [facility] Address [address] [place] [address] Phone Care Team Providers Care Sed Special Education Teacher Name Role Phone Davie Mejia MD Primary Care Provider +1- [phone] Encounter Details Date Type Department Care Team (Late st Contact Info) Description 05/04/2022 Office Communication [facility] [address] [place] [phone] Eve Alexis Social History Tobacco Use Types [...] EDT Pt would like US scheduled at [facility] if possible. documented in this encounter Plan of Treatment Not on file documented as of this encounter Visit Diagnoses Not on filedocumented in this encounter Care Teams Sed Special Education Teacher Relationship Specialty Start Date End Date Davie Mejia [place] [address] PCP - General Internal Medicine 04/27/22 documented as of this encounter
--- NOTE | 2025-04-19 08:25 | MHC.OFFVIS ---
Intake Visit Reasons: 9m follow up Intake Note: Patient is present for 9m follow up Urology Medication:Gemtesa Antibiotic Allergy:penicillin Blood Thinner:Aspirin PVR:0ml Shingle Bolt Cutter Required: No Allergies Penicillins Adverse Reaction (Verified 04/19/25 08:26) mouth swells strawberry Adverse Reaction (Verified 04/19/25 08:26) Rash tomato Adverse Reaction (Verified 04/19/25 08:26) Rash Medication List - Last Reconciled 04/19/25 by Justyn Rubin MD acetaminophen ER (Tylenol Arthritis Pain) 1,300 mg PO Q8H anastrozole 1 mg PO DAILY ascorbic acid (vitamin C) 500 mg PO DAILY aspirin (Adult Low Dose Aspirin) 81 mg PO DAILY calcium carbonate (Antacid (calcium carbonate)) 200 mg PO DAILY famotidine 40 mg PO DAILY PRN gabapentin 100 mg PO TID hydroxychloroquine 200 mg PO DAILY lisinopril 5 mg PO DAILY multivitamin 1 tab PO DAILY rosuvastatin 5 mg PO DAILY vibegron (Gemtesa) 75 mg PO DAILY HPI Comments Details: 04/19/2025--Dolly's followed for recurrent UTIs and overactive bladder symptoms. She is here for 9 month follow-up she has been prescribed Gemtesa. Urinalysis today is negative. Bladder scan PVR 0 mL. She states that during the day she does well at nighttime she does wear depends. She denies any UTI symptoms since her last office visit. We will continue the Gemtesa follow-up in 1 year. 07/12/24--Dolly is here today for three-month follow-up. She states that the Gemtesa is working very well she is only up 1 time at night to urinate. She continues to wear a depends just in case she states that sometimes if she sneezes she will leak a little bit. She states she has not had a urinary tract infection since her last visit. 04/05/2024--Dolly is here for follow-up office cystoscopy. She was sent for evaluation due to chronic UTIs and urinary incontinence. The patient states her urine leakage has improved since she was initially evaluated. She is still leaks at bedtime. I reviewed her urine cultures in October and November which are E coli with resistance to Levaquin. 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 I have discussed findings consistent with persistent bacteriuria. Plan Macrobid b.i.d. for 5 days then daily total of 40 tablets, Gemtesa 75 mg at bedtime. Follow-up in 3 months. 11/07/23--Dolly is an 83-year-old female who is here for evaluation due to recurrent UTIs. Past medical history - chronic kidney disease, history of breast cancer, the patient denies pelvic surgery, denies hysterectomy. The patient states that she went to emergency room in August for lower abdominal pain and shortness of breath and she was told she had a UTI at that time. In review of her chart the patient has documented urinary tract infections: 09/08/2023- E coli resistant to Levaquin; 04/27/2023 E coli resistant to Levaquin, 04/13/2023 --E coli and Klebsiella- E coli resistant to Levaquin, Klebsiella resistant to Bactrim and ampicillin & intermediate nitrofurantoin. The patient has urinary symptoms of occasional urgency and stress incontinence with coughing or laughing, she wears a depends during the night due to urinary incontinence. The patient was seen by Nephrology renal ultrasound was ordered I have reviewed results 10/07/23 kidneys negative for masses or stones. Evaluation: Urinalysis nitrite positive. Pelvic exam--vaginal atrophy, bladder neck well supported, no prolapse observed. Catheterized PVR-minimal. PLAN: Ceftin 250 mg daily b.i.d. for 10 days pending urine culture. Follow-up office cystoscopy [facility] Medical History Impaired fasting glucose Polyarticular osteoarthritis Recurrent urinary tract infection Shortness of breath on exertion CKD (chronic kidney disease) Need for prophylactic antibiotic Annual visit for general adult medical examination with abnormal findings History of bone density study History of Papanicolaou smear of cervix History of mammogram Bilateral shoulder pain Tubular adenoma of colon Congenital hypertrophic pyloric stenosis Post-menopause Heartburn symptom Hx of renal calculi Osteoarthritis of hips, bilateral Hx of breast cancer Dyslipidemia Essential hypertension Surgical History History of bilateral hip replacements History of total right hip arthroplasty Status post right breast lumpectomy S/P lumpectomy, left breast Family History Mother Arthritis Social History Household Members Other:: Son and Grandson Housing: House Alcohol intake: current Alcohol intake frequency: does not drink Patient Tobacco Use Status: Never used Tobacco e-Cigarette/Vaping Use: Never Used Current occupational status: 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 Cognitive needs: No Hearing needs: No Vision needs: Yes Female Reproductive History Menstrual Age of Menarche: 12 Review of Systems Const All systems reviewed & are unremarkable except as noted in HPI and below Reports no additional complaints Eyes Reports no additional complaints ENT Reports no additional complaints Card Reports no additional complaints Resp Reports no additional complaints GI Reports no additional complaints Reports as per HPI Musc Reports no additional complaints Skin/Breast Reports system reviewed and no additional complaints, except as documented Neuro Reports no additional complaints Psych Reports no additional complaints Endo Reports no additional complaints Alexis/Lymph Reports no additional complaints Aller/Immun Reports no additional complaints Assessment & Plan Assessment & Plan (1) Recurrent urinary tract infection: Code(s): N39.0 - Urinary tract infection, site not specified Category: Medical (2) CKD (chronic kidney disease): Code(s): N18.9 - Chronic kidney disease, unspecified Category: Medical (3) Enuresis, nocturnal only: Code(s): N39.44 - Nocturnal enuresis Category: Medical (4) OAB (overactive bladder): Code(s): N32.81 - Overactive bladder Category: Medical Plan Gemtesa 75 mg qhs fu 9 months Medications: Refilled vibegron (Gemtesa) 75 mg PO DAILY 90 tabs 3RF Patient Instructions: The patient had an opportunity to ask questions regarding treatment plan. The patient expressed understanding and agreement with the above treatment plan. The patient is aware they should contact our office by phone for worsening of their current condition or the appearance of new symptoms. Compliance is encouraged with any medications and followup testing that is ordered. It is a privilege to be allowed the opportunity to participate in the urologic care of your patient. If you have any questions or concerns regarding treatment for the above conditions please do not hesitate to contact me. The office telephone contact is [phone]. This note is constructed in part using voice recognition software. While every effort has been made to ensure accuracy stock associate errors may have been included. Yours sincerely, Justyn Rubin MD Coding Level of Care Code Est Pt Level 4 (24930) Diagnoses Recurrent urinary tract infection N39.0 CKD (chronic kidney disease) N18.9 Enuresis, nocturnal only N39.44 OAB (overactive bladder) N32.81
== END 2025-04-19 09:02 | disposition home or self-care (01) ==
LOC: HO.HUSH 08:17
PROVIDERS: PCP Internal Medicine; Visit Provider Urology
DX: N39.0 Urinary tract infection, site not specified (principal); N18.9 Chronic kidney disease, unspecified; N39.44 Nocturnal enuresis; N32.81 Overactive bladder; Z13.9 Encounter for screening, unspecified
CPT/HCPCS: 99214

== ENCOUNTER → 2025-04-19 08:16 | Outpatient (BNVA) | payer MEDICARE, SELFPAY | PROVIDERS: PCP Internal Medicine; Visit Provider Urology | DX: N39.44 Nocturnal enuresis (principal); N32.81 Overactive bladder; N39.0 Urinary tract infection, site not specified; N18.9 Chronic kidney disease, unspecified | CPT/HCPCS: 81003; 99212 ==

== ENCOUNTER 2025-06-11 08:00 | Outpatient (RCR) | payer MEDICARE, SELFPAY | END 2025-06-11 08:40 | disposition home or self-care (01) | LOC: HO.PTCHIC 08:00 | PROVIDERS: PCP Internal Medicine; Visit Provider Physician Assistant | DX: M17.12 Unilateral primary osteoarthritis, left knee (principal) | CPT/HCPCS: 97110; 97161 ==

== ENCOUNTER 2025-07-03 09:09 | Outpatient (REF) | payer MEDICARE, SELFPAY ==
--- OUTSIDE RECORDS SUMMARY | 2025-07-03 09:51 | XMS_ITS | Clinical Summary ---
Author Organization [facility] Address [address] [id number] Care Team Providers Care Boilermaker Fitter Name Role Phone Yen Mejia MD Primary Care Provider +1 -[phone] Allergies Active Allergy Reactions Criticality Noted Date [...] age to complete this topic Care Teams Boilermaker Fitter Relationship Specialty Start Date End Date Yen Mejia MD [address] [place] [address] PCP - General Internal Medicine 05/18/22
--- OUTSIDE RECORDS SUMMARY | 2025-07-03 09:51 | XMS_ITS | Clinical Summary ---
Author Organization [facility] Address [address] [facility] [address] [facility] [address] [place] [address] Phone Care Team Providers Care Management Scientist Name Role Phone Davie Mejia MD Primary Care Provider +1- [phone] Allergies Active Allergy Reactions Criticality Noted Date Comments Penicillins 05/04/2022 Mouth swells [place] Extract 05/04/2022 Tomato 05/04/2022 Medications anastrozole (ARIMIDEX) [...] malignant neoplasm of breast 0 10/25/2019 04/06/2023 Generalized osteoarthritis 10/24/2019 Malignant neoplasm of upper- outer quadrant [...] of 2 - PCV) 1959 Influenza Vaccine (#1) 2025 Hepatitis B Vaccine Aged Out No longe r eligible based on patient's age to complete this topic Insurance [facility] Medicare [facility] Medicare Care Teams Management Scientist Relationship Specialty Start Date End Date Davie Mejia MD [address] [place] [address] PCP - General Internal Medicine 04/27/22
--- OUTSIDE RECORDS SUMMARY | 2025-07-03 09:51 | XMS_ITS | Clinical Summary ---
Author Organization [facility] Address [address] [place] [address] Phone Care Team Providers Care Casserole Preparer Name Role Phone Yen Mejia MD Primary Care Provider +1- [phone] Allergies Active Allergy Reactions Criticality Noted Date Comments Amoxicillin 10/24/2019 Medications ALPRAZolam (XANAX) 0.25 mg tablet Take 0.25 mg by mouth continuous prn for anxiety. Active amLODIPine (NORVASC) 5 mg tablet Take 5 mg by mouth daily. Active aspirin 81 [...] with a drink of water. 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 ([facility] V24, [facility] V28) 04/02/2020 Essential hypertension 10/24/2019 Mixed hyperlipidemia 10/24/2019 Primary osteoarthritis involving multiple joints 10/24/2019 Malignant neoplasm of upper- outer quadrant of left breast in female, estrogen receptor positive ([facility] V24, [facility] V28) Encounters Date Type Department Care Team Description 05/23/2025 9:00 AM EDT Office Visit [facility] Hematology Oncology [address] [place] [address] Maikel Flores MD Malignant neoplasm of upper-outer quadrant of left breast in female, estrogen receptor positive (CMS/HCC V24, CMS/HCC V28) (Primary Dx); 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 (CMS/HCC V24, CMS/HCC V28); Primary osteoarthritis involving multiple joints from Last 3 Months Surgical History Surgery Date Site/Laterality Comments HIP SURGERY PROCEDURE:HIP SURGERY COLONOSCOPY PROCEDURE:COLONOSCOPY STEREOTACTIC CORE BIOPSY Bilateral 1998 right, 2020left BREAST LUMPECTOMY Bilateral 1998 right, 2019 left Medical History Medical History Date Comments Breast cancer ([facility] V24, [facility] V28) DX:Breast cancer ([facility]) BRCA1 gene mutation negative BRCA2 gene mutation [...] Sign Reading Time Taken Comments Blood Pressure 133/64 05/23/2025 8:54 AM EDT Pulse 98 05/23/2025 8:54 AM EDT Temperature 35.6 C (96 F) 05/23/2025 8:54 AM EDT Respiratory Rate - - Oxygen Saturation 100% 05/23/2025 8:54 AM EDT Inhaled Oxygen Concentration - - Weight 64.7 kg (142 lb 9.6 oz) 05/23/2025 8:54 A M EDT Height 162.6 cm (5' 4 ) 05/23/2025 8:54 AM EDT Body Mass Index 24.48 05/23/2025 8:54 AM EDT Plan of Treatment Upcoming Encounters Date Type Department Care Team (Late st Contact Info) Description 03/11/2026 9:00 AM EDT Office Visit [facility] Hematology Oncology [address] [place] [phone] Riri-Maikel Martínez MD [address] [place] [phone] Health Maintenance Due Date Last Done Comments Cholesterol Screening (Lipid Panel) 08/05/2022 Falls Risk Assessment 08/05/2022 Medicare Annual Wellness Visit 08/05/2022 Social Influencers of Health Screening 08/05/2022 Hypertension/CHF/CAD Annual BMP Blood Test 08/14/2022 Depression Screening 2024 COVID-19 Vaccine ( season) 2025 12/02/2021, 06/25/2021, 11/03/2020, Additional history exists DTaP,Tdap,and Td Vaccines (2 - Td or Tdap) 12/31/2030 12/31/2020 Osteoporosis Screening (Bone Density Screening) 12/20/2034 12/20/2024, 11/19/2022 Pneumococcal Vaccine: 50+ Years Completed 01/10/2017, 05/15/2015 Zoster Vaccines Completed 02/01/2023, 11/24/2022 RSV Immunization Adult Patients Completed 10/24/2024 Influenza Vaccine Completed 05/15/2025, , 05/13/2023, Additional history exists HIB Vaccines Aged Out No longer eligi [...] since the prior examination of 10/30/2022. Code 19164 -------- FINAL REPORT -------- Dictated By: Virgil Beltran Dictated Date: 12/20/2024 10:40 ET Assigned Physician: Virgil Beltran Reviewed and Electronically Signed By: Virgil Beltran Signed Date: 12/20/2024 10:41 ET Workstation ID: [id number] Transcribed By: Self Edit Transcribed Date: 12/20/2024 [...] spine since the priorexamination of 10/30/2022. Code 71373 -------- FINAL REPORT -------- Dictated By: Virgil Beltran Dictated Date: 12/20/2024 10:40 ET Assigned Physician: Virgil Beltran Reviewed and Electronically Signed By: Virgil Beltran Signed Date: 12/20/2024 10:41 ET Workstation ID: [id number] Transcribed By: Self Edit Transcribed Date: 12/20/2024 10:40 ET Subramony Rosendo ZAMBRANO IMG DXA PROCEDURES Final Result from Last 3 Months or Most Recently Relevant to Health Maintenance Insurance [place] [address] Advance Directives Documents on File Type Date Recorded Patient Screw Eye Assembler Expl anation Health Care Decision (hx) 03/10/2018 [...] Care Decision (hx) 03/10/2018 AD GLODSMITH DIRECTIVE Health Care Decision (hx) 03/10/2018 AD [...] (hx) 03/10/2018 AD GOLDSMITH DIRECTIVE Care Teams Casserole Preparer Relationship Specialty Start Date End Date Yen Mejia MD [address] [place] [address] PCP - General Internal Medicine 05/18/22
--- OUTSIDE RECORDS SUMMARY | 2025-07-03 09:51 | XMS_ITS | Encounter Summary ---
Author Organization [facility] Address [address] [place] [address] Phone Care Team Providers Care Mattress Filling Machine Tender Name Role Phone Davie Meija MD Primary Care Provider +1- [phone] Encounter Details Date Type Department Care Team (Late st Contact Info) Description 07/05/2022 Telephone [facility] [address] [place] [phone] Chencho Jang MD Social History Tobacco Use [...] a new updated script. Thank you CB# [phone] documented in this encounter Plan of Treatment Not on file documented as of this encounter Visit Diagnoses Not on filedocumented in this encounter Care Teams Mattress Filling Machine Tender Relationship Specialty Start Date End Date Davie Mejia MD [address] [place] [address] PCP - General Internal Medicine 04/27/22 documented as of this encounter
[2025-07-03 13:49] LABS: Alanine Aminotransferase 22 U/L (0-31); Anion Gap 10 (12-20); Aspartate Amino Transferase 27 U/L (5-31); Blood Urea Nitrogen 25 mg/dL (9-16); Calcium 9.7 mg/dL (8.4-10.2); Carbon Dioxide 28 mmol/L (22-29); Chloride 108 mmol/L (96-108); Cholesterol 200 mg/dL (<200); Estimated Glomerular Filt Rate 35; HDL Cholesterol 74 mg/dL (>40); Potassium 5.3 mmol/L (3.3-5.1); Sodium 141 mmol/L (135-145); Triglycerides 126 mg/dL (<150)
[2025-07-03 14:20] LABS: Folate 5.1 ng/mL (> or = 4.0); Vitamin B12 607 pg/mL (200-900)
== END 2025-07-03 09:10 | disposition home or self-care (01) ==
LOC: HO.HMGCLDS 09:09
PROVIDERS: PCP Internal Medicine; Visit Provider Internal Medicine
DX: I10 Essential (primary) hypertension (principal); E78.5 Hyperlipidemia, unspecified; R73.01 Impaired fasting glucose; R79.89 Other specified abnormal findings of blood chemistry
CPT/HCPCS: 36415; 80048; 80061; 82607; 82746; 83036; 84450; 84460

== ENCOUNTER 2025-07-10 07:43 | Outpatient (AMB) | payer MEDICARE, SELFPAY ==
--- OUTSIDE RECORDS SUMMARY | 2025-07-10 07:46 | XMS_ITS | Clinical Summary ---
Author Organization [facility] Address [address] [facility] [address] [place] [address] Phone Care Team Providers Care Automation Software Engineer Name Role Phone Davie Mejia MD Primary Care Provider +1- [phone] Allergies Active Allergy Reactions Criticality Noted Date Comments Penicillins 05/04/2022 Mouth swells Alma Extract 05/04/2022 Tomato 05/04/2022 Medications anastrozole (ARIMIDEX) [...] patient's age to complete this topic Insurance [facility] Medicare [facility] Medicare Care Teams Automation Software Engineer Relationship Specialty Start Date End Date Davie Mejia MD [address] [place] [address] PCP - General Internal Medicine 04/27/22
--- OUTSIDE RECORDS SUMMARY | 2025-07-10 07:46 | XMS_ITS | Clinical Summary ---
Author Organization [facility] Address [address] [id number] Care Team Providers Care Outreach Representative Name Role Phone Yen Mejia MD Primary Care Provider +1 [phone] Allergies Active Allergy Reactions Criticality Noted Date [...] age to complete this topic Care Teams Outreach Representative Relationship Specialty Start Date End Date Yen Mejia MD [address] [place] [address] PCP - General Internal Medicine 05/18/22
--- OUTSIDE RECORDS SUMMARY | 2025-07-10 07:46 | XMS_ITS | Encounter Summary ---
Author Organization [facility] Address [address] [place] [address] Phone Care Team Providers Care Production Wood Craftsman Name Role Phone Davie Mejia MD Primary Care Provider +1- [phone] Encounter Details Date Type Department Care Team (Late st Contact Info) Description 07/05/2022 Telephone [facility] [address] [place] [phone] Chencho Jang MD Social History Tobacco Use [...] a new updated script. Thank you CB# [phone] documented in this encounter Plan of Treatment Not on file documented as of this encounter Visit Diagnoses Not on filedocumented in this encounter Care Teams Production Wood Craftsman Relationship Specialty Start Date End Date Davie Mejia MD [address] [place] [id number] PCP - General Internal Medicine 04/27/22 documented as of this encounter
--- OUTSIDE RECORDS SUMMARY | 2025-07-10 07:46 | XMS_ITS | Clinical Summary ---
Author Organization [facility] Address [address] [place] [address] Phone Care Team Providers Care Rn Critical Care Name Role Phone Yen Mejia MD Primary Care Provider [phone]- [phone] Allergies Active Allergy Reactions Criticality Noted Date [...] positive ma lignant neoplasm of right breast ([facility] V24, [facility] V28) 04/02/2020 Essential hypertension 10/24/2019 Mixed hyperlipidemia 10/24/2019 Primary osteoarthritis involving multiple joints 10/24/2019 Malignant neoplasm of upper- outer quadrant of left breast in female, estrogen receptor positive ([facility] V24, [facility] V28) Encounters Date Type Department Care Team Description 05/23/2025 9:00 AM EDT Office Visit [facility] Hematology Oncology [address] [place] [address] Maikel Flores MD Malignant neoplasm [...] History Medical History Date Comments Breast cancer ([facility] V24, [facility] V28) DX:Breast cancer ([facility]) BRCA1 gene mutation negative BRCA2 [...] Description 03/11/2026 9:00 AM EDT Office Visit [facility] Hematology Oncology [address] [place] [phone] Riri-Maikel Martínez MD [address] [place] [phone] Health Maintenance Due Date Last Done Comments [...] since the prior examination of 10/30/2022. Code 76446 -------- FINAL REPORT -------- Dictated By: Virgil Beltran Dictated Date: 12/20/2024 10:40 ET Assigned Physician: Virgil Beltran Reviewed and Electronically Signed By: Virgil Beltran Signed Date: 12/20/2024 10:41 ET Workstation ID: [id number] Transcribed By: Self Edit Transcribed Date: 12/20/2024 [...] spine since the priorexamination of 10/30/2022. 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
--- NOTE | 2025-07-10 07:52 | A.OFFPC_ITS ---
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 Training Specialist Required: No Allergies Penicillins Adverse Reaction (Verified 07/10/25 08:15) mouth swells strawberry Adverse Reaction (Verified 07/10/25 08:15) Rash tomato Adverse Reaction (Verified 07/10/25 08:15) Rash Medication List - Last Reconciled 07/10/25 by Yen Mejia MD acetaminophen ER (Tylenol Arthritis Pain) 1,300 mg PO Q8H anastrozole 1 mg PO DAILY ascorbic acid (vitamin C) 500 mg PO DAILY aspirin (Adult Low Dose Aspirin) 81 mg PO DAILY calcium carbonate (Antacid (calcium carbonate)) 200 mg PO DAILY famotidine 40 mg PO DAILY PRN gabapentin 100 mg PO TID hydroxychloroquine 200 mg PO DAILY lisinopril 5 mg PO DAILY rosuvastatin 5 mg PO DAILY vibegron (Gemtesa) 75 mg PO DAILY Tobacco use date assessed: 07/10/25 Fall risk assessment: No Falls in past year Last assessed Fall Risk: 07/10/25 Dental Screening Dental Screen Date: 07/10/25 Did you have a dental visit in the last 12 months?: No Did you have a dental problem in the last 6 months where you did not have access to dental care?: No Was dental information given to patient?: Patient has dentist HPI lipids/htn HPI Details The patient is an 84-year-old female presenting for a follow-up to review recent bone density and laboratory results. She has a history of breast cancer, with the first occurrence 20 years ago and a second, different type in the contralateral breast five or six years ago, which was localized. She has been on anastrozole for four years and is approaching her five-year kameron to stop the medication. Recent bone density results are noted to be good, despite being on anastrozole, but show a 6.3% decrease in the lower back, which is considered significant. The patient reports having arthritis in her knee, confirmed by x-ray, and completed four weeks of physical therapy. She was given a list of exercises and tries to do them daily, including exercises with resistance bands, and also engages in weight-bearing exercises. Recent lab work shows a decline in kidney function, with a creatinine of 1.42 and a glomerular filtration rate of 35, down from 51 earlier in the year. Her HbA1c is 6.2%, and she is not on any medication for it. Her cholesterol has increased slightly, with a total cholesterol of 200, LDL of 101, and triglycerides of 126. Her HDL is 74. Her vitamin D level was normal at 50 on last check, and she no longer takes a supplement. Previously elevated liver enzymes have normalized. Advance care planning is in place, with a healthcare proxy and MOLST form on file from the previous year. [facility] Medical History Impaired fasting glucose Polyarticular osteoarthritis Recurrent urinary tract infection Shortness of breath on exertion CKD (chronic kidney disease) Need for prophylactic antibiotic Annual visit for general adult medical examination with abnormal findings History of bone density study History of Papanicolaou smear of cervix History of mammogram Bilateral shoulder pain Tubular adenoma of colon Congenital hypertrophic pyloric stenosis Post-menopause Heartburn symptom Hx of renal calculi Osteoarthritis of hips, bilateral Hx of breast cancer Dyslipidemia Essential hypertension Surgical History History of bilateral hip replacements History of total right hip arthroplasty Status post right breast lumpectomy S/P lumpectomy, left breast Family History Mother Arthritis Social History Household Members Other:: Son and Grandson Housing: House Alcohol intake: current Alcohol intake frequency: does not drink Patient Tobacco Use Status: Never used Tobacco e-Cigarette/Vaping Use: Never Used Current occupational status: 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 1. Little interest or pleasure in doing things: not at all 2. Feeling down, depressed, or hopeless: not at all 3. Trouble falling or staying asleep, or sleeping too much: not at all 4. Feeling tired or having little energy: not at all 5. Poor appetite or overeating: not at all 6. Feeling bad about yourself - or that you are a failure or have let yourself or your family down: not at all 7. Trouble concentrating on things, such as reading the newspaper or watching television: not at all 8. Moving or speaking so slowly that other people could have noticed. Or the opposite - being so fidgety or restless that you have been moving around a lot more than usual: not at all 9. Thoughts that you would be better off or of hurting yourself in some way: not at all Total score: 0 Depression Screening Interpretation: Negative Depression Screening Done: Yes Source: Developed by Drs. Dayton Atwood, Amy Muniz, Jese Pyle and colleagues, with an educational ellen from [employer]. Thrive Questionnaire Date Thrive assessed: 10/23/24 I am a: Patient What is your living situation today?: I have a steady place to live Within the past 12 months, did the food you bought not last and you didn't have the money to get more?: Never true Within the past 12 months, did you worry whether your food would run out before you got money to buy more?: Never true Do you have trouble paying for medicines?: No Do you have trouble getting transportation to medical appointments?: No Do you have trouble paying your heating and electricity bill?: No Do you have trouble taking care of your child, family member or friend?: No Do you have trouble with day-to-day activities such as bathing, preparing meals, shopping, managing finances, etc.?: No Are you currently unemployed and looking for a job?: No Are you interested in more education?: No Please select the resources that you would like help with: None Currently or been in a relationship where the following occur: No concerns reported THRIVE Score: 0 AUDIT C Alcohol Use Questionnaire (AUDIT-C) 1. How often do you have a drink containing alcohol?: Never Total Score: 0 VENANCIO-7 AMB Questionnaire VENANCIO-7 Date VENANCIO - 7 assessed: 10/23/24 Feeling nervous, anxious, or on edge: 0 = Not at all Not being able to stop or control worryin = Not at all Worrying too much about different things: 0 = Not at all Trouble relaxin = Not at all Being so restless that it is hard to sit still: 0 = Not at all Becoming easily annoyed or irritable: 0 = Not at all Feeling afraid as if something awful might happen: 0 = Not at all Total VENANCIO-7 score (0-4 normal; 5-9 mild; 10-14 moderate; 15-21 severe): 0 Source: Developed by Drs. Dayton Atwood, Amy Muniz, Jese Pyle and colleagues, with an educational ellen from [employer]. Review of Systems Const Reports no additional complaints Eyes Reports no additional complaints ENT Reports no additional complaints Card Reports no additional complaints Resp Reports no additional complaints GI Reports no additional complaints Reports as per HPI Musc Reports no additional complaints Neuro Reports no additional complaints Psych Reports no additional complaints Endo Reports no additional complaints Alexis/Lymph Reports no additional complaints Aller/Immun Reports no additional complaints Physical exam (Primary Care) Vital Signs: Last Vital Signs Temp 97.8 F 07/10/25 08:01 Pulse 91 07/10/25 08:01 Resp 16 07/10/25 08:01 BP 136/62 07/10/25 08:01 Pulse Ox 100 07/10/25 08:01 Oxygen Delivery Method Room Air 07/10/25 08:01 BMI result Body Mass Index 25.2 Tobacco/Smoking Status: Tobacco use Status Tobacco use date assessed 07/10/25 07/10/25 08:04 Patient Tobacco Use Status Never used Tobacco 07/10/25 07:52 e-Cigarette/Vaping Use Never Used 07/10/25 07:52 PHQ-9: PHQ-9 Score PHQ-9: Total score 0 07/10/25 08:18 Depression Screening Interpretation: Negative Thrive Assessment: Date of Thrive Assessment Date Thrive assessed 10/23/24 07/10/25 07:52 Currently or been in a relationship where the following occur: No concerns reported Const General: comfortable, no acute distress and alert Orientation/consciousness: patient oriented x3 HENMT Head: Yes normocephalic Ears: external ears normal General nose exam: Normal external nose present Face and sinus: Yes face symmetric Mouth: Normal oral and palatal mucosa present and moist mucous membranes Eyes General: appearance normal, both eyes and all related structures Neck Neck: Yes full ROM, Yes no lymphadenopathy, Yes supple and Yes no JVD Carotids: no bruits Resp Effort & Inspection: normal respiratory effort and able to speak in complete sentences Auscultation: clear to auscultation bilaterally Cardio Rate: regular rate Rhythm: regular rhythm Heart sounds: S1 normal heart sound present and S2 normal heart sound present GI Inspection: Yes normal to inspection Palpation (GI): Soft to palpation, nontender, no guarding and no masses Auscultation: normal bowel sounds General: Yes no CVA tenderness Back/Spine/Pelvis Back: no CVA tenderness and No back tenderness Skin General skin exam: no rashes or lesions noted Neuro General: patient oriented x3, gait normal, tone normal, moves all extremities and no focal motor deficits Extrem Right lower extremity: edema (trace) Left lower extremity: edema (trace) Psych Appearance: grossly normal Mental Status: mental status grossly normal Speech and movement: Normal speech and movement present Affect: normal affect Results Reviewed Results Reviewed: Name: Dolly Parker Age/Sex: 84/F : 1940 Unit#: [id number] Attend Dr: Yen Mejia MD Re07/03/25 Status: DEP REF Location: [facility] Disch: SPEC : [id number] EMILIO: 07/03/25 STATUS: COMP REQ : [id number] RECD: 07/03/[address]: Yen Mejia MD COMP: 07/03/25 ENTERED: 07/03/[address] [facility] [address]: ORDERED: Met Prof Fast, AST, ALT, Lipid Panel Test Result Flag Reference Sodium 141 135-145 mmol/L Potassium 5.3 H 3.3-5.1 mmol/L CL 108 96-108 mmol/L CO2 28 22-29 mmol/L Gap 10 L 12-20 BUN 25 H 9-16 mg/dL Creat 1.42 H 0.5-1.4 mg/dL eGFR 35 Chronic Kidney Disease: Estimated GFR < 60 mL/min/1.73m2 Severe Kidney Disease: Estimated GFR < 15 mL/min/1.73m2 FBS 104 H 60-99 mg/dL A fasting glucose from 100-125 mg/dl is considered impaired (pre-diabetes). CA 9.7 8.4-10.2 mg/dL AST (GOT) 27 5-31 U/L ALT (GPT) 22 0-31 U/L Triglyceride 126 <150 mg/dL Desirable Triglyceride: less than 150 mg/dL Borderline High Triglyceride 150-199 mg/dL High Triglyceride: 200-499 mg/dL Very High Triglyceride: greater than or equal to 5OO mg/dL Cholesterol 200 H <200 mg/dL Desirable Cholesterol: less than 200 mg/dL Borderline High Cholesterol: 200-239 mg/dL High Cholesterol: greater than 239 mg/dL LDL Calculated 101 H <100 mg/dL Desirable LDL: less than 100 mg/dL Near Optimal/Above Optimal LDL: 110-129 mg/dL Borderline High LDL: 130-159 mg/dL High LDL: 160-189 mg/dL Very High LDL: greater than or equal to 190 mg/dL HDL 74 >40 mg/dL Desirable HDL: greater than 40 mg/dL Coding Level of Care Code Est Pt Level 4 (92493) Complex EM visit Add On G2211 Diagnoses Essential hypertension I10 Dyslipidemia E78.5 Hx of breast cancer Z85.3 Heartburn symptom R12 CKD (chronic kidney disease) N18.9 Impaired fasting glucose R73.01 OAB (overactive bladder) N32.81 Assessment & Plan Assessment & Plan (1) Essential hypertension: Code(s): I10 - Essential (primary) hypertension Category: Medical Plan: Blood pressure stable on present treatment, continued on lisinopril 5 mg daily and reinforced importance of adhering to healthy eating habits and regular exercise (2) Dyslipidemia: Code(s): E78.5 - Hyperlipidemia, unspecified Category: Medical Plan: Fasting lipids are within normal limits, continued on rosuvastatin 5 mg daily (3) Hx of breast cancer: Comment: bilateral - 1998 and 2020 negative BRCA testing, previously was on tamoxifen now on anastrozole, sees Dr Maikel Martínez Code(s): Z85.3 - Personal history of malignant neoplasm of breast Category: Medical Plan: Currently on anastrozole (4) Heartburn symptom: Code(s): R12 - Heartburn Category: Medical Plan: Currently taking famotidine 40 mg once a day as needed for heartburn episodes (5) CKD (chronic kidney disease): Code(s): N18.9 - Chronic kidney disease, unspecified Category: Medical Plan: Currently being followed by Nephrology, advised avoidance of NSAIDs and nephrotoxic agents and staying well hydrated (6) Impaired fasting glucose: Code(s): R73.01 - Impaired fasting glucose Category: Medical Plan: Your previous fasting blood sugars were elevated above 100 mg/dL. Impaired glucose metabolism increases the risk for developing diabetes mellitus type 2, as well as heart attack and stroke later on. Lifestyle changes that promotes weight loss, healthy eating habits, and regular exercise are important, and can prevent the progression to diabetes (7) OAB (overactive bladder): Code(s): N32.81 - Overactive bladder Category: Medical Plan: Followed by Urology currently on Gemtesa Orders: Orders Hemoglobin A1c 10/28/25 E78.5 - Hyperlipidemia, unspecified, I10 - Essential (primary) hypertension, N18.9 - Chronic kidney disease, unspecified, N32.81 - Overactive bladder, R12 - Heartburn, R73.01 - Impaired fasting glucose, Z85.3 - Personal history of malignant neoplasm of breast Lipid Panel 10/28/25 E78.5 - Hyperlipidemia, unspecified, I10 - Essential (primary) hypertension, N18.9 - Chronic kidney disease, unspecified, N32.81 - Overactive bladder, R12 - Heartburn, R73.01 - Impaired fasting glucose, Z85.3 - Personal history of malignant neoplasm of breast Alanine Aminotransferase 10/28/25 E78.5 - Hyperlipidemia, unspecified, I10 - Essential (primary) hypertension, N18.9 - Chronic kidney disease, unspecified, N32.81 - Overactive bladder, R12 - Heartburn, R73.01 - Impaired fasting glucose, Z85.3 - Personal history of malignant neoplasm of breast Hemoglobin and Hematocrit 10/28/25 E78.5 - Hyperlipidemia, unspecified, I10 - Essential (primary) hypertension, N18.9 - Chronic kidney disease, unspecified, N32.81 - Overactive bladder, R12 - Heartburn, R73.01 - Impaired fasting glucose, Z85.3 - Personal history of malignant neoplasm of breast Aspartate Amino Transferase 10/28/25 E78.5 - Hyperlipidemia, unspecified, I10 - Essential (primary) hypertension, N18.9 - Chronic kidney disease, unspecified, N32.81 - Overactive bladder, R12 - Heartburn, R73.01 - Impaired fasting glucose, Z85.3 - Personal history of malignant neoplasm of breast
[2025-07-10 08:01] VITALS: BP 136/62; PULSE 91; RESP 16; TEMP 36.6; O2SAT 100; BMI 25.2
== END 2025-07-10 09:04 | disposition home or self-care (01) ==
LOC: HO.HMCC 07:43
PROVIDERS: PCP Internal Medicine; Visit Provider Internal Medicine
DX: I12.9 Hypertensive chronic kidney disease with stage 1 through stage 4 chronic kidney disease, or unspecified chronic kidney disease (principal); E78.5 Hyperlipidemia, unspecified; Z85.3 Personal history of malignant neoplasm of breast; R12 Heartburn; N18.9 Chronic kidney disease, unspecified; R73.01 Impaired fasting glucose; N32.81 Overactive bladder

== ENCOUNTER → 2025-07-10 07:43 | Outpatient (BNVA) | payer MEDICARE, SELFPAY | PROVIDERS: PCP Internal Medicine; Visit Provider Internal Medicine | DX: I10 Essential (primary) hypertension (principal); E78.5 Hyperlipidemia, unspecified; R12 Heartburn; R73.01 Impaired fasting glucose; N18.9 Chronic kidney disease, unspecified; N32.81 Overactive bladder; Z85.3 Personal history of malignant neoplasm of breast | CPT/HCPCS: 99212 ==